=== PATIENT | female | born 1955 | race Caucasian/White ===

== ENCOUNTER 2016-06-13 18:27 | Observation (INO) ==
[2016-06-13] MEDS ORDERED: *HR* Dextrose 50 % in Water (Syg) 50 ML SYRINGE IVP PRN (20:15)
[2016-06-13] MEDS ORDERED: Insulin Regular, Human 100 UNIT/ML IV ONE (20:15)
--- NOTE | 2016-06-13 20:29 | Emergency Department Note ---
Disposition Clinical Impression: Hyperglycemia Non-Hodgkin lymphoma Qualifiers: Non-Hodgkin lymphoma type: follicular Follicular lymphoma type: unspecified follicular type Lymphoma site: unspecified region Qualified Code(s): C82.90 - Follicular lymphoma, unspecified, unspecified site Disposition: Admitted As Inpatient Condition: Good Time of Disposition: 22:34 Recheck wound or abnormal lab - General Chief Complaint: ED General Medical Stated Complaint: hyperglycemia from cancer center Time Seen by Provider: 06/13/16 20:00 Source: patient, family Limitations: no limitations Nursing Notes Reviewed: Yes Vital Signs Reviewed: Yes - History of Present Illness HPI Narrative: 61-year-old female with obesity, insulin-dependent diabetes, non-Hodgkin's lymphoma, chemotherapy today with Dr. Burnett, patient presents with hyperglycemia, her blood sugars were 670 today in office, they were very labile when down to 200 and she went home and ate a piece of toast and then went back up to 500. Patient reports mild headache, she reports mild diffuse abdominal pain but no specific quadrant tenderness. Patient states her headaches at 3 out of 10, crampy. Patient denies any other symptoms denies vision changes chest pain or shortness of breath. Pt Subjective Complaint: abnormal lab(s) ([id number]) Symptoms Since Prior Visit: no new symptoms Associated symptoms: nausea - Related Data Home Medications Medication Instructions Recorded Confirmed Cetirizine HCl [Zyrtec] 10 mg PO DAILY 05/08/15 06/13/16 Insulin Glargine,Hum.rec.anlog 45 unit SQ HS 05/08/15 06/13/16 [Lantus Solostar] Omeprazole 20 mg PO DAILY 05/08/15 06/13/16 Acetaminophen [Tylenol] 500 mg PO Q6HR PRN 01/13/16 06/13/16 Albuterol Sulfate [Albuterol 2 puff IH Q4HR PRN 01/13/16 06/13/16 Inhaler] Fluticasone Propionate Nasal 1 spray NS DAILY 01/13/16 06/13/16 [Flonase] Lisinopril/Hydrochlorothiazide 1 tab PO DAILY 01/13/16 06/13/16 [Zestoretic 20-25 mg Tablet] Meloxicam 15 mg PO DAILY 01/13/16 06/13/16 Aspirin Enteric Coated [Aspirin EC] 81 mg PO DAILY 06/13/16 06/13/16 Docusate [Colace] 100 mg PO DAILY 06/13/16 06/13/16 Gabapentin [Neurontin] 800 mg PO TID 06/13/16 06/13/16 HYDROmorphone [Dilaudid] 2 mg PO Q12H PRN 06/13/16 06/13/16 Lidocaine/Prilocaine CREAM [Emla] 1 gm TP ONCE PRN 06/13/16 06/13/16 Nystatin POWDER [Nystop] 1 appl TP BID 06/13/16 06/13/16 Topiramate [Topamax] 50 mg PO BID 06/13/16 06/13/16 Triamcinolone Acet 0.1% CRM 1 appl TP BID 06/13/16 06/13/16 [Kenalog] Previous Rx's Medication Instructions Recorded Insulin ASPART [NovoLOG] 5 unit SQ TIDWM #10 vial 06/14/16 Insulin DETEMIR [Levemir] 45 unit SQ HS [id number] 06/14/16 Allergies Allergy/AdvReac Type Severity Reaction Status Date / Time diphenhydramine AdvReac See Verified 11/10/14 09:34 [From Benadryl] Comments Oxycodone AdvReac Itching Verified 11/10/14 09:35 All systems ED: reviewed and negative except as stated. Constitutional: Denies: fever, chills, weakness ENT ED: Denies: ear pain, throat pain Cardiovascular: Denies: chest pain, palpitations Respiratory: Denies: cough, dyspnea, wheezes Gastrointestinal: Reports: as per HPI, nausea. Denies: abdominal pain Genitourinary: Denies: urgency, dysuria Integumentary: Denies: rash, abrasion Neurological: Reports: as per HPI, headache Past Medical History - Past Medical History Attestation: Yes The following information was validated with the patient. Source: patient Medical history: Reports: cancer, CVA, DVT, diabetes, GERD, hypertension, myocardial infarction Psychiatric history: Reports: no psych history - Social History Smoking Status: Never smoker Smokeless Tobacco Status: No Alcohol use: Reports: none Drug use: Reports: none Physical Exam Constitutional: Obese female in no acute distress vital signs reviewed and within normal limits HEENT: NCAT, sclera anicteric, PERRLA bilaterally, normal external ears bilaterally, nasal septum nondeviated, average dentition, MMM Neck: normal inspection, neck is supple, trachea midline Resp: normal chest inspection, CTA bilaterally, no resp distress CV: RRR, no m/g/r GI:obese abdomen normal inspection soft nontender nondistended. Back: normal inspection, no tenderness to palpation Neuro: A&O3, no gross motor sensory neuropathydec light touch bilateral lower extremities which is consistent with her baseline Skin: No rashes, skin warm, dry, intact - General Limitations: no limitations General appearance: alert, in no apparent distress Course Course Narrative: 89yo female with hyperglycemia, insulin dependent diabetes history of [place], history of lymphoma, active chemotherapy, sent by Dr Bhagat oncology for admission , high-risk patient likely will admit to inpatient service will evaluate for DKA with Beta hydroxy acid VBG work urinalysis reassess - Reevaluation(s) Reevaluation #1: Patient with hyperglycemia, no evidence of DKA on lab work, normal VBG, admit to medicine service with oncology consult. Dr. Marie accepting. Time: 22:20 Vital Signs Temperature 98.6 F 06/13/16 18:44 Pulse Rate 107 06/13/16 18:44 Respiratory Rate 16 06/13/16 18:44 Blood Pressure 168/89 06/13/16 18:44 O2 Sat by Pulse Oximetry 97 06/13/16 18:44 Temperature 97.7 F 06/14/16 16:28 Pulse Rate 84 06/14/16 16:28 Respiratory Rate 18 06/14/16 16:28 Blood Pressure 126/80 06/14/16 16:28 O2 Sat by Pulse Oximetry 95 06/14/16 16:28 Oxygen Delivery Oxygen Delivery Room Air Recheck wound or abnormal lab - MDM Narrative Medical decision making narrative: 61 year-old female with hyperglycemia lymphoma, admitted to the hospitalist service in stable condition. - Differential Diagnosis Likely: encounter for medication refill, encounter for recheck of burn - Medical Records Medical records reviewed: Yes I reviewed the patient's medical records. - Lab Data Lab results reviewed: Yes I reviewed the patient's lab results. Result diagrams: 06/13/16 20:47 06/13/16 20:47 Lab Results 06/13/16 06/13/16 06/13/16 Range/Units 19:10 20:47 20:47 WBC 8.0 (4.3-11.1) K/mcL RBC 4.25 (3.82-4.97) M/mcL Hgb 13.2 (11.5-15.4) g/dL Hct 36.9 (35.3-44.9) % MCV 86.8 (83.0-100.0) fL MCH 31.1 (28.0-33.3) pg MCHC 35.8 H (31.6-35.5) g/dL RDW 11.9 (11.5-14.5) % Plt Count 249 (140-400) K/mcL MPV 10.6 (9.4-12.4) fL Immature Gran % 0.5 (0-4) % Seg Neutrophils % 91.6 % Lymphocytes % 6.4 % Monocytes % 1.4 % Eosinophils % 0.0 % Basophils % 0.1 % Neutrophils # 7.3 (1.6-8.9) K/mcL Lymphocytes # 0.5 L (0.6-4.6) K/mcL Monocytes # 0.1 (0.0-1.3) K/mcL Eosinophils # 0.0 (0.0-0.6) K/mcL Basophils # 0.0 (0.0-0.2) K/mcL VBG pH (7.32-7.42) pH Units VBG pCO2 (41-51) mmHg VBG pO2 (25-40) mmHg VBG HCO3 (21-27) mEq/L Sodium 133 L (136-145) mEq/L Potassium 4.0 (3.5-4.5) mEq/L Chloride 101 (98-109) mEq/L Carbon Dioxide 22 (19-29) mEq/L BUN 24 H (7-20) mg/dL Creatinine 0.89 (0.57-1.11) mg/dL Est GFR ( Amer) > 60 (> 60) Est GFR (Non-Af Amer) > 60 (> 60) BUN/Creatinine Ratio 27 H (6-26) Glucose 459 H (70-99) mg/dL POC Glucose 442 H* (58-89) Calculated Osmolality 300 (280-300) Lactic Acid (0.5-2.2) mmol/L Calcium 9.1 (8.6-10.8) mg/dL Total Bilirubin 0.6 (0.2-1.2) mg/dL AST 13 (5-34) Units/L ALT 20 (0-55) Units/L Alkaline Phosphatase 103 (38-126) Units/L Troponin I (0-0.03) ng/mL Serum Total Protein 6.5 (6.0-8.3) g/dL Albumin 2.9 L (3.5-5.0) g/dL Globulin 3.6 H (2.4-3.5) g/dL Albumin/Globulin Ratio 0.8 L (1.1-2.2) Beta-Hydroxybutyric Acd 0.90 H (0.02-0.27) mmol/L 06/13/16 06/13/16 06/13/16 Range/Units 20:47 20:47 20:47 WBC (4.3-11.1) K/mcL RBC (3.82-4.97) M/mcL Hgb (11.5-15.4) g/dL Hct (35.3-44.9) % MCV (83.0-100.0) fL MCH (28.0-33.3) pg MCHC (31.6-35.5) g/dL RDW (11.5-14.5) % Plt Count (140-400) K/mcL MPV (9.4-12.4) fL Immature Gran % (0-4) % Seg Neutrophils % % Lymphocytes % % Monocytes % % Eosinophils % % Basophils % % Neutrophils # (1.6-8.9) K/mcL Lymphocytes # (0.6-4.6) K/mcL Monocytes # (0.0-1.3) K/mcL Eosinophils # (0.0-0.6) K/mcL Basophils # (0.0-0.2) K/mcL VBG pH 7.40 (7.32-7.42) pH Units VBG pCO2 39 L (41-51) mmHg VBG pO2 57 H (25-40) mmHg VBG HCO3 24.2 (21-27) mEq/L Sodium (136-145) mEq/L Potassium (3.5-4.5) mEq/L Chloride (98-109) mEq/L Carbon Dioxide (19-29) mEq/L BUN (7-20) mg/dL Creatinine (0.57-1.11) mg/dL Est GFR ( Amer) (> 60) Est GFR (Non-Af Amer) (> 60) BUN/Creatinine Ratio (6-26) Glucose (70-99) mg/dL POC Glucose (58-89) Calculated Osmolality (280-300) Lactic Acid 0.9 (0.5-2.2) mmol/L Calcium (8.6-10.8) mg/dL Total Bilirubin (0.2-1.2) mg/dL AST (5-34) Units/L ALT (0-55) Units/L Alkaline Phosphatase (38-126) Units/L Troponin I 0.00 (0-0.03) ng/mL Serum Total Protein (6.0-8.3) g/dL Albumin (3.5-5.0) g/dL Globulin (2.4-3.5) g/dL Albumin/Globulin Ratio (1.1-2.2) Beta-Hydroxybutyric Acd (0.02-0.27) mmol/L 06/13/16 Range/Units 21:48 WBC (4.3-11.1) K/mcL RBC (3.82-4.97) M/mcL Hgb (11.5-15.4) g/dL Hct (35.3-44.9) % MCV (83.0-100.0) fL MCH (28.0-33.3) pg MCHC (31.6-35.5) g/dL RDW (11.5-14.5) % Plt Count (140-400) K/mcL MPV (9.4-12.4) fL Immature Gran % (0-4) % Seg Neutrophils % % Lymphocytes % % Monocytes % % Eosinophils % % Basophils % % Neutrophils # (1.6-8.9) K/mcL Lymphocytes # (0.6-4.6) K/mcL Monocytes # (0.0-1.3) K/mcL Eosinophils # (0.0-0.6) K/mcL Basophils # (0.0-0.2) K/mcL VBG pH (7.32-7.42) pH Units VBG pCO2 (41-51) mmHg VBG pO2 (25-40) mmHg VBG HCO3 (21-27) mEq/L Sodium (136-145) mEq/L Potassium (3.5-4.5) mEq/L Chloride (98-109) mEq/L Carbon Dioxide (19-29) mEq/L BUN (7-20) mg/dL Creatinine (0.57-1.11) mg/dL Est GFR ( Amer) (> 60) Est GFR (Non-Af Amer) (> 60) BUN/Creatinine Ratio (6-26) Glucose (70-99) mg/dL POC Glucose 322 H (58-89) Calculated Osmolality (280-300) Lactic Acid (0.5-2.2) mmol/L Calcium (8.6-10.8) mg/dL Total Bilirubin (0.2-1.2) mg/dL AST (5-34) Units/L ALT (0-55) Units/L Alkaline Phosphatase (38-126) Units/L Troponin I (0-0.03) ng/mL Serum Total Protein (6.0-8.3) g/dL Albumin (3.5-5.0) g/dL Globulin (2.4-3.5) g/dL Albumin/Globulin Ratio (1.1-2.2) Beta-Hydroxybutyric Acd (0.02-0.27) mmol/L Attestation Statement - Attestation Attestation: I examined this patient and my medical decision-making was reviewed with the TONAL REGULATOR/PA/Advanced Practice Nurse/Resident Physician. I agree with the documented findings, disposition and treatment plan as described except to the extent set forth below. 61 yo female presents with concerns of hyperglycemia. Pt treated at [facility] for lymphoma and is unable to control her sugars at home. Pt has elevated FSBS but does not have anion gap. No UTI or acute infiltrate on CXR. Onchology/hematology wished for her to be admitted for evaluation of insulin pump. Pt given insulin and will be admitted to the hospital for further care and evaluation.
[2016-06-13] MEDS ORDERED: 0.9 % Sodium Chloride 1,000 ML IVC ONE (20:53)
[2016-06-13 20:54] LABS: Basophils % 0.1 %; Hematocrit 36.9 % (35.3-44.9); Hemoglobin 13.2 g/dL (11.5-15.4); Immature Granulocytes % 0.5 % (0-4); Lymphocytes # 0.5 K/mcL (0.6-4.6); Lymphocytes % 6.4 %; Mean Corpuscular HGB Conc 35.8 g/dL (31.6-35.5); Mean Corpuscular Hemoglobin 31.1 pg (28.0-33.3); Mean Corpuscular Volume 86.8 fL (83.0-100.0); Mean Platelet Volume 10.6 fL (9.4-12.4); Monocytes # 0.1 K/mcL (0.0-1.3); Monocytes % 1.4 %; Neutrophils # 7.3 K/mcL (1.6-8.9); Platelet Count 249 K/mcL (140-400); Red Blood Count 4.25 M/mcL (3.82-4.97); Red Cell Distribution Width 11.9 % (11.5-14.5); Segmented Neutrophils % 91.6 %
[2016-06-13 20:55] LABS: VBG HCO3 24.2 mEq/L (21-27); VBG PH 7.4 pH Units (7.32-7.42)
[2016-06-13 21:09] LABS: Alanine Aminotransferase 20 Units/L (0-55); Albumin 2.9 g/dL (3.5-5.0); Albumin/Globulin Ratio 0.8 (1.1-2.2); Alkaline Phosphatase 103 Units/L (38-126); Aspartate Amino Transferase 13 Units/L (5-34); BUN/Creatinine Ratio 27 (6-26); Bilirubin,Total 0.6 mg/dL (0.2-1.2); Blood Urea Nitrogen 24 mg/dL (7-20); Calcium 9.1 mg/dL (8.6-10.8); Carbon Dioxide 22 mEq/L (19-29); Chloride 101 mEq/L (98-109); Globulin 3.6 g/dL (2.4-3.5); Glucose 459 mg/dL (70-99); Osmolality,Calculated 300 (280-300); Sodium 133 mEq/L (136-145); Total Protein 6.5 g/dL (6.0-8.3); eGFR For African Americans > 60 (> 60); eGFR For Non-African Americans > 60 (> 60)
[2016-06-14] MEDS ORDERED: traMADol 50 MG TABLET PO ONE (01:29)
[2016-06-14] MEDS ORDERED: Insulin LISPRO 300 UNITS/3 ML VIAL SQ ONE (02:44)
[2016-06-14 03:26] LABS: Bilirubin,Urine Negative (Negative); Blood,Urine Negative (Negative); Clarity,Urine Clear (Clear); Color,Urine Yellow (Yellow); Glucose,Urine (UA) >=1000 mg/dL (Normal); Ketones,Urine Negative (Negative); Leukocyte Esterase,Urine Negative (Negative); Nitrite,Urine Negative (Negative); PH,Urine 7.5 pH Units (5.0-8.0); Protein,Urine Negative (Neg-Trace); Urobilinogen,Urine Normal (Normal)
[2016-06-14] MEDS: 0.9 % Sodium Chloride 1,000 ML IVC SCH ×3 (04:16→12:22)
[2016-06-14] MEDS ORDERED: Naloxone 0.4 MG/ML INJ IVP PRN (04:51)
[2016-06-14] MEDS ORDERED: *HR* Dextrose 50 % in Water (Syg) 50 ML SYRINGE IVP PRN (04:52)
[2016-06-14] MEDS ORDERED: D5% in Water 1,000 ML IVC PRN (04:52)
[2016-06-14] MEDS ORDERED: Dextrose Gel 15 GM PO PRN ×2 (04:52)
--- NOTE | 2016-06-14 04:57 | Internal Med History&Physical ---
Date of Encounter: 06/14/16 Time of Encounter: 03:00 Assessment and Plan (1) Hyperglycemia Current visit: Yes Status: Acute Treat with Insulin sliding scale and continue home insulin. (2) Diabetes mellitus, labile Current visit: Yes Status: Acute Apparently had recent hemoglobin A1c is 14%. I have advised her on diet and exercise. Will consult nursing educator. Need titration of insulin regime. (3) Non-Hodgkin lymphoma Current visit: Yes Status: Chronic Qualifiers: Non-Hodgkin lymphoma type: follicular Follicular lymphoma type: unspecified follicular type Lymphoma site: unspecified region Qualified Code (s): C82.90 - Follicular lymphoma, unspecified, unspecified site (4) Hypertension Current visit: Yes Status: Chronic COntinue home medications Qualifiers: Hypertension type: essential hypertension Qualified Code(s): I10 - Essential (primary) hypertension (5) Peripheral neuropathy Current visit: Yes Status: Chronic Due to DM. continue gabapentin Qualifiers: Peripheral neuropathy type: polyneuropathy associated with underlying disease Qualified Code(s): G63 - Polyneuropathy in diseases classified elsewhere Internal Medicine - H&P: HPI Chief complaint: Hyperglycemia Admitted From: Emergency Dept Plans for Post Hospital Care: Home History of present illness: Ms. Peña is a 61 year old female with h/o obesity, insulin-dependent diabetes, non-Hodgkin's lymphoma. She was in oncologists office for chemotherapy and she was noted to have blood sugars were 670 today in the office. She was given insulin in the oncologist's office. She went home and checked her blood sugars , which went up to over 500 after she had a slice of bread. She reports polyuria, polydipsia, dizziness on standing some times. She reports mild headache. She denies chest pain, shortness of breath, nausea, vomiting, abdominal pain, dysuria, hematuria, fever, chills. She was evaluated in the emergency department and admitted to the hospitalist service for management of hyperglycemia. She reports h/o peripheral neuropathy, retinopathy related to diabetes. She also reports h/o cataracts. She reports that she is on fixed income and dietary compliance is a problem. Past Med Surg Social Fam HX - Past Medical History Medical history: cancer, CVA, DVT, diabetes, GERD, hypertension, migraine, myocardial infarction Psychiatric history: no psych history - Social History Smoking Status: Never smoker Smokeless Tobacco Status: No Alcohol use: none Drug use: none - Family History Father Adopted: Yes Family Member Ethnicity: Non- Living Status: Age at : 61 Cause of : Prostate cancer Brother Adopted: Yes Age: 58 Family Member Ethnicity: Non- Living Status: Still Living Hx Family Autoimmune Disorders: Yes (Lupus) Internal Medicine - H&P: Meds Cetirizine HCl [Zyrtec] 10 mg PO DAILY 05/08/15 [History] Insulin Aspart Prot/Insuln Asp [Novolog Mix 70-30 Vial] 0 unit SQ TIDAC [History] Insulin Glargine,Hum.rec.anlog [Lantus Solostar] 45 unit SQ HS 05/08/15 [History ] Omeprazole 20 mg PO DAILY 05/08/15 [History] Acetaminophen [Tylenol] 500 mg PO Q6HR PRN 01/13/16 [History] Albuterol Sulfate [Albuterol Inhaler] 2 puff IH Q4HR PRN 01/13/16 [History] Fluticasone Propionate Nasal [Flonase] 1 spray NS DAILY 01/13/16 [History] Lisinopril/Hydrochlorothiazide [Zestoretic 20-25 mg Tablet] 1 tab PO DAILY 01/12 [History] Meloxicam 15 mg PO DAILY 01/13/16 [History] Aspirin Enteric Coated [Aspirin EC] 81 mg PO DAILY 06/13/16 [History] Docusate [Colace] 100 mg PO DAILY 06/13/16 [History] Gabapentin [Neurontin] 800 mg PO TID 06/13/16 [History] HYDROmorphone [Dilaudid] 2 mg PO Q12H PRN 06/13/16 [History] Lidocaine/Prilocaine CREAM [Emla] 1 gm TP ONCE PRN 06/13/16 [History] Nystatin POWDER [Nystop] 1 appl TP BID 06/13/16 [History] Topiramate [Topamax] 50 mg PO BID 06/13/16 [History] Triamcinolone Acet 0.1% CRM [Kenalog] 1 appl TP BID 06/13/16 [History] Allergies diphenhydramine [From Benadryl] Adverse Reaction (Verified 11/10/14 09:34) See Comments makes nervous Oxycodone Adverse Reaction (Verified 11/10/14 09:35) Itching All Systems PM: A 10-system review of systems was performed and is negative for pertinent findings except as documented above in the HPI. - Constitutional Vitals: Temp Pulse Resp BP Pulse Ox 98.3 F 75 18 135/71 96 06/14/16 04:18 06/14/16 04:18 06/14/16 04:18 06/14/16 04:18 06/14/16 04:18 Exam: General: Not in acute distress at the time of my evaluation. Morbid obesity ( central) HEENT: Oral mucosa is dry. No conjunctival palor or scleral icterus Neck: No obvious neck swellings Lungs: Clear to auscultation Cardiac: Regular rate and rhythm. No significant murmurs Abdomen: Obese; non tender. Bowel sounds present Genitourinary: No rankin catheter Neurological: Alert and oriented. No gross localizing deficits Psych: Not aggressive or agitated Extremities: B/L leg edema Skin: No generalized rash Internal Med - H&P Results - Labs CBC & Chem 7: 06/13/16 20:47 06/13/16 20:47 Labs: Urine 06/14/16 Range/Units 02:55 Urine Color Yellow (Yellow) Urine Clarity Clear (Clear) Urine pH 7.5 (5.0-8.0) pH Units Ur Specific [place] 1.020 (1.010-1.025) Urine Protein Negative (Neg-Trace) mg/dL Urine Glucose (UA) >=1000 H (Normal) mg/dL - Impressions ITS Impressions Chest X-Ray 06/13/16 20:15 IMPRESSION: No acute process. D/ / Praneeth Mendoza MD / Praneeth Mendoza MD Interpreting Provider: Praneeth Mendoza MD
[2016-06-14] MEDS: Insulin LISPRO 300 UNITS/3 ML VIAL SQ SCH ×2 (07:57→12:18)
[2016-06-14] MEDS ORDERED: Aspirin Enteric Coated 81 MG Tablet PO SCH (09:00)
[2016-06-14] MEDS ORDERED: Nystatin POWDER 30 GM BOTTLE TP SCH (09:00)
[2016-06-14] MEDS ORDERED: Topiramate 25 MG TABLET PO SCH (09:00)
[2016-06-14] MEDS ORDERED: Fluticasone Propionate Nasal 50 MCG/SPRAY BOTTLE NS SCH (09:00)
[2016-06-14] MEDS ORDERED: Gabapentin 400 MG CAPSULE PO SCH (09:00)
--- NOTE | 2016-06-14 13:50 | Discharge Summary ---
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; E10.65 - Type 1 diabetes mellitus with hyperglycemia (2) Non-Hodgkin lymphoma Priority: Secondary Status: Chronic Qualifiers: Non-Hodgkin lymphoma type: follicular Follicular lymphoma type: unspecified follicular type Lymphoma site: unspecified region Qualified Code (s): C82.90 - Follicular lymphoma, unspecified, unspecified site (3) Hyperglycemia Priority: Primary Status: Acute (4) Hypertension Priority: Primary Status: Chronic Qualifiers: Hypertension type: essential hypertension Qualified Code(s): I10 - Essential (primary) hypertension (5) Peripheral neuropathy Priority: Secondary Status: Chronic Qualifiers: Peripheral neuropathy type: polyneuropathy associated with underlying disease Qualified Code(s): G63 - Polyneuropathy in diseases classified elsewhere - Discharge Medications Prescriptions: Insulin Aspart Prot/Insuln Asp [Novolog Mix 70-30 Vial] 5 unit SQ TIDAC #10 vial Home Medications: Cetirizine HCl [Zyrtec] 10 mg PO DAILY 05/08/15 [History] Insulin Glargine,Hum.rec.anlog [Lantus Solostar] 45 unit SQ HS 05/08/15 [History ] Omeprazole 20 mg PO DAILY 05/08/15 [History] Acetaminophen [Tylenol] 500 mg PO Q6HR PRN 01/13/16 [History] Albuterol Sulfate [Albuterol Inhaler] 2 puff IH Q4HR PRN 01/13/16 [History] Fluticasone Propionate Nasal [Flonase] 1 spray NS DAILY 01/13/16 [History] Lisinopril/Hydrochlorothiazide [Zestoretic 20-25 mg Tablet] 1 tab PO DAILY 01/12 [History] Meloxicam 15 mg PO DAILY 01/13/16 [History] Aspirin Enteric Coated [Aspirin EC] 81 mg PO DAILY 06/13/16 [History] Docusate [Colace] 100 mg PO DAILY 06/13/16 [History] Gabapentin [Neurontin] 800 mg PO TID 06/13/16 [History] HYDROmorphone [Dilaudid] 2 mg PO Q12H PRN 06/13/16 [History] Lidocaine/Prilocaine CREAM [Emla] 1 gm TP ONCE PRN 06/13/16 [History] Nystatin POWDER [Nystop] 1 appl TP BID 06/13/16 [History] Topiramate [Topamax] 50 mg PO BID 06/13/16 [History] Triamcinolone Acet 0.1% CRM [Kenalog] 1 appl TP BID 06/13/16 [History] Insulin Aspart Prot/Insuln Asp [Novolog Mix 70-30 Vial] 5 unit SQ TIDAC #10 vial 06/14/16 [Rx] Insulin DETEMIR [Levemir] 45 unit SQ HS [id number] 06/14/16 [Rx] Allergies/Adverse Reactions: Allergies diphenhydramine [From Benadryl] Adverse Reaction (Verified 11/10/14 09:34) See Comments makes nervous Oxycodone Adverse Reaction (Verified 11/10/14 09:35) Itching Date of admission: 06/13/16 22:21 Primary care physician: Crow Gonzalez CNP Consults: 06/14/16 04:54 Consult to Vet Tech [CONS] Routine Comment: Discharging clinician: Christian Zimmerman Anticipated date of discharge: 06/14/16 - Patient Status Disposition: Home, Self-Care Condition: Good Functional capacity at discharge: independent ambulation Overall status at discharge: patient is back to baseline - Discharge Instructions Instructions: Diabetes Mellitus Type 2 in Adults (DC), Chronic Hypertension (DC ), Diabetic Hyperglycemia (DC) Follow Up With: Crow Gonzalez CNP [Primary Care Provider] - 06/20/16 12:30 pm Ramila Ryan CNP [Advanced Practice Nurse] - 06/23/16 11:30 am Additional Instructions: *PLEASE KEEP A FOOD DIARY WITH EVERYTHING YOU EAT AND TAKE IT WITH YOU TO YOUR APPOINTMENT WITH [facility] ON June - Diet and Activity Activity: resume usual activities as tolerated Diet: diabetic diet Hospital course: Ms. Peña is a 61 year old female with PMH of obesity, insulin-dependent diabetes , HTN, DVT, CVA, VT, non-Hodgkin's lymphoma. She was in oncologists office for chemotherapy 06/13 and she was noted to have blood sugars were 670. She was given insulin in the oncologist's office. She went home and checked her blood sugars, which went up to over 500 after she had a slice of bread. She presented the ER, where her glucose was found to be 459. She was given 10units of humalin. with a decrease in glucose to the 300s. The patient was not found to be ketotic or acidotic. Beta-hydroxybutyric acid is 0.90. She reports that one month ago her HgbA1C was 14%. She notes difficulty with her sugars, having months where they are stable and then they will be out of control. She states she is on a fixed income and has issues with dietary compliance secondary to lack of funds. The patient was monitored overnight and her glucoses were stabilized at 160-200's. Patient denies any symptoms. She did have chemo last Monday and 06/13 at which time she does get some steroids. Patient reports no other steroid use. She states her blood sugars at home range from 160-300s. She uses lantus 45 units QHS and novalog on a sliding scale with no base units. She will be discharged on the same dose of lantus. Her novalog will be increased to a 5 unit base with sliding scale TIDAC. She was instructed to increase the base units for the ss when she is receiving steroids. She will be referred to Endocrinology for further management of her DM. She will be discharged home in stable condition. - Time Spent with Patient Total time spent providing and/or coordinating discharge services: - Constitutional Vitals: Temp Pulse Resp BP Pulse Ox 98.1 F 82 18 128/80 98 06/14/16 11:18 06/14/16 11:18 06/14/16 11:18 06/14/16 11:18 06/14/16 11:18 General appearance: Present: A&O X 3, morbidly obese, pleasant, no acute distress, answers questions appropriately - Head Head exam: Present: atraumatic, normocephalic - Neck Neck exam general surgery: Present: supple, trachea midline. Absent: lymphadenopathy - Respiratory Respiratory exam: Present: CTAB. Absent: accessory muscle use, rales, rhonchi, wheezes - Cardiovascular Cardiovascular exam: Present: RRR, +S1, +S2. Absent: diastolic murmur, gallop, rubs, systolic murmur - GI/Abdominal GI/Abdominal exam: Present: normal bowel sounds, soft, no peritoneal signs. Absent: distended, tenderness - Extremities Exam Extremities exam: Present: warm, radial pulses palpable and symetrical. Absent : calf tenderness, cyanotic, pedal edema - Neurological Exam Neurological exam: Present: alert, oriented X3, no focal deficits, strengths equal and symetr throughout. Absent: motor sensory deficit, facial droop, speech deficit - Psychiatric Psychiatric exam: Present: normal affect, normal mood - Skin Skin exam: Present: dry, intact, normal color, warm. Absent: diaphoretic, erythema, rash <Christian Zimmerman - Last Filed: 06/14/16 14:59> Date of admission: 06/13/16 22:21 Primary care physician: Crow Gonzalez CNP Consults: 06/14/16 04:54 Consult to Vet Tech [CONS] Routine Comment: Hospital course: Ms. Peña is a 61 year old female - Time Spent with Patient Total time spent providing and/or coordinating discharge services: - Constitutional Vitals: Temp Pulse Resp BP Pulse Ox 98.1 F 82 18 128/80 98 06/14/16 11:18 06/14/16 11:18 06/14/16 11:18 06/14/16 11:18 06/14/16 11:18 - Attending Attestation Uncontrolled diabetes type 2 likely exacerbated by steroids during chemotherapy Increase NovoLog to 5 units 3 times a day plus a sliding scale, may increase to 10 units of NovoLog plus sliding scale taking steroids Continue Levemir 45 units at night Time spent on this discharge 40 minutes I examined this patient and my medical decision-making was reviewed with the JUNIOR ACCOUNTANT/PA/Advanced Practice Nurse/Resident Physician. I agree with the documented findings, disposition and treatment plan as described except to the extent set forth below.
[2016-06-14] MEDS ORDERED: FLU VACC QS2016-17 36MOS UP/PF 0.5 ML SYRINGE IM ONE (15:53)
[2016-06-14 16:29] VITALS: BP 126/80
[2016-06-14] MEDS ORDERED: Insulin DETEMIR 100 UNIT/ML X5UNITS SQ SCH (21:00)
[2016-06-14] MEDS ORDERED: Insulin LISPRO 300 UNITS/3 ML VIAL SQ SCH (21:00)
== END 2016-06-14 17:00 | disposition home or self-care (01) ==
LOC: 2ANU 18:27 → EMEROO 18:27 → SUATTDRO 22:21 → 2ANU 23:09
PROVIDERS: ADMIT Internal Medicine; ATTEND Internal Medicine

== ENCOUNTER 2016-10-06 15:21 | Inpatient (IN) ==
[2016-10-06 15:43] LABS: Basophils % 0.4 %; Eosinophils # 0.1 K/mcL (0.0-0.6); Eosinophils % 1.5 %; Hematocrit 35.4 % (35.3-44.9); Hemoglobin 12.4 g/dL (11.5-15.4); Immature Granulocytes % 0.5 % (0-4); Lymphocytes # 1.6 K/mcL (0.6-4.6); Lymphocytes % 19.6 %; Mean Corpuscular Hemoglobin 31.3 pg (28.0-33.3); Mean Corpuscular Volume 89.4 fL (83.0-100.0); Mean Platelet Volume 10.5 fL (9.4-12.4); Monocytes # 0.6 K/mcL (0.0-1.3); Monocytes % 7.6 %; Neutrophils # 5.8 K/mcL (1.6-8.9); Platelet Count 200 K/mcL (140-400); Red Blood Count 3.96 M/mcL (3.82-4.97); Red Cell Distribution Width 11.2 % (11.5-14.5); Segmented Neutrophils % 70.4 %
[2016-10-06 15:53] LABS: INR 1.1; Prothrombin Time 12.2 Seconds (9.4-12.1)
--- NOTE | 2016-10-06 15:53 | Emergency Department Note ---
Disposition Clinical Impression: CVA (cerebral vascular accident) Qualifiers: CVA mechanism: other Qualified Code(s): I63.8 - Other cerebral infarction Disposition: Admitted As Inpatient Condition: Fair Neuro HPI - General Chief Complaint: ED Neuro Symptoms/Deficit Stated Complaint: neuro Source: patient, family Limitations: no limitations Nursing Notes Reviewed: Yes Vital Signs Reviewed: Yes - History of Present Illness HPI Narrative: I did see the patient upon arrival and the story is that she did have 2 strokes back in July with some residual right-sided weakness and then today while she was at her friend's house at 1:30 developed slurred speech and right facial droop as well as increased weakness of the right arm and leg. No numbness. Yesterday had some minimal forehead pain but no head pain today. No pain in the neck, chest, abdomen or back. No medication specifically use for her symptoms. Constitutional: No fever Vision: No blurred vision ENT: No rhinorrhea Respiratory: No cough Allergic: No allergies : No blood in urine GI: No blood in stool Hematologic: No bruising Dermatologic: No skin rash Musculoskeletal: No pain in the extremities Neuro: No numbness of the extremities Social history: No smoking - Related Data Home Medications: Home Medications Medication Instructions Recorded Confirmed Cetirizine HCl [Zyrtec] 10 mg PO DAILY 05/08/15 10/06/16 Insulin Glargine,Hum.rec.anlog 40 unit SQ HS 05/08/15 10/06/16 [Lantus Solostar] Omeprazole 20 mg PO DAILY 05/08/15 10/06/16 Acetaminophen [Tylenol] 500 mg PO Q6HR PRN 01/13/16 10/06/16 Albuterol Sulfate [Albuterol 2 puff IH Q4HR PRN 01/13/16 10/06/16 Inhaler] Fluticasone Propionate Nasal 1 spray NS DAILY 01/13/16 10/06/16 [Flonase] Gabapentin [Neurontin] 800 mg PO BID 06/13/16 10/06/16 Lidocaine/Prilocaine CREAM [Emla] 1 gm TP ONCE PRN 06/13/16 10/06/16 Topiramate [Topamax] 50 mg PO BID 06/13/16 10/06/16 Insulin ASPART [Novolog Flexpen] 0 unit SQ TIDAC 06/27/16 10/06/16 Atorvastatin [Lipitor] 40 mg PO HS 09/05/16 10/06/16 Clopidogrel [Plavix] 75 mg PO DAILY 09/05/16 10/06/16 amLODIPine [Norvasc] 5 mg PO DAILY 09/05/16 10/06/16 Docusate [Colace] 100 mg PO DAILY 10/06/16 10/06/16 Lisinopril/Hydrochlorothiazide 1 each PO DAILY 10/06/16 10/06/16 [Zestoretic 20-25 mg Tablet] Meloxicam [Mobic] 15 mg PO DAILY 10/06/16 10/06/16 Nystatin POWDER [Nystop] 1 appl TP BID PRN 10/06/16 10/06/16 Tramadol HCl [Ultram] 50 mg PO QID PRN 10/06/16 10/06/16 Allergies/Adverse Reactions: Allergies Allergy/AdvReac Type Severity Reaction Status Date / Time diphenhydramine AdvReac See Verified 07/05/16 08:46 [From Del] Comments Oxycodone AdvReac Itching Verified 07/05/16 08:46 Review of Systems: Constitutional: No fever Vision: No blurred vision ENT: No rhinorrhea Respiratory: No cough Allergic: No allergies : No blood in urine GI: No blood in stool Hematologic: No bruising Dermatologic: No skin rash Musculoskeletal: No pain in the extremities Neuro: No numbness of the extremities Past Medical History - Past Medical History Medical history: Reports: cancer, CVA, DVT, diabetes, GERD, hypertension, myocardial infarction Psychiatric history: Reports: no psych history - Social History Smoking Status: Never smoker Smokeless Tobacco Status: No Alcohol use: Reports: none Drug use: Reports: none Physical Exam CONSTITUTIONAL: Well-appearing; well-nourished; A&O X3, in no apparent distress , does have some minimal slurred speech and possibly right facial droop HEAD: Normocephalic; atraumatic. EYES: PERRL, EOMI, no scleral icterus NOSE: The nose is normal in appearance without rhinorrhea NECK: Supple without rigidity, no HAKAN RESP: Normal chest excursion with respiration; breath sounds clear and equal bilaterally; no wheezes, rhonchi, or rales CARD: Regular rhythm, without murmurs, rub or gallop ABD: Non-distended; non-tender, soft, without rigidity, rebound or guarding SKIN: Normal for age and race; warm and dry; no apparent lesions, no rash NEUROLOGICAL: Patient is alert and oriented times three. Cranial nerves III- XII are intact. Sensory and motor functions are intact. Strength is 5/5 for flexion and extension in all 4 extremities. Finger to nose testing is equal and normal bilaterally. - General Limitations: no limitations General appearance: alert, in no apparent distress Course Vital Signs Temperature 98.1 F 10/06/16 15:24 Pulse Rate 89 10/06/16 15:24 Respiratory Rate 20 10/06/16 15:24 Blood Pressure 138/94 10/06/16 15:24 O2 Sat by Pulse Oximetry 96 10/06/16 15:24 Temperature 98.3 F 10/06/16 18:57 Pulse Rate 74 10/06/16 18:57 Respiratory Rate 16 10/06/16 18:57 Blood Pressure 154/92 10/06/16 18:57 O2 Sat by Pulse Oximetry 95 10/06/16 18:57 Oxygen Delivery Oxygen Delivery Room Air Neuro Symptoms/Deficit - MDM Narrative Medical decision making narrative: Patient's CT has been completed, the [facility] neurologists will be on the line shortly for the tele-stroke. Patient's stroke scale is 1. 1554 I did speak with the radiologist who confirms the CT does not show anything acute. The patient was seen by the [facility] neurologist and I was in the room at the time and they agree that the NIHSS is one and the patient is not a thrombolytic candidate due to the low stroke scale. The patient will be admitted to the hospital. Labs are pending and these will be reviewed. The patient is alert and still does have some minimal dysarthria but is otherwise stable. Color is good. Breathing comfortably. 1604 I spoke with the hospitalist who accepts for admission for CVA and neurologic consultation and likely MRI scan of the brain. The patient has been checked multiple times. Remains stable at this time. Critical care time: 30 minutes 1620 I did review the patient's EKG showing normal sinus rhythm with rate of 81 without acute ischemic changes 1633 - Medical Records Medical records reviewed: Yes I reviewed the patient's medical records. - Lab Data Lab results reviewed: Yes I reviewed the patient's lab results. Result diagrams: 10/06/16 15:35 10/06/16 15:35 Lab Results 10/06/16 10/06/16 10/06/16 Range/Units 15:32 15:35 15:35 WBC 8.2 (4.3-11.1) K/mcL RBC 3.96 (3.82-4.97) M/mcL Hgb 12.4 (11.5-15.4) g/dL Hct 35.4 (35.3-44.9) % MCV 89.4 (83.0-100.0) fL MCH 31.3 (28.0-33.3) pg MCHC 35.0 (31.6-35.5) g/dL RDW 11.2 L (11.5-14.5) % Plt Count 200 (140-400) K/mcL MPV 10.5 (9.4-12.4) fL Immature Gran % 0.5 (0-4) % Seg Neutrophils % 70.4 % Lymphocytes % 19.6 % Monocytes % 7.6 % Eosinophils % 1.5 % Basophils % 0.4 % Neutrophils # 5.8 (1.6-8.9) K/mcL Lymphocytes # 1.6 (0.6-4.6) K/mcL Monocytes # 0.6 (0.0-1.3) K/mcL Eosinophils # 0.1 (0.0-0.6) K/mcL Basophils # 0.0 (0.0-0.2) K/mcL PT 12.2 H (9.4-12.1) Seconds INR 1.1 APTT 154.3 H* (26.0-36.0) Seconds Heparin Anti-Xa, Unfract 0.36 (0.30-0.70) IU/mL Sodium (136-145) mEq/L Potassium (3.5-4.5) mEq/L Chloride (98-109) mEq/L Carbon Dioxide (19-29) mEq/L BUN (7-20) mg/dL Creatinine (0.57-1.11) mg/dL Est GFR ( Amer) (> 60) Est GFR (Non-Af Amer) (> 60) BUN/Creatinine Ratio (6-26) Glucose (70-99) mg/dL POC Glucose 152 H (58-89) Calculated Osmolality (280-300) Calcium (8.6-10.8) mg/dL Troponin I (0-0.03) ng/mL 10/06/16 10/06/16 Range/Units 15:35 15:35 WBC (4.3-11.1) K/mcL RBC (3.82-4.97) M/mcL Hgb (11.5-15.4) g/dL Hct (35.3-44.9) % MCV (83.0-100.0) fL MCH (28.0-33.3) pg MCHC (31.6-35.5) g/dL RDW (11.5-14.5) % Plt Count (140-400) K/mcL MPV (9.4-12.4) fL Immature Gran % (0-4) % Seg Neutrophils % % Lymphocytes % % Monocytes % % Eosinophils % % Basophils % % Neutrophils # (1.6-8.9) K/mcL Lymphocytes # (0.6-4.6) K/mcL Monocytes # (0.0-1.3) K/mcL Eosinophils # (0.0-0.6) K/mcL Basophils # (0.0-0.2) K/mcL PT (9.4-12.1) Seconds INR APTT (26.0-36.0) Seconds Heparin Anti-Xa, Unfract (0.30-0.70) IU/mL Sodium 139 (136-145) mEq/L Potassium 3.8 (3.5-4.5) mEq/L Chloride 107 (98-109) mEq/L Carbon Dioxide 25 (19-29) mEq/L BUN 22 H (7-20) mg/dL Creatinine 0.92 (0.57-1.11) mg/dL Est GFR ( Amer) > 60 (> 60) Est GFR (Non-Af Amer) > 60 (> 60) BUN/Creatinine Ratio 24 (6-26) Glucose 163 H (70-99) mg/dL POC Glucose (58-89) Calculated Osmolality 295 (280-300) Calcium 9.2 (8.6-10.8) mg/dL Troponin I 0.00 (0-0.03) ng/mL - Radiology Data Radiology results reviewed: Yes I reviewed the patient's radiology results. NIH Stroke Scale - Level of Consciousness LOC: Alert - LOC Questions LOC Questions: Answers both correctly - LOC Commands LOC Commands: Performs both correctly - Best Gaze Best Gaze: Normal - Visual Visual: No visual loss - Facial Palsy Facial Palsy: Normal - Motor Arms Motor Arm-Left: No drift for 10 seconds Motor Arm-Right: No drift for 10 seconds - Motor Legs Motor Leg-Left: No drift for 5 seconds Motor Leg-Right: No drift for 5 seconds - Limb Ataxia Limb Ataxia: Normal, No Ataxia - Sensory Sensory: Normal - Best Language Best Language: No aphasia - Dysarthria Dysarthria: Mild, slurs some words - Extinction and Inattention Extinction and Inattention: Normal - NIHSS Total Score NIHSS Total Score: 1 TPA Checklist - LKW: 3-4.5 hrs Add. Warnings/Precautions Patient/family understanding: The patient/family members have been counseled and understood the risk, benefit , and alternatives of treatment. Critical Care Time Critical Care Time: Yes Attestation: The patient did have 30 minutes of critical care time involving emergent evaluation of patient with acute stroke, decision about whether to use thrombolytics based on evaluation of the head CT, and discussed with radiologist , discussion with the neurologist from [facility] as well as correlation the patient's labs and review of previous records with TIA 2 from July of this year. Discussion with patient and her friend. Discussion with hospitalist. [id number]
[2016-10-06 15:54] LABS: BUN/Creatinine Ratio 24 (6-26); Blood Urea Nitrogen 22 mg/dL (7-20); Calcium 9.2 mg/dL (8.6-10.8); Carbon Dioxide 25 mEq/L (19-29); Chloride 107 mEq/L (98-109); Glucose 163 mg/dL (70-99); Osmolality,Calculated 295 (280-300); Potassium 3.8 mEq/L (3.5-4.5); Sodium 139 mEq/L (136-145); eGFR For African Americans > 60 (> 60); eGFR For Non-African Americans > 60 (> 60)
[2016-10-06 16:11] LABS: Activated Partial Thrombo Time 154.3 Seconds (26.0-36.0)
[2016-10-06 16:28] LABS: Heparin anti-factor XA UFH 0.36 IU/mL (0.30-0.70)
[2016-10-06] MEDS ORDERED: Naloxone 0.4 MG/ML INJ IVP PRN (18:06)
[2016-10-06] MEDS ORDERED: Ondansetron 4 MG/2 ML VIAL IVP PRN (18:06)
[2016-10-06] MEDS ORDERED: Nystatin POWDER 30 GM BOTTLE TP PRN (18:12)
[2016-10-06] MEDS ORDERED: Aspirin Enteric Coated 325 MG Tablet PO SCH (18:30)
[2016-10-06 18:56] LABS: Activated Partial Thrombo Time 33.8 Seconds (26.0-36.0)
[2016-10-06] MEDS ORDERED: Dextrose Gel 15 GM PO PRN ×2 (19:02)
[2016-10-06] MEDS ORDERED: D5% in Water 1,000 ML IVC PRN (19:02)
[2016-10-06] MEDS ORDERED: *HR* Dextrose 50 % in Water (Syg) 50 ML SYRINGE IVP PRN (19:02)
[2016-10-06] MEDS ORDERED: *HR* Dextrose 50 % in Water (Syg) 50 ML SYRINGE ONE (19:05)
--- NOTE | 2016-10-06 19:06 | Internal Med History&Physical ---
<Temo Tanner - Last Filed: 10/06/16 19:49> Date of Encounter: 10/06/16 Time of Encounter: 18:00 Assessment and Plan (1) CVA (cerebral vascular accident) Current visit: Yes Status: Acute Patient presents with acute symptoms of possible CVA. Patient reports history of 2 strokes on 08/05/2016. Patient states at approximately 1:30 today she was to go to cancer Center treatment but her speech became slurred and it was noticed that her right mouth and right eye to droop. She also experienced right- sided weakness. She states these were similar symptoms from August 05 strokes. She denied vision changes, nausea, or vomiting but did report significant dizziness and two sharp pains to the left side of her head. NIHSS protocol to be followed with padding to bedside rails, swallow evaluation, assessment for bleeding, continuous cardiac telemetry, supplemental O2 with titration if SpO2 < 92%, and vital signs per NIHSS protocol. Aspirin therapy ordered. Neurology consult ordered and discussed with Dr. Evans. Orders placed for EV echocardiogram, bilateral carotid Doppler duplex imaging, and MRI of head/brain w/o contrast. Patient to be monitored closely for signs of continued or increased neurological decline. Qualifiers: CVA mechanism: other Qualified Code(s): I63.8 - Other cerebral infarction (2) GERD (gastroesophageal reflux disease) Current visit: Yes Status: Chronic Patient presents with history of chronic gastroesophageal reflux disease. IVP Protonix 40 mg daily ordered. Qualifiers: Esophagitis presence: esophagitis presence not specified Qualified Code(s) : K21.9 - Gastro-esophageal reflux disease without esophagitis (3) HTN (hypertension) Current visit: Yes Status: Chronic Patient presents with history of chronic hypertension. Patient's blood pressure on admission is 138/94. Patient's current home BP meds to allow for permissive hypertension. Will administer BP meds if systolic BP > 190. Qualifiers: Hypertension type: essential hypertension Qualified Code(s): I10 - Essential (primary) hypertension (4) Diabetes mellitus, insulin dependent (IDDM), uncontrolled Current visit: Yes Status: Chronic Patient presents with history of chronic diabetes with insulin dependency that is uncontrolled. Patient too be placed as nothing by mouth so patient's HS insulin reduced from 40 units to 20 units with the additional order for low- dose correction insulin Q6 and hypoglycemic protocol. Blood glucose monitoring Q6. A1c ordered. 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 Heparin 5,000 units SQ Q12 ordered. Internal Medicine - H&P: HPI Chief complaint: Neuro symptoms/Suspected CVA Admitted From: Emergency Dept Plans for Post Hospital Care: Home History of present illness: Ms. Peña is a 61 year old female who presents from the ED with symptoms of acute CVA. Patient states that she was on her way to the cancer Center for treatment approximately 1:30 today when she experienced slurred speech and two sharp pains to the left side of her head. We will cancer Center it was noted she had considerable drooping of the right mouth and right eye.patient also experienced considerable right-sided weakness. Patient's stroke scale per [facility] was 1 and she was noted thrombolytic candidate due to the stroke scale. Patient' s CT of head was unremarkable and showed nothing acute. Patient reports she had two previous strokes on August 05, 2016 with similar symptoms. On examination patient is comfortable entering neuro check she has confirmed right-sided weakness. Patient also exhibits some mild speech slurring. Patient presents with acute symptoms of possible CVA. She denied vision changes, nausea, or vomiting but did report significant dizziness and two sharp pains to the left side of her head. NIHSS protocol to be followed with padding to bedside rails, swallow evaluation, assessment for bleeding, continuous cardiac telemetry, supplemental O2 with titration if SpO2 < 92%, and vital signs per NIHSS protocol. MRI of head/brain w/o contrast ordered as well as bilateral carotid Doppler duplex imaging and EV echocardiogram. Neurology consult ordered and discussed with Dr. Eavns. Patient to be monitored closely for signs of continued or increased neurological decline. Patient is at high risk for CVA based on history and risk factors and will be placed as inpatient status. Patient to be monitored closely. Time spent with patient > 40 minutes. Past Med Surg Social Fam HX - Past Medical History Source: patient Medical history: cancer (Non-Hodgkins lymphoma, uterine, melanoma, naso- pharyngeal), CVA, DVT, diabetes, GERD, hypertension, myocardial infarction Psychiatric history: no psych history - Social History Smoking Status: Never smoker Smokeless Tobacco Status: No Alcohol use: none Drug use: none Current living situation: Home Activity Level: Independent ambulation, Uses cane/walker Recent Out of Country Travel Within the Last 8 Weeks: No Exposure or Possible Exposure to Illness During Travel: No - Family History Father Adopted: Yes Family Member Ethnicity: Non- Living Status: Hx Family Cancer: Yes (Prostate) Brother Adopted: Yes Race: Family Member Ethnicity: Non- Living Status: Still Living Hx Family Cancer: Yes (Stomach, colon) Hx Family Autoimmune Disorders: Yes (Lupus) Mother Adopted: Yes Race: Family Member Ethnicity: Non- Living Status: Age at : 55 Cause of : CT Hx Family Cardiac Disorders: Yes (CT) Sister Race: Family Member Ethnicity: Non- Living Status: Still Living Hx Family Medical Disorders: No Internal Medicine - H&P: Meds Cetirizine HCl [Zyrtec] 10 mg PO DAILY 05/08/15 [History] Insulin Glargine,Hum.rec.anlog [Lantus Solostar] 40 unit SQ HS 05/08/15 [History ] Omeprazole 20 mg PO DAILY 05/08/15 [History] Acetaminophen [Tylenol] 500 mg PO Q6HR PRN 01/13/16 [History] Albuterol Sulfate [Albuterol Inhaler] 2 puff IH Q4HR PRN 01/13/16 [History] Fluticasone Propionate Nasal [Flonase] 1 spray NS DAILY 01/13/16 [History] Gabapentin [Neurontin] 800 mg PO BID 06/13/16 [History] Lidocaine/Prilocaine CREAM [Emla] 1 gm TP ONCE PRN 06/13/16 [History] Topiramate [Topamax] 50 mg PO BID 06/13/16 [History] Insulin ASPART [Novolog Flexpen] 0 unit SQ TIDAC 06/27/16 [History] Atorvastatin [Lipitor] 40 mg PO HS 09/05/16 [History] Clopidogrel [Plavix] 75 mg PO DAILY 09/05/16 [History] amLODIPine [Norvasc] 5 mg PO DAILY 09/05/16 [History] Docusate [Colace] 100 mg PO DAILY 10/06/16 [History] Lisinopril/Hydrochlorothiazide [Zestoretic 20-25 mg Tablet] 1 each PO DAILY [History] Meloxicam [Mobic] 15 mg PO DAILY 10/06/16 [History] Nystatin POWDER [Nystop] 1 appl TP BID PRN 10/06/16 [History] Tramadol HCl [Ultram] 50 mg PO QID PRN 10/06/16 [History] Allergies diphenhydramine [From Benadryl] Adverse Reaction (Verified 07/05/16 08:46) See Comments makes nervous Oxycodone Adverse Reaction (Verified 07/05/16 08:46) Itching All Systems PM: A 10-system review of systems was performed and is negative for pertinent findings except as documented above in the HPI. - Constitutional Constitutional: as per HPI, weakness (Right-sided), no chills, no fever(s), no night sweats - EENT Eyes: no change in vision, no discharge, no pain, no photophobia Ears: no ear discharge, no ear pain, no tinnitus Nose, mouth and throat: no dysphagia, no nasal discharge, no neck pain, no sore throat - Breasts Breasts: as per HPI - Cardiovascular Cardiovascular ROS IM: no chest pain, no diaphoresis, no dyspnea, no lightheadedness, no palpitations, no syncope - Respiratory Respiratory: no cough, no dyspnea, no wheezing, no excessive phlegm production - Gastrointestinal Gastrointestinal: no abdominal pain, no diarrhea, no hematemesis, no hematochezia, no melena, no nausea, no vomiting - Genitourinary Genitourinary: no change in urinary stream, no dysuria, no flank pain, no hematuria Menstruation: as per HPI - Musculoskeletal Musculoskeletal ROS IM: no numbness, no tingling - Integumentary Integumentary IM: no rash, no unusual bruising - Neurological Neurological ROS: as per HPI, dizziness, numbness, tingling, weakness (Right- sided), no confusion, no convulsions, no focal weakness, no tremor(s) - Psychiatric Psychiatric: as per HPI - Endocrine Endocrine IM: as per HPI - Hematologic/Lymphatic Hematologic/Lymphatic: no easy bruising - Allergic/Immunologic Allergic/Immunologic: as per HPI - Constitutional Vitals: Temp Pulse Resp BP Pulse Ox 98.3 F 74 16 154/92 95 10/06/16 18:57 10/06/16 18:57 10/06/16 18:57 10/06/16 18:57 10/06/16 18:57 General appearance: Present: cooperative, A&O X 3, morbidly obese, pleasant, no acute distress, answers questions appropriately - Head Head exam: Present: atraumatic, normocephalic - Eye Eye exam: Present: PERRL, conjuntiva pink, sclera anicteric Pupils: Present: PERRL - ENT ENT exam: Present: normal exam, normal external ear exam - Neck Neck exam general surgery: Present: supple, trachea midline. Absent: lymphadenopathy - Respiratory Respiratory exam: Present: CTAB. Absent: accessory muscle use, rales, rhonchi, wheezes - Cardiovascular Cardiovascular exam: Present: RRR, +S1, +S2. Absent: diastolic murmur, gallop, rubs, systolic murmur - GI/Abdominal GI/Abdominal exam: Present: normal bowel sounds, soft, no peritoneal signs. Absent: distended, tenderness - Rectal Rectal exam: Present: deferred - Additional comments: exam deferred. - Extremities Exam Extremities exam: Present: warm, radial pulses palpable and symetrical. Absent : calf tenderness, cyanotic, pedal edema - Back Exam Back exam: Present: normal inspection - Neurological Exam Neurological exam: Present: alert, CN II-XII intact, oriented X3, no focal deficits, pronater drift, facial droop, speech deficit - Psychiatric Psychiatric exam: Present: normal affect, normal mood - Skin Skin exam: Present: dry, intact Internal Med - H&P Results - Labs CBC & Chem 7: 10/06/16 15:35 10/06/16 15:35 - EKG Data EKG shows normal: sinus rhythm Rate: normal - EKG Data Prior EKG available for review: no EKG comments: 10/06/16 19:12 EKG dated 10/06/16 shows sinus rhythm with marked left axis deviation and moderate voltage criteria for LVH. Consider normal variant and possible anterior myocardial infarction (probably old). - Diagnostic Studies CT scan - head Additional comments: Impressions Head CT 10/06/16 15:30 IMPRESSION: 1. No acute intracranial abnormality. 2. Small chronic lacunar infarction in the left centrum semiovale. Findings were discussed with Dr. Chris Torres of the [facility] emergency department at 3:58 pm on 10/06/2016. D/ / Praneeth Mendoza MD / Praneeth Mendoza MD Interpreting Provider: Praneeth Mendoza MD <RicardoBertha - Last Filed: 10/07/16 07:07> Date of Encounter: 10/07/16 Internal Medicine - H&P: HPI History of present illness: Ms. Peña is a 61 year old female All Systems PM: A 10-system review of systems was performed and is negative for pertinent findings except as documented above in the HPI. - Constitutional Vitals: Temp Pulse Resp BP Pulse Ox 97.7 F 73 16 152/101 96 10/07/16 06:45 10/07/16 06:45 10/07/16 06:45 10/07/16 06:45 10/07/16 06:45 Internal Med - H&P Results - Labs CBC & Chem 7: 10/06/16 15:35 10/06/16 15:35 - Impressions ITS Impressions Brain MRI 10/06/16 18:46 IMPRESSION: Remote infarct centered in the left posterior sampson radiata and posterior superior lentiform nucleus region. There is a small amount of peripheral high diffusion signal in this region, however this is not dark on the ADC map images and is likely T2 shine through. There are no findings on this examination that are diagnostic of an acute infarct D/ / Epifanio Armando / Epifanio Armando Interpreting Provider: Epifanio Armando - Attending Attestation I saw and examined pt, have discussed with PLASTIC PARTS DESIGNER with management plan, agree with documentation.
--- NOTE | 2016-10-06 19:26 | Event Note ---
Date of Encounter: 10/06/16 Time of Encounter: 18:00 I saw and examined pt. I discussed with TOOL GRINDER OPERATOR regarding the management plan. Agree with the documentation. Recurrent ischemic stroke. ER called [facility] stroke center and consider not candidate for tPA. Will follow stroke treatment with cardic monitoring, echo and carotid duplex ordered, MRI in AM, neuro consult, cont antiplatelet and statin, PT/OT and swallow evaluation.
[2016-10-06] MEDS ORDERED: Insulin DETEMIR 100 UNIT/ML X5UNITS SQ SCH (21:00)
[2016-10-06] MEDS: Pantoprazole 40 MG VIAL IVP SCH (22:13)
[2016-10-06] MEDS: *HR* Heparin 5,000 UNIT/ML VIAL SQ SCH (22:13)
[2016-10-06] MEDS: 0.9 % Sodium Chloride 1,000 ML IVC SCH (22:38)
[2016-10-06] MEDS: Topiramate 25 MG TABLET PO SCH (22:38)
[2016-10-06] MEDS: Gabapentin 400 MG CAPSULE PO SCH (22:38)
[2016-10-07] MEDS ORDERED: Insulin LISPRO 300 UNITS/3 ML VIAL SQ SCH
[2016-10-07] MEDS: 0.9 % Sodium Chloride 1,000 ML IVC SCH (06:18)
[2016-10-07] MEDS: *HR* Heparin 5,000 UNIT/ML VIAL SQ SCH ×2 (06:18→18:17)
[2016-10-07 07:04] LABS: INR 1.1; Prothrombin Time 11.7 Seconds (9.4-12.1)
[2016-10-07 07:05] LABS: BUN/Creatinine Ratio 22 (6-26); Blood Urea Nitrogen 19 mg/dL (7-20); Carbon Dioxide 27 mEq/L (19-29); Chloride 109 mEq/L (98-109); Glucose 233 mg/dL (70-99); Osmolality,Calculated 300 (280-300); Potassium 3.7 mEq/L (3.5-4.5); Sodium 140 mEq/L (136-145); eGFR For African Americans > 60 (> 60); eGFR For Non-African Americans > 60 (> 60)
[2016-10-07 07:06] LABS: Activated Partial Thrombo Time 34.2 Seconds (26.0-36.0); Calcium 8.5 mg/dL (8.6-10.8); Chol/HDL Ratio 2.8 (0-4.9); Cholesterol 124 mg/dL (< 200); HDL Cholesterol 44 mg/dL (40-59); LDL Cholesterol,Calculated 65 mg/dL (0-99); Magnesium 1.6 mg/dL (1.6-2.6); Triglycerides 73 mg/dL (< 150)
[2016-10-07 07:27] LABS: Basophils % 0.4 %; Eosinophils # 0.1 K/mcL (0.0-0.6); Eosinophils % 1.6 %; Hematocrit 33.7 % (35.3-44.9); Hemoglobin 11.7 g/dL (11.5-15.4); Immature Granulocytes % 0.3 % (0-4); Lymphocytes # 1.3 K/mcL (0.6-4.6); Lymphocytes % 19.4 %; Mean Corpuscular HGB Conc 34.7 g/dL (31.6-35.5); Mean Corpuscular Hemoglobin 31.5 pg (28.0-33.3); Mean Corpuscular Volume 90.8 fL (83.0-100.0); Mean Platelet Volume 11.3 fL (9.4-12.4); Monocytes # 0.5 K/mcL (0.0-1.3); Monocytes % 7.3 %; Neutrophils # 4.9 K/mcL (1.6-8.9); Platelet Count 166 K/mcL (140-400); Red Blood Count 3.71 M/mcL (3.82-4.97); Red Cell Distribution Width 11.4 % (11.5-14.5)
--- NOTE | 2016-10-07 07:29 | Neurology - Consult Note ---
Date of Encounter: 10/07/16 Time of Encounter: 07:26 Assessment and Plan (1) Transient ischemic attack Current Visit: Yes Status: Acute Based on her symptoms of transient additional weakness and slurred speech and right facial droop with this event as a TIA. Perhaps the inciting event may have been the transient spikes in blood pressure resulting in reflex vasospasm. The MRI scan of the brain does not reveal evidence of an acute infarct. However does reveal the previous infarct in the left posterior coronal radiata. She certainly has risk factors for stroke and small vessel disease. At this juncture we will maintain stroke protocol. She will continue with Plavix. I would like to obtain CTA scans of the head and neck. Carotid Doppler and echocardiogram are yet pending. Ongoing PT and OT will be necessary. At this time however she appears to have resolved back to her new baseline. I do not see an indication for anticoagulation at this juncture. Further recommendations will be made upon completion of the tests that are pending. Qualifiers: Qualified Code(s): G45.9 - Transient cerebral ischemic attack, unspecified History of Present Illness HPI: Ms. Peña is a 61 year old female with a previous history of stroke in July 2016 is being seen for neurologic evaluation secondary to complaints of right facial droop and slurred speech and right-sided weakness. She did experience a cerebral infarct involving the left posterior coronal radiata back in July 2016. She does have some residual right-sided weakness and was currently still involved with the physical therapy to recover from the previous event. However yesterday she experienced sudden onset of right upper and right lower extremity weakness and numbness as well as slurred speech while at a friend's house. She feels now that she is back to her baseline. MRI scan with diffusion imaging does not reveal an acute infarct. She has had transient elevations in blood pressure since admission, and her blood sugar was in the 50s a few times however she had been nothing by mouth and was still getting her insulin. Upon admission to the ED the [facility]'s stroke network was contacted and she was deemed to not be a candidate for IV TPA. This morning she is alert and oriented to person place and time and not in any acute distress. Past Med Surg Social Fam HX - Past Medical History Medical history: cancer (Non-Hodgkins lymphoma, uterine, melanoma, naso- pharyngeal), CVA, DVT, diabetes, GERD, hypertension, myocardial infarction Psychiatric history: no psych history - Social History Smoking Status: Never smoker Smokeless Tobacco Status: No Alcohol use: none Drug use: none - Family History Father Adopted: Yes Family Member Ethnicity: Non- Living Status: Hx Family Cancer: Yes (Prostate) Brother Adopted: Yes Race: Family Member Ethnicity: Non- Living Status: Still Living Hx Family Cancer: Yes (Stomach, colon) Hx Family Autoimmune Disorders: Yes (Lupus) Mother Adopted: Yes Race: Family Member Ethnicity: Non- Living Status: Age at : 55 Cause of : CA Hx Family Cardiac Disorders: Yes (CA) Sister Race: Family Member Ethnicity: Non- Living Status: Still Living Hx Family Medical Disorders: No Medications and Allergies Cetirizine HCl [Zyrtec] 10 mg PO DAILY 05/08/15 [History] Insulin Glargine,Hum.rec.anlog [Lantus Solostar] 40 unit SQ HS 05/08/15 [History ] Omeprazole 20 mg PO DAILY 05/08/15 [History] Acetaminophen [Tylenol] 500 mg PO Q6HR PRN 01/13/16 [History] Albuterol Sulfate [Albuterol Inhaler] 2 puff IH Q4HR PRN 01/13/16 [History] Fluticasone Propionate Nasal [Flonase] 1 spray NS DAILY 01/13/16 [History] Gabapentin [Neurontin] 800 mg PO BID 06/13/16 [History] Lidocaine/Prilocaine CREAM [Emla] 1 gm TP ONCE PRN 06/13/16 [History] Topiramate [Topamax] 50 mg PO BID 06/13/16 [History] Insulin ASPART [Novolog Flexpen] 0 unit SQ TIDAC 06/27/16 [History] Atorvastatin [Lipitor] 40 mg PO HS 09/05/16 [History] Clopidogrel [Plavix] 75 mg PO DAILY 09/05/16 [History] amLODIPine [Norvasc] 5 mg PO DAILY 09/05/16 [History] Docusate [Colace] 100 mg PO DAILY 10/06/16 [History] Lisinopril/Hydrochlorothiazide [Zestoretic 20-25 mg Tablet] 1 each PO DAILY [History] Meloxicam [Mobic] 15 mg PO DAILY 10/06/16 [History] Nystatin POWDER [Nystop] 1 appl TP BID PRN 10/06/16 [History] Tramadol HCl [Ultram] 50 mg PO QID PRN 10/06/16 [History] Allergies diphenhydramine [From Benadryl] Adverse Reaction (Verified 07/05/16 08:46) See Comments makes nervous Oxycodone Adverse Reaction (Verified 07/05/16 08:46) Itching All Systems: A 10-system review of systems was performed and is negative for pertinent findings except as documented above in the HPI. Review of Systems: A 10 point review of systems is consistent with the history of present illness and otherwise negative. Physical Examination - Vital Signs Vital Signs: Initial Vital Signs Temp Pulse Resp BP Pulse Ox 98.1 F 89 20 138/94 96 10/06/16 15:24 10/06/16 15:24 10/06/16 15:24 10/06/16 15:24 10/06/16 15:24 - Constitutional General appearance: comfortable - Neurologic Sensorimotor examination: hemiparesis (She does have residual right hemiparesis along with ataxia of the right upper extremity from previous stroke which occurred in July 2016.) Motor examination - right side: 4/5: deltoids, biceps, triceps, manager travel, hip flexors, tibialis Anterior, quadriceps, toe extension (EHL), plantarflexion Motor examination - left side: 5/5: deltoids, biceps, triceps, hip flexors, manager travel , quadriceps, tibialis Anterior, toe extension (EHL), plantarflexion Detailed sensory examination: other (Right hemihypoesthesia is present) Reflexes: Biceps: 2+, Triceps: 2+, Brachioradialis: 2+, Patella: 2+, Achilles: 0 Mental Status Examination: awake, alert, oriented to person, oriented to place, oriented to time, follows commands appropriately, answers questions appropriately, no agnosia, no aphasia, no aproxia Cranial nerve examination: PERRL, EOMI, visual tobar intact, corneal reflexes brisk symmetrically, sensory to face intact, mastication intact, no facial asymmetry is present, no dysarthria, hearing is intact symmetrically, soft palate elevates bilaterally upon phonation, gag reflex intact, flexes SCM and trapezius muscles symmetrically with full power, tongue protrudes midline, no atrophy or facial fasiculations present Results - Laboratory Findings CBC and BMP: 10/06/16 15:35 10/07/16 06:20 Abnormal lab findings: Abnormal lab results RDW 11.2 % (11.5-14.5) L 10/06/16 15:35 D-Dimer 503 ng/mLFEU (0-500) H 10/06/16 18:10 Glucose 233 mg/dL (70-99) H 10/07/16 06:20 POC Glucose 169 (58-89) H 10/07/16 00:48 Calcium 8.5 mg/dL (8.6-10.8) L 10/07/16 06:20 Consult Discharge Plan - Plan Referrals: Crow Gonzalez, NUCLEAR PLANT TECHNICAL ADVISOR [Primary Care Provider] -
[2016-10-07] MEDS: Gabapentin 400 MG CAPSULE PO SCH ×2 (10:02→20:38)
[2016-10-07] MEDS: Aspirin Enteric Coated 81 MG Tablet PO SCH (10:02)
[2016-10-07] MEDS: amLODIPine 5 MG TABLET PO SCH ×2 (10:03→12:13)
[2016-10-07] MEDS: Pantoprazole 40 MG VIAL IVP SCH (10:03)
[2016-10-07] MEDS: Insulin LISPRO 300 UNITS/3 ML VIAL SQ SCH ×4 (10:03→20:39)
[2016-10-07] MEDS: Topiramate 25 MG TABLET PO SCH ×2 (10:03→20:38)
[2016-10-07] MEDS: Loratadine 10 MG TABLET PO SCH (10:03)
[2016-10-07] MEDS: Fluticasone Propionate Nasal 50 MCG/SPRAY BOTTLE NS SCH (10:05)
--- NOTE | 2016-10-07 11:09 | Internal Med Progress Note ---
Date of Encounter: 10/07/16 Time of Encounter: 11:09 - Assessment and plan (1) Transient ischemic attack Current Visit: Yes Status: Acute Assessment and plan: Complete resolution of her presenting symptoms 2D Echo reported LVEF of 50%, Mild LV diastolic dysfunction, mild AR, no pulmonary htn and no PFO will follow up carotid dopplers CTA, MRI reviewed Neurology consultation appreciated will continue Aspirin, Plavix, and Lipitor PT evaluation recommended ECF placement fly worker consultation requested for placement Qualifiers: Transient cerebral ischemia type: unspecified Qualified Code(s): G45.9 - Transient cerebral ischemic attack, unspecified (2) HTN (hypertension) Current Visit: Yes Status: Chronic Assessment and plan: Noted to remain hypertensive despite home antihypertensives added Hydralazine 10mg IV q6h prn SBP>150 or DBP>100 patient responded well to therapy, current BP: 129/83 will closely monitor BP Qualifiers: Hypertension type: essential hypertension Qualified Code(s): I10 - Essential (primary) hypertension (3) Diabetes mellitus, insulin dependent (IDDM), uncontrolled Current Visit: Yes Status: Chronic Assessment and plan: Restarted home insulin dosage continue to monitor fingerstick and blood glucose added ss insulin coverage as needed Qualifiers: Diabetes mellitus complication status: with neurologic complications Diabetes mellitus complication detail: with other neurological complication Qualified Code(s): 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 Sitting in chair and reports of feeling better compared to previous day. States she has residual right upper and lower extremity weakness secondary to her prior stroke. At this time there is complete resolution of her presenting symptoms. Patient was evaluated by physical therapy and ECF was recommended. Pt states she lives alone and realizes that she needs rehab to get her strength therefore willing to go to ECF after discharge. fly worker consulted for placement - Constitutional Vitals: Temp Pulse Resp BP Pulse Ox 98.2 F 71 19 146/106 96 10/07/16 10:50 10/07/16 10:50 10/07/16 10:50 10/07/16 10:50 10/07/16 10:50 General appearance: Present: cooperative, A&O X 3, morbidly obese, pleasant, no acute distress, answers questions appropriately - Head Head exam: Present: atraumatic, normocephalic - Eye Eye exam: Present: normal appearance, conjuntiva pink, sclera anicteric - Respiratory Respiratory exam: Present: CTAB. Absent: accessory muscle use, rales, rhonchi, wheezes - Cardiovascular Cardiovascular exam: Present: RRR, +S1, +S2. Absent: diastolic murmur, gallop, rubs, systolic murmur - GI/Abdominal GI/Abdominal exam: Present: distended (obese), normal bowel sounds, soft, no peritoneal signs. Absent: tenderness - Extremities Exam Extremities exam: Present: warm, radial pulses palpable and symetrical. Absent : calf tenderness, pedal edema - Neurological Exam Neurological exam: Present: alert, oriented X3. Absent: pronater drift, facial droop, speech deficit - Psychiatric Psychiatric exam: Present: normal affect, normal mood Internal Medicine: Result - Labs CBC & Chem 7: 10/07/16 06:20 10/07/16 06:20 Labs: Short CBC 10/07/16 Range/Units 06:20 WBC 6.9 (4.3-11.1) K/mcL Hgb 11.7 (11.5-15.4) g/dL Hct 33.7 L (35.3-44.9) % Plt Count 166 (140-400) K/mcL Neutrophils # 4.9 (1.6-8.9) K/mcL BMP 10/07/16 06:20 Sodium 140 Potassium 3.7 Chloride 109 Carbon Dioxide 27 BUN 19 Creatinine 0.86 Glucose 233 H Calcium 8.5 L - ABG Interpretation ABG results: PT/INR, D-dimer PT 11.7 Seconds (9.4-12.1) 10/07/16 06:20 D-Dimer 503 ng/mLFEU (0-500) H 10/06/16 18:10 - Impressions Impressions Brain MRI 10/06/16 18:46 IMPRESSION: Remote infarct centered in the left posterior sampson radiata and posterior superior lentiform nucleus region. There is a small amount of peripheral high diffusion signal in this region, however this is not dark on the ADC map images and is likely T2 shine through. There are no findings on this examination that are diagnostic of an acute infarct D/ / Epifanio Armando / Epifanio Armando Interpreting Provider: Epifanio Armando Head CTA 10/07/16 07:36 IMPRESSION: 1. No acute intracranial abnormality. Old left basal ganglia and sampson radiata lacunar infarction. 2. Unremarkable CTA of the head. D/ / Andie Farmer MD / Andie Farmer MD Interpreting Provider: Andie Farmer MD Consult Discharge Plan - Plan Referrals: Crow Gonzalez, VALET SERVICE ATTENDANT [Primary Care Provider] -
--- NOTE | 2016-10-07 12:27 | Electrocardiograph Report ---
[place] [id number] Test Date: 2016-10-06 Pat Name: Alisa Peña Department: 103 Room: 2NE16 Gender: F Senior Linux Administrator: BETH : [id number] Requested By: Savanah Alonso Order Number: [id number] Reading MD: Frank Haddad MD Measurements Intervals Unity Rate: 81 P: 1 NH: 146 QRS: -32 QRSD: 89 T: 4 QT: 388 QTc: 425 Interpretive Statements SINUS RHYTHM MARKED LEFT AXIS DEVIATION MODERATE VOLTAGE CRITERIA FOR LVH, CONSIDER NORMAL VARIANT Poor R wave progression Electronically Signed On 10-07-2016 12:25:24 EDT by Frank Haddad MD
[2016-10-07] MEDS: traMADol 50 MG TABLET PO PRN (15:10)
--- NOTE | 2016-10-07 16:10 | Carotid Imaging Report ---
Carotid Duplex Patient Name:Alisa Peña Order Number:[id number] Procedure Date:10/07/2016 Date:1955ge:61 yrs Gender:Female Rt.BP:152 / 101 mmHgHeart Rate: Location:[facility] Room #: 2NE16 Unemployment Insurance Director:Nat Aleman, RDCHAYO Referring MD:Temo Tanner [employer] ENGLISH TEACHER pocket machine operator:Crow Gonzalez, [employer]LE SCHO[employer] ENGLISH TEACHER Reading MD:Juanjoes Rivero MD , FACS Primary Indications:Cerebrovascular accident Risk Factors Yes/No Hypertension Yes Diabetes Yes Hx of CVA Yes Impressions: Findings: Bilateral carotid systems are essentially normal. Recommendations: After imaging the patient returned to their room. Findings Carotid Duplex: Right: The right proximal common carotid artery has a PSV of 55 cm/s and a EDV of 10 cm/s. The right mid common carotid artery has a PSV of 64 cm/s and a EDV of 16 cm/s. The right distal common carotid artery has a PSV of 50 cm/s and a EDV of 14 cm/s. There is nonstenotic plaque in the right bifurcation with a PSV of 40 cm/s and a EDV of 10 cm/s. The right proximal internal carotid artery has a PSV of 54 cm/s and a EDV of 21 cm/s. The right mid internal carotid artery has a PSV of 103 cm/s and a EDV of 35 cm/s. The right distal internal carotid artery has a PSV of 106 cm/s and a EDV of 38 cm/s. The right eca has a PSV of 47 cm/s and a EDV of 12 cm/s. The right vertebral artery has a PSV of 53 cm/s and a EDV of 11 cm/s. There is antegrade spectral Doppler flow patterns. Left: The left proximal common carotid artery has a PSV of 59 cm/s and a EDV of 12 cm/s. The left mid common carotid artery has a PSV of 49 cm/s and a EDV of 14 cm/s. The left distal common carotid artery has a PSV of 51 cm/s and a EDV of 15 cm/s. The left bifurcation has a PSV of 30 cm/s and a EDV of 11 cm/s. The left proximal internal carotid artery has a PSV of 70 cm/s and a EDV of 30 cm/s. The left mid internal carotid artery has a PSV of 108 cm/s and a EDV of 39 cm/s. The left distal internal carotid artery has a PSV of 117 cm/s and a EDV of 42 cm/s. The left eca has a PSV of 36 cm/s and a EDV of 5 cm/s. The left vertebral artery has a PSV of 37 cm/s and a EDV of 14 cm/s. There is antegrade spectral Doppler flow patterns. Carotid Results Right PSV EDV Assessment Mid CCA 64 16 Distal CCA 50 14 Bifurcation 40 10 Non Stenotic Plaque Proximal ICA 54 21 Mid ICA 103 35 Distal ICA 106 38 ECA 47 12 Vertebral Artery 53 11 Antegrade Flow Proximal CCA 55 10 Left PSV EDV Assessment Proximal CCA 59 12 Mid CCA 49 14 Distal CCA 51 15 Bifurcation 30 11 Proximal ICA 70 30 Mid ICA 108 39 Distal ICA 117 42 ECA 36 5 Vertebral Artery 37 14 Antegrade Flow Ratio's Right ICA/CCA Ratio: 1.65 ICA/CCA Values: 106/64 Left ICA/CCA Ratio: 2.38 ICA/CCA Values: 117/49 Updated by Juanjose Rivero MD, FACS on 10/07/2016 4:05:01 PM Juanjose Rivero MD electronically signed on 10/07/2016 4:05:40 PM with status of Final
[2016-10-07] MEDS: Insulin DETEMIR 100 UNIT/ML X5UNITS SQ SCH (20:39)
[2016-10-08 05:03] LABS: Basophils % 0.5 %; Eosinophils # 0.1 K/mcL (0.0-0.6); Eosinophils % 2.4 %; Hemoglobin 11.6 g/dL (11.5-15.4); Immature Granulocytes % 0.3 % (0-4); Lymphocytes # 1.2 K/mcL (0.6-4.6); Lymphocytes % 19.7 %; Mean Corpuscular HGB Conc 35.2 g/dL (31.6-35.5); Mean Corpuscular Hemoglobin 31.5 pg (28.0-33.3); Mean Corpuscular Volume 89.7 fL (83.0-100.0); Mean Platelet Volume 10.5 fL (9.4-12.4); Monocytes # 0.4 K/mcL (0.0-1.3); Monocytes % 7.5 %; Neutrophils # 4.1 K/mcL (1.6-8.9); Platelet Count 173 K/mcL (140-400); Red Blood Count 3.68 M/mcL (3.82-4.97); Red Cell Distribution Width 11.3 % (11.5-14.5); Segmented Neutrophils % 69.6 %
[2016-10-08 05:15] LABS: BUN/Creatinine Ratio 27 (6-26); Blood Urea Nitrogen 21 mg/dL (7-20); Carbon Dioxide 28 mEq/L (19-29); Chloride 107 mEq/L (98-109); Glucose 247 mg/dL (70-99); Magnesium 1.5 mg/dL (1.6-2.6); Osmolality,Calculated 297 (280-300); Phosphorous 4.1 mg/dL (2.3-4.7); Potassium 3.8 mEq/L (3.5-4.5); Sodium 138 mEq/L (136-145); eGFR For African Americans > 60 (> 60); eGFR For Non-African Americans > 60 (> 60)
[2016-10-08] MEDS: *HR* Heparin 5,000 UNIT/ML VIAL SQ SCH ×2 (06:17→17:41)
[2016-10-08] MEDS ORDERED: Magnesium Sulfate 1 GM in D5% in Water 100 ML IVPB ONE (07:24)
[2016-10-08] MEDS: Gabapentin 400 MG CAPSULE PO SCH ×2 (09:08→20:55)
[2016-10-08] MEDS: Insulin DETEMIR 100 UNIT/ML X5UNITS SQ SCH ×2 (09:10→20:54)
[2016-10-08] MEDS: Aspirin Enteric Coated 81 MG Tablet PO SCH (09:11)
[2016-10-08] MEDS: amLODIPine 5 MG TABLET PO SCH (09:12)
[2016-10-08] MEDS: Insulin LISPRO 300 UNITS/3 ML VIAL SQ SCH ×7 (09:13→20:54)
[2016-10-08] MEDS: Fluticasone Propionate Nasal 50 MCG/SPRAY BOTTLE NS SCH (09:13)
[2016-10-08] MEDS: Topiramate 25 MG TABLET PO SCH ×2 (09:15→20:56)
[2016-10-08] MEDS: Loratadine 10 MG TABLET PO SCH (09:15)
--- NOTE | 2016-10-08 09:40 | Internal Med Progress Note ---
Date of Encounter: 10/08/16 Time of Encounter: 09:33 - Assessment and plan (1) Transient ischemic attack Current Visit: Yes Status: Acute Assessment and plan: Complete resolution of her presenting symptoms 2D Echo reported LVEF of 50%, Mild LV diastolic dysfunction, mild AR, no pulmonary htn and no PFO carotid dopplers: no carotid stenosis reported bilaterally CTA, MRI reviewed Neurology consultation appreciated will continue Aspirin, Plavix, and Lipitor PT evaluation recommended ECF placement Discharge pending ECF placement Qualifiers: Transient cerebral ischemia type: unspecified Qualified Code(s): G45.9 - Transient cerebral ischemic attack, unspecified (2) HTN (hypertension) Current Visit: Yes Status: Chronic Assessment and plan: BP better controlled will continue home medications continue Hydralazine 10mg IV q6h prn SBP>150 or DBP>100 will closely monitor BP Qualifiers: Hypertension type: essential hypertension Qualified Code(s): I10 - Essential (primary) hypertension (3) Diabetes mellitus, insulin dependent (IDDM), uncontrolled Current Visit: Yes Status: Chronic Assessment and plan: Restarted home insulin dosage noted to be persistently hyperglycemic requiring additional insulin coverage increased Levemir dosing and added humalog premeal coverage as per insulin requirements continue to monitor fingerstick and blood glucose continue ss insulin coverage as needed Qualifiers: Diabetes mellitus complication status: with neurologic complications Diabetes mellitus complication detail: with other neurological complication Qualified Code(s): 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 Sitting in chair and reports of feeling well at this time. No overnight issues reported. Patient was evaluated by physical therapy and ECF was recommended. aquaculture worker consulted for placement D/C pending ECF placement - Constitutional Vitals: Temp Pulse Resp BP Pulse Ox 97.8 F 81 17 134/84 98 10/08/16 08:41 10/08/16 08:41 10/08/16 08:41 10/08/16 08:41 10/08/16 08:41 General appearance: Present: cooperative, A&O X 3, morbidly obese, pleasant, no acute distress, answers questions appropriately - Head Head exam: Present: atraumatic, normocephalic - Eye Eye exam: Present: conjuntiva pink, sclera anicteric - Respiratory Respiratory exam: Present: CTAB. Absent: accessory muscle use, rales, rhonchi, wheezes - Cardiovascular Cardiovascular exam: Present: RRR, +S1, +S2. Absent: diastolic murmur, gallop, rubs, systolic murmur - GI/Abdominal GI/Abdominal exam: Present: distended (obese), normal bowel sounds, soft, no peritoneal signs. Absent: tenderness - Extremities Exam Extremities exam: Present: warm, radial pulses palpable and symetrical. Absent : calf tenderness, cyanotic, pedal edema - Neurological Exam Neurological exam: Present: alert, oriented X3 - Psychiatric Psychiatric exam: Present: normal affect, normal mood Internal Medicine: Result - Labs CBC & Chem 7: 10/08/16 05:00 10/08/16 05:00 Labs: Short CBC 10/08/16 Range/Units 05:00 WBC 5.9 (4.3-11.1) K/mcL Hgb 11.6 (11.5-15.4) g/dL Hct 33.0 L (35.3-44.9) % Plt Count 173 (140-400) K/mcL Neutrophils # 4.1 (1.6-8.9) K/mcL BMP 10/08/16 05:00 Sodium 138 Potassium 3.8 Chloride 107 Carbon Dioxide 28 BUN 21 H Creatinine 0.78 Glucose 247 H Calcium 9.0 - ABG Interpretation ABG results: PT/INR, D-dimer PT 11.7 Seconds (9.4-12.1) 10/07/16 06:20 D-Dimer 503 ng/mLFEU (0-500) H 10/06/16 18:10 Consult Discharge Plan - Plan Referrals: Crow Gonzalez, LADLE LINER [Primary Care Provider] -
[2016-10-08] MEDS: traMADol 50 MG TABLET PO PRN (16:55)
[2016-10-09 04:48] LABS: Basophils % 0.3 %; Eosinophils # 0.1 K/mcL (0.0-0.6); Eosinophils % 1.8 %; Hematocrit 34.4 % (35.3-44.9); Immature Granulocytes % 0.4 % (0-4); Lymphocytes # 1.4 K/mcL (0.6-4.6); Lymphocytes % 20.8 %; Mean Corpuscular HGB Conc 34.9 g/dL (31.6-35.5); Mean Corpuscular Hemoglobin 31.3 pg (28.0-33.3); Mean Corpuscular Volume 89.6 fL (83.0-100.0); Mean Platelet Volume 10.8 fL (9.4-12.4); Monocytes # 0.5 K/mcL (0.0-1.3); Neutrophils # 4.7 K/mcL (1.6-8.9); Platelet Count 190 K/mcL (140-400); Red Blood Count 3.84 M/mcL (3.82-4.97); Red Cell Distribution Width 11.3 % (11.5-14.5); Segmented Neutrophils % 69.7 %
[2016-10-09 04:58] LABS: BUN/Creatinine Ratio 37 (6-26); Blood Urea Nitrogen 29 mg/dL (7-20); Calcium 9.4 mg/dL (8.6-10.8); Carbon Dioxide 29 mEq/L (19-29); Chloride 106 mEq/L (98-109); Glucose 259 mg/dL (70-99); Magnesium 1.6 mg/dL (1.6-2.6); Osmolality,Calculated 299 (280-300); Phosphorous 4.5 mg/dL (2.3-4.7); Potassium 3.8 mEq/L (3.5-4.5); Sodium 137 mEq/L (136-145); eGFR For African Americans > 60 (> 60); eGFR For Non-African Americans > 60 (> 60)
[2016-10-09] MEDS: *HR* Heparin 5,000 UNIT/ML VIAL SQ SCH ×2 (06:42→17:46)
[2016-10-09] MEDS: Aspirin Enteric Coated 81 MG Tablet PO SCH (08:05)
[2016-10-09] MEDS: amLODIPine 5 MG TABLET PO SCH (08:05)
[2016-10-09] MEDS: Loratadine 10 MG TABLET PO SCH (08:05)
[2016-10-09] MEDS: Gabapentin 400 MG CAPSULE PO SCH ×2 (08:05→21:14)
[2016-10-09] MEDS: Fluticasone Propionate Nasal 50 MCG/SPRAY BOTTLE NS SCH (08:06)
[2016-10-09] MEDS: Insulin LISPRO 300 UNITS/3 ML VIAL SQ SCH ×7 (08:06→21:11)
[2016-10-09] MEDS: Topiramate 25 MG TABLET PO SCH ×2 (08:07→21:14)
[2016-10-09] MEDS: Insulin DETEMIR 100 UNIT/ML X5UNITS SQ SCH ×3 (08:15→21:13)
--- NOTE | 2016-10-09 10:45 | Internal Med Progress Note ---
Date of Encounter: 10/09/16 Time of Encounter: 10:44 - Assessment and plan (1) Transient ischemic attack Current Visit: Yes Status: Acute Assessment and plan: Complete resolution of her presenting symptoms 2D Echo reported LVEF of 50%, Mild LV diastolic dysfunction, mild AR, no pulmonary htn and no PFO carotid dopplers: no carotid stenosis reported bilaterally CTA, MRI reviewed Neurology consultation appreciated will continue Aspirin, Plavix, and Lipitor PT evaluation recommended ECF placement Discharge pending ECF placement Qualifiers: Transient cerebral ischemia type: unspecified Qualified Code(s): G45.9 - Transient cerebral ischemic attack, unspecified (2) HTN (hypertension) Current Visit: Yes Status: Chronic Assessment and plan: BP better controlled will continue home medications continue Hydralazine 10mg IV q6h prn SBP>150 or DBP>100 will closely monitor BP Qualifiers: Hypertension type: essential hypertension Qualified Code(s): I10 - Essential (primary) hypertension (3) Diabetes mellitus, insulin dependent (IDDM), uncontrolled Current Visit: Yes Status: Chronic Assessment and plan: Restarted home insulin dosage noted to be persistently hyperglycemic requiring additional insulin coverage increased Levemir dosing continue humalog premeal coverage as per insulin requirements continue to monitor fingerstick and blood glucose continue ss insulin coverage as needed Qualifiers: Diabetes mellitus complication status: with neurologic complications Diabetes mellitus complication detail: with other neurological complication Qualified Code(s): 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 Sitting in chair and reports of feeling well at this time. No overnight issues reported. Patient was evaluated by physical therapy and ECF was recommended. circulation worker consulted for placement D/C pending ECF placement - Constitutional Vitals: Temp Pulse Resp BP Pulse Ox 97.7 F 75 18 131/71 99 10/09/16 06:59 10/09/16 06:59 07/23/17 06:59 10/09/16 06:59 10/09/16 06:59 General appearance: Present: cooperative, A&O X 3, morbidly obese, pleasant, no acute distress, answers questions appropriately - Head Head exam: Present: atraumatic, normocephalic - Eye Eye exam: Present: conjuntiva pink, sclera anicteric - Respiratory Respiratory exam: Present: CTAB. Absent: respiratory distress, wheezes - Cardiovascular Cardiovascular exam: Present: RRR, +S1, +S2. Absent: diastolic murmur, gallop, rubs, systolic murmur - GI/Abdominal GI/Abdominal exam: Present: distended (obese), normal bowel sounds, soft, no peritoneal signs. Absent: tenderness - Extremities Exam Extremities exam: Present: warm, radial pulses palpable and symetrical. Absent : calf tenderness, cyanotic, pedal edema - Neurological Exam Neurological exam: Present: alert, oriented X3, no focal deficits. Absent: pronater drift, facial droop, speech deficit - Psychiatric Psychiatric exam: Present: normal affect, normal mood Internal Medicine: Result - Labs CBC & Chem 7: 10/09/16 04:30 10/09/16 04:30 Labs: Short CBC 10/09/16 Range/Units 04:30 WBC 6.7 (4.3-11.1) K/mcL Hgb 12.0 (11.5-15.4) g/dL Hct 34.4 L (35.3-44.9) % Plt Count 190 (140-400) K/mcL Neutrophils # 4.7 (1.6-8.9) K/mcL BMP 10/09/16 04:30 Sodium 137 Potassium 3.8 Chloride 106 Carbon Dioxide 29 BUN 29 H Creatinine 0.78 Glucose 259 H Calcium 9.4 - ABG Interpretation ABG results: PT/INR, D-dimer PT 11.7 Seconds (9.4-12.1) 10/07/16 06:20 D-Dimer 503 ng/mLFEU (0-500) H 10/06/16 18:10 Consult Discharge Plan - Plan Referrals: Crow Gonzalez, INVENTORY PLANNER [Primary Care Provider] -
[2016-10-10 04:56] LABS: Basophils % 0.5 %; Eosinophils # 0.1 K/mcL (0.0-0.6); Hematocrit 33.5 % (35.3-44.9); Hemoglobin 11.9 g/dL (11.5-15.4); Immature Granulocytes % 0.5 % (0-4); Lymphocytes # 1.4 K/mcL (0.6-4.6); Lymphocytes % 20.3 %; Mean Corpuscular HGB Conc 35.5 g/dL (31.6-35.5); Mean Corpuscular Hemoglobin 31.9 pg (28.0-33.3); Mean Corpuscular Volume 89.8 fL (83.0-100.0); Mean Platelet Volume 11.2 fL (9.4-12.4); Monocytes # 0.5 K/mcL (0.0-1.3); Monocytes % 7.2 %; Neutrophils # 4.6 K/mcL (1.6-8.9); Platelet Count 181 K/mcL (140-400); Red Blood Count 3.73 M/mcL (3.82-4.97); Red Cell Distribution Width 11.5 % (11.5-14.5); Segmented Neutrophils % 69.5 %
[2016-10-10 05:10] LABS: BUN/Creatinine Ratio 37 (6-26); Blood Urea Nitrogen 27 mg/dL (7-20); Calcium 9.4 mg/dL (8.6-10.8); Carbon Dioxide 27 mEq/L (19-29); Chloride 109 mEq/L (98-109); Glucose 171 mg/dL (70-99); Magnesium 1.7 mg/dL (1.6-2.6); Osmolality,Calculated 303 (280-300); Phosphorous 4.4 mg/dL (2.3-4.7); Potassium 3.7 mEq/L (3.5-4.5); Sodium 142 mEq/L (136-145); eGFR For African Americans > 60 (> 60); eGFR For Non-African Americans > 60 (> 60)
[2016-10-10] MEDS: *HR* Heparin 5,000 UNIT/ML VIAL SQ SCH ×2 (06:37→17:27)
[2016-10-10] MEDS: Insulin LISPRO 300 UNITS/3 ML VIAL SQ SCH ×7 (07:36→19:58)
[2016-10-10] MEDS: Loratadine 10 MG TABLET PO SCH (08:11)
[2016-10-10] MEDS: Gabapentin 400 MG CAPSULE PO SCH ×2 (08:11→19:55)
[2016-10-10] MEDS: amLODIPine 5 MG TABLET PO SCH (08:11)
[2016-10-10] MEDS: Topiramate 25 MG TABLET PO SCH ×2 (08:11→19:55)
[2016-10-10] MEDS: Aspirin Enteric Coated 81 MG Tablet PO SCH (08:12)
[2016-10-10] MEDS: Fluticasone Propionate Nasal 50 MCG/SPRAY BOTTLE NS SCH (08:13)
[2016-10-10] MEDS: traMADol 50 MG TABLET PO PRN (08:19)
[2016-10-10] MEDS: Insulin DETEMIR 100 UNIT/ML X5UNITS SQ SCH ×2 (08:32→19:58)
--- NOTE | 2016-10-10 10:45 | Discharge Summary ---
Date of Encounter: 10/10/16 Time of Encounter: 10:43 - Discharge Diagnosis (1) Transient ischemic attack Priority: Primary Status: Acute Qualifiers: Transient cerebral ischemia type: unspecified Qualified Code(s): G45.9 - Transient cerebral ischemic attack, unspecified (2) HTN (hypertension) Priority: Secondary Status: Chronic Qualifiers: Hypertension type: essential hypertension Qualified Code(s): I10 - Essential (primary) hypertension (3) Diabetes mellitus, insulin dependent (IDDM), uncontrolled Priority: Secondary Status: Chronic Qualifiers: Diabetes mellitus complication status: with neurologic complications Diabetes mellitus complication detail: with other neurological complication Qualified Code(s): 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; E10.65 - Type 1 diabetes mellitus with hyperglycemia (4) DVT prophylaxis Priority: Secondary Status: Acute (5) Non-Hodgkin lymphoma Priority: Secondary Status: Chronic (6) Morbid obesity with BMI of 50.0-59.9, adult Priority: Secondary Status: Chronic - Discharge Medications Home Medications: Cetirizine HCl [Zyrtec] 10 mg PO DAILY 05/08/15 [History] Insulin Glargine,Hum.rec.anlog [Lantus Solostar] 40 unit SQ HS 05/08/15 [History ] Omeprazole 20 mg PO DAILY 05/08/15 [History] Acetaminophen [Tylenol] 500 mg PO Q6HR PRN 01/13/16 [History] Albuterol Sulfate [Albuterol Inhaler] 2 puff IH Q4HR PRN 01/13/16 [History] Fluticasone Propionate Nasal [Flonase] 1 spray NS DAILY 01/13/16 [History] Gabapentin [Neurontin] 800 mg PO BID 06/13/16 [History] Lidocaine/Prilocaine CREAM [Emla] 1 gm TP ONCE PRN 06/13/16 [History] Topiramate [Topamax] 50 mg PO BID 06/13/16 [History] Insulin ASPART [Novolog Flexpen] 0 unit SQ TIDAC 06/27/16 [History] Atorvastatin [Lipitor] 40 mg PO HS 09/05/16 [History] Clopidogrel [Plavix] 75 mg PO DAILY 09/05/16 [History] amLODIPine [Norvasc] 5 mg PO DAILY 09/05/16 [History] Docusate [Colace] 100 mg PO DAILY 10/06/16 [History] Lisinopril/Hydrochlorothiazide [Zestoretic 20-25 mg Tablet] 1 each PO DAILY [History] Meloxicam [Mobic] 15 mg PO DAILY 10/06/16 [History] Nystatin POWDER [Nystop] 1 appl TP BID PRN 10/06/16 [History] Tramadol HCl [Ultram] 50 mg PO QID PRN 10/06/16 [History] Allergies/Adverse Reactions: Allergies diphenhydramine [From Benadryl] Adverse Reaction (Verified 07/05/16 08:46) See Comments makes nervous Oxycodone Adverse Reaction (Verified 07/05/16 08:46) Itching Date of admission: 10/06/16 16:29 Primary care physician: Crow Gonzalez CNP Consults: 10/06/16 17:40 Consult to Nutrition [CONS] Routine Comment: Consulting Provider: NUTRITION Reason for Dietary Consult: Other 10/06/16 18:11 Consult to Neurology [CONS] Routine Consulting Provider: Neurology [facility] Reason for Consult: Patient has hx of strokes and is symptomatic for mild stroke today Call Completed: Yes 10/06/16 18:44 Consult to Occupational Therapy [CONS] Routine Comment: Evaluate, develop and implement POC Reason for Consult: Patient has hx of strokes and has right-sided weakness Consult to Physical Therapy [CONS] Routine Comment: Evaluate, develop and implement POC Reason for Consult: Patient has hx of strokes and has right-sided weakness 10/06/16 19:39 Consult to Speech Therapy [CONS] Routine Comment: Evaluate, develop and implement POC Reason for Consult: Stroke pt for swallow evaluation Call Completed: No 10/07/16 11:08 Consult to Workday Consultant [CONS] Routine Reason for SW Consult: PER PT THERAPY REC ECF Discharging clinician: Savanah Alonso Anticipated date of discharge: 10/10/16 - Patient Status Disposition: Transfer SNF Condition: Fair Functional capacity at discharge: uses cane/walker Overall status at discharge: patient is back to baseline - Discharge Instructions Follow Up With: Crow Gonzalez CNP [Primary Care Provider] - Additional Instructions: Please follow up with your primary care physician and neurologist with one week after your discharge from the hospital. Please closely monitor your blood glucose after discharge and continue ADA diet Please resume all your home medications as prescribed by your primary care physician. - Diet and Activity Activity: as per physical therapy Diet: diabetic diet, low salt diet Hospital course: Ms. Peña is a 61 year old female with PMH of non-hodgkins lymphoma, CVA,DM, GERD , HTN who was admitted for TIA. Pt was seen by neurology and completed full CVA work up. No acute abnormalities were reported on her work up. Pt was to be continued on Plavix as per neurology. She was evaluated by physical therapy and ECF was recommended. Patient's presenting symptoms have completely resolved and she is hemodynamically stable at this time. She will be discharged to rehab pending placement. Patient demonstrates understanding of her diagnosis and agrees with her discharge care and plan. - Time Spent with Patient Total time spent providing and/or coordinating discharge services: Greater than 30 minutes - Constitutional Vitals: Temp Pulse Resp BP Pulse Ox 97.8 F 75 15 140/75 93 10/10/16 06:27 10/10/16 06:27 10/10/16 06:27 10/10/16 06:27 10/10/16 06:27 General appearance: Present: cooperative, A&O X 3, morbidly obese, pleasant, no acute distress, answers questions appropriately - Head Head exam: Present: atraumatic, normocephalic - Eye Eye exam: Present: normal appearance, conjuntiva pink, sclera anicteric - Respiratory Respiratory exam: Present: CTAB. Absent: accessory muscle use, rales, rhonchi, wheezes - Cardiovascular Cardiovascular exam: Present: RRR, +S1, +S2. Absent: diastolic murmur, gallop, rubs, systolic murmur - GI/Abdominal GI/Abdominal exam: Present: distended (obese), normal bowel sounds, soft, no peritoneal signs. Absent: tenderness - Extremities Exam Extremities exam: Present: warm, radial pulses palpable and symetrical. Absent : calf tenderness, cyanotic, pedal edema - Neurological Exam Neurological exam: Present: alert, no focal deficits - Psychiatric Psychiatric exam: Present: normal affect, normal mood
--- NOTE | 2016-10-10 13:04 | Physician Discharge Referral ---
ExtendedCare Referral Info Transfer To: [facility] Provider in Charge after Transfer: PCP - Diagnosis (1) Transient ischemic attack Priority: Primary Status: Acute (2) HTN (hypertension) Priority: Secondary Status: Chronic (3) Diabetes mellitus, insulin dependent (IDDM), uncontrolled Priority: Secondary Status: Chronic (4) DVT prophylaxis Priority: Secondary Status: Acute (5) Non-Hodgkin lymphoma Priority: Secondary Status: Chronic (6) Morbid obesity with BMI of 50.0-59.9, adult Priority: Secondary Status: Chronic - Transfer Medications Home Medications: Cetirizine HCl [Zyrtec] 10 mg PO DAILY 05/08/15 [History] Insulin Glargine,Hum.rec.anlog [Lantus Solostar] 40 unit SQ HS 05/08/15 [History ] Omeprazole 20 mg PO DAILY 05/08/15 [History] Acetaminophen [Tylenol] 500 mg PO Q6HR PRN 01/13/16 [History] Albuterol Sulfate [Albuterol Inhaler] 2 puff IH Q4HR PRN 01/13/16 [History] Fluticasone Propionate Nasal [Flonase] 1 spray NS DAILY 01/13/16 [History] Gabapentin [Neurontin] 800 mg PO BID 06/13/16 [History] Lidocaine/Prilocaine CREAM [Emla] 1 gm TP ONCE PRN 06/13/16 [History] Topiramate [Topamax] 50 mg PO BID 06/13/16 [History] Insulin ASPART [Novolog Flexpen] 0 unit SQ TIDAC 06/27/16 [History] Atorvastatin [Lipitor] 40 mg PO HS 09/05/16 [History] Clopidogrel [Plavix] 75 mg PO DAILY 09/05/16 [History] amLODIPine [Norvasc] 5 mg PO DAILY 09/05/16 [History] Docusate [Colace] 100 mg PO DAILY 10/06/16 [History] Lisinopril/Hydrochlorothiazide [Zestoretic 20-25 mg Tablet] 1 each PO DAILY [History] Meloxicam [Mobic] 15 mg PO DAILY 10/06/16 [History] Nystatin POWDER [Nystop] 1 appl TP BID PRN 10/06/16 [History] Tramadol HCl [Ultram] 50 mg PO QID PRN 10/06/16 [History] Allergies/Adverse Reactions: Allergies diphenhydramine [From Benadryl] Adverse Reaction (Verified 07/05/16 08:46) See Comments makes nervous Oxycodone Adverse Reaction (Verified 07/05/16 08:46) Itching - Respiratory Orders Smoking Cessation: Smoking cessation has been advised. For more information, call the [place] Tobacco Quit Line at 8-222-KYKI-NOW. - Rehabiliation Orders Other: Please follow up with your primary care physician and neurologist with one week after your discharge from the hospital. Please closely monitor your blood glucose after discharge and continue ADA diet Please resume all your home medications as prescribed by your primary care physician. CERTIFICATION: I certify that the transfer of the above named patient to an Extended Care Facility is necessary for the continuing treatment of the diagnosis listed. The above information is true and accurate reflection of patient's current condition. Confidential - Redisclosure prohibited without a patient's written consent.
[2016-10-11] MEDS: *HR* Heparin 5,000 UNIT/ML VIAL SQ SCH (06:24)
[2016-10-11 06:52] VITALS: BP 111/66
--- NOTE | 2016-10-11 09:46 | Internal Med Progress Note ---
Date of Encounter: 10/11/16 Time of Encounter: 09:23 - Assessment and plan (1) Transient ischemic attack Current Visit: Yes Status: Acute Assessment and plan: Complete resolution of her presenting symptoms 2D Echo reported LVEF of 50%, Mild LV diastolic dysfunction, mild AR, no pulmonary htn and no PFO carotid dopplers: no carotid stenosis reported bilaterally CTA, MRI reviewed Neurology consultation appreciated will continue Aspirin, Plavix, and Lipitor PT evaluation recommended ECF placement Discharge pending ECF placement Qualifiers: Transient cerebral ischemia type: unspecified Qualified Code(s): G45.9 - Transient cerebral ischemic attack, unspecified (2) HTN (hypertension) Current Visit: Yes Status: Chronic Assessment and plan: BP within acceptable range will continue home medications will closely monitor BP Qualifiers: Hypertension type: essential hypertension Qualified Code(s): I10 - Essential (primary) hypertension (3) Diabetes mellitus, insulin dependent (IDDM), uncontrolled Current Visit: Yes Status: Chronic Assessment and plan: continue home insulin dosage continue to monitor fingerstick and blood glucose continue ss insulin coverage as needed Qualifiers: Diabetes mellitus complication status: with neurologic complications Diabetes mellitus complication detail: with other neurological complication Qualified Code(s): 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 Resting in chair and reports of feeling well at this time. Patient is participating with physical therapy. No overnight issues were reported. Patient is discharged to ECF pending placement. If ECF placement is arranged today, patient will be discharged today. No overnight issues reported. - Constitutional Vitals: Temp Pulse Resp BP Pulse Ox 98.1 F 81 15 111/66 97 10/10/16 22:41 10/11/16 06:51 10/11/16 06:51 10/11/16 06:51 10/11/16 06:51 General appearance: Present: cooperative, A&O X 3, morbidly obese, pleasant, no acute distress, answers questions appropriately - Head Head exam: Present: atraumatic, normocephalic - Eye Eye exam: Present: conjuntiva pink, sclera anicteric - Respiratory Respiratory exam: Present: CTAB. Absent: accessory muscle use, rales, rhonchi, wheezes - Cardiovascular Cardiovascular exam: Present: RRR, +S1, +S2. Absent: diastolic murmur, gallop, rubs, systolic murmur - GI/Abdominal GI/Abdominal exam: Present: normal bowel sounds, soft, no peritoneal signs. Absent: distended, tenderness - Extremities Exam Extremities exam: Present: warm, radial pulses palpable and symetrical. Absent : calf tenderness, cyanotic, pedal edema - Neurological Exam Neurological exam: Present: alert, oriented X3 - Psychiatric Psychiatric exam: Present: normal affect, normal mood Internal Medicine: Result - Labs CBC & Chem 7: 10/10/16 04:30 10/10/16 04:30 - ABG Interpretation ABG results: PT/INR, D-dimer PT 11.7 Seconds (9.4-12.1) 10/07/16 06:20 D-Dimer 503 ng/mLFEU (0-500) H 10/06/16 18:10 Consult Discharge Plan - Plan Instructions: Diabetes Mellitus Type 2 in Adults (DC), Ischemic Stroke (DC), Ischemic Stroke (GEN), Chronic Hypertension (DC) Additional Instructions: Please follow up with your primary care physician and neurologist with one week after your discharge from the hospital. Please closely monitor your blood glucose after discharge and continue ADA diet Please resume all your home medications as prescribed by your primary care physician. Referrals: Crow Gonzalez, W[employer]ER [employer]CR[employer]ER [Primary Care Provider] -
[2016-10-11] MEDS: Insulin LISPRO 300 UNITS/3 ML VIAL SQ SCH ×6 (10:24→17:37)
[2016-10-11] MEDS: Aspirin Enteric Coated 81 MG Tablet PO SCH (10:24)
[2016-10-11] MEDS: Fluticasone Propionate Nasal 50 MCG/SPRAY BOTTLE NS SCH (10:25)
[2016-10-11] MEDS: Gabapentin 400 MG CAPSULE PO SCH (10:25)
[2016-10-11] MEDS: Loratadine 10 MG TABLET PO SCH (10:25)
[2016-10-11] MEDS: amLODIPine 5 MG TABLET PO SCH (10:25)
[2016-10-11] MEDS: Insulin DETEMIR 100 UNIT/ML X5UNITS SQ SCH (10:25)
[2016-10-11] MEDS: Topiramate 25 MG TABLET PO SCH (10:26)
[2016-10-11] MEDS: traMADol 50 MG TABLET PO PRN (11:47)
== END 2016-10-11 18:59 | DRG 47 ==
LOC: EMEROO 15:21 → 2NENU 16:29
PROVIDERS: ADMIT Internal Medicine; ATTEND Internal Medicine

== ENCOUNTER 2016-11-24 17:31 | Observation (INO) ==
--- NOTE | 2016-11-24 20:39 | Internal Med History&Physical ---
Date of Encounter: 11/24/16 Time of Encounter: 20:38 Assessment and Plan (1) Right sided weakness Current visit: Yes Status: Acute High risk given recent CVA and TIA. Will order MRI brain and wait result before further investigation as needed. Consult PT to eval. Check BP and monitor accordingly Some non-specific low energy symptoms x 1 week. No overt clinical hx of sinuisitis but CT head with non-specific feature. 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 Given risk factor and presentation, empiric azithromycin Qualifiers: Sinusitis location: frontal Chronicity: unspecified Qualified Code(s): J32.1 - Chronic frontal sinusitis Internal Medicine - H&P: HPI History of present illness: Ms. Peña is a 61 year old female with hx of HTN, DMII and CVA and recurrent TIA who was transferred from [place] ED for further concerns of recurrent TIA vs. CVA. She has a high risk hx where recently, she had a cerebral infarct involving the left posterior coronal radiata back in July 2016. She also had a TIA w/u in 2016 with a normal carotid imaging. She tells me that at baseline, she is slightly weak on the right UE and LE since the CVA and uses a walker at baseline. She presents with initial symptoms of feeling tired, listless, "draggy ", decreased energy for the last 1 week. This was proceeded by symptoms of lightheadedness and feeling off balance in the last 24 hours since last evening approx. She also reports that her right side weakness is slightly worse approx 50% decreased from baseline per her own subjective impression. Associated with poor appetite and intermittent headaches. She took her BP today with readings of 155/105 and 180/116. XR/XR chest 2V IMPRESSION: Stable chest examination. No acute process. CT/CT head/brain wo con IMPRESSION: No acute intracranial abnormality. Left maxillary sinusitis. Past Med Surg Social Fam HX - Past Medical History Medical history: cancer, CVA, DVT, diabetes, GERD, hypertension, myocardial infarction, TIA, other Psychiatric history: no psych history - Past Surgical History Surgical History: non-contributory - Social History Smoking Status: Never smoker Smokeless Tobacco Status: No Alcohol use: none Drug use: none - Family History Father Adopted: Yes Family Member Ethnicity: Non- Living Status: Hx Family Cancer: Yes (Prostate) Brother Adopted: Yes Family Member Ethnicity: Non- Living Status: Still Living Hx Family Cancer: Yes (Stomach, colon) Hx Family Autoimmune Disorders: Yes (Lupus) Mother Adopted: Yes Family Member Ethnicity: Non- Living Status: Hx Family Cardiac Disorders: Yes ([place]) Sister Family Member Ethnicity: Non- Living Status: Still Living Internal Medicine - H&P: Meds Cetirizine HCl [Zyrtec] 10 mg PO DAILY 05/08/15 [History] Omeprazole 20 mg PO DAILY 05/08/15 [History] Acetaminophen [Tylenol] 500 mg PO Q6HR PRN 01/13/16 [History] Albuterol Sulfate [Albuterol Inhaler] 2 puff IH Q4HR PRN 01/13/16 [History] Fluticasone Propionate Nasal [Flonase] 1 spray NS DAILY 01/13/16 [History] Gabapentin [Neurontin] 800 mg PO BID 06/13/16 [History] Lidocaine/Prilocaine CREAM [Emla] 1 appl TP ONCE PRN 06/13/16 [History] Topiramate [Topamax] 50 mg PO BID 06/13/16 [History] Insulin ASPART [Novolog Flexpen] 0 unit SQ TIDAC 06/27/16 [History] Atorvastatin [Lipitor] 40 mg PO HS 09/05/16 [History] Clopidogrel [Plavix] 75 mg PO DAILY 09/05/16 [History] amLODIPine [Norvasc] 5 mg PO DAILY 09/05/16 [History] Docusate [Colace] 100 mg PO DAILY 10/06/16 [History] Lisinopril/Hydrochlorothiazide [Zestoretic 20-25 mg Tablet] 1 each PO DAILY [History] Meloxicam [Mobic] 15 mg PO DAILY 10/06/16 [History] Nystatin POWDER [Nystop] 1 appl TP BID PRN 10/06/16 [History] Tramadol HCl [Ultram] 50 mg PO QID PRN 10/06/16 [History] Alogliptin Benzoate [Alogliptin] 25 mg PO DAILY 11/24/16 [History] Insulin Glargine,Hum.rec.anlog [Basaglar Kwikpen U-100] 40 unit SQ HS 11/24/16 [ History] 3 Allergy/AdvReac Type Severity Reaction Status Date / Time diphenhydramine AdvReac See Verified 07/05/16 08:46 [From Benadryl] Comments Oxycodone AdvReac Itching Verified 07/05/16 08:46 All Systems PM: A 10-system review of systems was performed and is negative for pertinent findings except as documented above in the HPI. Review of systems: ROS 14 point review of systems reviewed as best as possible given presentation. Pertinent positive or negative as per HPI or otherwise reviewed as negative - Constitutional Vitals: Temp Pulse Resp BP Pulse Ox 98.7 F 95 19 140/100 98 11/24/16 19:20 11/24/16 19:20 11/24/16 19:20 11/24/16 19:20 11/24/16 19:20 Exam: General - AAO x 3 Psych - Appropriate affect/speech. No agitation Eyes - ANA MARIA. Eye lids intact. No scleral icterus Neuro - RUE and RUE 4-/5 power. Gait not assessed. Otherwise no gross peripheral or central neuro deficits with intact CN 2-12 exam Heart - Sinus. RRR. S1 and S2 present. No added HS/murmurs appreciated. No elevated JVD appreciated. Lung - Adequate air entry b/l, No crackles/wheezes appreciated GI - Soft, non-tender. No hepatosplenomegaly/ascites. BS+ - No CVA/suprapubic tenderness or palpable bladder distension Skin - Intact. No rash/petechiae/ecchymosis. Warm extremities MSK - Joints with normal ROM. No joint swellings
[2016-11-24] MEDS ORDERED: D5% in Water 1,000 ML IVC PRN (20:47)
[2016-11-24] MEDS ORDERED: Naloxone 0.4 MG/ML INJ IVP PRN (20:47)
[2016-11-24] MEDS ORDERED: *HR* Dextrose 50 % in Water (Syg) 50 ML SYRINGE IVP PRN (20:47)
[2016-11-24] MEDS ORDERED: Dextrose Gel 15 GM PO PRN ×2 (20:47)
[2016-11-24] MEDS ORDERED: Nystatin POWDER 30 GM BOTTLE TP PRN (20:54)
[2016-11-24] MEDS ORDERED: NON-FORMULARY MEDICATION 1 EACH EACH (Insulin Glargine,Hum.Rec.Anlog [Basaglar Kwikpen U-1 SQ SCH (21:00)
[2016-11-24] MEDS: Insulin LISPRO 300 UNITS/3 ML VIAL SQ SCH (21:56)
[2016-11-24] MEDS: traMADol 50 MG TABLET PO PRN (21:57)
[2016-11-24] MEDS: Gabapentin 400 MG CAPSULE PO SCH (21:57)
[2016-11-24] MEDS: Topiramate 25 MG TABLET PO SCH (21:57)
[2016-11-24] MEDS: Insulin DETEMIR 100 UNIT/ML X5UNITS SQ SCH (21:58)
[2016-11-24] MEDS: Azithromycin 250 MG TABLET PO SCH (21:59)
[2016-11-25] MEDS: traMADol 50 MG TABLET PO PRN ×2 (05:35→19:41)
[2016-11-25 06:02] LABS: Basophils % 0.5 %; Eosinophils # 0.1 K/mcL (0.0-0.6); Eosinophils % 2.3 %; Hemoglobin 10.9 g/dL (11.5-15.4); Immature Granulocytes % 0.5 % (0-4); Lymphocytes # 1.4 K/mcL (0.6-4.6); Lymphocytes % 24.4 %; Mean Corpuscular HGB Conc 34.1 g/dL (31.6-35.5); Mean Corpuscular Hemoglobin 30.9 pg (28.0-33.3); Mean Corpuscular Volume 90.7 fL (83.0-100.0); Mean Platelet Volume 10.4 fL (9.4-12.4); Monocytes # 0.5 K/mcL (0.0-1.3); Monocytes % 9.2 %; Neutrophils # 3.5 K/mcL (1.6-8.9); Platelet Count 189 K/mcL (140-400); Red Blood Count 3.53 M/mcL (3.82-4.97); Red Cell Distribution Width 11.9 % (11.5-14.5); Segmented Neutrophils % 63.1 %
[2016-11-25 06:07] LABS: Hemoglobin A1C 8.1 %
[2016-11-25 06:10] LABS: Alanine Aminotransferase 14 Units/L (0-55); Albumin 2.3 g/dL (3.5-5.0); Albumin/Globulin Ratio 0.9 (1.1-2.2); Alkaline Phosphatase 71 Units/L (38-126); Aspartate Amino Transferase 12 Units/L (5-34); BUN/Creatinine Ratio 25 (6-26); Bilirubin,Total 0.3 mg/dL (0.2-1.2); Blood Urea Nitrogen 17 mg/dL (7-20); Calcium 7.4 mg/dL (8.6-10.8); Carbon Dioxide 21 mEq/L (19-29); Chloride 116 mEq/L (98-109); Chol/HDL Ratio 2.8 (0-4.9); Cholesterol 99 mg/dL (< 200); Globulin 2.5 g/dL (2.4-3.5); Glucose 171 mg/dL (70-99); HDL Cholesterol 35 mg/dL (40-59); LDL Cholesterol,Calculated 47 mg/dL (0-99); Osmolality,Calculated 300 (280-300); Sodium 142 mEq/L (136-145); Total Protein 4.8 g/dL (6.0-8.3); Triglycerides 83 mg/dL (< 150); eGFR For African Americans > 60 (> 60); eGFR For Non-African Americans > 60 (> 60)
[2016-11-25] MEDS: Topiramate 25 MG TABLET PO SCH ×2 (08:55→19:41)
[2016-11-25] MEDS: Gabapentin 400 MG CAPSULE PO SCH ×2 (08:56→19:41)
[2016-11-25] MEDS: Azithromycin 250 MG TABLET PO SCH (08:56)
[2016-11-25] MEDS: amLODIPine 5 MG TABLET PO SCH (08:56)
[2016-11-25] MEDS: Insulin LISPRO 300 UNITS/3 ML VIAL SQ SCH ×4 (08:57→19:44)
[2016-11-25] MEDS: Fluticasone Propionate Nasal 50 MCG/SPRAY BOTTLE NS SCH (08:57)
[2016-11-25] MEDS: Alogliptin 25 MG PO SCH (08:57)
[2016-11-25] MEDS ORDERED: 0.9 % Sodium Chloride 1,000 ML IVC SCH (11:30)
--- NOTE | 2016-11-25 19:15 | Internal Med Progress Note ---
Date of Encounter: 11/25/16 Time of Encounter: 11:00 - Assessment and plan (1) History of stroke Current Visit: Yes Status: Acute (2) DVT prophylaxis Current Visit: No Status: Acute Assessment and plan: She is very immobile and obese. She is at risk for DVT and has a history of stroke and possible TIA. We will start subcutaneous heparin prophylaxis. (3) TIA (transient ischemic attack) Current Visit: No Status: Acute Assessment and plan: Symptoms could be related to TIA. An MRI showed no acute CVA. She passed swallow study. She was evaluated by PT OT who recommended inpatient rehabilitation. Currently patient has a bed at an inpatient rehabilitation facility, pending insurance authorization. Qualifiers: Transient cerebral ischemia type: other Qualified Code(s): G45.8 - Other transient cerebral ischemic attacks and related syndromes (4) Diabetes mellitus, insulin dependent (IDDM), uncontrolled Current Visit: No Status: Chronic Assessment and plan: Basal insulin Levemir and sliding scale. Check hemoglobin A1c. 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 She presented yesterday with nonspecific neurologic symptoms including bilateral upper extremity weakness and feeling tired and listless. - Constitutional Vitals: Temp Pulse Resp BP Pulse Ox 97.4 F L 80 20 130/71 98 11/25/16 11:50 11/25/16 11:50 11/25/16 16:00 11/25/16 16:00 11/25/16 16:00 - Respiratory Respiratory exam: Present: CTAB. Absent: accessory muscle use, rales, rhonchi, wheezes - Cardiovascular Cardiovascular exam: Present: RRR, +S1, +S2. Absent: diastolic murmur, gallop, rubs, systolic murmur - GI/Abdominal GI/Abdominal exam: Present: normal bowel sounds, soft, no peritoneal signs. Absent: distended, tenderness - Extremities Exam Extremities exam: Present: warm, radial pulses palpable and symmetrical. Absent : calf tenderness, cyanotic, pedal edema - Skin Skin exam: Present: dry, intact Internal Medicine: Result - Labs CBC & Chem 7: 11/25/16 05:30 11/25/16 05:30 Labs: Short CBC 11/25/16 Range/Units 05:30 WBC 5.5 (4.3-11.1) K/mcL Hgb 10.9 L D (11.5-15.4) g/dL Hct 32.0 L (35.3-44.9) % Plt Count 189 (140-400) K/mcL Neutrophils # 3.5 (1.6-8.9) K/mcL BMP 11/25/16 05:30 Sodium 142 Potassium 3.0 L Chloride 116 H Carbon Dioxide 21 BUN 17 Creatinine 0.67 Glucose 171 H Calcium 7.4 L D Liver Function 11/25/16 Range/Units 05:30 Total Bilirubin 0.3 (0.2-1.2) mg/dL AST 12 (5-34) Units/L ALT 14 (0-55) Units/L Alkaline Phosphatase 71 (38-126) Units/L Albumin 2.3 L D (3.5-5.0) g/dL - Impressions Impressions Brain MRI 11/25/16 08:00 IMPRESSION: 1. No acute intracranial abnormality. Specifically, no acute infarction. 2. Old left sampson radiata and periventricular white matter lacunar infarction. Sequela of mild chronic microvascular ischemic changes. 3. Left maxillary sinus air-fluid level suggesting acute sinusitis. D/ / Andie Farmer MD / Andie Farmer MD Interpreting Provider: Andie Farmer MD Consult Discharge Plan - Plan Referrals: NONE,PCP [Primary Care Provider] -
[2016-11-25] MEDS: Insulin DETEMIR 100 UNIT/ML X5UNITS SQ SCH (19:41)
[2016-11-25] MEDS: *HR* Heparin 5,000 UNIT/ML VIAL SQ SCH (21:17)
[2016-11-26 03:20] LABS: Basophils % 0.5 %; Eosinophils # 0.2 K/mcL (0.0-0.6); Eosinophils % 2.4 %; Hematocrit 32.7 % (35.3-44.9); Hemoglobin 11.2 g/dL (11.5-15.4); Immature Granulocytes % 0.3 % (0-4); Lymphocytes # 1.7 K/mcL (0.6-4.6); Mean Corpuscular HGB Conc 34.3 g/dL (31.6-35.5); Mean Corpuscular Hemoglobin 30.8 pg (28.0-33.3); Mean Corpuscular Volume 89.8 fL (83.0-100.0); Mean Platelet Volume 10.1 fL (9.4-12.4); Monocytes # 0.5 K/mcL (0.0-1.3); Monocytes % 8.3 %; Neutrophils # 3.9 K/mcL (1.6-8.9); Platelet Count 190 K/mcL (140-400); Red Blood Count 3.64 M/mcL (3.82-4.97); Red Cell Distribution Width 11.7 % (11.5-14.5); Segmented Neutrophils % 61.5 %
[2016-11-26 03:33] LABS: BUN/Creatinine Ratio 40 (6-26); Blood Urea Nitrogen 31 mg/dL (7-20); Calcium 8.6 mg/dL (8.6-10.8); Carbon Dioxide 22 mEq/L (19-29); Chloride 110 mEq/L (98-109); Glucose 195 mg/dL (70-99); Osmolality,Calculated 302 (280-300); Potassium 3.6 mEq/L (3.5-4.5); Sodium 140 mEq/L (136-145); eGFR For African Americans > 60 (> 60); eGFR For Non-African Americans > 60 (> 60)
[2016-11-26] MEDS: *HR* Heparin 5,000 UNIT/ML VIAL SQ SCH ×3 (04:59→20:59)
[2016-11-26] MEDS: Insulin LISPRO 300 UNITS/3 ML VIAL SQ SCH ×4 (08:54→21:13)
[2016-11-26] MEDS: Alogliptin 25 MG PO SCH (08:56)
[2016-11-26] MEDS: Gabapentin 400 MG CAPSULE PO SCH ×2 (09:01→20:58)
[2016-11-26] MEDS: Azithromycin 250 MG TABLET PO SCH (09:01)
[2016-11-26] MEDS: amLODIPine 5 MG TABLET PO SCH (09:02)
[2016-11-26] MEDS: Topiramate 25 MG TABLET PO SCH ×2 (09:02→20:58)
[2016-11-26] MEDS: Fluticasone Propionate Nasal 50 MCG/SPRAY BOTTLE NS SCH (09:02)
[2016-11-26] MEDS ORDERED: amLODIPine 5 MG TABLET PO ONE (16:22)
--- NOTE | 2016-11-26 19:15 | Internal Med Progress Note ---
Date of Encounter: 11/26/16 Time of Encounter: 13:00 - Assessment and plan (1) History of stroke Current Visit: Yes Status: Acute Assessment and plan: Continue to have right lower extremity and right upper extremity motor weakness. She will require subacute rehabilitation. (2) DVT prophylaxis Current Visit: No Status: Acute Assessment and plan: She is very immobile and obese. She is at risk for DVT and has a history of stroke and possible TIA. We will start subcutaneous heparin prophylaxis. (3) TIA (transient ischemic attack) Current Visit: No Status: Acute Assessment and plan: Symptoms related to TIA. An MRI showed no acute CVA. She is on Plavix. I will add low-dose aspirin. She passed swallow study. She was evaluated by PT OT who recommended inpatient rehabilitation. Currently patient has a bed at an inpatient rehabilitation facility, pending insurance authorization. Qualifiers: Transient cerebral ischemia type: other Qualified Code(s): G45.8 - Other transient cerebral ischemic attacks and related syndromes (4) Diabetes mellitus, insulin dependent (IDDM), uncontrolled Current Visit: No Status: Chronic Assessment and plan: Basal insulin Levemir and sliding scale. Check hemoglobin A1c. 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 I will increase the Norvasc to 10 mg daily and continue to monitor closely. She is on lisinopril HCTZ. We will continue this consider increasing lisinopril to 40 mg. Qualifiers: Hypertension type: essential hypertension Qualified Code(s): I10 - Essential (primary) hypertension (6) Morbid obesity with BMI of 50.0-59.9, adult Current Visit: No Status: Chronic Assessment and plan: Outpatient weight loss regimen. - Subjective Interval history: 11/26/2016: Patient reports unchanged right upper extremity weakness and right lower extremity weakness making it difficult for her to ambulate. Her headache has improved since yesterday. 11/25/2016: Patient reports sinus pressure and headache. She presented yesterday with nonspecific neurologic symptoms including bilateral upper extremity weakness and feeling tired and listless. - Constitutional Vitals: Temp Pulse Resp BP Pulse Ox 97.7 F 84 18 150/94 97 11/26/16 18:57 11/26/16 18:57 11/26/16 18:57 11/26/16 18:57 11/26/16 18:57 - Respiratory Respiratory exam: Present: CTAB. Absent: accessory muscle use, rales, rhonchi, wheezes - Cardiovascular Cardiovascular exam: Present: RRR, +S1, +S2. Absent: diastolic murmur, gallop, rubs, systolic murmur - GI/Abdominal GI/Abdominal exam: Present: normal bowel sounds, soft, no peritoneal signs. Absent: distended, tenderness - Extremities Exam Extremities exam: Present: warm, radial pulses palpable and symmetrical. Absent : calf tenderness, cyanotic, pedal edema - Neurological Exam Additional comments: Right hemiparesis otherwise within normal limits. - Skin Skin exam: Present: dry, intact Internal Medicine: Result - Labs CBC & Chem 7: 11/26/16 03:05 11/26/16 03:05 Labs: Short CBC 11/26/16 Range/Units 03:05 WBC 6.3 (4.3-11.1) K/mcL Hgb 11.2 L (11.5-15.4) g/dL Hct 32.7 L (35.3-44.9) % Plt Count 190 (140-400) K/mcL Neutrophils # 3.9 (1.6-8.9) K/mcL BMP 11/26/16 03:05 Sodium 140 Potassium 3.6 Chloride 110 H Carbon Dioxide 22 BUN 31 H D Creatinine 0.78 Glucose 195 H Calcium 8.6 D Consult Discharge Plan - Plan Referrals: NONE,PCP [Primary Care Provider] -
[2016-11-26] MEDS: Insulin DETEMIR 100 UNIT/ML X5UNITS SQ SCH (21:01)
[2016-11-27] MEDS: *HR* Heparin 5,000 UNIT/ML VIAL SQ SCH ×3 (06:00→20:47)
[2016-11-27] MEDS: Insulin LISPRO 300 UNITS/3 ML VIAL SQ SCH ×4 (08:48→20:47)
[2016-11-27] MEDS: Gabapentin 400 MG CAPSULE PO SCH ×2 (10:59→20:41)
[2016-11-27] MEDS: Topiramate 25 MG TABLET PO SCH ×2 (10:59→20:42)
[2016-11-27] MEDS: Azithromycin 250 MG TABLET PO SCH (10:59)
[2016-11-27] MEDS: amLODIPine 5 MG TABLET PO SCH (11:00)
[2016-11-27] MEDS: Alogliptin 25 MG PO SCH (11:04)
[2016-11-27] MEDS: Fluticasone Propionate Nasal 50 MCG/SPRAY BOTTLE NS SCH (12:42)
[2016-11-27] MEDS ORDERED: Furosemide 20 MG/2 ML VIAL IVP ONE (14:14)
--- NOTE | 2016-11-27 17:28 | Internal Med Progress Note ---
Date of Encounter: 11/27/16 Time of Encounter: 11:00 - Assessment and plan (1) History of stroke Current Visit: Yes Status: Acute Assessment and plan: Continue to have right lower extremity and right upper extremity motor weakness. She will require subacute rehabilitation. (2) DVT prophylaxis Current Visit: No Status: Acute Assessment and plan: She is very immobile and obese. She is at risk for DVT and has a history of stroke and possible TIA. We will start subcutaneous heparin prophylaxis. (3) TIA (transient ischemic attack) Current Visit: No Status: Acute Assessment and plan: Symptoms related to TIA. An MRI showed no acute CVA. She is on Plavix. I will add low-dose aspirin. She passed swallow study. She was evaluated by PT OT who recommended inpatient rehabilitation. Currently patient has a bed at an inpatient rehabilitation facility, pending insurance authorization. Qualifiers: Transient cerebral ischemia type: other Qualified Code(s): G45.8 - Other transient cerebral ischemic attacks and related syndromes (4) Diabetes mellitus, insulin dependent (IDDM), uncontrolled Current Visit: No Status: Chronic Assessment and plan: Basal insulin Levemir and sliding scale. Check hemoglobin A1c. 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 I am worried of the salt load with initial treatment with normal saline and therefore I will give 1 dose of IV Lasix. Especially that the patient has [id number] lower extremity edema this afternoon. We will assess her response and will monitor blood pressure. I increased the Norvasc to 10 mg daily and continue to monitor closely. She is on lisinopril HCTZ. We will continue this consider increasing lisinopril to 40 mg. Qualifiers: Hypertension type: essential hypertension Qualified Code(s): I10 - Essential (primary) hypertension (6) Morbid obesity with BMI of 50.0-59.9, adult Current Visit: No Status: Chronic Assessment and plan: Outpatient weight loss regimen. - Subjective Interval history: 11/27/2016: She reports unchanged weakness in the right side, making it difficult to ambulate. 11/26/2016: Patient reports unchanged right upper extremity weakness and right lower extremity weakness making it difficult for her to ambulate. Her headache has improved since yesterday. 11/25/2016: Patient reports sinus pressure and headache. She presented yesterday with nonspecific neurologic symptoms including bilateral upper extremity weakness and feeling tired and listless. - Constitutional Vitals: Temp Pulse Resp BP Pulse Ox 97.8 F 69 14 135/81 94 11/27/16 15:43 11/27/16 15:43 11/27/16 15:43 11/27/16 15:43 11/27/16 15:43 General appearance: Present: A&O X 3 - Respiratory Respiratory exam: Present: CTAB. Absent: accessory muscle use, rales, rhonchi, wheezes - Cardiovascular Cardiovascular exam: Present: RRR, +S1, +S2. Absent: diastolic murmur, gallop, rubs, systolic murmur - GI/Abdominal GI/Abdominal exam: Present: normal bowel sounds, soft, no peritoneal signs. Absent: distended, tenderness Internal Medicine: Result - Labs CBC & Chem 7: 11/26/16 03:05 11/26/16 03:05 Consult Discharge Plan - Plan Referrals: NONE,PCP [Primary Care Provider] -
[2016-11-27] MEDS: traMADol 50 MG TABLET PO PRN (20:46)
[2016-11-27] MEDS: Lisinopril-HCTZ 20-12.5mg TABLET PO SCH (20:46)
[2016-11-27] MEDS: Insulin DETEMIR 100 UNIT/ML X5UNITS SQ SCH (20:47)
[2016-11-28] MEDS: *HR* Heparin 5,000 UNIT/ML VIAL SQ SCH ×3 (05:46→21:08)
[2016-11-28] MEDS: Azithromycin 250 MG TABLET PO SCH (08:03)
[2016-11-28] MEDS: Topiramate 25 MG TABLET PO SCH ×2 (08:03→21:08)
[2016-11-28] MEDS: Lisinopril-HCTZ 20-12.5mg TABLET PO SCH ×2 (08:03→21:08)
[2016-11-28] MEDS: Fluticasone Propionate Nasal 50 MCG/SPRAY BOTTLE NS SCH (08:04)
[2016-11-28] MEDS: amLODIPine 5 MG TABLET PO SCH (08:04)
[2016-11-28] MEDS: Insulin LISPRO 300 UNITS/3 ML VIAL SQ SCH ×4 (08:04→21:09)
[2016-11-28] MEDS: Gabapentin 400 MG CAPSULE PO SCH ×2 (08:05→21:08)
[2016-11-28] MEDS: Alogliptin 25 MG PO SCH (08:08)
--- NOTE | 2016-11-28 09:30 | Discharge Summary ---
Date of Encounter: 11/28/16 Time of Encounter: 09:23 - Discharge Diagnosis (1) History of stroke Priority: Secondary Status: Acute (2) TIA (transient ischemic attack) Priority: Primary Status: Acute Qualifiers: Transient cerebral ischemia type: other Qualified Code(s): G45.8 - Other transient cerebral ischemic attacks and related syndromes (3) Diabetes mellitus, insulin dependent (IDDM), uncontrolled Priority: Secondary Status: Chronic Qualifiers: Diabetes mellitus complication status: with neurologic complications Diabetes mellitus complication detail: with other neurological complication Qualified Code(s): 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; E10.65 - Type 1 diabetes mellitus with hyperglycemia (4) HTN (hypertension) Priority: Secondary Status: Chronic Qualifiers: Hypertension type: essential hypertension Qualified Code(s): I10 - Essential (primary) hypertension (5) Morbid obesity with BMI of 50.0-59.9, adult Priority: Secondary Status: Chronic - Discharge Medications Prescriptions: Aspirin Enteric Coated [Aspirin EC] 81 mg PO DAILY #30 tablet.dr Azithromycin [Zithromax] 500 mg PO DAILY #3 tab Lisinopril/Hydrochlorothiazide [Zestoretic 20-25 mg Tablet] 1 each PO BID #60 Tramadol HCl [Ultram] 50 mg PO QID PRN #30 PRN Reason: Pain Home Medications: Cetirizine HCl [Zyrtec] 10 mg PO DAILY 05/08/15 [History] Omeprazole 20 mg PO DAILY 05/08/15 [History] Acetaminophen [Tylenol] 500 mg PO Q6HR PRN 01/13/16 [History] Albuterol Sulfate [Albuterol Inhaler] 2 puff IH Q4HR PRN 01/13/16 [History] Fluticasone Propionate Nasal [Flonase] 1 spray NS DAILY 01/13/16 [History] Gabapentin [Neurontin] 800 mg PO BID 06/13/16 [History] Lidocaine/Prilocaine CREAM [Emla] 1 appl TP ONCE PRN 06/13/16 [History] Topiramate [Topamax] 50 mg PO BID 06/13/16 [History] Insulin ASPART [Novolog Flexpen] 0 unit SQ TIDAC 06/27/16 [History] Atorvastatin [Lipitor] 40 mg PO HS 09/05/16 [History] Clopidogrel [Plavix] 75 mg PO DAILY 09/05/16 [History] Docusate [Colace] 100 mg PO DAILY 10/06/16 [History] Nystatin POWDER [Nystop] 1 appl TP BID PRN 10/06/16 [History] Alogliptin Benzoate [Alogliptin] 25 mg PO DAILY 11/24/16 [History] Insulin Glargine,Hum.rec.anlog [Basaglar Kwikpen U-100] 40 unit SQ HS 11/24/16 [ History] Aspirin Enteric Coated [Aspirin EC] 81 mg PO DAILY #30 tablet. 11/28/16 [Rx] Azithromycin [Zithromax] 500 mg PO DAILY #3 tab 11/28/16 [Rx] Lisinopril/Hydrochlorothiazide [Zestoretic 20-25 mg Tablet] 1 each PO BID #60 11/28/16 [Rx] Tramadol HCl [Ultram] 50 mg PO QID PRN #30 11/28/16 [Rx] amLODIPine [Norvasc] 10 mg PO DAILY tab 11/28/16 [Rx] Allergies/Adverse Reactions: 3 Allergy/AdvReac Type Severity Reaction Status Date / Time diphenhydramine AdvReac See Verified 07/05/16 08:46 [From Benadryl] Comments Oxycodone AdvReac Itching Verified 07/05/16 08:46 Date of admission: 11/24/16 18:51 Primary care physician: PCP NONE Consults: 11/24/16 20:46 Consult to Physical Therapy [CONS] Routine Comment: Evaluate, develop and implement POC Reason for Consult: ambulate assess for placement need 11/25/16 12:11 Consult to Occupational Therapy [CONS] Routine Comment: Evaluate, develop and implement POC Reason for Consult: PT recommending SNF and insurance requires OT notes as well 11/25/16 12:24 Consult to Retail Client Solutions Analyst [CONS] Routine Reason for SW Consult: PT recommending SNF - Patient Status Disposition: Transfer SNF Condition: Good Functional capacity at discharge: uses cane/walker Overall status at discharge: patient is progressing back to baseline - Discharge Instructions Follow Up With: NONE,PCP [Primary Care Provider] - - Diet and Activity Activity: ambulate only with your walker, as per physical therapy, increase activity as tolerated Diet: advance to your usual diet, diabetic diet, low fat, low cholesterol, low salt diet Hospital course: Ms. Peña is a 61 year old female with history of hypertension, diabetes and morbid obesity, recent stroke within the last 6 months with residual right- sided weakness who presented to the hospital with worsening weakness in her right upper and lower extremities. She was diagnosed with a TIA and admitted for observation. An MRI of the brain showed an old infarct corresponding with her right-sided deficit and no acute intracranial findings. She underwent PT OT evaluation and was deemed a good candidate for inpatient rehabilitation. Her blood pressure was elevated during this admission and therefore amlodipine was increased to 10 mg daily and her lisinopril HCTZ has been increased to 1 tab twice a day. We recommend discontinuing Mobic as this can increase the risk of stroke. We added a low dose aspirin for cardiovascular prevention. The patient is currently back to baseline and will be discharged to rehabilitation. - Time Spent with Patient Total time spent providing and/or coordinating discharge services: Greater than 30 minutes - Constitutional Vitals: Temp Pulse Resp BP Pulse Ox 97.7 F 83 16 140/107 100 11/28/16 07:18 11/28/16 07:18 11/28/16 07:18 11/28/16 07:18 11/28/16 08:20 General appearance: Present: A&O X 3 - Respiratory Respiratory exam: Present: CTAB. Absent: accessory muscle use, rales, rhonchi, wheezes - Cardiovascular Cardiovascular exam: Present: RRR, +S1, +S2. Absent: diastolic murmur, gallop, rubs, systolic murmur - GI/Abdominal GI/Abdominal exam: Present: normal bowel sounds, soft, no peritoneal signs. Absent: distended, tenderness - Neurological Exam Additional comments: Right upper extremity and right lower extremity weakness unchanged from prior exam.
--- NOTE | 2016-11-28 09:35 | Physician Discharge Referral ---
ExtendedCare Referral Info Provider in Charge after Transfer: PCP Institutional Level of Care: Skilled - Diagnosis (1) History of stroke Status: Acute (2) TIA (transient ischemic attack) Status: Acute (3) Diabetes mellitus, insulin dependent (IDDM), uncontrolled Status: Chronic (4) HTN (hypertension) Status: Chronic (5) Morbid obesity with BMI of 50.0-59.9, adult Status: Chronic - Transfer Medications Prescriptions: Aspirin Enteric Coated [Aspirin EC] 81 mg PO DAILY #30 tablet. Azithromycin [Zithromax] 500 mg PO DAILY #3 tab Lisinopril/Hydrochlorothiazide [Zestoretic 20-25 mg Tablet] 1 each PO BID #60 Tramadol HCl [Ultram] 50 mg PO QID PRN #30 PRN Reason: Pain Home Medications: Cetirizine HCl [Zyrtec] 10 mg PO DAILY 05/08/15 [History] Omeprazole 20 mg PO DAILY 05/08/15 [History] Acetaminophen [Tylenol] 500 mg PO Q6HR PRN 01/13/16 [History] Albuterol Sulfate [Albuterol Inhaler] 2 puff IH Q4HR PRN 01/13/16 [History] Fluticasone Propionate Nasal [Flonase] 1 spray NS DAILY 01/13/16 [History] Gabapentin [Neurontin] 800 mg PO BID 06/13/16 [History] Lidocaine/Prilocaine CREAM [Emla] 1 appl TP ONCE PRN 06/13/16 [History] Topiramate [Topamax] 50 mg PO BID 06/13/16 [History] Insulin ASPART [Novolog Flexpen] 0 unit SQ TIDAC 06/27/16 [History] Atorvastatin [Lipitor] 40 mg PO HS 09/05/16 [History] Clopidogrel [Plavix] 75 mg PO DAILY 09/05/16 [History] Docusate [Colace] 100 mg PO DAILY 10/06/16 [History] Nystatin POWDER [Nystop] 1 appl TP BID PRN 10/06/16 [History] Alogliptin Benzoate [Alogliptin] 25 mg PO DAILY 11/24/16 [History] Insulin Glargine,Hum.rec.anlog [Basaglar Kwikpen U-100] 40 unit SQ HS 11/24/16 [ History] Aspirin Enteric Coated [Aspirin EC] 81 mg PO DAILY #30 tablet. 11/28/16 [Rx] Azithromycin [Zithromax] 500 mg PO DAILY #3 tab 11/28/16 [Rx] Lisinopril/Hydrochlorothiazide [Zestoretic 20-25 mg Tablet] 1 each PO BID #60 11/28/16 [Rx] Tramadol HCl [Ultram] 50 mg PO QID PRN #30 11/28/16 [Rx] amLODIPine [Norvasc] 10 mg PO DAILY tab 11/28/16 [Rx] Allergies/Adverse Reactions: 3 Allergy/AdvReac Type Severity Reaction Status Date / Time diphenhydramine AdvReac See Verified 07/05/16 08:46 [From Benadryl] Comments Oxycodone AdvReac Itching Verified 07/05/16 08:46 - Respiratory Orders Smoking Cessation: Smoking cessation has been advised. For more information, call the [place] Tobacco Quit Line at 3-932-HMVH-NOW. - Advance Directives Living Will: Yes Power of Book Store Associate: Yes Code Status: Full Code - Mobility Orders Ambulate (With assistance) - Rehabiliation Orders Rehab Potential: Fair Rehab Orders: Evaluation for Physical Therapy, Evaluation for Occupational Therapy - Treatments Skin tear care topically daily PRN per policy - Diet Orders No Added Salt (CHELE), No Concentrated Sweets, Cardiac CERTIFICATION: I certify that the transfer of the above named patient to an Extended Care Facility is necessary for the continuing treatment of the diagnosis listed. The above information is true and accurate reflection of patient's current condition. Confidential - Redisclosure prohibited without a patient's written consent.
[2016-11-28] MEDS: traMADol 50 MG TABLET PO PRN (21:08)
[2016-11-28] MEDS: Insulin DETEMIR 100 UNIT/ML X5UNITS SQ SCH (21:09)
[2016-11-29] MEDS: *HR* Heparin 5,000 UNIT/ML VIAL SQ SCH ×3 (05:26→20:06)
[2016-11-29] MEDS: Gabapentin 400 MG CAPSULE PO SCH ×2 (09:38→20:06)
[2016-11-29] MEDS: Fluticasone Propionate Nasal 50 MCG/SPRAY BOTTLE NS SCH (09:38)
[2016-11-29] MEDS: Topiramate 25 MG TABLET PO SCH ×2 (09:39→20:06)
[2016-11-29] MEDS: Lisinopril-HCTZ 20-12.5mg TABLET PO SCH ×2 (09:40→20:06)
[2016-11-29] MEDS: Insulin LISPRO 300 UNITS/3 ML VIAL SQ SCH ×4 (09:40→20:05)
[2016-11-29] MEDS: Alogliptin 25 MG PO SCH (09:40)
[2016-11-29] MEDS: amLODIPine 5 MG TABLET PO SCH (09:40)
[2016-11-29] MEDS: traMADol 50 MG TABLET PO PRN (20:05)
[2016-11-29] MEDS: Insulin DETEMIR 100 UNIT/ML X5UNITS SQ SCH (20:06)
--- NOTE | 2016-11-29 20:34 | Internal Med Progress Note ---
Date of Encounter: 11/29/16 Time of Encounter: 10:00 - Assessment and plan (1) Diabetes Current Visit: Yes Status: Acute Qualifiers: Diabetes mellitus type: type 2 Diabetes mellitus complication status: without complication Diabetes mellitus detention insulin use: with ad terminal makeup operator use Qualified Code(s): E11.9 - Type 2 diabetes mellitus without complications ; Z79.4 - residential (current) use of insulin (2) CVA (cerebral vascular accident) Current Visit: No Status: Acute Assessment and plan: Patient has a history of CVA. Presented with right-sided weakness. MRI has been done, no new infarction. Continue Plavix and atorvastatin Qualifiers: CVA mechanism: other Qualified Code(s): I63.8 - Other cerebral infarction (3) DVT prophylaxis Current Visit: No Status: Acute Assessment and plan: She is very immobile and obese. She is at risk for DVT and has a history of stroke and possible TIA. We will start subcutaneous heparin prophylaxis. (4) HTN (hypertension) Current Visit: No Status: Chronic Assessment and plan: Continue home medications Qualifiers: Hypertension type: essential hypertension Qualified Code(s): I10 - Essential (primary) hypertension (5) TIA (transient ischemic attack) Current Visit: No Status: Acute Assessment and plan: Symptoms related to TIA. An MRI showed no acute CVA. She is on Plavix. She passed swallow study. She was evaluated by PT OT who recommended inpatient rehabilitation. Currently patient has a bed at an inpatient rehabilitation facility, pending insurance authorization. Qualifiers: Transient cerebral ischemia type: other Qualified Code(s): G45.8 - Other transient cerebral ischemic attacks and related syndromes - Time Spent With Patient 25 - 35 minutes - Subjective Interval history: Patient was seen and examined. Stable. Mild right-sided weakness. Waiting for placement (discharged to rehabilitation, need insurance saucerization). - Constitutional Vitals: Temp Pulse Resp BP Pulse Ox 97.9 F 79 18 131/84 97 11/29/16 16:00 11/29/16 16:00 11/29/16 16:00 11/29/16 16:00 11/29/16 16:00 General appearance: Present: A&O X 3 - Head Head exam: Present: atraumatic, normocephalic - Eye Eye exam: Present: PERRL, conjuntiva pink, sclera anicteric Pupils: Present: PERRL - Neck Neck exam general surgery: Present: supple, trachea midline. Absent: lymphadenopathy - Respiratory Respiratory exam: Present: CTAB. Absent: accessory muscle use, rales, rhonchi, wheezes - Cardiovascular Cardiovascular exam: Present: RRR, +S1, +S2. Absent: diastolic murmur, gallop, rubs, systolic murmur - GI/Abdominal GI/Abdominal exam: Present: normal bowel sounds, soft, no peritoneal signs. Absent: distended, tenderness - Extremities Exam Extremities exam: Present: warm, radial pulses palpable and symmetrical. Absent : calf tenderness, cyanotic, pedal edema - Neurological Exam Neurological exam: Present: CN II-XII intact, motor sensory deficit (Mild right- sided weakness (5-/5)), oriented X3, no focal deficits. Absent: pronater drift , facial droop, speech deficit - Skin Skin exam: Present: dry, intact Internal Medicine: Result - Labs CBC & Chem 7: 11/26/16 03:05 11/26/16 03:05 Consult Discharge Plan - Plan Referrals: Breanna Starks APARTMENT LEASING MANAGER [Advanced Practice Nurse] - 12/05/16 3:00 pm Prescriptions: Aspirin Enteric Coated [Aspirin EC] 81 mg PO DAILY #30 tablet. Azithromycin [Zithromax] 500 mg PO DAILY #3 tab Lisinopril/Hydrochlorothiazide [Zestoretic 20-25 mg Tablet] 1 each PO BID #60 Tramadol HCl [Ultram] 50 mg PO QID PRN #30 PRN Reason: Pain
[2016-11-30] MEDS: *HR* Heparin 5,000 UNIT/ML VIAL SQ SCH ×3 (06:09→22:12)
[2016-11-30] MEDS: Lisinopril-HCTZ 20-12.5mg TABLET PO SCH ×2 (08:17→20:15)
[2016-11-30] MEDS: Gabapentin 400 MG CAPSULE PO SCH ×2 (08:17→20:15)
[2016-11-30] MEDS: amLODIPine 5 MG TABLET PO SCH (08:18)
[2016-11-30] MEDS: Topiramate 25 MG TABLET PO SCH ×2 (08:18→20:15)
[2016-11-30] MEDS: Alogliptin 25 MG PO SCH (08:20)
[2016-11-30] MEDS: Insulin LISPRO 300 UNITS/3 ML VIAL SQ SCH ×4 (08:20→20:14)
[2016-11-30] MEDS: Fluticasone Propionate Nasal 50 MCG/SPRAY BOTTLE NS SCH (08:21)
--- NOTE | 2016-11-30 16:54 | Internal Med Progress Note ---
Date of Encounter: 11/30/16 Time of Encounter: 10:00 - Assessment and plan (1) Diabetes Current Visit: Yes Status: Acute Assessment and plan: Continue basal and sliding scale coverage. Adjust the dose of sliding scale to get better glucose control Qualifiers: Diabetes mellitus type: type 2 Diabetes mellitus complication status: without complication Diabetes mellitus prison insulin use: with prison use Qualified Code(s): E11.9 - Type 2 diabetes mellitus without complications ; Z79.4 - pathology technologist (current) use of insulin (2) CVA (cerebral vascular accident) Current Visit: No Status: Acute Assessment and plan: Patient has a history of CVA. Presented with right-sided weakness. MRI has been done, no new infarction. Continue Plavix and atorvastatin Qualifiers: CVA mechanism: other Qualified Code(s): I63.8 - Other cerebral infarction (3) DVT prophylaxis Current Visit: No Status: Acute Assessment and plan: She is very immobile and obese. She is at risk for DVT and has a history of stroke and possible TIA. We will start subcutaneous heparin prophylaxis. (4) HTN (hypertension) Current Visit: No Status: Chronic Qualifiers: Hypertension type: essential hypertension Qualified Code(s): I10 - Essential (primary) hypertension (5) TIA (transient ischemic attack) Current Visit: No Status: Acute Assessment and plan: Symptoms related to TIA. An MRI showed no acute CVA. She is on Plavix. She passed swallow study. She was evaluated by PT OT who recommended inpatient rehabilitation. Currently patient has a bed at an inpatient rehabilitation facility, pending insurance authorization. Qualifiers: Transient cerebral ischemia type: other Qualified Code(s): G45.8 - Other transient cerebral ischemic attacks and related syndromes - Time Spent With Patient 25 - 35 minutes - Subjective Interval history: Patient was seen and examined. Stable. Mild right-sided weakness probably due to previous CVA. Waiting for placement (discharged to rehabilitation, need insurance authorization). - Constitutional Vitals: Temp Pulse Resp BP Pulse Ox 98.1 F 80 16 117/78 92 11/30/16 15:35 11/30/16 15:35 11/30/16 15:35 11/30/16 15:35 11/30/16 15:35 General appearance: Present: A&O X 3 - Head Head exam: Present: atraumatic, normocephalic - Eye Eye exam: Present: PERRL, conjuntiva pink, sclera anicteric Pupils: Present: PERRL - Neck Neck exam general surgery: Present: supple, trachea midline. Absent: lymphadenopathy - Respiratory Respiratory exam: Present: CTAB. Absent: accessory muscle use, rales, rhonchi, wheezes - Cardiovascular Cardiovascular exam: Present: RRR, +S1, +S2. Absent: diastolic murmur, gallop, rubs, systolic murmur - GI/Abdominal GI/Abdominal exam: Present: normal bowel sounds, soft, no peritoneal signs. Absent: distended, tenderness - Extremities Exam Extremities exam: Present: warm, radial pulses palpable and symmetrical. Absent : calf tenderness, cyanotic, pedal edema - Neurological Exam Neurological exam: Present: CN II-XII intact, motor sensory deficit (Rt UE/LE 5- /5), oriented X3, no focal deficits. Absent: pronater drift, facial droop, speech deficit - Skin Skin exam: Present: dry, intact Internal Medicine: Result - Labs CBC & Chem 7: 11/26/16 03:05 11/26/16 03:05 Consult Discharge Plan - Plan Referrals: Breanna Starks SLIDE FASTENER REPAIRER [Advanced Practice Nurse] - 12/05/16 3:00 pm Prescriptions: Aspirin Enteric Coated [Aspirin EC] 81 mg PO DAILY #30 tablet. Azithromycin [Zithromax] 500 mg PO DAILY #3 tab Lisinopril/Hydrochlorothiazide [Zestoretic 20-25 mg Tablet] 1 each PO BID #60 Tramadol HCl [Ultram] 50 mg PO QID PRN #30 PRN Reason: Pain
[2016-11-30] MEDS: Insulin DETEMIR 100 UNIT/ML X5UNITS SQ SCH (20:13)
[2016-11-30] MEDS: traMADol 50 MG TABLET PO PRN (20:15)
[2016-12-01] MEDS: *HR* Heparin 5,000 UNIT/ML VIAL SQ SCH ×3 (05:24→21:59)
[2016-12-01] MEDS: Insulin LISPRO 300 UNITS/3 ML VIAL SQ SCH ×4 (07:59→21:56)
[2016-12-01] MEDS: amLODIPine 5 MG TABLET PO SCH (08:00)
[2016-12-01] MEDS: Topiramate 25 MG TABLET PO SCH ×2 (08:00→21:56)
[2016-12-01] MEDS: Gabapentin 400 MG CAPSULE PO SCH ×2 (08:00→21:56)
[2016-12-01] MEDS: Alogliptin 25 MG PO SCH (08:00)
[2016-12-01] MEDS: Lisinopril-HCTZ 20-12.5mg TABLET PO SCH ×2 (08:00→21:56)
[2016-12-01] MEDS: Fluticasone Propionate Nasal 50 MCG/SPRAY BOTTLE NS SCH (08:01)
[2016-12-01 08:07] LABS: Basophils % 0.7 %; Eosinophils # 0.1 K/mcL (0.0-0.6); Hematocrit 34.2 % (35.3-44.9); Hemoglobin 11.9 g/dL (11.5-15.4); Immature Granulocytes % 0.3 % (0-4); Lymphocytes # 1.3 K/mcL (0.6-4.6); Lymphocytes % 21.4 %; Mean Corpuscular HGB Conc 34.8 g/dL (31.6-35.5); Mean Corpuscular Hemoglobin 31.4 pg (28.0-33.3); Mean Corpuscular Volume 90.2 fL (83.0-100.0); Mean Platelet Volume 10.5 fL (9.4-12.4); Monocytes # 0.5 K/mcL (0.0-1.3); Monocytes % 8.1 %; Neutrophils # 4.1 K/mcL (1.6-8.9); Platelet Count 199 K/mcL (140-400); Red Blood Count 3.79 M/mcL (3.82-4.97); Red Cell Distribution Width 11.8 % (11.5-14.5); Segmented Neutrophils % 67.5 %
[2016-12-01 08:55] LABS: BUN/Creatinine Ratio 41 (6-26); Blood Urea Nitrogen 32 mg/dL (7-20); Calcium 9.5 mg/dL (8.6-10.8); Carbon Dioxide 25 mEq/L (19-29); Chloride 107 mEq/L (98-109); Glucose 150 mg/dL (70-99); Osmolality,Calculated 300 (280-300); Potassium 3.9 mEq/L (3.5-4.5); Sodium 140 mEq/L (136-145); eGFR For African Americans > 60 (> 60); eGFR For Non-African Americans > 60 (> 60)
--- NOTE | 2016-12-01 17:53 | Internal Med Progress Note ---
Date of Encounter: 12/01/16 Time of Encounter: 10:00 - Assessment and plan (1) Diabetes Current Visit: Yes Status: Acute Assessment and plan: Continue basal and sliding scale coverage. 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 Presented with right-sided weakness. MRI has been done, no new infarction. Continue Plavix and atorvastatin, add ASA. Qualifiers: CVA mechanism: other Qualified Code(s): I63.8 - Other cerebral infarction (3) DVT prophylaxis Current Visit: No Status: Acute Assessment and plan: She is very immobile and obese. She is at risk for DVT and has a history of stroke and possible TIA. We will start subcutaneous heparin prophylaxis. (4) HTN (hypertension) Current Visit: No Status: Chronic Assessment and plan: Continue home medications Qualifiers: Hypertension type: essential hypertension Qualified Code(s): I10 - Essential (primary) hypertension (5) TIA (transient ischemic attack) Current Visit: No Status: Acute Assessment and plan: Symptoms related to TIA. An MRI showed no acute CVA. She is on Plavix. She passed swallow study. She was evaluated by PT OT who recommended inpatient rehabilitation. Currently patient has a bed at an inpatient rehabilitation facility, pending insurance authorization. Qualifiers: Transient cerebral ischemia type: other Qualified Code(s): G45.8 - Other transient cerebral ischemic attacks and related syndromes - Time Spent With Patient 25 - 35 minutes - Subjective Interval history: Patient was seen and examined. Stable. Mild right-sided weakness probably due to previous CVA. Waiting for placement (discharged to rehabilitation, need insurance authorization). Glu control improved after adjusting insulin dose. - Constitutional Vitals: Temp Pulse Resp BP Pulse Ox 97.6 F 91 18 130/87 97 12/01/16 16:31 12/01/16 16:31 12/01/16 16:31 12/01/16 16:31 12/01/16 16:31 General appearance: Present: A&O X 3 - Head Head exam: Present: atraumatic, normocephalic - Eye Eye exam: Present: PERRL, conjuntiva pink, sclera anicteric Pupils: Present: PERRL - Neck Neck exam general surgery: Present: supple, trachea midline. Absent: lymphadenopathy - Respiratory Respiratory exam: Present: CTAB. Absent: accessory muscle use, rales, rhonchi, wheezes - Cardiovascular Cardiovascular exam: Present: RRR, +S1, +S2. Absent: diastolic murmur, gallop, rubs, systolic murmur - GI/Abdominal GI/Abdominal exam: Present: normal bowel sounds, soft, no peritoneal signs. Absent: distended, tenderness - Extremities Exam Extremities exam: Present: warm, radial pulses palpable and symmetrical. Absent : calf tenderness, cyanotic, pedal edema - Neurological Exam Neurological exam: Present: CN II-XII intact, motor sensory deficit (Right UE/ LE 5-/5), oriented X3, no focal deficits. Absent: pronater drift, facial droop , speech deficit - Skin Skin exam: Present: dry, intact Internal Medicine: Result - Labs CBC & Chem 7: 12/01/16 07:48 12/01/16 07:48 Labs: Short CBC 12/01/16 Range/Units 07:48 WBC 6.1 (4.3-11.1) K/mcL Hgb 11.9 (11.5-15.4) g/dL Hct 34.2 L (35.3-44.9) % Plt Count 199 (140-400) K/mcL Neutrophils # 4.1 (1.6-8.9) K/mcL BMP 12/01/16 07:48 Sodium 140 Potassium 3.9 Chloride 107 Carbon Dioxide 25 BUN 32 H Creatinine 0.78 Glucose 150 H Calcium 9.5 Consult Discharge Plan - Plan Referrals: Breanna Starks SERVER MANAGER [Advanced Practice Nurse] - 12/05/16 3:00 pm Prescriptions: Aspirin Enteric Coated [Aspirin EC] 81 mg PO DAILY #30 tablet. Azithromycin [Zithromax] 500 mg PO DAILY #3 tab Lisinopril/Hydrochlorothiazide [Zestoretic 20-25 mg Tablet] 1 each PO BID #60 Tramadol HCl [Ultram] 50 mg PO QID PRN #30 PRN Reason: Pain
[2016-12-01] MEDS: traMADol 50 MG TABLET PO PRN (21:56)
[2016-12-01] MEDS: Insulin DETEMIR 100 UNIT/ML X5UNITS SQ SCH (21:57)
[2016-12-02] MEDS: *HR* Heparin 5,000 UNIT/ML VIAL SQ SCH ×3 (06:39→21:53)
[2016-12-02] MEDS: Aspirin Enteric Coated 81 MG Tablet PO SCH (09:05)
[2016-12-02] MEDS: Insulin LISPRO 300 UNITS/3 ML VIAL SQ SCH ×4 (09:05→21:53)
[2016-12-02] MEDS: amLODIPine 5 MG TABLET PO SCH (09:06)
[2016-12-02] MEDS: Lisinopril-HCTZ 20-12.5mg TABLET PO SCH ×2 (09:06→21:52)
[2016-12-02] MEDS: Gabapentin 400 MG CAPSULE PO SCH ×2 (09:06→21:51)
[2016-12-02] MEDS: Topiramate 25 MG TABLET PO SCH ×2 (09:06→21:51)
[2016-12-02] MEDS: Fluticasone Propionate Nasal 50 MCG/SPRAY BOTTLE NS SCH (09:06)
[2016-12-02] MEDS: Alogliptin 25 MG PO SCH (09:06)
--- NOTE | 2016-12-02 18:50 | Internal Med Progress Note ---
Date of Encounter: 12/02/16 Time of Encounter: 09:00 - Assessment and plan (1) Diabetes Current Visit: Yes Status: Acute Assessment and plan: Continue basal and sliding scale coverage. 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 Presented with right-sided weakness. MRI has been done, no new infarction. Continue Plavix and atorvastatin, add ASA. Qualifiers: CVA mechanism: other Qualified Code(s): I63.8 - Other cerebral infarction (3) DVT prophylaxis Current Visit: No Status: Acute Assessment and plan: She is very immobile and obese. She is at risk for DVT and has a history of stroke and possible TIA. We will start subcutaneous heparin prophylaxis. (4) HTN (hypertension) Current Visit: No Status: Chronic Assessment and plan: Continue home medications Qualifiers: Hypertension type: essential hypertension Qualified Code(s): I10 - Essential (primary) hypertension (5) TIA (transient ischemic attack) Current Visit: No Status: Inactive Assessment and plan: Symptoms related to TIA. An MRI showed no acute CVA. She is on Plavix and ASA and statin. She passed swallow study. She was evaluated by PT OT who recommended inpatient rehabilitation. Currently patient has a bed at an inpatient rehabilitation facility, failed insurance authorization. May consider home rehab. Qualifiers: Transient cerebral ischemia type: other Qualified Code(s): G45.8 - Other transient cerebral ischemic attacks and related syndromes - Time Spent With Patient 25 - 35 minutes - Subjective Interval history: Patient was seen and examined. Stable. Mild right-sided weakness probably due to previous CVA. Waiting for placement (discharged to rehabilitation, need insurance authorization). Glu control improved after adjusting insulin dose. Had peer to peer with insurance today, still being declined by insurance for rehab. May consider home rehab, SW working on case. - Constitutional Vitals: Temp Pulse Resp BP Pulse Ox 97.8 F 84 17 128/70 96 12/02/16 01:24 12/02/16 01:24 12/02/16 01:24 12/02/16 01:24 12/02/16 08:50 General appearance: Present: A&O X 3 - Head Head exam: Present: atraumatic, normocephalic - Eye Eye exam: Present: PERRL, conjuntiva pink, sclera anicteric Pupils: Present: PERRL - Neck Neck exam general surgery: Present: supple, trachea midline. Absent: lymphadenopathy - Respiratory Respiratory exam: Present: CTAB. Absent: accessory muscle use, rales, rhonchi, wheezes - Cardiovascular Cardiovascular exam: Present: RRR, +S1, +S2. Absent: diastolic murmur, gallop, rubs, systolic murmur - GI/Abdominal GI/Abdominal exam: Present: normal bowel sounds, soft, no peritoneal signs. Absent: distended, tenderness - Extremities Exam Extremities exam: Present: warm, radial pulses palpable and symmetrical. Absent : calf tenderness, cyanotic, pedal edema - Neurological Exam Neurological exam: Present: CN II-XII intact, motor sensory deficit (Right UE/ LE 5-/5), oriented X3, no focal deficits. Absent: pronater drift, facial droop , speech deficit - Skin Skin exam: Present: dry, intact Internal Medicine: Result - Labs CBC & Chem 7: 12/01/16 07:48 12/01/16 07:48 Consult Discharge Plan - Plan Referrals: Breanna Starks CNP [Advanced Practice Nurse] - 12/05/16 3:00 pm Prescriptions: Aspirin Enteric Coated [Aspirin EC] 81 mg PO DAILY #30 tablet. Azithromycin [Zithromax] 500 mg PO DAILY #3 tab Lisinopril/Hydrochlorothiazide [Zestoretic 20-25 mg Tablet] 1 each PO BID #60 Tramadol HCl [Ultram] 50 mg PO QID PRN #30 PRN Reason: Pain
[2016-12-02] MEDS: traMADol 50 MG TABLET PO PRN (21:52)
[2016-12-02] MEDS: Insulin DETEMIR 100 UNIT/ML X5UNITS SQ SCH (21:53)
[2016-12-03] MEDS: *HR* Heparin 5,000 UNIT/ML VIAL SQ SCH (06:38)
[2016-12-03] MEDS: Insulin LISPRO 300 UNITS/3 ML VIAL SQ SCH ×4 (07:54→21:09)
[2016-12-03] MEDS: Alogliptin 25 MG PO SCH (08:38)
[2016-12-03] MEDS: Lisinopril-HCTZ 20-12.5mg TABLET PO SCH ×2 (08:38→21:08)
[2016-12-03] MEDS: Aspirin Enteric Coated 81 MG Tablet PO SCH (08:38)
[2016-12-03] MEDS: Topiramate 25 MG TABLET PO SCH ×2 (08:38→21:08)
[2016-12-03] MEDS: Gabapentin 400 MG CAPSULE PO SCH ×2 (08:38→21:08)
[2016-12-03] MEDS: amLODIPine 5 MG TABLET PO SCH (08:39)
[2016-12-03] MEDS: Fluticasone Propionate Nasal 50 MCG/SPRAY BOTTLE NS SCH (08:39)
--- NOTE | 2016-12-03 17:41 | Internal Med Progress Note ---
Date of Encounter: 12/03/16 Time of Encounter: 10:00 - Assessment and plan (1) Diabetes Current Visit: Yes Status: Acute Assessment and plan: Continue basal and sliding scale coverage. 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 Presented with right-sided weakness. MRI has been done, no new infarction. Continue Plavix and atorvastatin, add ASA. Qualifiers: CVA mechanism: other Qualified Code(s): I63.8 - Other cerebral infarction (3) DVT prophylaxis Current Visit: No Status: Acute Assessment and plan: She is very immobile and obese. She is at risk for DVT and has a history of stroke and possible TIA. We will start subcutaneous heparin prophylaxis. (4) HTN (hypertension) Current Visit: No Status: Chronic Assessment and plan: Continue home medications Qualifiers: Hypertension type: essential hypertension Qualified Code(s): I10 - Essential (primary) hypertension (5) TIA (transient ischemic attack) Current Visit: No Status: Inactive Assessment and plan: Symptoms related to TIA. An MRI showed no acute CVA. She is on Plavix and ASA and statin. She passed swallow study. She was evaluated by PT OT who recommended inpatient rehabilitation. Currently patient has a bed at an inpatient rehabilitation facility, failed insurance authorization. May consider home rehab. Qualifiers: Transient cerebral ischemia type: other Qualified Code(s): G45.8 - Other transient cerebral ischemic attacks and related syndromes - Time Spent With Patient 25 - 35 minutes - Subjective Interval history: Patient was seen and examined. Stable. Mild right-sided weakness probably due to previous CVA. Waiting for placement . Glu control improved after adjusting insulin dose. Had peer to peer with insurance, still being declined by insurance for inpatient rehab. May consider home rehab, SW working on case for home rehab arrangement, may also need insurance approval.. - Constitutional Vitals: Temp Pulse Resp BP Pulse Ox 98.1 F 83 16 105/66 98 12/03/16 16:22 12/03/16 16:22 12/03/16 16:22 12/03/16 16:22 12/03/16 16:22 General appearance: Present: A&O X 3 - Head Head exam: Present: atraumatic, normocephalic - Eye Eye exam: Present: PERRL, conjuntiva pink, sclera anicteric Pupils: Present: PERRL - Neck Neck exam general surgery: Present: supple, trachea midline. Absent: lymphadenopathy - Respiratory Respiratory exam: Present: CTAB. Absent: accessory muscle use, rales, rhonchi, wheezes - Cardiovascular Cardiovascular exam: Present: RRR, +S1, +S2. Absent: diastolic murmur, gallop, rubs, systolic murmur - GI/Abdominal GI/Abdominal exam: Present: normal bowel sounds, soft, no peritoneal signs. Absent: distended, tenderness - Extremities Exam Extremities exam: Present: warm, radial pulses palpable and symmetrical. Absent : calf tenderness, cyanotic, pedal edema - Neurological Exam Neurological exam: Present: CN II-XII intact, motor sensory deficit (Right UE/ LE 5-/5), oriented X3, no focal deficits. Absent: pronater drift, facial droop , speech deficit - Skin Skin exam: Present: dry, intact Internal Medicine: Result - Labs CBC & Chem 7: 12/01/16 07:48 12/01/16 07:48 Consult Discharge Plan - Plan Referrals: Breanna Starks CNP [Advanced Practice Nurse] - 12/05/16 3:00 pm Prescriptions: Aspirin Enteric Coated [Aspirin EC] 81 mg PO DAILY #30 tablet. Azithromycin [Zithromax] 500 mg PO DAILY #3 tab Lisinopril/Hydrochlorothiazide [Zestoretic 20-25 mg Tablet] 1 each PO BID #60 Tramadol HCl [Ultram] 50 mg PO QID PRN #30 PRN Reason: Pain
[2016-12-03] MEDS: Insulin DETEMIR 100 UNIT/ML X5UNITS SQ SCH (21:09)
[2016-12-03] MEDS: traMADol 50 MG TABLET PO PRN (21:13)
[2016-12-04] MEDS: *HR* Enoxaparin 40 MG/0.4 ML SYRINGE SQ SCH (05:35)
[2016-12-04] MEDS: Gabapentin 400 MG CAPSULE PO SCH ×2 (08:01→21:04)
[2016-12-04] MEDS: Fluticasone Propionate Nasal 50 MCG/SPRAY BOTTLE NS SCH (08:01)
[2016-12-04] MEDS: Alogliptin 25 MG PO SCH (08:02)
[2016-12-04] MEDS: Aspirin Enteric Coated 81 MG Tablet PO SCH (08:02)
[2016-12-04] MEDS: amLODIPine 5 MG TABLET PO SCH (08:02)
[2016-12-04] MEDS: Topiramate 25 MG TABLET PO SCH ×2 (08:02→21:03)
[2016-12-04] MEDS: Lisinopril-HCTZ 20-12.5mg TABLET PO SCH ×2 (08:02→21:03)
[2016-12-04] MEDS: Insulin LISPRO 300 UNITS/3 ML VIAL SQ SCH ×4 (08:03→21:07)
[2016-12-04] MEDS: traMADol 50 MG TABLET PO PRN ×2 (11:56→18:28)
--- NOTE | 2016-12-04 16:14 | Internal Med Progress Note ---
Date of Encounter: 12/04/16 Time of Encounter: 10:00 - Assessment and plan (1) Diabetes Current Visit: Yes Status: Acute Assessment and plan: Continue basal and sliding scale coverage. 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 Presented with right-sided weakness. MRI has been done, no new infarction. Continue Plavix and atorvastatin, add ASA. Qualifiers: CVA mechanism: other Qualified Code(s): I63.8 - Other cerebral infarction (3) DVT prophylaxis Current Visit: No Status: Acute Assessment and plan: She is very immobile and obese. She is at risk for DVT and has a history of stroke and possible TIA. We will start subcutaneous heparin prophylaxis. (4) HTN (hypertension) Current Visit: No Status: Chronic Assessment and plan: Continue home medications Qualifiers: Hypertension type: essential hypertension Qualified Code(s): I10 - Essential (primary) hypertension (5) TIA (transient ischemic attack) Current Visit: No Status: Inactive Assessment and plan: Symptoms related to TIA. An MRI showed no acute CVA. She is on Plavix and ASA and statin. She passed swallow study. She was evaluated by PT OT who recommended inpatient rehabilitation. Currently patient failed insurance authorization. May consider home rehab. SW working on it. Qualifiers: Transient cerebral ischemia type: other Qualified Code(s): G45.8 - Other transient cerebral ischemic attacks and related syndromes - Time Spent With Patient 25 - 35 minutes - Subjective Interval history: Patient was seen and examined. Stable. Mild right-sided weakness probably due to previous CVA. Waiting for placement . Glu control improved after adjusting insulin dose. Had peer to peer with insurance, still being declined by insurance for inpatient rehab. Pt has rt weakness and morbid obesis, will benefit from PT/OT. May consider home rehab, SW working on case for home rehab arrangement, may also need insurance approval. - Constitutional Vitals: Temp Pulse Resp BP Pulse Ox 98.3 F 85 16 109/51 97 12/04/16 04:21 12/04/16 04:21 12/04/16 04:21 12/04/16 04:21 12/04/16 04:21 General appearance: Present: A&O X 3, no acute distress, answers questions appropriately - Head Head exam: Present: atraumatic, normocephalic - Eye Eye exam: Present: PERRL, conjuntiva pink, sclera anicteric Pupils: Present: PERRL - Neck Neck exam general surgery: Present: supple, trachea midline. Absent: lymphadenopathy - Respiratory Respiratory exam: Present: CTAB. Absent: accessory muscle use, rales, rhonchi, wheezes - Cardiovascular Cardiovascular exam: Present: RRR, +S1, +S2. Absent: diastolic murmur, gallop, rubs, systolic murmur - GI/Abdominal GI/Abdominal exam: Present: normal bowel sounds, soft, no peritoneal signs. Absent: distended, tenderness - Extremities Exam Extremities exam: Present: warm, radial pulses palpable and symmetrical. Absent : calf tenderness, cyanotic, pedal edema - Neurological Exam Neurological exam: Present: CN II-XII intact, motor sensory deficit (Rt UE/LE 5- /5), oriented X3, no focal deficits. Absent: pronater drift, facial droop, speech deficit - Skin Skin exam: Present: dry, intact Internal Medicine: Result - Labs CBC & Chem 7: 12/01/16 07:48 12/01/16 07:48 Consult Discharge Plan - Plan Referrals: Breanna Starks GETTER WELDER [Advanced Practice Nurse] - 12/05/16 3:00 pm Prescriptions: Aspirin Enteric Coated [Aspirin EC] 81 mg PO DAILY #30 tablet. Azithromycin [Zithromax] 500 mg PO DAILY #3 tab Lisinopril/Hydrochlorothiazide [Zestoretic 20-25 mg Tablet] 1 each PO BID #60 Tramadol HCl [Ultram] 50 mg PO QID PRN #30 PRN Reason: Pain
[2016-12-04] MEDS: Insulin DETEMIR 100 UNIT/ML X5UNITS SQ SCH (21:07)
[2016-12-05] MEDS: *HR* Enoxaparin 40 MG/0.4 ML SYRINGE SQ SCH (05:54)
[2016-12-05] MEDS: Fluticasone Propionate Nasal 50 MCG/SPRAY BOTTLE NS SCH (09:13)
[2016-12-05] MEDS: Topiramate 25 MG TABLET PO SCH (09:14)
[2016-12-05] MEDS: Aspirin Enteric Coated 81 MG Tablet PO SCH (09:14)
[2016-12-05] MEDS: Lisinopril-HCTZ 20-12.5mg TABLET PO SCH (09:14)
[2016-12-05] MEDS: Gabapentin 400 MG CAPSULE PO SCH (09:14)
[2016-12-05] MEDS: traMADol 50 MG TABLET PO PRN (09:14)
[2016-12-05] MEDS: amLODIPine 5 MG TABLET PO SCH (09:14)
[2016-12-05] MEDS: Insulin LISPRO 300 UNITS/3 ML VIAL SQ SCH ×4 (09:15→17:03)
[2016-12-05] MEDS: Alogliptin 25 MG PO SCH (09:15)
--- NOTE | 2016-12-05 10:07 | Physician Discharge Referral ---
Home Health/Hosp Referral Info Transfer to: Home Health Provider in Charge Post Discharge: PCP - Diagnosis (1) Diabetes Status: Acute (2) CVA (cerebral vascular accident) Status: Acute (3) DVT prophylaxis Status: Acute (4) HTN (hypertension) Status: Chronic (5) TIA (transient ischemic attack) Status: Inactive - Respiratory Orders Smoking Cessation: Smoking cessation has been advised. For more information, call the [place] Tobacco Quit Line at 9-829-JTWJ-NOW. - Diet/Nutrition Diet/Nutrition Orders: Cardiac, No Concentrated Sweets - Services Needed Following services are medically necessary services: Nursing, Home Health Aide, Physical Therapy, Occupational Therapy Other Treatments: Home PT 5 times a day. - Transfer Medications Prescriptions: Aspirin Enteric Coated [Aspirin EC] 81 mg PO DAILY #30 tablet. Lisinopril/Hydrochlorothiazide [Zestoretic 20-25 mg Tablet] 1 each PO BID #60 Tramadol HCl [Ultram] 50 mg PO QID PRN #30 PRN Reason: Pain Home Medications: Cetirizine HCl [Zyrtec] 10 mg PO DAILY 05/08/15 [History] Omeprazole 20 mg PO DAILY 05/08/15 [History] Acetaminophen [Tylenol] 500 mg PO Q6HR PRN 01/13/16 [History] Albuterol Sulfate [Albuterol Inhaler] 2 puff IH Q4HR PRN 01/13/16 [History] Fluticasone Propionate Nasal [Flonase] 1 spray NS DAILY 01/13/16 [History] Gabapentin [Neurontin] 800 mg PO BID 06/13/16 [History] Lidocaine/Prilocaine CREAM [Emla] 1 appl TP ONCE PRN 06/13/16 [History] Topiramate [Topamax] 50 mg PO BID 06/13/16 [History] Insulin ASPART [Novolog Flexpen] 0 unit SQ TIDAC 06/27/16 [History] Atorvastatin [Lipitor] 40 mg PO HS 09/05/16 [History] Clopidogrel [Plavix] 75 mg PO DAILY 09/05/16 [History] Docusate [Colace] 100 mg PO DAILY 10/06/16 [History] Nystatin POWDER [Nystop] 1 appl TP BID PRN 10/06/16 [History] Alogliptin Benzoate [Alogliptin] 25 mg PO DAILY 11/24/16 [History] Insulin Glargine,Hum.rec.anlog [Michaelaglpeyton Smith U-100] 40 unit SQ HS 11/24/16 [ History] Aspirin Enteric Coated [Aspirin EC] 81 mg PO DAILY #30 tablet. 11/28/16 [Rx] Lisinopril/Hydrochlorothiazide [Zestoretic 20-25 mg Tablet] 1 each PO BID #60 11/28/16 [Rx] Tramadol HCl [Ultram] 50 mg PO QID PRN #30 11/28/16 [Rx] amLODIPine [Norvasc] 10 mg PO DAILY tab 11/28/16 [Rx] Allergies/Adverse Reactions: 3 Allergy/AdvReac Type Severity Reaction Status Date / Time diphenhydramine AdvReac See Verified 07/05/16 08:46 [From Del] Comments Oxycodone AdvReac Itching Verified 07/05/16 08:46 Certification: Further, I certify that my clinical findings support that this patient is homebound (i.e. absences from home require considerable and taxing effort and are for medical reasons or mormonism services or infrequently or short duration when for other reasons) because: Homebound Reason: Patient requires assistance of a person or device to safely leave home Attestation: My signature below is to certify that this patient is under my care and that I, or nurse practitioner, or a physician's assistant professor of communication working with me, has a face-to -face encounter with this patient.
[2016-12-05 11:29] VITALS: BP 126/78
--- NOTE | 2016-12-05 18:06 | Internal Med Progress Note ---
Date of Encounter: 12/05/16 Time of Encounter: 10:00 - Assessment and plan (1) Diabetes Current Visit: Yes Status: Acute Assessment and plan: Continue basal and sliding scale coverage. 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 Presented with right-sided weakness. MRI has been done, no new infarction. Continue Plavix and atorvastatin, add ASA. Qualifiers: CVA mechanism: other Qualified Code(s): I63.8 - Other cerebral infarction (3) DVT prophylaxis Current Visit: No Status: Acute Assessment and plan: She is very immobile and obese. She is at risk for DVT and has a history of stroke and possible TIA. We will start subcutaneous heparin prophylaxis. (4) HTN (hypertension) Current Visit: No Status: Chronic Assessment and plan: Continue home medications Qualifiers: Hypertension type: essential hypertension Qualified Code(s): I10 - Essential (primary) hypertension (5) TIA (transient ischemic attack) Current Visit: No Status: Inactive Assessment and plan: Symptoms related to TIA. An MRI showed no acute CVA. She is on Plavix and ASA and statin. She passed swallow study. She was evaluated by PT OT who recommended inpatient rehabilitation. Currently patient failed insurance authorization. May consider home rehab. Qualifiers: Transient cerebral ischemia type: other Qualified Code(s): G45.8 - Other transient cerebral ischemic attacks and related syndromes - Time Spent With Patient 25 - 35 minutes - Subjective Interval history: Patient was seen and examined. Stable. Mild right-sided weakness probably due to previous CVA. Waiting for placement . Glu control improved after adjusting insulin dose. Patient will be discharged to home with home health and home physical therapy. Her discharge summary has been finished that by other doctor. I have reviewed the discharge summary and updated the medication. - Constitutional Vitals: Temp Pulse Resp BP Pulse Ox 97.6 F 78 16 126/78 99 12/05/16 11:25 12/05/16 11:25 12/05/16 11:25 12/05/16 11:25 12/05/16 11:25 General appearance: Present: A&O X 3, no acute distress, answers questions appropriately - Head Head exam: Present: atraumatic, normocephalic - Eye Eye exam: Present: PERRL, conjuntiva pink, sclera anicteric Pupils: Present: PERRL - Neck Neck exam general surgery: Present: supple, trachea midline. Absent: lymphadenopathy - Respiratory Respiratory exam: Present: CTAB. Absent: accessory muscle use, rales, rhonchi, wheezes - Cardiovascular Cardiovascular exam: Present: RRR, +S1, +S2. Absent: diastolic murmur, gallop, rubs, systolic murmur - GI/Abdominal GI/Abdominal exam: Present: normal bowel sounds, soft, no peritoneal signs. Absent: distended, tenderness - Extremities Exam Extremities exam: Present: warm, radial pulses palpable and symmetrical. Absent : calf tenderness, cyanotic, pedal edema - Neurological Exam Neurological exam: Present: CN II-XII intact, oriented X3, no focal deficits. Absent: pronater drift, facial droop, speech deficit Additional comments: Right-sided weakness - Skin Skin exam: Present: dry, intact Internal Medicine: Result - Labs CBC & Chem 7: 12/01/16 07:48 12/01/16 07:48 Consult Discharge Plan - Plan Instructions: Diabetes Mellitus Type 2 in Adults (DC) Referrals: Crow Gonzalez SENIOR HR BUSINESS PARTNER [Advanced Practice Nurse] - 12/16/16 2:30 pm Prescriptions: Aspirin Enteric Coated [Aspirin EC] 81 mg PO DAILY #30 tablet. hydroCHLOROthiazide [Hydrochlorothiazide] 50 mg PO DAILY #30 tablet Lisinopril [Zestril] 40 mg PO DAILY #30 tablet Tramadol HCl [Ultram] 50 mg PO QID PRN #30 PRN Reason: Pain
== END 2016-12-05 18:00 | disposition home or self-care (01) ==
LOC: 2NENU → SUATTDRO 18:51
PROVIDERS: ADMIT Internal Medicine Hematology & Oncology; ATTEND Internal Medicine

== ENCOUNTER 2017-02-10 14:06 | Observation (INO) ==
[2017-02-10] MEDS ORDERED: Acetaminophen 325 MG TABLET PO PRN (22:04)
[2017-02-10] MEDS ORDERED: Ondansetron 4 MG/2 ML VIAL IVP PRN (22:04)
[2017-02-10] MEDS ORDERED: Naloxone 0.4 MG/ML INJ IVP PRN (22:04)
--- NOTE | 2017-02-10 22:18 | Internal Med History&Physical ---
<Temo Tanner - Last Filed: 02/10/17 22:58> Date of Encounter: 02/10/17 Time of Encounter: 19:30 Assessment and Plan (1) Transient ischemic attack Current visit: Yes Status: Acute Acute TIA. Pt. reports elevated BP 4 days ago with increasing weakness, lightheadedness, headache, and sharp pains in her forehead over the past 3 days. Yesterday patient reports right arm tingling with nausea and vomiting. Today patient reports speech slurring. Patient exhibits no neurological deficits with the exception of right-sided weakness in upper extremity and lower extremity which is residual from previous CVA and July 2016. NIHSS modified scale with neuro checks every 4 hours. Dysphasia screening. Patient to be nothing by mouth until dysphasia screen passed successfully. D/t transient nature of neuro symptoms, will continue patient's HTN medications. Continue aspirin therapy. Patient to be monitored closely. Pt. is at high risk for CVA/ TIA based on sx today, hx, and risk factors. Observation. Qualifiers: Transient cerebral ischemia type: unspecified Qualified Code(s): G45.9 - Transient cerebral ischemic attack, unspecified (2) Hospice care patient Current visit: Yes Status: Acute Pt. reports she is cared for by [facility] due to history of strokes and diagnosis of non-Hodgkin's lymphoma. Patient notified hospice nurse about her symptoms but brother and nurse were concerned about slurred speech and encouraged her to come to [place] ED. Patient to return to [place] upon discharge from [facility]. Pt. states she is DNRCC. (3) HTN (hypertension) Current visit: Yes Status: Chronic Hx of chronic HTN. Pts. sx have resolved on exam. Will continue lisinopril, Norvasc, and hydrochlorothiazide. Qualifiers: Hypertension type: essential hypertension Qualified Code(s): I10 - Essential (primary) hypertension (4) Right sided weakness Current visit: Yes Status: Chronic Residual sided weakness present in upper and lower extremities from previous CVA in July 2016. No other focal deficits on examination. PT/OT consult ordered to assess patient for strength and stability and ambulation. Falls/ safety precautions. (5) Diabetes Current visit: Yes Status: Chronic Hx of chronic diabetes controlled with insulin. Will continue patient's at bedtime insulin and add low-dose correction insulin sliding scale with hypoglycemic protocol. BG checks before meals at bedtime. A1c in a.m. labs. Qualifiers: Diabetes mellitus type: type 2 Diabetes mellitus complication status: without complication Diabetes mellitus care home insulin use: with medical terminologist use Qualified Code(s): E11.9 - Type 2 diabetes mellitus without complications ; Z79.4 - manager intermediate (current) use of insulin; Z79.4 - manager intermediate (current) use of insulin; Z79.4 - retirement (current) use of insulin; Z79.4 - manager intermediate ( current) use of insulin (6) GERD (gastroesophageal reflux disease) Current visit: Yes Status: Chronic Hx of chronic GERD. IVP Zofran Q6 PRN and continue patient's by mouth omeprazole. Qualifiers: Esophagitis presence: esophagitis presence not specified Qualified Code(s) : K21.9 - Gastro-esophageal reflux disease without esophagitis (7) Non-Hodgkin lymphoma Current visit: Yes Status: Chronic Hx of chronic non-Hodgkin lymphoma. Pt. is followed by Dr. Bhagat at [place]. Pt. reports she finished her chemotherapy this week and will not resume until May. Pt. to f/u w/Dr. Bhagat. Qualifiers: Follicular lymphoma type: unspecified follicular type Lymphoma site: unspecified region Qualified Code(s): C82.90 - Follicular lymphoma, unspecified, unspecified site (8) DVT prophylaxis Current visit: Yes Status: Acute Bilateral SCDs on LEs for DVT prophylaxis. Pharmacologic DVT prophylaxis contraindicated until MRI results are known to rule out intracranial bleed. Internal Medicine - H&P: HPI Chief complaint: Neuro sx Admitted From: Emergency Dept Plans for Post Hospital Care: Home History of present illness: Ms. Peña is a 62 year old female with a history of non-Hodgkin's lymphoma, CVA, TIAs, DVTs many years ago, diabetes controlled with insulin, GERD, HTN, and NH in the with no stent placement presents from [place] ED with chief complaint neurodeficits and symptoms today. States her BP was elevated 3-4 days ago and symptoms include weakness, lightheadedness, headache, and sharp pains in her forehead. He reports yesterday her right arm began tingling and she became nauseous and vomited. Presyncope this a.m. patient states she began to slur her speech this morning it patient is a resident of [facility] in the hospice program due to history of strokes and her non-Hodgkin's lymphoma. She reports she had a large stroke in July which resulted in residual right-sided weakness followed by 2 mini strokes in September and November. Patient denies recent illness , fever, chills, changes in vision, chest pain, palpitations, unusual bleeding, and abdominal pain. Past Med Surg Social Fam HX - Past Medical History Source: patient, old records reviewed Medical history: cancer (Non-Hodgkin's lymphoma), CVA (July 2016), DVT, diabetes , GERD, hypertension, myocardial infarction, TIA (September and November 2016), other Psychiatric history: no psych history - Past Surgical History Surgical History: non-contributory - Social History Smoking Status: Never smoker Smokeless Tobacco Status: No Alcohol use: none Drug use: none Current living situation: Assisted Living Activity Level: Uses cane/walker Recent Out of Country Travel Within the Last 8 Weeks: No Exposure or Possible Exposure to Illness During Travel: No - Family History Father Adopted: Yes Race: Family Member Ethnicity: Non- Living Status: Age at : 66 Cause of : Mesothelioma Hx Family Cancer: Yes (Mesothelioma) Brother Adopted: Yes Race: Family Member Ethnicity: Non- Living Status: Still Living Hx Family Cancer: Yes (Stomach, Colon) Hx Family Autoimmune Disorders: Yes (Factor V Leiden) Mother Adopted: Yes Race: Family Member Ethnicity: Non- Living Status: Age at : 55 Hx Family Cardiac Disorders: Yes (NH, CAD, HTN) Sister Family Member Ethnicity: Non- Living Status: Still Living Internal Medicine - H&P: Meds Cetirizine HCl [Zyrtec] 10 mg PO DAILY 05/08/15 [History] Omeprazole 20 mg PO DAILY 05/08/15 [History] Acetaminophen [Tylenol] 500 mg PO Q6HR PRN 01/13/16 [History] Albuterol Sulfate [Albuterol Inhaler] 2 puff IH Q4HR PRN 01/13/16 [History] Fluticasone Propionate Nasal [Flonase] 1 spray NS DAILY 01/13/16 [History] Gabapentin [Neurontin] 800 mg PO BID 06/13/16 [History] Lidocaine/Prilocaine CREAM [Emla] 1 appl TP ONCE PRN 06/13/16 [History] Topiramate [Topamax] 50 mg PO BID 06/13/16 [History] Insulin ASPART [Novolog Flexpen] 4 - 5 unit SQ TIDAC 06/27/16 [History] Atorvastatin [Lipitor] 40 mg PO HS 09/05/16 [History] Clopidogrel [Plavix] 75 mg PO DAILY 09/05/16 [History] Docusate [Colace] 100 mg PO DAILY 10/06/16 [History] Nystatin POWDER [Nystop] 1 appl TP BID PRN 10/06/16 [History] Insulin Glargine,Hum.rec.anlog [Basaglar Kwikpen U-100] 40 unit SQ HS 11/24/16 [ History] Aspirin Enteric Coated [Aspirin EC] 81 mg PO DAILY #30 tablet. 11/28/16 [Rx] amLODIPine [Norvasc] 10 mg PO DAILY tab 11/28/16 [Rx] Lisinopril [Zestril] 40 mg PO DAILY #30 tablet 12/05/16 [Rx] hydroCHLOROthiazide [Hydrochlorothiazide] 50 mg PO DAILY #30 tablet 12/05/16 [Rx ] LORazepam [Ativan] 0.5 mg PO HS 02/10/17 [History] OxyCODONE/APAP 5/325 [Percocet 5/325 MG] 1 each PO Q6HR PRN 02/10/17 [History] Rituxan 02/10/17 [History] 3 Allergy/AdvReac Type Severity Reaction Status Date / Time diphenhydramine AdvReac See Verified 02/10/17 10:54 [From Benadryl] Comments Oxycodone [From OxyContin] AdvReac Itching Verified 02/10/17 23:46 All Systems PM: A 10-system review of systems was performed and is negative for pertinent findings except as documented above in the HPI. - Constitutional Constitutional: as per HPI, weakness (Residual rt-sided in UE and LE from previous CVA), no chills, no fever(s), no night sweats - EENT Eyes: no change in vision, no discharge, no pain, no photophobia Ears: no ear discharge, no ear pain, no tinnitus Nose, mouth and throat: no dysphagia, no nasal discharge, no neck pain, no sore throat - Breasts Breasts: as per HPI - Cardiovascular Cardiovascular ROS IM: as per HPI, lightheadedness, no chest pain, no diaphoresis, no dyspnea, no palpitations, no syncope - Respiratory Respiratory: no cough, no dyspnea, no wheezing, no excessive phlegm production - Gastrointestinal Gastrointestinal: as per HPI, nausea, vomiting, no abdominal pain, no diarrhea, no hematemesis, no hematochezia, no melena - Genitourinary Genitourinary: no change in urinary stream, no dysuria, no flank pain, no hematuria Menstruation: as per HPI - Musculoskeletal Musculoskeletal ROS IM: no numbness, no tingling - Integumentary Integumentary IM: no rash, no unusual bruising - Neurological Neurological ROS: as per HPI, abnormal speech (This a.m. - now resolved), numbness (Rt arm), tingling (Rt arm), weakness, no confusion, no convulsions, no focal weakness, no tremor(s) - Psychiatric Psychiatric: as per HPI, anxiety - Endocrine Endocrine IM: as per HPI - Hematologic/Lymphatic Hematologic/Lymphatic: no easy bruising - Allergic/Immunologic Allergic/Immunologic: as per HPI - Constitutional Vitals: Temp Pulse Resp BP Pulse Ox 97.3 F L 98 16 184/114 98 02/10/17 19:01 02/10/17 19:01 02/10/17 19:01 02/10/17 19:01 02/10/17 19:01 General appearance: Present: cooperative, A&O X 3, morbidly obese, pleasant, no acute distress, answers questions appropriately - Head Head exam: Present: atraumatic, normocephalic - Eye Eye exam: Present: PERRL, conjuntiva pink, sclera anicteric Pupils: Present: PERRL - ENT ENT exam: Present: normal exam - Neck Neck exam general surgery: Present: normal inspection - Respiratory Respiratory exam: Present: CTAB. Absent: accessory muscle use, rales, rhonchi, wheezes - Cardiovascular Cardiovascular exam: Present: RRR, +S1, +S2. Absent: diastolic murmur, gallop, rubs, systolic murmur - GI/Abdominal GI/Abdominal exam: Present: normal bowel sounds, soft, no peritoneal signs. Absent: distended, tenderness - Rectal Rectal exam: Present: deferred - Additional comments: exam deferred. - Extremities Exam Extremities exam: Present: warm, radial pulses palpable and symmetrical. Absent : calf tenderness, cyanotic, pedal edema - Back Exam Back exam: Present: normal inspection - Neurological Exam Neurological exam: Present: CN II-XII intact, oriented X3. Absent: pronater drift, facial droop, speech deficit Additional comments: Rt-sided weakness in UE and LE - Psychiatric Psychiatric exam: Present: normal affect, normal mood - Skin Skin exam: Present: dry, intact Internal Med - H&P Results - EKG Data EKG shows normal: sinus rhythm - EKG Data Prior EKG available for review: no Interpretation IM: suggestive of ischemia EKG comments: 02/10/17 22:32 EKG dated 02/10/17 shows sinus rhythm with occasional ventricular premature complexes, marked left axis deviation, moderate voltage criteria for LVH ( consider normal variant), possible anterior myocardial infarction (probably old) . - Diagnostic Studies Chest x-ray Additional comments: Single view of the chest today shows stable chest. Cardiomegaly without evidence of acute cardiopulmonary process. CT scan - head Additional comments: CT of the head without contrast today shows no acute intracranial abnormality. Old lacunar infarction in left sampson radiata region. Chronic left maxillary sinusitis. <Campbell Cervantes - Last Filed: 02/11/17 01:07> Date of Encounter: 02/10/17 Internal Medicine - H&P: HPI History of present illness: Ms. Peña is a 62 year old female All Systems PM: A 10-system review of systems was performed and is negative for pertinent findings except as documented above in the HPI. - Constitutional Vitals: Temp Pulse Resp BP Pulse Ox 98.5 F 84 16 135/59 97 02/10/17 22:27 02/10/17 22:27 02/10/17 22:27 02/10/17 22:27 02/10/17 22:27 - Attending Attestation I examined this patient and my medical decision-making was reviewed with the [employer]. I agree with the documented findings, disposition and treatment plan as described except to the extent set forth below. I have seen and examined the patient. Patient is a 62-year-old female with past medical history of non-Hodgkin's lymphoma, CVA, TIAs, DVTs, diabetes, GERD , hypertension and a history of NH. She presents with complaints of right- sided weakness and dizziness and lightheadedness. Symptoms started earlier this morning at around 9 AM. She also complains of slurred speech which is now improved. She seems to be back to baseline state at this time. Patient is being admitted for probable TIA. CT of the head is negative. MRI brain is pending. We will continue aspirin, Lipitor and Plavix. Patient has been extremely about her condition and plan of care in detail. She understood and agreed. No unanswered questions. Patient has specifically stated that her CODE STATUS is a DO NOT RESUSCITATE and DO NOT INTUBATE status. Heart rate 84, temp 98.5, blood pressure 135/59, O2 sat 97% on room air. Heart S1-S2 positive. Lungs bilateral good entry. Abdomen soft nontender, no guarding. Neuro - awake and alert and oriented 3. Left upper and lower extremity strength 5/5. Right upper and lower extremity strength is 3/5. Patient does have residual right-sided deficit from previous CVA.
[2017-02-10] MEDS ORDERED: D5% in Water 1,000 ML IVC PRN (22:25)
[2017-02-10] MEDS ORDERED: *HR* Dextrose 50 % in Water (Syg) 50 ML SYRINGE IVP PRN (22:25)
[2017-02-10] MEDS ORDERED: Dextrose Gel 15 GM PO PRN ×2 (22:25)
[2017-02-10] MEDS ORDERED: [UNRECOGNIZED DRUG - OTHER] SQ SCH (22:30)
[2017-02-10] MEDS ORDERED: *HR* LORazepam 0.5 MG TABLET ONE (23:59)
[2017-02-11] MEDS: *HR* OxyCODONE/APAP 5/325 TABLET PO PRN ×4 (00:10→21:49)
[2017-02-11] MEDS: *HR* LORazepam 0.5 MG TABLET PO SCH ×2 (00:10→19:47)
[2017-02-11] MEDS: Insulin DETEMIR 100 UNIT/ML X5UNITS SQ SCH ×2 (04:31→19:49)
[2017-02-11] MEDS: *HR* Heparin 5,000 UNIT/ML VIAL SQ SCH ×2 (04:31→17:13)
[2017-02-11 05:02] LABS: Basophils % 0.6 %; Eosinophils # 0.1 K/mcL (0.0-0.6); Hematocrit 37.1 % (35.3-44.9); Immature Granulocytes % 0.4 % (0-4); Lymphocytes # 1.5 K/mcL (0.6-4.6); Lymphocytes % 27.6 %; Mean Corpuscular Hemoglobin 31.6 pg (28.0-33.3); Monocytes # 0.5 K/mcL (0.0-1.3); Monocytes % 9.8 %; Neutrophils # 3.2 K/mcL (1.6-8.9); Platelet Count 196 K/mcL (140-400); Red Blood Count 4.12 M/mcL (3.82-4.97); Red Cell Distribution Width 11.7 % (11.5-14.5); Segmented Neutrophils % 59.6 %
[2017-02-11 05:12] LABS: Alanine Aminotransferase 10 Units/L (0-55); Albumin 2.2 g/dL (3.5-5.0); Albumin/Globulin Ratio 0.9 (1.1-2.2); Alkaline Phosphatase 74 Units/L (38-126); Aspartate Amino Transferase 10 Units/L (5-34); BUN/Creatinine Ratio 19 (6-26); Bilirubin,Total 0.4 mg/dL (0.2-1.2); Blood Urea Nitrogen 11 mg/dL (7-20); Calcium 7.3 mg/dL (8.6-10.8); Carbon Dioxide 20 mEq/L (19-29); Chloride 114 mEq/L (98-109); Globulin 2.5 g/dL (2.4-3.5); Glucose 187 mg/dL (70-99); Osmolality,Calculated 292 (280-300); Sodium 139 mEq/L (136-145); Total Protein 4.7 g/dL (6.0-8.3); eGFR For African Americans > 60 (> 60); eGFR For Non-African Americans > 60 (> 60)
[2017-02-11] MEDS: Insulin LISPRO 300 UNITS/3 ML VIAL SQ SCH ×5 (08:02→21:53)
[2017-02-11] MEDS: Fluticasone Propionate Nasal 50 MCG/SPRAY BOTTLE NS SCH (08:12)
[2017-02-11] MEDS: Gabapentin 400 MG CAPSULE PO SCH ×2 (08:13→19:47)
[2017-02-11] MEDS: Lisinopril 20 MG TABLET PO SCH (08:13)
[2017-02-11] MEDS: Aspirin Enteric Coated 81 MG Tablet PO SCH (08:14)
[2017-02-11] MEDS: amLODIPine 5 MG TABLET PO SCH (08:14)
[2017-02-11] MEDS: hydroCHLOROthiazide 25 MG TABLET PO SCH (08:14)
[2017-02-11] MEDS: Loratadine 10 MG TABLET PO SCH (08:14)
[2017-02-11] MEDS: Topiramate 25 MG TABLET PO SCH ×2 (08:14→19:47)
--- NOTE | 2017-02-11 16:56 | Internal Med Progress Note ---
Date of Encounter: 02/11/17 Time of Encounter: 16:54 - Assessment and plan (1) Transient ischemic attack Current Visit: Yes Status: Acute Assessment and plan: Right-sided weakness, negative MRI for stroke. We will consult PTOT patient may need rehabilitation. Qualifiers: Transient cerebral ischemia type: unspecified Qualified Code(s): G45.9 - Transient cerebral ischemic attack, unspecified (2) CVA (cerebral vascular accident) Current Visit: Yes Status: Chronic Assessment and plan: Patient had multiple CVA back to July and September 2016, right-sided weakness, patient lives alone at home is interested in in long-term care will consult social work. Qualifiers: CVA mechanism: unspecified Qualified Code(s): I63.9 - Cerebral infarction, unspecified (3) DVT prophylaxis Current Visit: Yes Status: Acute Assessment and plan: We will start heparin subcutaneous (4) Hospice care patient Current Visit: Yes Status: Acute Assessment and plan: Pt. reports she is cared for by [facility] due to history of strokes and diagnosis of non-Hodgkin's lymphoma. Patient notified hospice nurse about her symptoms but brother and nurse were concerned about slurred speech and encouraged her to come to [place] ED. Patient to return to [place] upon discharge from [facility]. Pt. states she is DNRCC. (5) GERD (gastroesophageal reflux disease) Current Visit: Yes Status: Chronic Assessment and plan: on PPI Qualifiers: Esophagitis presence: esophagitis presence not specified Qualified Code(s) : K21.9 - Gastro-esophageal reflux disease without esophagitis (6) HTN (hypertension) Current Visit: Yes Status: Chronic Assessment and plan: Continue home medication. Will continue lisinopril, Norvasc, and hydrochlorothiazide. Qualifiers: Hypertension type: essential hypertension Qualified Code(s): I10 - Essential (primary) hypertension (7) Non-Hodgkin lymphoma Current Visit: Yes Status: Chronic Assessment and plan: Hx of chronic non-Hodgkin lymphoma. Pt. is followed by Dr. Bhagat at [facility]. Pt. reports she finished her chemotherapy this week and will not resume until May. Pt. to f/u w/Dr. Bhagat. 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 Peña is a 62 year old female with a history of non-Hodgkin's lymphoma, CVA, TIAs, DVTs many years ago, diabetes controlled with insulin, GERD, HTN, and KS in the with no stent placement presents from [place] [facility] with chief complaint neurodeficits and symptoms today. States her BP was elevated 3-4 days ago and symptoms include weakness. She had a negative MRI for acute stroke. Patient states her right-sided weakness has been improving, but still feeling weak, She is thinking about going to the rehabilitation. She lives alone at home want to talk to social work. - Constitutional Vitals: Temp Pulse Resp BP Pulse Ox 98.2 F 84 16 106/54 95 02/11/17 15:50 02/11/17 15:50 02/11/17 15:50 02/11/17 15:50 02/11/17 15:50 CONSTITUTIONAL: patient appears as an age appropriate female in no acute distress. EYES Clear sclerae, bilateral pupils are equal, reactive to light. EMOI. RESPIRATORY: No accessory muscle use, bilateral clear to auscultation, no wheezing, no crackles/rales. CARDIOVASCULAR: Regular heart rate, normal S1 and S2, no murmurs GASTROINTESTINAL: bowel sounds present, soft, no tenderness. MUSCULOSKELETAL: Joints in normal range of motion, no clubbing, no edema, no cyanosis. Bilateral peripheral pulses 2+. NEUROLOGIC: CN II to XII are grossly intact, right-sided weakness. General appearance: Present: cooperative, A&O X 3, morbidly obese, pleasant, no acute distress, answers questions appropriately Internal Medicine: Result - Labs CBC & Chem 7: 02/11/17 04:45 02/11/17 04:45 Labs: Short CBC 02/11/17 Range/Units 04:45 WBC 5.4 (4.3-11.1) K/mcL Hgb 13.0 D (11.5-15.4) g/dL Hct 37.1 (35.3-44.9) % Plt Count 196 (140-400) K/mcL Neutrophils # 3.2 (1.6-8.9) K/mcL BMP 02/11/17 04:45 Sodium 139 Potassium 3.0 L Chloride 114 H Carbon Dioxide 20 BUN 11 Creatinine 0.59 Glucose 187 H Calcium 7.3 L D Liver Function 02/11/17 Range/Units 04:45 Total Bilirubin 0.4 (0.2-1.2) mg/dL AST 10 (5-34) Units/L ALT 10 (0-55) Units/L Alkaline Phosphatase 74 (38-126) Units/L Albumin 2.2 L D (3.5-5.0) g/dL - Impressions Impressions Brain MRI 02/11/17 22:09 IMPRESSION: No acute abnormality. Chronic left maxillary sinusitis. D/ / Louis Rosenberg MD / Louis Rosenberg MD Interpreting Provider: Louis Rosenberg MD Consult Discharge Plan - Plan Referrals: Crow Gonzalez, [employer] [Primary Care Provider] -
[2017-02-11] MEDS ORDERED: *HR* LORazepam 0.5 MG TABLET PO SCH (21:00)
[2017-02-12 05:18] LABS: Basophils % 0.9 %; Eosinophils # 0.1 K/mcL (0.0-0.6); Eosinophils % 2.2 %; Hematocrit 35.8 % (35.3-44.9); Hemoglobin 12.4 g/dL (11.5-15.4); Immature Granulocytes % 0.2 % (0-4); Lymphocytes # 1.5 K/mcL (0.6-4.6); Lymphocytes % 33.6 %; Mean Corpuscular HGB Conc 34.6 g/dL (31.6-35.5); Mean Corpuscular Hemoglobin 31.6 pg (28.0-33.3); Mean Corpuscular Volume 91.3 fL (83.0-100.0); Mean Platelet Volume 10.9 fL (9.4-12.4); Monocytes # 0.5 K/mcL (0.0-1.3); Monocytes % 9.9 %; Neutrophils # 2.4 K/mcL (1.6-8.9); Platelet Count 192 K/mcL (140-400); Red Blood Count 3.92 M/mcL (3.82-4.97); Red Cell Distribution Width 11.8 % (11.5-14.5); Segmented Neutrophils % 53.2 %
[2017-02-12 05:32] LABS: Alanine Aminotransferase 11 Units/L (0-55); Albumin 2.4 g/dL (3.5-5.0); Albumin/Globulin Ratio 0.8 (1.1-2.2); Alkaline Phosphatase 80 Units/L (38-126); Aspartate Amino Transferase 11 Units/L (5-34); BUN/Creatinine Ratio 32 (6-26); Bilirubin,Total 0.3 mg/dL (0.2-1.2); Blood Urea Nitrogen 25 mg/dL (7-20); Calcium 8.8 mg/dL (8.6-10.8); Carbon Dioxide 23 mEq/L (19-29); Chloride 109 mEq/L (98-109); Globulin 3.1 g/dL (2.4-3.5); Glucose 94 mg/dL (70-99); Osmolality,Calculated 292 (280-300); Potassium 3.6 mEq/L (3.5-4.5); Sodium 139 mEq/L (136-145); Total Protein 5.5 g/dL (6.0-8.3); eGFR For African Americans > 60 (> 60); eGFR For Non-African Americans > 60 (> 60)
[2017-02-12] MEDS: *HR* Heparin 5,000 UNIT/ML VIAL SQ SCH ×2 (06:03→17:16)
[2017-02-12] MEDS: *HR* OxyCODONE/APAP 5/325 TABLET PO PRN ×2 (06:05→16:00)
[2017-02-12] MEDS: Insulin LISPRO 300 UNITS/3 ML VIAL SQ SCH ×4 (08:11→21:14)
[2017-02-12] MEDS: Topiramate 25 MG TABLET PO SCH ×2 (09:12→21:13)
[2017-02-12] MEDS: hydroCHLOROthiazide 25 MG TABLET PO SCH (09:12)
[2017-02-12] MEDS: Aspirin Enteric Coated 81 MG Tablet PO SCH (09:12)
[2017-02-12] MEDS: Gabapentin 400 MG CAPSULE PO SCH ×2 (09:12→21:13)
[2017-02-12] MEDS: Lisinopril 20 MG TABLET PO SCH (09:12)
[2017-02-12] MEDS: amLODIPine 5 MG TABLET PO SCH (09:12)
[2017-02-12] MEDS: Loratadine 10 MG TABLET PO SCH (09:12)
[2017-02-12] MEDS: Fluticasone Propionate Nasal 50 MCG/SPRAY BOTTLE NS SCH (09:13)
--- NOTE | 2017-02-12 14:09 | Internal Med Progress Note ---
Date of Encounter: 02/12/17 Time of Encounter: 14:07 - Assessment and plan (1) Transient ischemic attack Current Visit: Yes Status: Acute Assessment and plan: Right-sided weakness, negative MRI for stroke. Pending PT/OT consult.patient wanted to go to rehabilitation Qualifiers: Transient cerebral ischemia type: unspecified Qualified Code(s): G45.9 - Transient cerebral ischemic attack, unspecified (2) CVA (cerebral vascular accident) Current Visit: Yes Status: Chronic Assessment and plan: Patient had multiple CVA back to July and September 2016, right-sided weakness, patient lives alone at home is interested in in long-term care will consult social work. Qualifiers: CVA mechanism: unspecified Qualified Code(s): I63.9 - Cerebral infarction, unspecified (3) DVT prophylaxis Current Visit: Yes Status: Acute Assessment and plan: We will start heparin subcutaneous (4) Hospice care patient Current Visit: Yes Status: Acute (5) GERD (gastroesophageal reflux disease) Current Visit: Yes Status: Chronic Qualifiers: Esophagitis presence: esophagitis presence not specified Qualified Code(s) : K21.9 - Gastro-esophageal reflux disease without esophagitis (6) HTN (hypertension) Current Visit: Yes Status: Chronic Assessment and plan: Continue home medication. Will continue lisinopril, Norvasc, and hydrochlorothiazide. Qualifiers: Hypertension type: essential hypertension Qualified Code(s): I10 - Essential (primary) hypertension (7) Non-Hodgkin lymphoma Current Visit: Yes Status: Chronic Assessment and plan: Hx of chronic non-Hodgkin lymphoma. Pt. is followed by Dr. Bhagat at [facility]. Pt. reports she finished her chemotherapy this week and will not resume until May. Pt. to f/u w/Dr. Bhagat. 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 Peña is a 62 year old female with a history of non-Hodgkin's lymphoma, CVA, TIAs, DVTs many years ago, diabetes controlled with insulin, GERD, HTN, and KS in the with no stent placement presents from [place] ED with chief complaint neurodeficits and symptoms today. States her BP was elevated 3-4 days ago and symptoms include weakness. She had a negative MRI for acute stroke. Patient states her right-sided weakness has been improving, but still feeling weak, She lives alone at home want to talk to social work. She decided to go to rehabilitation - Constitutional Vitals: Temp Pulse Resp BP Pulse Ox 97.4 F L 79 18 125/84 100 02/12/17 11:53 02/12/17 11:53 02/12/17 11:53 02/12/17 11:53 02/12/17 11:53 CONSTITUTIONAL: patient appears as an age appropriate [ female e] in no acute distress. EYES Clear sclerae, bilateral pupils are equal, reactive to light. EMOI. RESPIRATORY: No accessory muscle use, bilateral clear to auscultation, no wheezing, no crackles/rales. CARDIOVASCULAR: Regular heart rate, normal S1 and S2, no murmurs GASTROINTESTINAL: bowel sounds present, soft, no tenderness. MUSCULOSKELETAL: Joints in normal range of motion, no clubbing, no edema, no cyanosis. Bilateral peripheral pulses 2+. NEUROLOGIC: CN II to XII are grossly intact, right-sided weakness General appearance: Present: cooperative, A&O X 3, morbidly obese, pleasant, no acute distress, answers questions appropriately Internal Medicine: Result - Labs CBC & Chem 7: 02/12/17 04:50 02/12/17 04:50 Labs: Short CBC 02/12/17 Range/Units 04:50 WBC 4.6 (4.3-11.1) K/mcL Hgb 12.4 (11.5-15.4) g/dL Hct 35.8 (35.3-44.9) % Plt Count 192 (140-400) K/mcL Neutrophils # 2.4 (1.6-8.9) K/mcL BMP 02/12/17 04:50 Sodium 139 Potassium 3.6 Chloride 109 Carbon Dioxide 23 BUN 25 H D Creatinine 0.78 Glucose 94 Calcium 8.8 D Liver Function 02/12/17 Range/Units 04:50 Total Bilirubin 0.3 (0.2-1.2) mg/dL AST 11 (5-34) Units/L ALT 11 (0-55) Units/L Alkaline Phosphatase 80 (38-126) Units/L Albumin 2.4 L (3.5-5.0) g/dL Consult Discharge Plan - Plan Referrals: Crow Gonzalez, [employer] [Primary Care Provider] -
[2017-02-12] MEDS: Insulin DETEMIR 100 UNIT/ML X5UNITS SQ SCH (21:13)
[2017-02-12] MEDS: *HR* LORazepam 0.5 MG TABLET PO SCH (21:13)
[2017-02-13] MEDS: *HR* OxyCODONE/APAP 5/325 TABLET PO PRN ×3 (01:43→20:54)
[2017-02-13] MEDS: *HR* Heparin 5,000 UNIT/ML VIAL SQ SCH ×2 (05:31→17:57)
[2017-02-13] MEDS: Insulin LISPRO 300 UNITS/3 ML VIAL SQ SCH ×4 (08:46→20:58)
[2017-02-13] MEDS: amLODIPine 5 MG TABLET PO SCH (08:47)
[2017-02-13] MEDS: Gabapentin 400 MG CAPSULE PO SCH ×2 (08:47→20:55)
[2017-02-13] MEDS: Topiramate 25 MG TABLET PO SCH ×2 (08:47→20:54)
[2017-02-13] MEDS: Lisinopril 20 MG TABLET PO SCH (08:47)
[2017-02-13] MEDS: Aspirin Enteric Coated 81 MG Tablet PO SCH (08:47)
[2017-02-13] MEDS: hydroCHLOROthiazide 25 MG TABLET PO SCH (08:47)
[2017-02-13] MEDS: Loratadine 10 MG TABLET PO SCH (08:47)
[2017-02-13] MEDS: Fluticasone Propionate Nasal 50 MCG/SPRAY BOTTLE NS SCH (08:48)
[2017-02-13] MEDS ORDERED: Nystatin POWDER 30 GM BOTTLE TP PRN (17:31)
[2017-02-13] MEDS ORDERED: Furosemide 40 MG TABLET PO PRN (17:31)
--- NOTE | 2017-02-13 17:36 | Internal Med Progress Note ---
Date of Encounter: 02/13/17 Time of Encounter: 16:15 - Assessment and plan (1) Transient ischemic attack Current Visit: Yes Status: Acute Assessment and plan: She reports hypertension, weakness, lightheadedness, headache for the last 4 days. Onset of right arm tingling with nausea vomiting yesterday On day of admission, patient reported that she had slurred speech. Patient reports that all symptoms have resolved other than right-sided weakness which is chronic from prior CVA this year. MRIs negative for any acute abnormality. Continue telemetry Continue monitoring labs and vital signs. Continue physical therapy and occupational therapy Qualifiers: Transient cerebral ischemia type: unspecified Qualified Code(s): G45.9 - Transient cerebral ischemic attack, unspecified (2) CVA (cerebral vascular accident) Current Visit: Yes Status: Chronic Assessment and plan: Patient had CVA in July and September 2016. Patient has residual right-sided weakness. Patient lives alone at home is interested in in long-term care. Pending SNF placement. Continue aspirin, Plavix, Lipitor. Qualifiers: CVA mechanism: unspecified Qualified Code(s): I63.9 - Cerebral infarction, unspecified (3) Diabetes Current Visit: Yes Status: Chronic Assessment and plan: A1c is 8.1% in November,. Continue sliding scale insulin, Accu-Cheks before meals at bedtime, diabetic diet. 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 Continue home medications. Qualifiers: Esophagitis presence: esophagitis presence not specified Qualified Code(s) : K21.9 - Gastro-esophageal reflux disease without esophagitis (5) Non-Hodgkin lymphoma Current Visit: Yes Status: Chronic Assessment and plan: Hx of chronic non-Hodgkin lymphoma, patient reports she was diagnosed in 2002. Pt. is followed by [facility]. Pt. reports she finished her chemotherapy this week and will not resume until May. Follow-up outpatient as scheduled. Qualifiers: Follicular lymphoma type: unspecified follicular type Lymphoma site: unspecified region Qualified Code(s): C82.90 - Follicular lymphoma, unspecified, unspecified site (6) HTN (hypertension) Current Visit: Yes Status: Chronic Assessment and plan: Blood pressure well controlled in inpatient setting. Continue home medications. Continue monitor vital signs per admission order. Qualifiers: Hypertension type: essential hypertension Qualified Code(s): I10 - Essential (primary) hypertension (7) Morbid obesity with BMI of 50.0-59.9, adult Current Visit: No Status: Chronic Assessment and plan: Chronic. Lifestyle modifications. (8) DVT prophylaxis Current Visit: Yes Status: Acute Assessment and plan: Heparin subcutaneous daily. Encourage ambulation. - Time Spent With Patient less than 15 minutes - Subjective Interval history: She was seen and assessed at 1615 she is sitting up in the chair at bedside. She denies any headache, nausea, vomiting, diarrhea, abdominal pain, peripheral edema. Patient denies dizziness or near syncope. She was requesting to go to the skilled nursing and is aware that it may take several days for placement. She she denies any questions or concerns. - Constitutional Vitals: Temp Pulse Resp BP Pulse Ox 98.1 F 70 17 108/75 95 02/13/17 15:08 02/13/17 15:08 02/13/17 15:08 02/13/17 15:08 02/13/17 15:08 General appearance: Present: cooperative, A&O X 3, morbidly obese, pleasant, no acute distress, answers questions appropriately - Head Head exam: Present: atraumatic, normocephalic - Eye Eye exam: Present: normal appearance, conjuntiva pink, sclera anicteric - Neck Neck exam general surgery: Present: supple, trachea midline. Absent: lymphadenopathy - Respiratory Respiratory exam: Present: CTAB. Absent: accessory muscle use, rales, rhonchi, wheezes - Cardiovascular Cardiovascular exam: Present: RRR, +S1, +S2. Absent: diastolic murmur, gallop, rubs, systolic murmur - GI/Abdominal GI/Abdominal exam: Present: normal bowel sounds, soft, no peritoneal signs. Absent: distended, hepatomegaly, tenderness - Extremities Exam Extremities exam: Present: normal capillary refill, normal inspection, warm, radial pulses palpable and symmetrical. Absent: calf tenderness, cyanotic, pedal edema, tenderness - Neurological Exam Neurological exam: Present: alert, oriented X3, no focal deficits. Absent: facial droop, speech deficit - Skin Skin exam: Present: dry, intact, normal color, warm. Absent: rash Internal Medicine: Result - Labs CBC & Chem 7: 02/12/17 04:50 02/12/17 04:50 Consult Discharge Plan - Plan Referrals: Crow Gonzalez, BENZENE WASHER [Primary Care Provider] -
[2017-02-13] MEDS: *HR* LORazepam 0.5 MG TABLET PO SCH (20:55)
[2017-02-13] MEDS: Insulin DETEMIR 100 UNIT/ML X5UNITS SQ SCH (20:56)
[2017-02-14] MEDS: *HR* OxyCODONE/APAP 5/325 TABLET PO PRN ×3 (04:32→21:16)
[2017-02-14] MEDS: Insulin LISPRO 300 UNITS/3 ML VIAL SQ SCH ×4 (08:05→21:18)
[2017-02-14] MEDS: Fluticasone Propionate Nasal 50 MCG/SPRAY BOTTLE NS SCH (08:05)
[2017-02-14] MEDS: hydroCHLOROthiazide 25 MG TABLET PO SCH (08:06)
[2017-02-14] MEDS: Lisinopril 20 MG TABLET PO SCH (08:06)
[2017-02-14] MEDS: Gabapentin 400 MG CAPSULE PO SCH ×2 (08:06→21:15)
[2017-02-14] MEDS: Topiramate 25 MG TABLET PO SCH ×2 (08:06→21:16)
[2017-02-14] MEDS: Loratadine 10 MG TABLET PO SCH (08:06)
[2017-02-14] MEDS: amLODIPine 5 MG TABLET PO SCH (08:06)
[2017-02-14] MEDS: Aspirin Enteric Coated 81 MG Tablet PO SCH (08:06)
--- NOTE | 2017-02-14 16:46 | Internal Med Progress Note ---
Date of Encounter: 02/14/17 Time of Encounter: 16:41 - Assessment and plan (1) CVA (cerebral vascular accident) Current Visit: Yes Status: Chronic Assessment and plan: s/p CVA in July and September 2016. With residual right-sided weakness. Presented with concern for TIA with recurrent and worsening right-sided weakness. Head CT , brain MRI negative. Continue aspirin, Plavix, Lipitor. Qualifiers: CVA mechanism: unspecified Qualified Code(s): I63.9 - Cerebral infarction, unspecified (2) Diabetes Current Visit: Yes Status: Chronic Assessment and plan: A1c is 8.1% in November,. Continue sliding scale insulin, Accu-Cheks before meals at bedtime, diabetic diet. 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 Continue home medications. Qualifiers: Esophagitis presence: esophagitis presence not specified Qualified Code(s) : K21.9 - Gastro-esophageal reflux disease without esophagitis (4) HTN (hypertension) Current Visit: Yes Status: Chronic Assessment and plan: Blood pressure well controlled in inpatient setting. Continue home medications. Continue monitor vital signs per admission order. Qualifiers: Hypertension type: essential hypertension Qualified Code(s): I10 - Essential (primary) hypertension (5) Non-Hodgkin lymphoma Current Visit: Yes Status: Chronic Assessment and plan: Hx of chronic non-Hodgkin lymphoma, patient reports she was diagnosed in 2002. Pt. is followed by [facility]. Pt. reports she finished her chemotherapy this week and will not resume until May. Follow-up outpatient as scheduled. Qualifiers: Follicular lymphoma type: unspecified follicular type Lymphoma site: unspecified region Qualified Code(s): C82.90 - Follicular lymphoma, unspecified, unspecified site - Subjective Interval history: Seen and examined at bedside. Patient is new to me. Information obtained from chart review and patient report. Overall better but still with increased right- sided weakness. Also with intermittent right-sided arm/shoulder pain. Patient reports falling several weeks ago with subsequent pain. No chest pain, no SOB, no vision changes. - Constitutional Vitals: Temp Pulse Resp BP Pulse Ox 98.1 F 92 16 113/72 98 02/14/17 15:44 02/14/17 15:44 02/14/17 15:44 02/14/17 15:44 02/14/17 15:44 General appearance: Present: cooperative, A&O X 3, morbidly obese, pleasant, no acute distress, answers questions appropriately - Head Head exam: Present: atraumatic, normocephalic - Eye Eye exam: Present: PERRL, conjuntiva pink, sclera anicteric Pupils: Present: PERRL - Neck Neck exam general surgery: Present: supple, trachea midline. Absent: lymphadenopathy - Respiratory Respiratory exam: Present: CTAB. Absent: accessory muscle use, rales, rhonchi, wheezes - Cardiovascular Cardiovascular exam: Present: RRR, +S1, +S2. Absent: diastolic murmur, gallop, rubs, systolic murmur - GI/Abdominal GI/Abdominal exam: Present: normal bowel sounds, soft, no peritoneal signs. Absent: distended, tenderness - Extremities Exam Extremities exam: Present: warm, radial pulses palpable and symmetrical. Absent : calf tenderness, cyanotic, pedal edema - Neurological Exam Neurological exam: Present: CN II-XII intact, oriented X3. Absent: pronater drift, facial droop, speech deficit Additional comments: Right sided weakness - Skin Skin exam: Present: dry, intact Internal Medicine: Result - Labs CBC & Chem 7: 02/12/17 04:50 02/12/17 04:50 - Impressions Impressions Humerus X-Ray 02/14/17 11:01 IMPRESSION: No convincing evidence of an acute fracture of the right shoulder or right humerus. D/ / Jose F Beck MD / Jose F Beck MD Interpreting Provider: Jose F Beck MD Shoulder X-Ray 02/14/17 11:01 IMPRESSION: No convincing evidence of an acute fracture of the right shoulder or right humerus. D/ / Jose F Beck MD / Jose F Beck MD Interpreting Provider: Jose F Beck MD Consult Discharge Plan - Plan Referrals: Crow Gonzalez, BOW REHAIRER [Primary Care Provider] -
[2017-02-14] MEDS ORDERED: BENZOCAINE/MENTHOL 1 LOZENGE (BAG OF 6) MM SCH (20:00)
[2017-02-14] MEDS: *HR* LORazepam 0.5 MG TABLET PO SCH (21:16)
[2017-02-14] MEDS: Insulin DETEMIR 100 UNIT/ML X5UNITS SQ SCH (21:17)
[2017-02-14] MEDS: BENZOCAINE/MENTHOL 1 LOZENGE (BAG OF 6) MM PRN (21:18)
[2017-02-15] MEDS: *HR* OxyCODONE/APAP 5/325 TABLET PO PRN ×3 (04:30→21:31)
[2017-02-15 05:00] LABS: Alanine Aminotransferase 13 Units/L (0-55); Albumin 2.7 g/dL (3.5-5.0); Albumin/Globulin Ratio 0.9 (1.1-2.2); Alkaline Phosphatase 75 Units/L (38-126); Aspartate Amino Transferase 12 Units/L (5-34); BUN/Creatinine Ratio 52 (6-26); Bilirubin,Total 0.3 mg/dL (0.2-1.2); Calcium 9.3 mg/dL (8.6-10.8); Carbon Dioxide 28 mEq/L (19-29); Chloride 107 mEq/L (98-109); Globulin 2.9 g/dL (2.4-3.5); Glucose 158 mg/dL (70-99); Osmolality,Calculated 301 (280-300); Potassium 3.7 mEq/L (3.5-4.5); Sodium 139 mEq/L (136-145); Total Protein 5.6 g/dL (6.0-8.3); eGFR For African Americans > 60 (> 60); eGFR For Non-African Americans > 60 (> 60)
[2017-02-15 05:11] LABS: Blood Urea Nitrogen 39 mg/dL (7-20)
[2017-02-15] MEDS: Insulin LISPRO 300 UNITS/3 ML VIAL SQ SCH ×4 (08:13→20:17)
[2017-02-15] MEDS: amLODIPine 5 MG TABLET PO SCH (08:32)
[2017-02-15] MEDS: Aspirin Enteric Coated 81 MG Tablet PO SCH (08:32)
[2017-02-15] MEDS: Fluticasone Propionate Nasal 50 MCG/SPRAY BOTTLE NS SCH (08:32)
[2017-02-15] MEDS: Lisinopril 20 MG TABLET PO SCH (08:33)
[2017-02-15] MEDS: Topiramate 25 MG TABLET PO SCH ×2 (08:33→20:11)
[2017-02-15] MEDS: Gabapentin 400 MG CAPSULE PO SCH ×2 (08:33→20:11)
[2017-02-15] MEDS: hydroCHLOROthiazide 25 MG TABLET PO SCH (08:33)
[2017-02-15] MEDS: Loratadine 10 MG TABLET PO SCH (08:33)
--- NOTE | 2017-02-15 13:16 | Internal Med Progress Note ---
Date of Encounter: 02/15/17 Time of Encounter: 13:22 - Assessment and plan (1) CVA (cerebral vascular accident) Current Visit: Yes Status: Chronic Assessment and plan: s/p CVA in July 2016 followed by 2 TIAs in September and November. With residual right-sided weakness. Presented to OSH with increasing weakness, lightheadedness, headache, and sharp pains in her forehead. Head CT, brain MRI negative. Now with worsening right arm weakness. Clinically appears to be possible rotator cuff injury. Right arm MRI pending. If negative, consult neurology. Continue aspirin, Plavix, Lipitor. Qualifiers: CVA mechanism: unspecified Qualified Code(s): I63.9 - Cerebral infarction, unspecified (2) Diabetes Current Visit: Yes Status: Chronic Assessment and plan: A1c is 8.1% 11/2016. Continue sliding scale insulin, Accu-Cheks before meals at bedtime, diabetic diet. Qualifiers: Diabetes mellitus type: type 2 Diabetes mellitus complication status: without complication Diabetes mellitus correction insulin use: with correction use Qualified Code(s): E11.9 - Type 2 diabetes mellitus without complications ; Z79.4 - care home (current) use of insulin; Z79.4 - long term care administrator (current) use of insulin; Z79.4 - care home (current) use of insulin; Z79.4 - long term care administrator ( current) use of insulin (3) GERD (gastroesophageal reflux disease) Current Visit: Yes Status: Chronic Assessment and plan: Chronic. Continue home medications. Qualifiers: Esophagitis presence: esophagitis presence not specified Qualified Code(s) : K21.9 - Gastro-esophageal reflux disease without esophagitis (4) HTN (hypertension) Current Visit: Yes Status: Chronic Assessment and plan: Blood pressure well controlled in inpatient setting. Continue home medications. Continue monitor vital signs per admission order. Qualifiers: Hypertension type: essential hypertension Qualified Code(s): I10 - Essential (primary) hypertension (5) Non-Hodgkin lymphoma Current Visit: Yes Status: Chronic Assessment and plan: Hx of chronic non-Hodgkin lymphoma, patient reports she was diagnosed in 2002. Pt. is followed by [facility]. Pt. reports she finished her chemotherapy this week and will not resume until May. Follow-up outpatient as scheduled. Qualifiers: Follicular lymphoma type: unspecified follicular type Lymphoma site: unspecified region Qualified Code(s): C82.90 - Follicular lymphoma, unspecified, unspecified site - Subjective Interval history: Seen and examined at bedside. She is still complaining of right arm pain and increased weakness. Says she fell approximately 3 weeks ago and has had some subsequent right arm weakness and pain however she feels it has worsened since last suspected TIA. - Constitutional Vitals: Temp Pulse Resp BP Pulse Ox 97 F L 84 16 132/76 98 02/15/17 11:34 02/15/17 11:34 02/15/17 11:34 02/15/17 11:34 02/15/17 11:34 General appearance: Present: cooperative, A&O X 3, morbidly obese, pleasant, no acute distress, answers questions appropriately - Head Head exam: Present: atraumatic, normocephalic - Eye Eye exam: Present: PERRL, conjuntiva pink, sclera anicteric Pupils: Present: PERRL - Neck Neck exam general surgery: Present: supple, trachea midline. Absent: lymphadenopathy - Respiratory Respiratory exam: Present: CTAB. Absent: accessory muscle use, rales, rhonchi, wheezes - Cardiovascular Cardiovascular exam: Present: RRR, +S1, +S2. Absent: diastolic murmur, gallop, rubs, systolic murmur - GI/Abdominal GI/Abdominal exam: Present: normal bowel sounds, soft, no peritoneal signs. Absent: distended, tenderness - Extremities Exam Extremities exam: Present: warm, radial pulses palpable and symmetrical. Absent : calf tenderness, cyanotic, pedal edema - Neurological Exam Neurological exam: Present: CN II-XII intact, oriented X3. Absent: pronater drift, facial droop, speech deficit Additional comments: Right arm weakness. Strength 2-3 out of 5. - Skin Skin exam: Present: dry, intact Internal Medicine: Result - Labs CBC & Chem 7: 02/12/17 04:50 02/15/17 04:35 Labs: BMP 02/15/17 04:35 Sodium 139 Potassium 3.7 Chloride 107 Carbon Dioxide 28 BUN 39 H D Creatinine 0.75 Glucose 158 H Calcium 9.3 Liver Function 02/15/17 Range/Units 04:35 Total Bilirubin 0.3 (0.2-1.2) mg/dL AST 12 (5-34) Units/L ALT 13 (0-55) Units/L Alkaline Phosphatase 75 (38-126) Units/L Albumin 2.7 L (3.5-5.0) g/dL Consult Discharge Plan - Plan Referrals: Crow Gonzalez, MICHELLE [Primary Care Provider] -
[2017-02-15] MEDS: BENZOCAINE/MENTHOL 1 LOZENGE (BAG OF 6) MM PRN (15:18)
[2017-02-15] MEDS: Insulin DETEMIR 100 UNIT/ML X5UNITS SQ SCH (20:11)
[2017-02-15] MEDS: *HR* LORazepam 0.5 MG TABLET PO SCH (20:11)
[2017-02-15 22:15] LABS: FACV Specimen WHOLE BLOOD
[2017-02-16] MEDS: *HR* OxyCODONE/APAP 5/325 TABLET PO PRN ×2 (04:25→14:35)
[2017-02-16] MEDS: BENZOCAINE/MENTHOL 1 LOZENGE (BAG OF 6) MM PRN ×2 (04:26→12:06)
[2017-02-16 04:51] LABS: Alanine Aminotransferase 13 Units/L (0-55); Albumin 2.5 g/dL (3.5-5.0); Albumin/Globulin Ratio 0.8 (1.1-2.2); Alkaline Phosphatase 74 Units/L (38-126); Aspartate Amino Transferase 11 Units/L (5-34); BUN/Creatinine Ratio 49 (6-26); Blood Urea Nitrogen 39 mg/dL (7-20); Calcium 8.4 mg/dL (8.6-10.8); Carbon Dioxide 26 mEq/L (19-29); Chloride 107 mEq/L (98-109); Glucose 209 mg/dL (70-99); Osmolality,Calculated 306 (280-300); Potassium 3.6 mEq/L (3.5-4.5); Sodium 140 mEq/L (136-145); Total Protein 5.5 g/dL (6.0-8.3); eGFR For African Americans > 60 (> 60); eGFR For Non-African Americans > 60 (> 60)
[2017-02-16 04:55] LABS: Bilirubin,Total < 0.2 mg/dL (0.2-1.2)
[2017-02-16 07:27] LABS: Fac V Leiden R506Q Mut Result NEGATIVE
[2017-02-16] MEDS: Insulin LISPRO 300 UNITS/3 ML VIAL SQ SCH ×3 (08:04→17:23)
[2017-02-16] MEDS: Lisinopril 20 MG TABLET PO SCH (08:56)
[2017-02-16] MEDS: Topiramate 25 MG TABLET PO SCH (08:56)
[2017-02-16] MEDS: Fluticasone Propionate Nasal 50 MCG/SPRAY BOTTLE NS SCH (08:56)
[2017-02-16] MEDS: Loratadine 10 MG TABLET PO SCH (08:56)
[2017-02-16] MEDS: Aspirin Enteric Coated 81 MG Tablet PO SCH (08:56)
[2017-02-16] MEDS: Gabapentin 400 MG CAPSULE PO SCH (08:57)
[2017-02-16] MEDS: hydroCHLOROthiazide 25 MG TABLET PO SCH (08:57)
[2017-02-16] MEDS: amLODIPine 5 MG TABLET PO SCH (08:57)
--- NOTE | 2017-02-16 11:12 | Internal Med Progress Note ---
Date of Encounter: 02/16/17 Time of Encounter: 11:09 - Assessment and plan (1) CVA (cerebral vascular accident) Current Visit: Yes Status: Chronic Assessment and plan: s/p CVA in July 2016 followed by 2 TIAs in September and November. With residual right-sided weakness. Presented to OSH with increasing weakness, lightheadedness, headache, and sharp pains in her forehead. Head CT, brain MRI negative. Continue aspirin, Plavix, Lipitor. Qualifiers: CVA mechanism: unspecified Qualified Code(s): I63.9 - Cerebral infarction, unspecified (2) Right rotator cuff tendonitis Current Visit: Yes Status: Acute Assessment and plan: reports fall 3 weeks prior to admission. Now with worsening right arm pain and weakness, Right shoulder MRI with moderate to severe tendinosis of the supraspinatus and infraspinatus tendons without discrete tear identified. Ortho consulted (3) Diabetes Current Visit: Yes Status: Chronic Assessment and plan: A1c is 8.1% 11/2016. Continue sliding scale insulin, Accu-Cheks before meals at bedtime, diabetic diet. Qualifiers: Diabetes mellitus type: type 2 Diabetes mellitus complication status: without complication Diabetes mellitus jail insulin use: with buttermilk drier operator use Qualified Code(s): E11.9 - Type 2 diabetes mellitus without complications ; Z79.4 - buttermilk drier operator (current) use of insulin; Z79.4 - alf (current) use of insulin; Z79.4 - buttermilk drier operator (current) use of insulin; Z79.4 - buttermilk drier operator ( current) use of insulin (4) GERD (gastroesophageal reflux disease) Current Visit: Yes Status: Chronic Assessment and plan: Chronic. Continue home medications. Qualifiers: Esophagitis presence: esophagitis presence not specified Qualified Code(s) : K21.9 - Gastro-esophageal reflux disease without esophagitis (5) HTN (hypertension) Current Visit: Yes Status: Chronic Assessment and plan: Blood pressure well controlled in inpatient setting. Continue home medications. Continue monitor vital signs per admission order. Qualifiers: Hypertension type: essential hypertension Qualified Code(s): I10 - Essential (primary) hypertension (6) Non-Hodgkin lymphoma Current Visit: Yes Status: Chronic Assessment and plan: Hx of chronic non-Hodgkin lymphoma, patient reports she was diagnosed in 2002. Pt. is followed by [facility]. Pt. reports she finished her chemotherapy this week and will not resume until May. Follow-up outpatient as scheduled. Qualifiers: Follicular lymphoma type: unspecified follicular type Lymphoma site: unspecified region Qualified Code(s): C82.90 - Follicular lymphoma, unspecified, unspecified site - Subjective Interval history: Seen and examined at bedside. No acute changes and assessment to report. Says right arm pain/weakness is still about the same. She would like to decrease her pain medicine and is agreeable to trial NSAIDs. Still awaiting placement. - Constitutional Vitals: Temp Pulse Resp BP Pulse Ox 97.5 F L 75 16 123/91 96 02/16/17 07:34 02/16/17 07:34 02/16/17 07:34 02/16/17 07:34 02/16/17 08:58 General appearance: Present: cooperative, A&O X 3, morbidly obese, pleasant, no acute distress, answers questions appropriately - Head Head exam: Present: atraumatic, normocephalic - Eye Eye exam: Present: PERRL, conjuntiva pink, sclera anicteric Pupils: Present: PERRL - Neck Neck exam general surgery: Present: supple, trachea midline. Absent: lymphadenopathy - Respiratory Respiratory exam: Present: CTAB. Absent: accessory muscle use, rales, rhonchi, wheezes - Cardiovascular Cardiovascular exam: Present: RRR, +S1, +S2. Absent: diastolic murmur, gallop, rubs, systolic murmur - GI/Abdominal GI/Abdominal exam: Present: normal bowel sounds, soft, no peritoneal signs. Absent: distended, tenderness - Extremities Exam Extremities exam: Present: warm, radial pulses palpable and symmetrical. Absent : calf tenderness, cyanotic, pedal edema Additional comments: Right arm weakness - Neurological Exam Neurological exam: Present: CN II-XII intact, oriented X3, no focal deficits. Absent: pronater drift, facial droop, speech deficit - Skin Skin exam: Present: dry, intact Internal Medicine: Result - Labs CBC & Chem 7: 02/12/17 04:50 02/16/17 04:19 Labs: BMP 02/16/17 04:19 Sodium 140 Potassium 3.6 Chloride 107 Carbon Dioxide 26 BUN 39 H Creatinine 0.80 Glucose 209 H Calcium 8.4 L Liver Function 02/16/17 Range/Units 04:19 Total Bilirubin < 0.2 L (0.2-1.2) mg/dL AST 11 (5-34) Units/L ALT 13 (0-55) Units/L Alkaline Phosphatase 74 (38-126) Units/L Albumin 2.5 L (3.5-5.0) g/dL - Impressions Impressions Shoulder MRI 02/15/17 13:30 IMPRESSION: 1. Moderate to severe tendinosis of the supraspinatus and infraspinatus tendons and mild subscapularis tendinosis without discrete tear identified. 2. Moderate to severe glenohumeral osteoarthritis with small glenohumeral effusion and synovitis. 3. Mild acromioclavicular osteoarthritis. D/ / Lazaro Mena MD / Lazaro Mena MD Interpreting Provider: Lazaro Mena MD Consult Discharge Plan - Plan Referrals: Crow Gonzalez, CIVILIAN TECHNICIAN [Primary Care Provider] -
[2017-02-16] MEDS ORDERED: MethylPREDNISolone Acet(DEPOT) 80 MG/ML VIAL INTRAART ONE (11:18)
[2017-02-16] MEDS ORDERED: Dexamethasone 10 MG/ML VIAL IVP SCH (11:30)
--- NOTE | 2017-02-16 14:42 | Discharge Summary ---
Date of Encounter: 02/16/17 Time of Encounter: 14:39 - Discharge Diagnosis (1) CVA (cerebral vascular accident) Priority: Primary Status: Chronic Comments: s/p CVA in July 2016 followed by 2 TIAs in September and November. With residual right-sided weakness. Presented to OSH with increasing weakness, lightheadedness, headache, and sharp pains in her forehead. Head CT, brain MRI negative. Continue aspirin, Plavix, Lipitor. Qualifiers: CVA mechanism: unspecified Qualified Code(s): I63.9 - Cerebral infarction, unspecified (2) Right rotator cuff tendonitis Priority: Primary Status: Acute Comments: reports fall 3 weeks prior to admission. Now with worsening right arm pain and weakness, Right shoulder MRI with moderate to severe tendinosis of the supraspinatus and infraspinatus tendons without discrete tear identified. Ortho consulted for epidural injection. Cont PT at [facility]CF (3) Diabetes Priority: Primary Status: Chronic Comments: A1c is 8.1% 11/2016. Continue sliding scale insulin, Accu-Cheks before meals at bedtime, diabetic diet. Blood sugars may be elevated for 48 hours post epidural injection. May need more aggressive SSI. To be monitored at ECF. 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 Cont PPI Qualifiers: Esophagitis presence: esophagitis presence not specified Qualified Code(s) : K21.9 - Gastro-esophageal reflux disease without esophagitis (5) HTN (hypertension) Priority: Primary Status: Chronic Comments: per hx. BP soft/borderline while inpatient. Continue home amlodipine, decrease home MELANIA and HCTZ dose. BP can be monitored at ECF. Qualifiers: Hypertension type: essential hypertension Qualified Code(s): I10 - Essential (primary) hypertension (6) Non-Hodgkin lymphoma Priority: Primary Status: Chronic Comments: Hx of chronic non-Hodgkin lymphoma, patient reports she was diagnosed in 2002. Pt. is followed by [place] [facility]. Pt. reports she finished her chemotherapy this week and will not resume until May. Follow-up outpatient as scheduled. Qualifiers: Follicular lymphoma type: unspecified follicular type Lymphoma site: unspecified region Qualified Code(s): C82.90 - Follicular lymphoma, unspecified, unspecified site - Discharge Medications Prescriptions: OxyCODONE Immed Rel [Roxicodone 5 MG] 5 mg PO Q4HR PRN #42 tablet PRN Reason: Pain Home Medications: Cetirizine HCl [Zyrtec] 10 mg PO DAILY 05/08/15 [History] Omeprazole 40 mg PO DAILY 05/08/15 [History] Acetaminophen [Tylenol] 500 mg PO Q6HR PRN 01/13/16 [History] Albuterol Sulfate [Albuterol Inhaler] 2 puff IH Q4HR PRN 01/13/16 [History] Fluticasone Propionate Nasal [Flonase] 50 mcg NS DAILY 01/13/16 [History] Gabapentin [Neurontin] 800 mg PO BID 06/13/16 [History] Lidocaine/Prilocaine CREAM [Emla] 1 appl TP AD PRN 06/13/16 [History] Topiramate [Topamax] 50 mg PO BID 06/13/16 [History] Insulin ASPART [Novolog Flexpen] 3 - 12 unit SQ TIDAC 06/27/16 [History] Atorvastatin [Lipitor] 40 mg PO HS 09/05/16 [History] Clopidogrel [Plavix] 75 mg PO DAILY 09/05/16 [History] Docusate [Colace] 100 mg PO BID PRN 10/06/16 [History] Nystatin POWDER [Nystop] 1 appl TP BID PRN 10/06/16 [History] Insulin Glargine,Hum.rec.anlog [Basaglar Kwikpen U-100] 40 unit SQ HS 11/24/16 [ History] Aspirin Enteric Coated [Aspirin EC] 81 mg PO DAILY #30 tablet. 11/28/16 [Rx] LORazepam [Ativan] 0.5 mg PO Q4H PRN 02/10/17 [History] Rituxan 02/10/17 [History] Alogliptin Benzoate [Alogliptin] 25 mg PO DAILY 02/11/17 [History] Furosemide [Lasix] 40 mg PO DAILY PRN 02/11/17 [History] Polyethylene Glycol 3350 [MiraLAX] 17 gm PO DAILY PRN 02/11/17 [History] amLODIPine [Norvasc] 5 mg PO DAILY 02/11/17 [History] Lisinopril [Zestril] 20 mg PO DAILY #30 tablet 02/16/17 [Rx] OxyCODONE Immed Rel [Roxicodone 5 MG] 5 mg PO Q4HR PRN #42 tablet 02/16/17 [Rx] hydroCHLOROthiazide [Hydrochlorothiazide] 25 mg PO DAILY tablet 02/16/17 [Rx] Allergies/Adverse Reactions: 3 Allergy/AdvReac Type Severity Reaction Status Date / Time diphenhydramine AdvReac See Verified 02/10/17 10:54 [From Benadryl] Comments Oxycodone [From OxyContin] AdvReac Itching Verified 02/10/17 23:46 Procedures/tests Complete & Pending: Procedures Performed prior 72 hours Category Date Time Status MR shoulder RT wo con [MR] Routine MRI 02/15/17 13:30 Completed Date of admission: 02/10/17 17:46 Primary care physician: Crow Gonzalez CNP Consults: 02/10/17 22:07 Consult to Occupational Therapy [CONS] Routine Comment: Evaluate, develop and implement POC Reason for Consult: Patient has right-sided weakness in UE and LE d/t previous CVAs. Please assess for strength, stability, safety, ambulation, and possible rehabilitation/assistive needs for post-discharge planning. 02/10/17 22:09 Consult to Physical Therapy [CONS] Routine Comment: Evaluate, develop and implement POC Reason for Consult: Patient has right-sided weakness in UE and LE d/t previous CVAs. Please assess for strength, stability, safety, ambulation, and possible rehabilitation/assistive needs for post-discharge planning. 02/11/17 17:08 Consult to Sales Representative Door To Door [CONS] Routine Reason for SW Consult: placement 02/16/17 11:17 Consult to Orthopedic Surgery [CONS] Routine Consulting Provider: Orthopedic and Sports Medicine Reason for Consult: Right shouder tendonosis Call Completed: Yes Discharging clinician: Noemí Mcgrath Anticipated date of discharge: 02/16/17 - Patient Status Disposition: Transfer SNF Condition: Good Functional capacity at discharge: uses cane/walker Overall status at discharge: patient is progressing back to baseline - Discharge Instructions Follow Up With: Crow Gonzalez, LAY OUT CARPENTER [Primary Care Provider] - - Diet and Activity Activity: as per physical therapy Diet: diabetic diet, low fat, low cholesterol Interval History: C 02/16/2017 progress note for interval history. Hospital course: Ms. Peña is a 62 year old female - Time Spent with Patient Total time spent providing and/or coordinating discharge services: - Constitutional Vitals: Temp Pulse Resp BP Pulse Ox 98.0 F 78 17 100/60 98 02/16/17 11:56 02/16/17 11:56 02/16/17 11:56 02/16/17 11:56 02/16/17 11:56 General appearance: Present: cooperative, A&O X 3, morbidly obese, pleasant, no acute distress, answers questions appropriately - Head Head exam: Present: atraumatic, normocephalic - Eye Eye exam: Present: PERRL, conjuntiva pink, sclera anicteric Pupils: Present: PERRL - Neck Neck exam general surgery: Present: supple, trachea midline. Absent: lymphadenopathy - Respiratory Respiratory exam: Present: CTAB. Absent: accessory muscle use, rales, rhonchi, wheezes - Cardiovascular Cardiovascular exam: Present: RRR, +S1, +S2. Absent: diastolic murmur, gallop, rubs, systolic murmur - GI/Abdominal GI/Abdominal exam: Present: normal bowel sounds, soft, no peritoneal signs. Absent: distended, tenderness - Extremities Exam Extremities exam: Present: warm, radial pulses palpable and symmetrical. Absent : calf tenderness, cyanotic, pedal edema - Neurological Exam Neurological exam: Present: CN II-XII intact, oriented X3, no focal deficits. Absent: pronater drift, facial droop, speech deficit - Skin Skin exam: Present: dry, intact
--- NOTE | 2017-02-16 15:02 | Physician Discharge Referral ---
ExtendedCare Referral Info Transfer To: [facility] Provider in Charge: Noemí Mcgrath CNP Provider in Charge after Transfer: PCP Institutional Level of Care: Skilled - Diagnosis (1) CVA (cerebral vascular accident) Status: Chronic (2) Right rotator cuff tendonitis Status: Acute (3) Diabetes Status: Chronic (4) GERD (gastroesophageal reflux disease) Status: Chronic (5) HTN (hypertension) Status: Chronic (6) Non-Hodgkin lymphoma Status: Chronic - Transfer Medications Prescriptions: OxyCODONE Immed Rel [Roxicodone 5 MG] 5 mg PO Q4HR PRN #42 tablet PRN Reason: Pain Home Medications: Cetirizine HCl [Zyrtec] 10 mg PO DAILY 05/08/15 [History] Omeprazole 40 mg PO DAILY 05/08/15 [History] Acetaminophen [Tylenol] 500 mg PO Q6HR PRN 01/13/16 [History] Albuterol Sulfate [Albuterol Inhaler] 2 puff IH Q4HR PRN 01/13/16 [History] Fluticasone Propionate Nasal [Flonase] 50 mcg NS DAILY 01/13/16 [History] Gabapentin [Neurontin] 800 mg PO BID 06/13/16 [History] Lidocaine/Prilocaine CREAM [Emla] 1 appl TP AD PRN 06/13/16 [History] Topiramate [Topamax] 50 mg PO BID 06/13/16 [History] Insulin ASPART [Novolog Flexpen] 3 - 12 unit SQ TIDAC 06/27/16 [History] Atorvastatin [Lipitor] 40 mg PO HS 09/05/16 [History] Clopidogrel [Plavix] 75 mg PO DAILY 09/05/16 [History] Docusate [Colace] 100 mg PO BID PRN 10/06/16 [History] Nystatin POWDER [Nystop] 1 appl TP BID PRN 10/06/16 [History] Insulin Glargine,Hum.rec.anlog [Basaglar Kwikpen U-100] 40 unit SQ HS 11/24/16 [ History] Aspirin Enteric Coated [Aspirin EC] 81 mg PO DAILY #30 tablet. 11/28/16 [Rx] LORazepam [Ativan] 0.5 mg PO Q4H PRN 02/10/17 [History] Rituxan 02/10/17 [History] Alogliptin Benzoate [Alogliptin] 25 mg PO DAILY 02/11/17 [History] Furosemide [Lasix] 40 mg PO DAILY PRN 02/11/17 [History] Polyethylene Glycol 3350 [MiraLAX] 17 gm PO DAILY PRN 02/11/17 [History] amLODIPine [Norvasc] 5 mg PO DAILY 02/11/17 [History] Lisinopril [Zestril] 20 mg PO DAILY #30 tablet 02/16/17 [Rx] OxyCODONE Immed Rel [Roxicodone 5 MG] 5 mg PO Q4HR PRN #42 tablet 02/16/17 [Rx] hydroCHLOROthiazide [Hydrochlorothiazide] 25 mg PO DAILY tablet 02/16/17 [Rx] Allergies/Adverse Reactions: 3 Allergy/AdvReac Type Severity Reaction Status Date / Time diphenhydramine AdvReac See Verified 02/10/17 10:54 [From Benadryl] Comments Oxycodone [From OxyContin] AdvReac Itching Verified 02/10/17 23:46 - Respiratory Orders Oxygen / L per min (2) Smoking Cessation: Smoking cessation has been advised. For more information, call the [place] Tobacco Quit Line at 6-998-NACD-NOW. - Advance Directives Living Will: Yes Power of Apparel Cutter: Yes Code Status: Full Code - Mobility Orders Ambulate - Rehabiliation Orders Rehab Potential: Good Rehab Orders: Evaluation for Physical Therapy, Evaluation for Occupational Therapy - Diet Orders No Added Salt (CHELE), No Concentrated Sweets CERTIFICATION: I certify that the transfer of the above named patient to an Extended Care Facility is necessary for the continuing treatment of the diagnosis listed. The above information is true and accurate reflection of patient's current condition. Confidential - Redisclosure prohibited without a patient's written consent.
[2017-02-16 15:50] VITALS: BP 124/80
--- NOTE | 2017-02-16 16:59 | Orthopedic Consult Note ---
Date of Encounter: 02/16/17 Time of Encounter: 16:54 History of Present Illness Chief complaint: Right Shoulder pain HPI: Ms. Peña is a 62 year old female who developed acute on chronic right shoulder pain several weeks ago when she fell out of bed. Patient states that prior to this acute episode she has had intermittent aches and pains about the right shoulder. She is very familiar with shoulder problems that she had a left reverse ball total shoulder arthroplasty in the past for a left rotator cuff arthropathy. She describes soreness and difficulty with elevation of the arm. She denies neurovascular complaints. Patient is a diabetic. A complete history and physical data please refer to completed portion of the medical record. Pertinent orthopedic examination at this time reveals limitation in motion probably related to pain. There is a palpable fullness about the glenohumeral joint though this is somewhat difficult due to the patient's large body habitus. She does have a BMI of 52. There is no overt rotator cuff weakness. I reviewed a x-ray of the shoulder. This reveals a somewhat inferiorly positioned humeral head with evidence of glenohumeral spurring. There are some arthritic changes at the acromioclavicular joint. An MRI of the shoulder is reviewed. This shows fairly advanced supraspinatus and infraspinatus tendinitis without evidence of a full-thickness tear. There is a glenohumeral and subacromial fluid accumulation. Biceps tendon is intact with some fluid within the tendon sheath. There are rather significant glenohumeral arthritic changes. Impression: Posttraumatic right rotator cuff tendinitis with underlying glenohumeral arthritis Recommendation: Discussed preferred conservative management of this problem. I discussed the treatment options and I recommended proceeding with a right subacromial steroid injection. The patient understands and agrees with this nonoperative management. We discussed the steroid injection with the potential risks and complications including bleeding infection marked elevation of her blood sugars and limited her short-term relief. She agrees with the plan and has signed informed consent for the procedure. Utilizing the alcohol skin prep and a sterile technique subacromial space was infiltrated with 5 mL of 0.5% Marcaine, 80 mg of Depo-Medrol and 10 mg of Decadron solution. Band-Aid was applied. Patient tolerated the procedure without difficulty. Ice should be used as needed for pain with within the next 48 hours. Thank you very much for allowing me to seen care for Mrs. Peña. Sincerely, Yuri Sharp,DO Past Med Surg Social Fam HX - Past Medical History Medical history: cancer (Non-Hodgkin's lymphoma), CVA (July 2016), DVT, diabetes , GERD, hypertension, myocardial infarction, TIA (September and November 2016), other Psychiatric history: no psych history - Past Surgical History Surgical History: non-contributory - Social History Smoking Status: Never smoker Smokeless Tobacco Status: No Alcohol use: none Drug use: none - Family History Father Adopted: Yes Race: Family Member Ethnicity: Non- Living Status: Age at : 66 Cause of : Mesothelioma Hx Family Cancer: Yes (Mesothelioma) Brother Adopted: Yes Race: Family Member Ethnicity: Non- Living Status: Still Living Hx Family Cancer: Yes (Stomach, Colon) Hx Family Autoimmune Disorders: Yes (Factor V Leiden) Mother Adopted: Yes Race: Family Member Ethnicity: Non- Living Status: Age at : 55 Hx Family Cardiac Disorders: Yes (IA, CAD, HTN) Sister Family Member Ethnicity: Non- Living Status: Still Living Medications and Allergies Cetirizine HCl [Zyrtec] 10 mg PO DAILY 05/08/15 [History] Omeprazole 40 mg PO DAILY 05/08/15 [History] Acetaminophen [Tylenol] 500 mg PO Q6HR PRN 01/13/16 [History] Albuterol Sulfate [Albuterol Inhaler] 2 puff IH Q4HR PRN 01/13/16 [History] Fluticasone Propionate Nasal [Flonase] 50 mcg NS DAILY 01/13/16 [History] Gabapentin [Neurontin] 800 mg PO BID 06/13/16 [History] Lidocaine/Prilocaine CREAM [Emla] 1 appl TP AD PRN 06/13/16 [History] Topiramate [Topamax] 50 mg PO BID 06/13/16 [History] Insulin ASPART [Novolog Flexpen] 3 - 12 unit SQ TIDAC 06/27/16 [History] Atorvastatin [Lipitor] 40 mg PO HS 09/05/16 [History] Clopidogrel [Plavix] 75 mg PO DAILY 09/05/16 [History] Docusate [Colace] 100 mg PO BID PRN 10/06/16 [History] Nystatin POWDER [Nystop] 1 appl TP BID PRN 10/06/16 [History] Insulin Glargine,Hum.rec.anlog [Basaglar Randyikpen U-100] 40 unit SQ HS 11/24/16 [ History] Aspirin Enteric Coated [Aspirin EC] 81 mg PO DAILY #30 tablet. 11/28/16 [Rx] LORazepam [Ativan] 0.5 mg PO Q4H PRN 02/10/17 [History] Rituxan 02/10/17 [History] Alogliptin Benzoate [Alogliptin] 25 mg PO DAILY 02/11/17 [History] Furosemide [Lasix] 40 mg PO DAILY PRN 02/11/17 [History] Polyethylene Glycol 3350 [MiraLAX] 17 gm PO DAILY PRN 02/11/17 [History] amLODIPine [Norvasc] 5 mg PO DAILY 02/11/17 [History] Lisinopril [Zestril] 20 mg PO DAILY #30 tablet 02/16/17 [Rx] OxyCODONE Immed Rel [Roxicodone 5 MG] 5 mg PO Q4HR PRN #42 tablet 02/16/17 [Rx] hydroCHLOROthiazide [Hydrochlorothiazide] 25 mg PO DAILY tablet 02/16/17 [Rx] 3 Allergy/AdvReac Type Severity Reaction Status Date / Time diphenhydramine AdvReac See Verified 02/10/17 10:54 [From Benadryl] Comments Oxycodone [From OxyContin] AdvReac Itching Verified 02/10/17 23:46 All Systems Reviewed: A 10-system review of systems was performed and is negative for pertinent findings except as documented above in the HPI. Physical Exam - Constitutional Vitals: Temp Pulse Resp BP Pulse Ox 98.0 F 89 17 124/80 99 02/16/17 15:47 02/16/17 15:47 02/16/17 15:47 02/16/17 15:47 02/16/17 15:47 Results - Labs Result Diagrams: 02/12/17 04:50 02/16/17 04:19 Labs: Abnormal lab results BUN 39 mg/dL (7-20) H 02/16/17 04:19 BUN/Creatinine Ratio 49 (6-26) H 02/16/17 04:19 Glucose 209 mg/dL (70-99) H 02/16/17 04:19 POC Glucose 218 (58-89) H 02/15/17 19:46 Calculated Osmolality 306 (280-300) H 02/16/17 04:19 Calcium 8.4 mg/dL (8.6-10.8) L 02/16/17 04:19 Total Bilirubin < 0.2 mg/dL (0.2-1.2) L 02/16/17 04:19 Serum Total Protein 5.5 g/dL (6.0-8.3) L 02/16/17 04:19 Albumin 2.5 g/dL (3.5-5.0) L 02/16/17 04:19 Albumin/Globulin Ratio 0.8 (1.1-2.2) L 02/16/17 04:19 All other labs normal. - Diagnostic results Shoulder x-ray: image reviewed Shoulder MRI: image reviewed Consult Discharge Plan - Plan Referrals: Crow Gonzalez, FURRIER SHOP SUPERVISOR [Primary Care Provider] - Prescriptions: OxyCODONE Immed Rel [Roxicodone 5 MG] 5 mg PO Q4HR PRN #42 tablet PRN Reason: Pain
== END 2017-02-16 18:33 ==
LOC: 3BNU → SUATTDRO 17:46
PROVIDERS: ADMIT Internal Medicine; ATTEND Hospitalist

== ENCOUNTER 2017-06-05 12:55 | Inpatient (IN) ==
--- NOTE | 2017-06-04 16:06 | Discharge Summary ---
<Jacqueline Dempsey E - Last Filed: 06/04/17 15:59> Date of Encounter: 06/04/17 - Discharge Diagnosis (1) Rotator cuff tear arthropathy of right shoulder Priority: Primary Status: Chronic (2) Status post total replacement of right shoulder Priority: Primary Status: Acute (3) History of CVA (cerebrovascular accident) Priority: Secondary Status: Chronic (4) OAB (overactive bladder) Priority: Secondary Status: Chronic (5) Obesity Priority: Secondary Status: Chronic Qualifiers: Obesity type: unspecified obesity type Obesity classification: unspecified obesity classification Serious obesity comorbidity presence: unspecified whether serious comorbidity present Qualified Code(s): E66.9 - Obesity, unspecified (6) Non-Hodgkin lymphoma Priority: Secondary Status: Chronic Qualifiers: Non-Hodgkin lymphoma type: unspecified type Lymphoma site: unspecified region Qualified Code(s): C85.90 - Non-Hodgkin lymphoma, unspecified, unspecified site (7) GERD (gastroesophageal reflux disease) Priority: Secondary Status: Chronic Qualifiers: Esophagitis presence: esophagitis presence not specified (8) HTN (hypertension) Priority: Secondary Status: Chronic Qualifiers: Hypertension type: unspecified Qualified Code(s): I10 - Essential (primary ) hypertension (9) History of stroke Priority: Secondary Status: Chronic (10) HTN (hypertension) Priority: Secondary Status: Chronic Qualifiers: Hypertension type: unspecified Qualified Code(s): I10 - Essential (primary ) hypertension (11) Diabetes mellitus Priority: Secondary Status: Chronic Qualifiers: Diabetes mellitus type: other specified (including LEX) Diabetes mellitus predatory animal exterminator insulin use: with predatory animal exterminator use Diabetes mellitus complication status: with unspecified complications Qualified Code(s): E13.8 - Other specified diabetes mellitus with unspecified complications; Z79.4 - longterm ( current) use of insulin; Z79.4 - longterm (current) use of insulin; Z79.4 - exterminator helper (current) use of insulin; Z79.4 - longterm (current) use of insulin - Hospital Course Hospital course: Ms. Peña is a 62 year old female - Time Spent with Patient Total time spent providing and/or coordinating discharge services: - Discharge Medications Home Medications: Cetirizine HCl [Zyrtec] 10 mg PO DAILY 05/08/15 [History] Acetaminophen [Tylenol] 500 mg PO Q6HR PRN 10/26/16 [History] Albuterol Sulfate [Albuterol Inhaler] 2 puff IH Q4HR PRN 01/13/16 [History] Fluticasone Propionate Nasal [Flonase] 50 mcg NS DAILY 01/13/16 [History] Gabapentin [Neurontin] 800 mg PO BID 06/13/16 [History] Lidocaine/Prilocaine CREAM [Emla] 1 appl TP AD PRN 06/13/16 [History] Topiramate [Topamax] 50 mg PO BID 06/13/16 [History] Insulin ASPART [Novolog Flexpen] 0 - 14 unit SQ TIDAC 06/27/16 [History] Atorvastatin [Lipitor] 40 mg PO HS 09/05/16 [History] Clopidogrel [Plavix] 75 mg PO DAILY 09/05/16 [History] Docusate [Colace] 100 mg PO BID PRN 10/06/16 [History] Insulin Glargine,Hum.rec.anlog [Basaglar Kwikpen U-100] 40 unit SQ HS 11/24/16 [ History] Aspirin Enteric Coated [Aspirin EC] 81 mg PO DAILY #30 tablet. 11/28/16 [Rx] LORazepam [Ativan] 0.5 mg PO DAILY PRN 02/10/17 [History] Alogliptin Benzoate [Alogliptin] 25 mg PO DAILY 02/11/17 [History] Furosemide [Lasix] 40 mg PO DAILY PRN 02/11/17 [History] Polyethylene Glycol 3350 [MiraLAX] 17 gm PO DAILY PRN 02/11/17 [History] amLODIPine [Norvasc] 5 mg PO DAILY 02/11/17 [History] hydroCHLOROthiazide [Hydrochlorothiazide] 25 mg PO DAILY tablet 02/16/17 [Rx] Glimepiride [Amaryl] 3 mg PO QAM 06/05/17 [History] Ipratropium/Albuterol Neb [Duoneb] 3 ml IH Q4H PRN 06/05/17 [History] Lisinopril [Zestril] 40 mg PO DAILY 06/05/17 [History] Oxybutynin Chloride [Ditropan Xl] 10 mg PO HS 06/05/17 [History] Pantoprazole Sodium 40 mg PO DAILY 06/05/17 [History] Potassium Chloride [K-Tab ER] 20 meq PO DAILY 06/05/17 [History] Promethazine Syrup [Phenergan Syrup] 12.5 mg PO Q4H PRN 06/05/17 [History] Allergies/Adverse Reactions: 3 Allergy/AdvReac Type Severity Reaction Status Date / Time diphenhydramine AdvReac See Verified 06/05/17 13:31 [From Benadryl] Comments Oxycodone [From OxyContin] AdvReac Itching Verified 06/05/17 13:31 Primary care physician: Son Elizabeth MD - Patient Status Disposition: Home Health Service Condition: Good - Discharge Instructions Follow Up With: Son Elizabeth MD [Primary Care Provider] - <Jose F Blankenship - Last Filed: 06/06/17 06:39> Orders not resulted at time of discharge: Pending orders 06/05/17 01:00 XR shoulder complete RT [XR] Routine Hemoglobin and Hematocrit [HEME] Routine Date of Encounter: 06/06/17 Time of Encounter: 06:38 - Discharge Diagnosis (1) Morbid obesity with BMI of 45.0-49.9, adult Priority: Secondary Status: Chronic (2) Non-Hodgkin lymphoma Priority: Secondary Status: Chronic Qualifiers: Non-Hodgkin lymphoma type: unspecified type Lymphoma site: unspecified region Qualified Code(s): C85.90 - Non-Hodgkin lymphoma, unspecified, unspecified site (3) Peripheral neuropathy Priority: Secondary Status: Chronic Qualifiers: Peripheral neuropathy type: polyneuropathy associated with underlying disease Qualified Code(s): G63 - Polyneuropathy in diseases classified elsewhere (4) CVA (cerebral vascular accident) Priority: Secondary Status: Chronic Qualifiers: CVA mechanism: unspecified Qualified Code(s): I63.9 - Cerebral infarction, unspecified (5) DVT prophylaxis Priority: Secondary Status: Chronic (6) GERD (gastroesophageal reflux disease) Priority: Secondary Status: Chronic Qualifiers: Esophagitis presence: esophagitis presence not specified Qualified Code(s) : K21.9 - Gastro-esophageal reflux disease without esophagitis (7) HTN (hypertension) Priority: Secondary Status: Chronic Qualifiers: Hypertension type: unspecified Qualified Code(s): I10 - Essential (primary ) hypertension (8) Transient ischemic attack Priority: Secondary Status: Chronic Qualifiers: Transient cerebral ischemia type: unspecified Qualified Code(s): G45.9 - Transient cerebral ischemic attack, unspecified (9) Right sided weakness Priority: Secondary Status: Chronic (10) History of stroke Priority: Secondary Status: Chronic (11) HTN (hypertension) Priority: Secondary Status: Chronic Qualifiers: Hypertension type: unspecified Qualified Code(s): I10 - Essential (primary ) hypertension (12) Rotator cuff tear arthropathy of right shoulder Priority: Primary Status: Chronic (13) Status post total replacement of right shoulder Priority: Primary Status: Acute (14) History of CVA (cerebrovascular accident) Priority: Secondary Status: Chronic (15) OAB (overactive bladder) Priority: Secondary Status: Chronic (16) Diabetes mellitus Priority: Secondary Status: Chronic Qualifiers: Diabetes mellitus type: other specified (including LEX) Diabetes mellitus predatory animal exterminator insulin use: with chcf use Diabetes mellitus complication status: with unspecified complications Qualified Code(s): E13.8 - Other specified diabetes mellitus with unspecified complications; Z79.4 - exterminator helper ( current) use of insulin; Z79.4 - longterm (current) use of insulin; Z79.4 - exterminator helper (current) use of insulin; Z79.4 - exterminator helper (current) use of insulin - Hospital Course Hospital course: Ms. Peña is a 62 year old female Status post right total shoulder replacement The patient had an uneventful postoperative course. They received antibiotics and physical therapy and were discharged in stable condition. There will follow -up in the office in 2 weeks. - Time Spent with Patient Total time spent providing and/or coordinating discharge services: Primary care physician: Son Elizabeth MD Labs on day of discharge: Labs from last 24 hours 06/05/17 13:18 POC Glucose 113 H - Patient Status Functional capacity at discharge: uses cane/walker Overall status at discharge: patient is progressing back to baseline
--- NOTE | 2017-06-04 16:18 | Physician Discharge Referral ---
ExtendedCare Referral Info Transfer To: [facility] Provider in Charge: Dr Blankenship - Diagnosis (1) Rotator cuff tear arthropathy of right shoulder Priority: Primary Status: Chronic (2) Status post total replacement of right shoulder Priority: Primary Status: Acute (3) History of CVA (cerebrovascular accident) Priority: Secondary Status: Chronic (4) OAB (overactive bladder) Priority: Secondary Status: Chronic (5) Obesity Priority: Secondary Status: Chronic (6) Non-Hodgkin lymphoma Priority: Secondary Status: Chronic (7) GERD (gastroesophageal reflux disease) Priority: Secondary Status: Chronic (8) HTN (hypertension) Priority: Secondary Status: Chronic (9) History of stroke Priority: Secondary Status: Chronic (10) HTN (hypertension) Priority: Secondary Status: Chronic (11) Diabetes mellitus Priority: Secondary Status: Chronic Expected Duration of Placement: less than 30 days Prognosis: Good Aware of Diagnosis: Patient Aware of Prognosis: Patient - Transfer Medications Home Medications: Cetirizine HCl [Zyrtec] 10 mg PO DAILY 05/08/15 [History] Omeprazole 40 mg PO DAILY 05/08/15 [History] Acetaminophen [Tylenol] 500 mg PO Q6HR PRN 01/13/16 [History] Albuterol Sulfate [Albuterol Inhaler] 2 puff IH Q4HR PRN 01/13/16 [History] Fluticasone Propionate Nasal [Flonase] 50 mcg NS DAILY 01/13/16 [History] Gabapentin [Neurontin] 800 mg PO BID 06/13/16 [History] Lidocaine/Prilocaine CREAM [Emla] 1 appl TP AD PRN 06/13/16 [History] Topiramate [Topamax] 50 mg PO BID 06/13/16 [History] Insulin ASPART [Novolog Flexpen] 3 - 12 unit SQ TIDAC 06/27/16 [History] Atorvastatin [Lipitor] 40 mg PO HS 09/05/16 [History] Clopidogrel [Plavix] 75 mg PO DAILY 09/05/16 [History] Docusate [Colace] 100 mg PO BID PRN 10/06/16 [History] Nystatin POWDER [Nystop] 1 appl TP BID PRN 10/06/16 [History] Insulin Glargine,Hum.rec.anlog [Basaglar Kwikpen U-100] 40 unit SQ HS 11/24/16 [ History] Aspirin Enteric Coated [Aspirin EC] 81 mg PO DAILY #30 tablet. 11/28/16 [Rx] LORazepam [Ativan] 0.5 mg PO Q4H PRN 02/10/17 [History] Rituxan 02/10/17 [History] Alogliptin Benzoate [Alogliptin] 25 mg PO DAILY 02/11/17 [History] Furosemide [Lasix] 40 mg PO DAILY PRN 02/11/17 [History] Polyethylene Glycol 3350 [MiraLAX] 17 gm PO DAILY PRN 02/11/17 [History] amLODIPine [Norvasc] 5 mg PO DAILY 02/11/17 [History] Lisinopril [Zestril] 20 mg PO DAILY #30 tablet 02/16/17 [Rx] OxyCODONE Immed Rel [Roxicodone 5 MG] 5 mg PO Q4HR PRN #42 tablet 02/16/17 [Rx] hydroCHLOROthiazide [Hydrochlorothiazide] 25 mg PO DAILY tablet 02/16/17 [Rx] Allergies/Adverse Reactions: 3 Allergy/AdvReac Type Severity Reaction Status Date / Time diphenhydramine AdvReac See Verified 02/10/17 10:54 [From Benadryl] Comments Oxycodone [From OxyContin] AdvReac Itching Verified 02/10/17 23:46 - Respiratory Orders Smoking Cessation: Smoking cessation has been advised. For more information, call the [place] Tobacco Quit Line at 5-610-ZJWO-NOW. - Ancillary Orders May use pressure relief devices daily prn, May go on ANGEL w/family/respon libertarian w /meds at nurse discretion PRN, May consult with Dentist, Ranch Supervisor, High School Principal PRN - Mobility Orders Chair, Ambulate - Rehabiliation Orders Rehab Potential: Good Rehab Orders: Evaluation for Physical Therapy, Evaluation for Occupational Therapy Other: PT/OT. NWB to affected upper extremity. Follow Shoulder Precautions x 6 weeks. Stay in brace during activity and at night. Remove brace during exercises. ICE and elevate extremity frequently throughout the day. - Treatments Skin tear care topically daily PRN per policy List/Other: Opsite placed. Keep dressing intact until first follow up appointment. If > 50% saturated, notify office, remove dressing and place appropriate dressing back in place. Leave Zipline intact. Opsite dressing is water resistant, not water- proof. OK to shower, but do not get dressing wet. - Diet Orders Regular CERTIFICATION: I certify that the transfer of the above named patient to an Extended Care Facility is necessary for the continuing treatment of the diagnosis listed. The above information is true and accurate reflection of patient's current condition. Confidential - Redisclosure prohibited without a patient's written consent.
[2017-06-05] MEDS ORDERED: CeFAZolin Syr 2,000MG/20 ML 2,000 MG/20 ML SYRINGE IVPB ONE (13:38)
[2017-06-05] MEDS ORDERED: Ringers Solution, Lactated 1,000 ML IVC SCH (13:45)
--- NOTE | 2017-06-05 14:15 | Anesthesia Evaluation PreOp ---
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 History: CVA (multiple; January 2017; R-sided weakness (RUE weakness worse than RLE weakness)) Other Medical History: Diabetes Type II (insulin dependent), Other (non-hodgkin' s lymphoma - last chemo December 2016) Alcohol Use: none Drug use: none Medications and Allergies Cetirizine HCl [Zyrtec] 10 mg PO DAILY 05/08/15 [History] Acetaminophen [Tylenol] 500 mg PO Q6HR PRN 01/13/16 [History] Albuterol Sulfate [Albuterol Inhaler] 2 puff IH Q4HR PRN 01/13/16 [History] Fluticasone Propionate Nasal [Flonase] 50 mcg NS DAILY 01/13/16 [History] Gabapentin [Neurontin] 800 mg PO BID 06/13/16 [History] Lidocaine/Prilocaine CREAM [Emla] 1 appl TP AD PRN 06/13/16 [History] Topiramate [Topamax] 50 mg PO BID 06/13/16 [History] Insulin ASPART [Novolog Flexpen] 0 - 14 unit SQ TIDAC 06/27/16 [History] Atorvastatin [Lipitor] 40 mg PO HS 09/05/16 [History] Clopidogrel [Plavix] 75 mg PO DAILY 09/05/16 [History] Docusate [Colace] 100 mg PO BID PRN 10/06/16 [History] Insulin Glargine,Hum.rec.anlog [Basaglar Kwikpen U-100] 40 unit SQ HS 11/24/16 [ History] Aspirin Enteric Coated [Aspirin EC] 81 mg PO DAILY #30 tablet. 11/28/16 [Rx] LORazepam [Ativan] 0.5 mg PO DAILY PRN 02/10/17 [History] Alogliptin Benzoate [Alogliptin] 25 mg PO DAILY 02/11/17 [History] Furosemide [Lasix] 40 mg PO DAILY PRN 02/11/17 [History] Polyethylene Glycol 3350 [MiraLAX] 17 gm PO DAILY PRN 02/11/17 [History] amLODIPine [Norvasc] 5 mg PO DAILY 02/11/17 [History] hydroCHLOROthiazide [Hydrochlorothiazide] 25 mg PO DAILY tablet 02/16/17 [Rx] Glimepiride [Amaryl] 3 mg PO QAM 06/05/17 [History] Ipratropium/Albuterol Neb [Duoneb] 3 ml IH Q4H PRN 06/05/17 [History] Lisinopril [Zestril] 40 mg PO DAILY 06/05/17 [History] OxyCODONE Immed Rel [Roxicodone 5 MG] 5 mg PO Q4H PRN 06/05/17 [History] Oxybutynin Chloride [Ditropan Xl] 10 mg PO HS 06/05/17 [History] Pantoprazole Sodium 40 mg PO DAILY 06/05/17 [History] Potassium Chloride [K-Tab ER] 20 meq PO DAILY 06/05/17 [History] Promethazine Syrup [Phenergan Syrup] 12.5 mg PO Q4H PRN 06/05/17 [History] 3 Allergy/AdvReac Type Severity Reaction Status Date / Time diphenhydramine AdvReac See Verified 06/05/17 13:31 [From Benadryl] Comments Oxycodone [From OxyContin] AdvReac Itching Verified 06/05/17 13:31 - Meds/Allergy Pre-op Review Medications Reviewed: Yes Allergies Reviewed: Yes Beta Blockers on Current Med List: No Anesthesia Results - Labs Laboratory Tests 05/22/17 05/30/17 05/30/17 08:40 05:20 05:20 WBC 7.1 Hgb 11.0 L Hct 32.0 L Plt Count 195 PT 11.5 INR 1.1 APTT 34.3 Sodium 140 Potassium 3.9 Chloride 103 Carbon Dioxide 29 BUN 46 H Creatinine 1.02 Est GFR ( Amer) > 60 Est GFR (Non-Af Amer) 55 L BUN/Creatinine Ratio 45 H Glucose 194 H POC Glucose Est Mean Plasma Glucose Hemoglobin A1c 05/30/17 06/05/17 05:20 13:18 WBC Hgb Hct Plt Count PT INR APTT Sodium Potassium Chloride Carbon Dioxide BUN Creatinine Est GFR ( Amer) Est GFR (Non-Af Amer) BUN/Creatinine Ratio Glucose POC Glucose 113 H Est Mean Plasma Glucose 194 Hemoglobin A1c 8.4 H - Imaging EKG: report reviewed, image reviewed (SINUS RHYTHM WITH OCCASIONAL VENTRICULAR PREMATURE COMPLEXES MARKED LEFT AXIS DEVIATION MODERATE VOLTAGE CRITERIA FOR LVH , CONSIDER NORMAL VARIANT Poor R wave progression) Additional studies: TTE: Indications: Cerebrovascular Accident Impressions: LVEF 50%. Mild left ventricular diastolic dysfunction. Normal right ventricular structure and function. Mild aortic regurgitation. No pulmonary hypertension. No PFO with saline contrast injection. Anesthesia Exam Last Vital Signs Temp 97.7 F 06/05/17 13:39 Pulse 90 06/05/17 13:39 Resp 16 06/05/17 13:39 BP 161/80 06/05/17 13:39 Pulse Ox 100 06/05/17 13:39 Weight: 99 kg NPO (# of Hours): > 8 hrs - HEENT Pupil (Motor): Pupils equal, EOMI Mallampati: III Teeth: Normal Oral Opening: Greater than 3 - BON[employer]ON [employer] W[employer]ER LOC: Oriented [employer] W[employer] Motor: Deficit RUE, Deficit RLE [employer] W[employer]ER Sensory: Deficit: RUE, RLE - Cardiac Rhythm: Regular Murmur: None - Pulmonary Breath Sounds: bilateral Clear Respiratory Effort: Symmetrical Anesthesia Assess/Plan ASA Score: 4 Modified Jimenez Scale for Level of Consciousness: Cooperative, oriented, and tranquil Anesthetic Plan: General, Precautions (no regional anesthesia; patient with residual RUE and RLE weakness due to stroke; in rehab for weakness as a result of the stroke and is not wanting to risk further nerve damage) Monitoring Plan: Standard Monitors Recovery Plan: PACU
--- NOTE | 2017-06-05 14:24 | History & Physical Report ---
Date of Encounter: 06/05/17 Time of Encounter: 14:24 24 Hour HP Update - Instructions Instructions: If the History and Physical is less than 30 days old and was completed prior to A.M. admission and or procedure and has NOT been updated on calendar day of procedure please complete this update prior to performing procedure. - Update Patient reports changes in Medical Condition: No Changes in examination, assessment, or condition: No Changes in Medication: No Preop tests/diagnostics Reviewed: Yes Surgery Remains Indicated: Yes Consent for Planned Operative Procedure(s) Verified: Yes - Pre-Operative Checklist Preoperative Checklist Indicated: No Prophylactic Antibiotic Ordered: Yes Is VTE Prophylaxis Indicated?: Yes
[2017-06-05] MEDS ORDERED: Ondansetron 4 MG/2 ML VIAL ONE (14:45)
[2017-06-05] MEDS ORDERED: Lidocaine -MPF 4% 5 ML AMPUL ONE (14:45)
[2017-06-05] MEDS ORDERED: Lidocaine -MPF 2% 2 ML VIAL ONE (14:45)
[2017-06-05] MEDS ORDERED: Dexamethasone 4 MG/ML VIAL ONE ×2 (14:45→16:28)
[2017-06-05] MEDS ORDERED: *HR* FentaNYL (PF) 100 MCG/2 ML VIAL ONE (14:45)
[2017-06-05] MEDS ORDERED: *HR* Succinylcholine 200 MG/10 ML VIAL IVP ONE (14:45)
[2017-06-05] MEDS ORDERED: *HR* Propofol 200 MG/20 ML VIAL IVP ONE (14:45)
[2017-06-05] MEDS ORDERED: *HR* Midazolam HCl 2 MG/2 ML VIAL ONE (14:48)
[2017-06-05] MEDS ORDERED: *HR* Labetalol 100 MG/20 ML MDV IVP PRN (16:09)
[2017-06-05] MEDS ORDERED: Dexamethasone 4 MG/ML VIAL IVP ONE (16:09)
[2017-06-05] MEDS ORDERED: *HR* Promethazine 25 MG/ML VIAL IVP PRN (16:09)
[2017-06-05] MEDS ORDERED: Ondansetron 4 MG/2 ML VIAL IVP ONE (16:09)
[2017-06-05] MEDS ORDERED: Acetaminophen IV 1,000 MG/100 ML INFUS..BTL ONE (16:18)
[2017-06-05] MEDS ORDERED: *HR* PHENYLEPHRINE 1,000 MCG/10 ML SYRINGE IVP ONE ×2 (16:46→17:13)
[2017-06-05] MEDS ORDERED: Ketamine *HR* 500 MG/10 ML MDV ONE (17:04)
[2017-06-05] MEDS ORDERED: Ketorolac 30 MG/ML VIAL ONE (17:07)
--- NOTE | 2017-06-05 17:17 | Orthopedic Operative Note ---
Date of procedure: 06/05/17 Pre-op diagnosis: Right shoulder cuff tear arthropathy Post-op diagnosis: same Procedure: Procedure: Total Shoulder Replacment Reverse, right Estimated blood loss: 100 cc Hardware: Metal and polyethylene replacement: Arthrex small glenoid baseplate, 2 4.5 screws. 1 6.5 screw, 36+4 glenosphere, 8 humeral stem, poly insert 3 constrained Exam Under anesthesia: Full motion no instability Procedural Notes: Irreparable tear supraspinatus tendon Operative procedure: The patient was brought to the operating room and placed on the operating room table. After general anesthesia was administered the operative shoulder was examined. Findings were noted. The patient was placed in the modified beachchair position. All pressure points were padded appropriately. And the head was stabilized in the neutral position. The operative extremity was prepped and draped in the sterile surgical fashion. The patient received IV antibiotics prior to skin incision. A standard deltopectoral approach was made to the operative shoulder. Incision was made to the skin and subcutaneous tissue,hemo stasis was obtained with Bovie cautery. Using careful blunt dissection the cephalic vein was identified and mobilized medially. The deltopectoral interval was developed and the clavipectoral fascia was incised. The subscap was released off the lesser tuberosity and tagged with #2 FiberWire suture. The humerus was dislocated patient noted to have irreparable tear supraspinatus tendon, and the humeral cut was made along the anatomic neck. Anterior and posterior Bankart retractors were placed to expose the glenoid. The glenoid guide was seated and the centering hole was made. It was reamed with the appropriate reamer. The small baseplate was seated and secured with (2) 4.5 screws and one 6.5 screw. The baseplate was irrigated and dried and the 36+4 Glenosphere was seated and secured with the Hall taper. The Hall taper was tested and found to be secure the humerus was redislocated and prepared with the diaphyseal reamers, followed by a broaching process up to the appropriate size 8 in the patient's anatomic version. The metaphyseal reamer was then utilized. Trial reduction found the shoulder to be relocatable. Trial components were removed and The appropriate 8 stem was impacted in place in the patient's anatomic version. Trial reduction found the shoulder to be relocatable and stable with the appropriate 3 constrained. Trial component was removed and the real implant was seated and secured the shoulder was reduced. The shoulder had excellent motion and excellent stability and no evidence of dislocation. The deep tissue was irrigated with pulse irrigation. The PA close the shoulder. The deltopectoral interval was closed with a running #1 PDS suture, subcutaneous tissue was irrigated and closed with 0 PDS suture, the skin was closed with Dermabond. The patient was placed in a sterile dressing, abduction brace and extubated. The patient was then transferred to the recovery room in stable condition. Anesthesia: GETA Surgeon: Jose F Blankenship Was there an photo studio assistant present: Yes Coin Machine Mechanic: Elysia Ordaz Estimated blood loss (cc): 100 Condition: stable Disposition: PACU
[2017-06-05] MEDS: *HR* HYDROmorphone (PF) 1 MG/ML SYRINGE IVP PRN ×2 (17:53→18:06)
[2017-06-05] MEDS ORDERED: *HR* Enoxaparin 30 MG/0.3 ML SYRINGE SQ SCH (18:00)
[2017-06-05 18:09] LABS: Hemoglobin 10.7 g/dL (11.5-15.4)
--- NOTE | 2017-06-05 18:24 | Anesthesia Evaluation Post Op ---
Date of Encounter: 06/05/17 Time of Encounter: 18:24 - Vital Signs Vital Signs: Vital Signs/O2 Sat, Most Current Temp Pulse Resp BP Pulse Ox 97.1 F L 68 16 110/69 96 06/05/17 18:21 06/05/17 18:21 06/05/17 18:21 06/05/17 18:21 06/05/17 18:21 - Lungs Lungs: Clear Ascult./Percussion - Airway Airway: Non-obstructed - Cardiovascular Regular Rate - Mental Status Mental Status: Asleep with brisk response to light stimulation - Pain Pain Scale: 5 Pain Scale used: Numeric (1 - 10) - Nausea Vomiting Nausea Vomiting: Not Present - Hydration Hydration: Ice chips, Has not voided - Discharge PostOp Status: Transfer Patient to floor
[2017-06-05] MEDS ORDERED: *HR* Dextrose 50 % in Water (Syg) 50 ML SYRINGE IVP PRN (19:46)
[2017-06-05] MEDS ORDERED: Furosemide 40 MG TABLET PO PRN (19:46)
[2017-06-05] MEDS ORDERED: Temazepam 15 MG CAPSULE PO PRN (19:46)
[2017-06-05] MEDS ORDERED: *HR* HYDROcodone/Acet 5/325 mg TABLET PO PRN (19:46)
[2017-06-05] MEDS ORDERED: Promethazine Syrup 6.25 MG/5 ML PO PRN (19:46)
[2017-06-05] MEDS ORDERED: Dextrose Gel 15 GM/37.5 ML TUBE PO PRN ×2 (19:46)
[2017-06-05] MEDS ORDERED: Ondansetron 4 MG/2 ML VIAL IVP PRN (19:46)
[2017-06-05] MEDS ORDERED: D5% in Water 1,000 ML IVC PRN (19:46)
[2017-06-05] MEDS ORDERED: MOM Conc 10 ML UD.LIQ PO PRN (19:46)
[2017-06-05] MEDS ORDERED: *HR* LORazepam 0.5 MG TABLET PO PRN (19:46)
[2017-06-05] MEDS ORDERED: Naloxone 0.4 MG/ML INJ IVP PRN (19:46)
[2017-06-05] MEDS ORDERED: Sennosides 8.6 MG TABLET PO PRN (19:46)
[2017-06-05] MEDS ORDERED: NON-FORMULARY MEDICATION 1 EACH EACH (Insulin Glargine,Hum.Rec.Anlog [Basaglar Kwikpen U-1 SQ SCH (21:00)
[2017-06-05] MEDS: *HR* HYDROcodone/Acet 10/325 mg TABLET PO PRN (21:52)
[2017-06-05] MEDS: traMADol 50 MG TABLET PO PRN (22:15)
[2017-06-05] MEDS: Gabapentin 400 MG CAPSULE PO SCH (22:20)
[2017-06-05] MEDS: Topiramate 25 MG TABLET PO SCH (22:20)
[2017-06-05] MEDS: Insulin LISPRO 300 UNITS/3 ML VIAL SQ SCH ×2 (22:29→23:00)
[2017-06-05] MEDS: Insulin DETEMIR 100 UNIT/ML X5UNITS SQ SCH (22:33)
[2017-06-06] MEDS ORDERED: Ipratropium/Albuterol Neb 3 ML IH PRN
[2017-06-06] MEDS: CeFAZolin Premix DUPLEX 2,000 MG/50 ML BAG IVPB SCH ×2 (01:23→08:44)
[2017-06-06] MEDS: Ringers Solution, Lactated 1,000 ML IVC SCH (01:23)
[2017-06-06 06:10] LABS: Hematocrit 31.2 % (35.3-44.9); Hemoglobin 10.7 g/dL (11.5-15.4)
[2017-06-06] MEDS: *HR* Enoxaparin 30 MG/0.3 ML SYRINGE SQ SCH ×2 (06:32→17:17)
[2017-06-06] MEDS: *HR* HYDROcodone/Acet 10/325 mg TABLET PO PRN ×2 (06:32→21:52)
--- NOTE | 2017-06-06 06:40 | Orthopedics Progress Note ---
Date of Encounter: 06/06/17 Time of Encounter: 06:39 - Assessment and Plan (1) Morbid obesity with BMI of 45.0-49.9, adult Current Visit: Yes Status: Chronic (2) Non-Hodgkin lymphoma Current Visit: No Status: Chronic Qualifiers: Non-Hodgkin lymphoma type: unspecified type Lymphoma site: unspecified region Qualified Code(s): C85.90 - Non-Hodgkin lymphoma, unspecified, unspecified site (3) Peripheral neuropathy Current Visit: No Status: Chronic Qualifiers: Peripheral neuropathy type: polyneuropathy associated with underlying disease Qualified Code(s): G63 - Polyneuropathy in diseases classified elsewhere (4) CVA (cerebral vascular accident) Current Visit: No Status: Chronic Qualifiers: CVA mechanism: unspecified Qualified Code(s): I63.9 - Cerebral infarction, unspecified (5) DVT prophylaxis Current Visit: No Status: Chronic (6) GERD (gastroesophageal reflux disease) Current Visit: No Status: Chronic Qualifiers: Esophagitis presence: esophagitis presence not specified Qualified Code(s) : K21.9 - Gastro-esophageal reflux disease without esophagitis (7) HTN (hypertension) Current Visit: No Status: Chronic Qualifiers: Hypertension type: unspecified Qualified Code(s): I10 - Essential (primary ) hypertension (8) Transient ischemic attack Current Visit: No Status: Chronic Qualifiers: Transient cerebral ischemia type: unspecified Qualified Code(s): G45.9 - Transient cerebral ischemic attack, unspecified (9) Right sided weakness Current Visit: No Status: Chronic (10) History of stroke Current Visit: No Status: Chronic (11) HTN (hypertension) Current Visit: No Status: Chronic Qualifiers: Hypertension type: unspecified Qualified Code(s): I10 - Essential (primary ) hypertension (12) Rotator cuff tear arthropathy of right shoulder Current Visit: No Status: Chronic (13) Status post total replacement of right shoulder Current Visit: No Status: Acute (14) History of CVA (cerebrovascular accident) Current Visit: No Status: Chronic (15) OAB (overactive bladder) Current Visit: No Status: Chronic (16) Diabetes mellitus Current Visit: No Status: Chronic Qualifiers: Diabetes mellitus type: other specified (including LEX) Diabetes mellitus intermediate accountant insulin use: with intermediate accountant use Diabetes mellitus complication status: with unspecified complications Qualified Code(s): E13.8 - Other specified diabetes mellitus with unspecified complications; Z79.4 - long term care phlebotomist ( current) use of insulin; Z79.4 - long term care phlebotomist (current) use of insulin; Z79.4 - [facility] (current) use of insulin; Z79.4 - [facility] (current) use of insulin Subjective Interval history: Patient was seen this morning doing well without complaints. Afebrile vital signs stable. Operative extremity: Neurovascularly intact Dressing clean dry and intact Calves nontender Assessment and plan: Continue with postoperative care Discharged today Objective Vital signs: Vital Signs Temp Pulse Resp BP Pulse Ox 06/06/17 05:18 98.4 F 97 15 136/82 95 06/06/17 01:17 98.3 F 93 18 119/81 100 06/05/17 18:31 97.2 F L 68 16 100/74 94 06/05/17 18:21 97.1 F L 68 16 110/69 96 06/05/17 18:11 70 16 110/71 95 06/05/17 18:01 96.9 F L 68 18 105/64 98 06/05/17 17:51 69 18 108/68 97 06/05/17 17:41 70 20 110/68 98 06/05/17 17:31 97.1 F L 70 18 106/60 97 06/05/17 13:39 97.7 F 90 16 161/80 100 Intake and Output 06/05/17 06/05/17 06/06/17 15:59 23:59 07:59 Intake Total 20 / 20 Output Total 100 / 100 200 / 200 Balance -80 / -80 -200 / -200 Intake: IV Fluids 20 / 20 Ancef Syringe 2,000 MG/20 ML 2, 20 / 20 000 mg In 20 ml @ 200 mls/hr IVPB PREOP ONE Rx#:[id number] Output: Urine 200 / 200 Estimated Blood Loss 100 / 100 Other: # Urine Diapers 1 Weight 98.883 kg - Labs CBC & BMP: 06/06/17 05:26 Labs: Abnormal lab results Hgb 10.7 g/dL (11.5-15.4) L 06/06/17 05:26 Hct 31.2 % (35.3-44.9) L 06/06/17 05:26 POC Glucose 171 (58-89) H 06/05/17 22:21 - VTE Documentation of Mechanical Device: Venous foot pump, device Consult Discharge Plan - Plan Referrals: Son Elizabeth MD [Primary Care Provider] -
[2017-06-06] MEDS: Aspirin Enteric Coated 81 MG Tablet PO SCH (08:43)
[2017-06-06] MEDS: Insulin LISPRO 300 UNITS/3 ML VIAL SQ SCH ×4 (08:43→21:53)
[2017-06-06] MEDS: *HR* Glimepiride 2 MG TABLET PO SCH (08:43)
[2017-06-06] MEDS: Gabapentin 400 MG CAPSULE PO SCH ×2 (08:43→21:52)
[2017-06-06] MEDS: amLODIPine 5 MG TABLET PO SCH (08:44)
[2017-06-06] MEDS: hydroCHLOROthiazide 25 MG TABLET PO SCH (08:44)
[2017-06-06] MEDS: Loratadine 10 MG TABLET PO SCH (08:44)
[2017-06-06] MEDS: Lisinopril 20 MG TABLET PO SCH (08:44)
[2017-06-06] MEDS: Topiramate 25 MG TABLET PO SCH ×2 (08:44→21:52)
[2017-06-06] MEDS: (Alogliptin Benzoate [Alogliptin] 25 MG) PO SCH (08:45)
[2017-06-06] MEDS: Fluticasone Propionate Nasal 50 MCG/SPRAY BOTTLE NS SCH (08:45)
[2017-06-06] MEDS ORDERED: Acetaminophen 325 MG TABLET PO PRN (12:43)
--- NOTE | 2017-06-06 18:07 | Event Note ---
Date of Encounter: 06/06/17 Time of Encounter: 12:45 PCR- POD#1 R TSR Reverse 06/05/17 Krzysztof PCR - Patient seen at bedside. Labwork and medications reviewed. Pain control: Adequate - states she is having pain along incision area - will add lidoderm and tylenol and encourage use of ice. Participating in PT. All questions and concerns addressed. Educated on use of incentive spirometer, ambulation, and hydration. Patient educated on post-operative restrictions and care. Addressed: see above. D/C plan: ECF - patient manager star resident
[2017-06-06] MEDS: traMADol 50 MG TABLET PO PRN (18:40)
[2017-06-06] MEDS: Insulin DETEMIR 100 UNIT/ML X5UNITS SQ SCH (21:53)
[2017-06-07] MEDS: traMADol 50 MG TABLET PO PRN (00:40)
[2017-06-07] MEDS: *HR* Enoxaparin 30 MG/0.3 ML SYRINGE SQ SCH (05:20)
[2017-06-07] MEDS: *HR* HYDROcodone/Acet 10/325 mg TABLET PO PRN ×2 (05:20→10:50)
[2017-06-07 07:28] VITALS: BP 105/59
[2017-06-07] MEDS: Ringers Solution, Lactated 1,000 ML IVC SCH ×2 (08:44→08:45)
[2017-06-07] MEDS: Lisinopril 20 MG TABLET PO SCH (08:45)
[2017-06-07] MEDS: amLODIPine 5 MG TABLET PO SCH (08:45)
[2017-06-07] MEDS: Gabapentin 400 MG CAPSULE PO SCH (08:46)
[2017-06-07] MEDS: (Alogliptin Benzoate [Alogliptin] 25 MG) PO SCH (08:46)
[2017-06-07] MEDS: hydroCHLOROthiazide 25 MG TABLET PO SCH (08:46)
[2017-06-07] MEDS: *HR* Glimepiride 2 MG TABLET PO SCH (08:46)
[2017-06-07] MEDS: Topiramate 25 MG TABLET PO SCH (08:46)
[2017-06-07] MEDS: Loratadine 10 MG TABLET PO SCH (08:46)
[2017-06-07] MEDS: Aspirin Enteric Coated 81 MG Tablet PO SCH (08:46)
[2017-06-07] MEDS: Fluticasone Propionate Nasal 50 MCG/SPRAY BOTTLE NS SCH (08:47)
[2017-06-07] MEDS: Insulin LISPRO 300 UNITS/3 ML VIAL SQ SCH (08:47)
--- NOTE | 2017-06-07 09:03 | Orthopedics Progress Note ---
Date of Encounter: 06/07/17 Time of Encounter: 09:02 - Assessment and Plan (1) Morbid obesity with BMI of 45.0-49.9, adult Current Visit: Yes Status: Chronic (2) Non-Hodgkin lymphoma Current Visit: No Status: Chronic Qualifiers: Non-Hodgkin lymphoma type: unspecified type Lymphoma site: unspecified region Qualified Code(s): C85.90 - Non-Hodgkin lymphoma, unspecified, unspecified site (3) Peripheral neuropathy Current Visit: No Status: Chronic Qualifiers: Peripheral neuropathy type: polyneuropathy associated with underlying disease Qualified Code(s): G63 - Polyneuropathy in diseases classified elsewhere (4) CVA (cerebral vascular accident) Current Visit: No Status: Chronic Qualifiers: CVA mechanism: unspecified Qualified Code(s): I63.9 - Cerebral infarction, unspecified (5) DVT prophylaxis Current Visit: No Status: Chronic (6) GERD (gastroesophageal reflux disease) Current Visit: No Status: Chronic Qualifiers: Esophagitis presence: esophagitis presence not specified Qualified Code(s) : K21.9 - Gastro-esophageal reflux disease without esophagitis (7) HTN (hypertension) Current Visit: No Status: Chronic Qualifiers: Hypertension type: unspecified Qualified Code(s): I10 - Essential (primary ) hypertension (8) Transient ischemic attack Current Visit: No Status: Chronic Qualifiers: Transient cerebral ischemia type: unspecified Qualified Code(s): G45.9 - Transient cerebral ischemic attack, unspecified (9) Right sided weakness Current Visit: No Status: Chronic (10) History of stroke Current Visit: No Status: Chronic (11) HTN (hypertension) Current Visit: No Status: Chronic Qualifiers: Hypertension type: unspecified Qualified Code(s): I10 - Essential (primary ) hypertension (12) Rotator cuff tear arthropathy of right shoulder Current Visit: No Status: Chronic (13) Status post total replacement of right shoulder Current Visit: No Status: Acute (14) History of CVA (cerebrovascular accident) Current Visit: No Status: Chronic (15) OAB (overactive bladder) Current Visit: No Status: Chronic (16) Diabetes mellitus Current Visit: No Status: Chronic Qualifiers: Diabetes mellitus type: other specified (including LEX) Diabetes mellitus termination clerk insulin use: with termination clerk use Diabetes mellitus complication status: with unspecified complications Qualified Code(s): E13.8 - Other specified diabetes mellitus with unspecified complications; Z79.4 - termination clerk ( current) use of insulin; Z79.4 - termination clerk (current) use of insulin; Z79.4 - senior living (current) use of insulin; Z79.4 - senior living (current) use of insulin Subjective Interval history: Patient was seen this morning doing well without complaints. Afebrile vital signs stable. Operative extremity: Neurovascularly intact Dressing clean dry and intact Calves nontender Assessment and plan: Continue with postoperative care Discharged today Objective Vital signs: Vital Signs Temp Pulse Resp BP Pulse Ox 06/07/17 07:23 98.9 F 78 16 105/59 98 06/07/17 00:26 98.8 F 105 16 103/70 98 06/06/17 19:16 98.3 F 82 16 102/66 92 06/06/17 16:15 98.2 F 81 17 100/62 99 06/06/17 11:23 98.0 F 77 17 95/59 97 Intake and Output 06/06/17 06/07/17 06/07/17 23:59 07:59 15:59 Intake Total 240 / 240 200 / 200 Output Total 300 / 300 400 / 400 Balance -60 / -60 -200 / -200 Intake: Oral 240 / 240 200 / 200 Output: Urine 300 / 300 400 / 400 Other: Meal Dinner Percent of Meal Consumed 65% # Voids 1 Blood Glucose* 186 163 - Labs CBC & BMP: 06/06/17 05:26 Labs: Abnormal lab results Hgb 10.7 g/dL (11.5-15.4) L 06/06/17 05:26 Hct 31.2 % (35.3-44.9) L 06/06/17 05:26 POC Glucose 171 (58-89) H 06/05/17 22:21 - VTE Documentation of Mechanical Device: Venous foot pump, device Consult Discharge Plan - Plan Referrals: Son Elizabeth MD [Primary Care Provider] -
--- NOTE | 2017-06-07 17:33 | Event Note ---
Date of Encounter: 06/07/17 Time of Encounter: 11:30 PCR- POD#2 R TSR Reverse 06/05/17 Krzysztof PCR - Patient seen at bedside. Labwork and medications reviewed. Pain control: Adequate Participating in PT. All questions and concerns addressed. Educated on use of incentive spirometer, ambulation, and hydration. Patient educated on post-operative restrictions and care. Addressed: see above. D/C plan: ECF - patient longitudinal float operator resident - D/c today
== END 2017-06-07 11:41 | disposition home health service (06) | DRG 315 ==
LOC: SAMDAY 12:55 → 3NENU 19:20
PROVIDERS: ADMIT Orthopaedic Surgery; ATTEND Orthopaedic Surgery

== ENCOUNTER 2017-12-05 15:29 | Observation (INO) ==
--- NOTE | 2017-12-05 15:57 | Emergency Department Note ---
Disposition Clinical Impression: Worsening renal function, Decreased urine output Disposition: Admitted As Inpatient Condition: Fair General Adult HPI - General Chief complaint: ED General Medical Stated complaint: low urine output Time Seen by Provider: 12/05/17 15:47 - History of Present Illness Pain Scale: 8 - Related Data Home Medications Medication Instructions Recorded Confirmed Cetirizine HCl [Zyrtec] 10 mg PO DAILY 05/08/15 12/05/17 Albuterol Sulfate [Albuterol 2 puff IH Q4HR PRN 01/13/16 12/05/17 Inhaler] Fluticasone Propionate Nasal 50 mcg NS DAILY 01/13/16 12/05/17 [Flonase] Gabapentin [Neurontin] 800 mg PO BID 06/13/16 12/05/17 Lidocaine/Prilocaine CREAM [Emla] 1 appl TP AD PRN 06/13/16 12/05/17 Topiramate [Topamax] 50 mg PO BID 06/13/16 12/05/17 Insulin ASPART [Novolog Flexpen] 0 - 14 unit SQ TIDAC 06/27/16 12/05/17 Atorvastatin [Lipitor] 40 mg PO HS 09/05/16 12/05/17 Clopidogrel [Plavix] 75 mg PO DAILY 09/05/16 12/05/17 Docusate [Colace] 100 mg PO BID PRN 10/06/16 12/05/17 Insulin Glargine,Hum.rec.anlog 55 unit SQ HS 11/24/16 12/05/17 [Basaglar Kwikpen U-100] LORazepam [Ativan] 0.5 mg PO DAILY PRN 02/10/17 12/05/17 Alogliptin Benzoate [Alogliptin] 25 mg PO DAILY 02/11/17 12/05/17 Furosemide [Lasix] 40 mg PO DAILY 02/11/17 12/05/17 Polyethylene Glycol 3350 [MiraLAX] 17 gm PO DAILY PRN 02/11/17 12/05/17 amLODIPine [Norvasc] 5 mg PO DAILY 02/11/17 12/05/17 Glimepiride [Amaryl] 4 mg PO QAM 06/05/17 12/05/17 Ipratropium/Albuterol Neb [Duoneb] 3 ml IH Q4H PRN 06/05/17 12/05/17 Lisinopril [Zestril] 40 mg PO DAILY 06/05/17 12/05/17 Oxybutynin Chloride [Ditropan Xl] 10 mg PO HS 06/05/17 12/05/17 Pantoprazole Sodium 20 mg PO DAILY 06/05/17 12/05/17 Potassium Chloride [K-Tab ER] 20 meq PO DAILY 06/05/17 12/05/17 Promethazine Syrup [Phenergan 12.5 mg PO Q4H PRN 06/05/17 12/05/17 Syrup] Cholecalciferol (D-3) [Vitamin D] 2,000 unit PO DAILY 06/19/17 12/05/17 HYDROcodone/Acet 5/325 mg [[place] 1 tab PO Q4H PRN 06/19/17 12/05/17 5-325 mg] Famotidine [Pepcid] 20 mg PO DAILY 09/07/17 12/05/17 Aspirin Enteric Coated [Aspirin EC] 2 tab PO DAILY 10/02/17 12/05/17 Methyl Salicylate/Menthol [Bengay] 1 appl TP QID PRN 10/02/17 12/05/17 Meclizine HCl [Verticalm] 25 mg PO Q8H PRN 12/05/17 12/05/17 Previous Rx's Medication Instructions Recorded hydroCHLOROthiazide 25 mg PO DAILY tablet 02/16/17 [Hydrochlorothiazide] Allergies Allergy/AdvReac Type Severity Reaction Status Date / Time diphenhydramine AdvReac See Verified 12/05/17 15:42 [From Benadryl] Comments Oxycodone [From OxyContin] AdvReac Itching Verified 12/05/17 15:42 Past Medical History - Past Medical History Medical history: Reports: cancer, CVA, DVT, diabetes, GERD, hypertension, myocardial infarction, TIA, other Surgical history: Reports: appendectomy, cholecystectomy, CHRISTINE/BSO Psychiatric history: Reports: no psych history - Social History Smoking Status: Never smoker Smokeless Tobacco Status: No Alcohol use: Reports: none Drug use: Reports: none Physical Exam - General General appearance: alert, in no apparent distress Course Vital Signs Temperature 98.7 F 12/05/17 15:37 Pulse Rate 83 12/05/17 15:37 Respiratory Rate 14 12/05/17 15:37 Blood Pressure 116/60 12/05/17 15:37 O2 Sat by Pulse Oximetry 100 12/05/17 15:37 Temperature 98.0 F 12/06/17 15:46 Pulse Rate 71 12/06/17 15:46 Respiratory Rate 18 12/06/17 15:46 Blood Pressure 107/96 12/06/17 15:46 O2 Sat by Pulse Oximetry 99 12/06/17 15:46 Oxygen Delivery Oxygen Delivery Room Air Medical Decision Making - Lab Data Result diagrams: 12/05/17 16:40 12/06/17 04:40 Lab Results 12/05/17 12/05/17 12/05/17 Range/Units 16:23 16:23 16:23 WBC (4.3-11.1) K/mcL RBC (3.82-4.97) M/mcL Hgb (11.5-15.4) g/dL Hct (35.3-44.9) % MCV (83.0-100.0) fL MCH (28.0-33.3) pg MCHC (31.6-35.5) g/dL RDW (11.5-14.5) % Plt Count (140-400) K/mcL MPV (9.4-12.4) fL Immature Gran % (0-4) % Seg Neutrophils % % Lymphocytes % % Monocytes % % Eosinophils % % Basophils % % Neutrophils # (1.6-8.9) K/mcL Lymphocytes # (0.6-4.6) K/mcL Monocytes # (0.0-1.3) K/mcL Eosinophils # (0.0-0.6) K/mcL Basophils # (0.0-0.2) K/mcL Sodium (136-145) mEq/L Potassium (3.5-5.1) mEq/L Chloride (98-107) mEq/L Carbon Dioxide (23-29) mEq/L BUN (8-23) mg/dL Creatinine (0.60-1.20) mg/dL Est GFR ( Amer) (> 60) Est GFR (Non-Af Amer) (> 60) BUN/Creatinine Ratio (6-26) Glucose (70-105) mg/dL Calculated Osmolality (280-300) Calcium (8.6-10.3) mg/dL Urine Color Yellow (Yellow) Urine Clarity Cloudy A (Clear) Urine pH 5.5 (5.0-8.0) pH Units Ur Specific [place] 1.016 (1.010-1.025) Urine Protein Negative (Neg-Trace) mg/dL Urine Glucose (UA) Normal (Normal) mg/dL Urine Ketones Negative (Negative) mg/dL Urine Blood Negative (Negative) Urine Nitrite Negative (Negative) Urine Bilirubin Negative (Negative) Urine Urobilinogen Normal (Normal) mg/dL Ur Leukocyte Esterase Moderate H (Negative) Urine Microscopic RBC 0-3 (0-3) per hpf Urine Microscopic WBC 5-15 H (0-3) per hpf Ur Squamous Epith Cells Many H (None-Few) per lpf Urine Bacteria Few (None-Few) per hpf Hyaline Casts Few (None-Few) per lpf Ur Culture Indicated? NO. A (NO) Urine Osmolality 315 (300-1090) mOsm/kg Urine Creatinine 124 mg/dL Urine Sodium 40.2 mEq/L Urine Urea Nitrogen 383 mg/dL 12/05/17 12/05/17 Range/Units 16:40 16:40 WBC 8.1 (4.3-11.1) K/mcL RBC 3.34 L (3.82-4.97) M/mcL Hgb 9.9 L (11.5-15.4) g/dL Hct 30.3 L (35.3-44.9) % MCV 90.7 (83.0-100.0) fL MCH 29.6 (28.0-33.3) pg MCHC 32.7 (31.6-35.5) g/dL RDW 12.0 (11.5-14.5) % Plt Count 202 (140-400) K/mcL MPV 10.8 (9.4-12.4) fL Immature Gran % 0.5 (0-4) % Seg Neutrophils % 77.4 % Lymphocytes % 10.7 % Monocytes % 8.2 % Eosinophils % 3.0 % Basophils % 0.2 % Neutrophils # 6.3 (1.6-8.9) K/mcL Lymphocytes # 0.9 (0.6-4.6) K/mcL Monocytes # 0.7 (0.0-1.3) K/mcL Eosinophils # 0.2 (0.0-0.6) K/mcL Basophils # 0.0 (0.0-0.2) K/mcL Sodium 133 L (136-145) mEq/L Potassium 4.5 (3.5-5.1) mEq/L Chloride 99 (98-107) mEq/L Carbon Dioxide 28 (23-29) mEq/L BUN 73 H (8-23) mg/dL Creatinine 2.79 H (0.60-1.20) mg/dL Est GFR ( Amer) 21 L (> 60) Est GFR (Non-Af Amer) 17 L (> 60) BUN/Creatinine Ratio 26 (6-26) Glucose 158 H (70-105) mg/dL Calculated Osmolality 301 H (280-300) Calcium 9.0 (8.6-10.3) mg/dL Urine Color (Yellow) Urine Clarity (Clear) Urine pH (5.0-8.0) pH Units Ur Specific [place] (1.010-1.025) Urine Protein (Neg-Trace) mg/dL Urine Glucose (UA) (Normal) mg/dL Urine Ketones (Negative) mg/dL Urine Blood (Negative) Urine Nitrite (Negative) Urine Bilirubin (Negative) Urine Urobilinogen (Normal) mg/dL Ur Leukocyte Esterase (Negative) Urine Microscopic RBC (0-3) per hpf Urine Microscopic WBC (0-3) per hpf Ur Squamous Epith Cells (None-Few) per lpf Urine Bacteria (None-Few) per hpf Hyaline Casts (None-Few) per lpf Ur Culture Indicated? (NO) Urine Osmolality (300-1090) mOsm/kg Urine Creatinine mg/dL Urine Sodium mEq/L Urine Urea Nitrogen mg/dL Attestation Statement - Attestation Attestation: Resident Attestation: I examined this patient and my medical decision making was reviewed with the Resident Physician. I agree with the documented findings, disposition and treatment plan as described except to the extent set forth below. We independently had [id number] contact with the patient. Patient with past mental history of CVA and right-sided deficits diabetes and hypertension presenting for evaluation of worsening renal function. The patient was noted to have an elevated creatinine significantly higher than previous. Was notified by nephrology to come in for further evaluation. Patient has no specific complaints. Patient has had decreased urine output. The patient will have repeat blood work as well as admission for further renal evaluation. Awake alert and oriented, no acute distress, abdomen is soft nontender. No significant pitting edema. Please see resident note for further details and disposition.
[2017-12-05 16:41] LABS: Bilirubin,Urine Negative (Negative); Blood,Urine Negative (Negative); Clarity,Urine Cloudy (Clear); Color,Urine Yellow (Yellow); Glucose,Urine (UA) Normal (Normal); Ketones,Urine Negative (Negative); Leukocyte Esterase,Urine Moderate (Negative); Nitrite,Urine Negative (Negative); PH,Urine 5.5 pH Units (5.0-8.0); Protein,Urine Negative (Neg-Trace); Specific Gravity,Urine 1.016 (1.010-1.025); Urobilinogen,Urine Normal (Normal)
[2017-12-05 16:43] LABS: Squamous Epithelial Cell,Urine Many per lpf (None-Few)
[2017-12-05 16:52] LABS: Sodium, Urine 40.2 mEq/L
[2017-12-05 16:55] LABS: Hyaline Casts,Urine Few per lpf (None-Few); RBC,Urine 0-3 per hpf (0-3)
[2017-12-05 16:56] LABS: Bacteria,Urine Few per hpf (None-Few)
[2017-12-05 17:16] LABS: Basophils % 0.2 %; Eosinophils # 0.2 K/mcL (0.0-0.6); Hematocrit 30.3 % (35.3-44.9); Hemoglobin 9.9 g/dL (11.5-15.4); Immature Granulocytes % 0.5 % (0-4); Lymphocytes # 0.9 K/mcL (0.6-4.6); Lymphocytes % 10.7 %; Mean Corpuscular HGB Conc 32.7 g/dL (31.6-35.5); Mean Corpuscular Hemoglobin 29.6 pg (28.0-33.3); Mean Corpuscular Volume 90.7 fL (83.0-100.0); Mean Platelet Volume 10.8 fL (9.4-12.4); Monocytes # 0.7 K/mcL (0.0-1.3); Monocytes % 8.2 %; Neutrophils # 6.3 K/mcL (1.6-8.9); Platelet Count 202 K/mcL (140-400); Red Blood Count 3.34 M/mcL (3.82-4.97); Segmented Neutrophils % 77.4 %
[2017-12-05 17:31] LABS: Potassium 4.5 mEq/L (3.5-5.1)
--- NOTE | 2017-12-05 18:06 | Emergency Department Note ---
Disposition Clinical Impression: Worsening renal function, Decreased urine output Disposition: Admitted As Inpatient Condition: Fair Time of Disposition: 18:35 General Adult HPI - General Chief complaint: ED General Medical Stated complaint: low urine output Time Seen by Provider: 12/05/17 15:47 Source: patient, EMS Mode of arrival: EMS Limitations: no limitations Nursing Notes Reviewed: Yes Vital Signs Reviewed: Yes - History of Present Illness HPI Narrative: Patient is a 62-year-old female past medical history of CVA right-sided deficits , diabetes, and hypertension presents immersed department for evaluation of declining kidney function. According to the patient's wastewater technician Dr. Thao, patient has not having increase in her creatinine levels and decrease in GFR over the past 2 weeks. Yesterday she had decrease in urine output in which they attempted fluid hydration and that did not improve the patient's symptoms. The patient herself denies any other associated symptoms other than decreased urine output. [facility] due to the stability from her stroke and pending right knee replacement. Pain Scale: 8 - Related Data Home Medications Medication Instructions Recorded Confirmed Cetirizine HCl [Zyrtec] 10 mg PO DAILY 05/08/15 12/05/17 Albuterol Sulfate [Albuterol 2 puff IH Q4HR PRN 01/13/16 12/05/17 Inhaler] Fluticasone Propionate Nasal 50 mcg NS DAILY 01/13/16 12/05/17 [Flonase] Gabapentin [Neurontin] 800 mg PO BID 06/13/16 12/05/17 Lidocaine/Prilocaine CREAM [Emla] 1 appl TP AD PRN 06/13/16 12/05/17 Topiramate [Topamax] 50 mg PO BID 06/13/16 12/05/17 Insulin ASPART [Novolog Flexpen] 0 - 14 unit SQ TIDAC 06/27/16 12/05/17 Atorvastatin [Lipitor] 40 mg PO HS 09/05/16 12/05/17 Clopidogrel [Plavix] 75 mg PO DAILY 09/05/16 12/05/17 Docusate [Colace] 100 mg PO BID PRN 10/06/16 12/05/17 Insulin Glargine,Hum.rec.anlog 55 unit SQ HS 11/24/16 12/05/17 [Basaglar Kwikpen U-100] LORazepam [Ativan] 0.5 mg PO DAILY PRN 02/10/17 12/05/17 Alogliptin Benzoate [Alogliptin] 25 mg PO DAILY 02/11/17 12/05/17 Furosemide [Lasix] 40 mg PO DAILY 02/11/17 12/05/17 Polyethylene Glycol 3350 [MiraLAX] 17 gm PO DAILY PRN 02/11/17 12/05/17 amLODIPine [Norvasc] 5 mg PO DAILY 02/11/17 12/05/17 Glimepiride [Amaryl] 4 mg PO QAM 06/05/17 12/05/17 Ipratropium/Albuterol Neb [Duoneb] 3 ml IH Q4H PRN 06/05/17 12/05/17 Lisinopril [Zestril] 40 mg PO DAILY 06/05/17 12/05/17 Oxybutynin Chloride [Ditropan Xl] 10 mg PO HS 06/05/17 12/05/17 Pantoprazole Sodium 20 mg PO DAILY 06/05/17 12/05/17 Potassium Chloride [K-Tab ER] 20 meq PO DAILY 06/05/17 12/05/17 Promethazine Syrup [Phenergan 12.5 mg PO Q4H PRN 06/05/17 12/05/17 Syrup] Cholecalciferol (D-3) [Vitamin D] 2,000 unit PO DAILY 06/19/17 12/05/17 HYDROcodone/Acet 5/325 mg [[place] 1 tab PO Q4H PRN 06/19/17 12/05/17 5-325 mg] Famotidine [Pepcid] 20 mg PO DAILY 09/07/17 12/05/17 Aspirin Enteric Coated [Aspirin EC] 2 tab PO DAILY 10/02/17 12/05/17 Methyl Salicylate/Menthol [Bengay] 1 appl TP QID PRN 10/02/17 12/05/17 Meclizine HCl [Verticalm] 25 mg PO Q8H PRN 12/05/17 12/05/17 Previous Rx's Medication Instructions Recorded hydroCHLOROthiazide 25 mg PO DAILY tablet 02/16/17 [Hydrochlorothiazide] Allergies Allergy/AdvReac Type Severity Reaction Status Date / Time diphenhydramine AdvReac See Verified 12/05/17 15:42 [From Benadryl] Comments Oxycodone [From OxyContin] AdvReac Itching Verified 12/05/17 15:42 All systems ED: reviewed and negative except as stated. Review of Systems: As Per HPI Constitutional: Denies: fever, chills Cardiovascular: Denies: chest pain, palpitations, edema Respiratory: Denies: cough, dyspnea, wheezes Gastrointestinal: Denies: abdominal pain, nausea, vomiting Genitourinary: Denies: urgency, dysuria Musculoskeletal: Denies: back pain, neck pain Integumentary: Denies: rash Neurological: Denies: headache Past Medical History - Past Medical History Attestation: Yes The following information was validated with the patient. Medical history: Reports: cancer, CVA, DVT, diabetes, GERD, hypertension, myocardial infarction, TIA, other Surgical history: Reports: appendectomy, cholecystectomy, CHRISTINE/BSO Psychiatric history: Reports: no psych history - Social History Smoking Status: Never smoker Smokeless Tobacco Status: No Alcohol use: Reports: none Drug use: Reports: none Physical Exam CONSTITUTIONAL: Well-appearing; well-nourished; A&O X 3, in no apparent distress. HEAD: Normocephalic; atraumatic EYES: PERRL, no scleral icterus NOSE: The nose is normal in appearance without rhinorrhea NECK: No JVD or distended neck veins RESP: Normal chest excursion with respiration; breath sounds clear and equal bilaterally; no wheezes, rhonchi, or rales CARD: Regular rhythm, without murmurs, rub or gallop ABD: Non-distended; non-tender, soft, without rigidity, rebound or guarding,no pulsatile mass CHEST: No pain with palpation SKIN: Normal for age and race; warm and dry without diaphoresis ; no apparent lesions EXTREMITIES: Pulses are 2 plus and equal times 4 extremities, no peripheral edema or calf muscle pain - General General appearance: alert, in no apparent distress Course Course Narrative: Plan is times order basic labs including a chem strip panel to evaluate patient' s current renal function. We will also add on additional urine chemistries. Once his labs resulted I will consult with nephrology to determine further request. - Reevaluation(s) Reevaluation #1: Spoke with Dr. Anderson and he agrees to see the patient in the morning for additional testing. Request IV fluids maintenance overnight. Time: 18:14 Reevaluation #2: Patient accepted to the hospitalist, Dr. Shepherd. Time: 18:34 Vital Signs Temperature 98.7 F 12/05/17 15:37 Pulse Rate 83 12/05/17 15:37 Respiratory Rate 14 12/05/17 15:37 Blood Pressure 116/60 12/05/17 15:37 O2 Sat by Pulse Oximetry 100 12/05/17 15:37 Temperature 97.6 F 12/05/17 19:59 Pulse Rate 81 12/05/17 19:59 Respiratory Rate 18 12/05/17 19:59 Blood Pressure 122/72 12/05/17 19:59 O2 Sat by Pulse Oximetry 100 12/05/17 19:59 Oxygen Delivery Oxygen Delivery Room Air Medical Decision Making - Medical Records Medical records reviewed: Yes I reviewed the patient's medical records. - Lab Data Lab results reviewed: Yes I reviewed the patient's lab results. Result diagrams: 12/05/17 16:40 12/05/17 16:40 Lab Results 12/05/17 12/05/17 12/05/17 Range/Units 16:23 16:23 16:23 WBC (4.3-11.1) K/mcL RBC (3.82-4.97) M/mcL Hgb (11.5-15.4) g/dL Hct (35.3-44.9) % MCV (83.0-100.0) fL MCH (28.0-33.3) pg MCHC (31.6-35.5) g/dL RDW (11.5-14.5) % Plt Count (140-400) K/mcL MPV (9.4-12.4) fL Immature Gran % (0-4) % Seg Neutrophils % % Lymphocytes % % Monocytes % % Eosinophils % % Basophils % % Neutrophils # (1.6-8.9) K/mcL Lymphocytes # (0.6-4.6) K/mcL Monocytes # (0.0-1.3) K/mcL Eosinophils # (0.0-0.6) K/mcL Basophils # (0.0-0.2) K/mcL Sodium (136-145) mEq/L Potassium (3.5-5.1) mEq/L Chloride (98-107) mEq/L Carbon Dioxide (23-29) mEq/L BUN (8-23) mg/dL Creatinine (0.60-1.20) mg/dL Est GFR ( Amer) (> 60) Est GFR (Non-Af Amer) (> 60) BUN/Creatinine Ratio (6-26) Glucose (70-105) mg/dL Calculated Osmolality (280-300) Calcium (8.6-10.3) mg/dL Urine Color Yellow (Yellow) Urine Clarity Cloudy A (Clear) Urine pH 5.5 (5.0-8.0) pH Units Ur Specific [place] 1.016 (1.010-1.025) Urine Protein Negative (Neg-Trace) mg/dL Urine Glucose (UA) Normal (Normal) mg/dL Urine Ketones Negative (Negative) mg/dL Urine Blood Negative (Negative) Urine Nitrite Negative (Negative) Urine Bilirubin Negative (Negative) Urine Urobilinogen Normal (Normal) mg/dL Ur Leukocyte Esterase Moderate H (Negative) Urine Microscopic RBC 0-3 (0-3) per hpf Urine Microscopic WBC 5-15 H (0-3) per hpf Ur Squamous Epith Cells Many H (None-Few) per lpf Urine Bacteria Few (None-Few) per hpf Hyaline Casts Few (None-Few) per lpf Ur Culture Indicated? NO. A (NO) Urine Osmolality 315 (300-1090) mOsm/kg Urine Creatinine 124 mg/dL Urine Sodium 40.2 mEq/L Urine Urea Nitrogen 383 mg/dL 12/05/17 12/05/17 Range/Units 16:40 16:40 WBC 8.1 (4.3-11.1) K/mcL RBC 3.34 L (3.82-4.97) M/mcL Hgb 9.9 L (11.5-15.4) g/dL Hct 30.3 L (35.3-44.9) % MCV 90.7 (83.0-100.0) fL MCH 29.6 (28.0-33.3) pg MCHC 32.7 (31.6-35.5) g/dL RDW 12.0 (11.5-14.5) % Plt Count 202 (140-400) K/mcL MPV 10.8 (9.4-12.4) fL Immature Gran % 0.5 (0-4) % Seg Neutrophils % 77.4 % Lymphocytes % 10.7 % Monocytes % 8.2 % Eosinophils % 3.0 % Basophils % 0.2 % Neutrophils # 6.3 (1.6-8.9) K/mcL Lymphocytes # 0.9 (0.6-4.6) K/mcL Monocytes # 0.7 (0.0-1.3) K/mcL Eosinophils # 0.2 (0.0-0.6) K/mcL Basophils # 0.0 (0.0-0.2) K/mcL Sodium 133 L (136-145) mEq/L Potassium 4.5 (3.5-5.1) mEq/L Chloride 99 (98-107) mEq/L Carbon Dioxide 28 (23-29) mEq/L BUN 73 H (8-23) mg/dL Creatinine 2.79 H (0.60-1.20) mg/dL Est GFR ( Amer) 21 L (> 60) Est GFR (Non-Af Amer) 17 L (> 60) BUN/Creatinine Ratio 26 (6-26) Glucose 158 H (70-105) mg/dL Calculated Osmolality 301 H (280-300) Calcium 9.0 (8.6-10.3) mg/dL Urine Color (Yellow) Urine Clarity (Clear) Urine pH (5.0-8.0) pH Units Ur Specific [place] (1.010-1.025) Urine Protein (Neg-Trace) mg/dL Urine Glucose (UA) (Normal) mg/dL Urine Ketones (Negative) mg/dL Urine Blood (Negative) Urine Nitrite (Negative) Urine Bilirubin (Negative) Urine Urobilinogen (Normal) mg/dL Ur Leukocyte Esterase (Negative) Urine Microscopic RBC (0-3) per hpf Urine Microscopic WBC (0-3) per hpf Ur Squamous Epith Cells (None-Few) per lpf Urine Bacteria (None-Few) per hpf Hyaline Casts (None-Few) per lpf Ur Culture Indicated? (NO) Urine Osmolality (300-1090) mOsm/kg Urine Creatinine mg/dL Urine Sodium mEq/L Urine Urea Nitrogen mg/dL
[2017-12-05] MEDS ORDERED: Naloxone 0.4 MG/ML INJ IVP PRN (20:16)
[2017-12-05] MEDS ORDERED: Ipratropium/Albuterol Neb 3 ML IH PRN (20:19)
--- NOTE | 2017-12-05 20:30 | Internal Med History&Physical ---
<Crow Joseph - Last Filed: 12/05/17 20:25> Date of Encounter: 12/05/17 Time of Encounter: 20:25 Internal Medicine - H&P: HPI Chief complaint: MARINA Admitted From: Home Plans for Post Hospital Care: Home History of present illness: Ms. Peña is a 62 year old female presented from Dr. Thao, Nephrology office for MARINA. On 06/2017 patients GFR was >60 and on todays presentation gfr is 17. Reviewing medical records her kidney function has gradually declined. Patient reports proper fluid intake, but also reports past weekend she became altered and was given 2L normal saline which improved her mental status. She denies use of NSAIDS or being started on new medications. 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 She denies N/V/D, rash, sick contacts, dysuria , heamturia. She reports decreased urine production. She denies hx of kidney stones. Past Med Surg Social Fam HX - Past Medical History Medical history: cancer, CVA, DVT, diabetes, GERD, hypertension, myocardial infarction, TIA, other Additional medical history: Nonhogkins Lymphoma Psychiatric history: no psych history - Past Surgical History Surgical History: appendectomy, cholecystectomy, CHRISTINE/BSO Additional surgical history: R SHOULDER - Social History Smoking Status: Never smoker Smokeless Tobacco Status: No Alcohol use: none Drug use: none - Family History Father Adopted: Yes Family Member Ethnicity: Non- Living Status: Hx Family Cancer: Yes (Mesothelioma) Brother Adopted: Yes Family Member Ethnicity: Non- Living Status: Still Living Hx Family Cancer: Yes (Stomach, Colon) Hx Family Autoimmune Disorders: Yes (Factor V Leiden) Mother Adopted: Yes Family Member Ethnicity: Non- Living Status: Hx Family Cardiac Disorders: Yes (OR, CAD, HTN) Sister Family Member Ethnicity: Non- Living Status: Still Living Internal Medicine - H&P: Meds Cetirizine HCl [Zyrtec] 10 mg PO DAILY 05/08/15 [History] Albuterol Sulfate [Albuterol Inhaler] 2 puff IH Q4HR PRN 01/13/16 [History] Fluticasone Propionate Nasal [Flonase] 50 mcg NS DAILY 01/13/16 [History] Gabapentin [Neurontin] 800 mg PO BID 06/13/16 [History] Lidocaine/Prilocaine CREAM [Emla] 1 appl TP AD PRN 06/13/16 [History] Topiramate [Topamax] 50 mg PO BID 06/13/16 [History] Insulin ASPART [Novolog Flexpen] 0 - 14 unit SQ TIDAC 06/27/16 [History] Atorvastatin [Lipitor] 40 mg PO HS 09/05/16 [History] Clopidogrel [Plavix] 75 mg PO DAILY 09/05/16 [History] Docusate [Colace] 100 mg PO BID PRN 10/06/16 [History] Insulin Glargine,Hum.rec.anlog [Basaglar Kwikpen U-100] 55 unit SQ HS 11/24/16 [ History] LORazepam [Ativan] 0.5 mg PO DAILY PRN 02/10/17 [History] Alogliptin Benzoate [Alogliptin] 25 mg PO DAILY 02/11/17 [History] Furosemide [Lasix] 40 mg PO DAILY 02/11/17 [History] Polyethylene Glycol 3350 [MiraLAX] 17 gm PO DAILY PRN 02/11/17 [History] amLODIPine [Norvasc] 5 mg PO DAILY 02/11/17 [History] hydroCHLOROthiazide [Hydrochlorothiazide] 25 mg PO DAILY tablet 02/16/17 [Rx] Glimepiride [Amaryl] 4 mg PO QAM 06/05/17 [History] Ipratropium/Albuterol Neb [Duoneb] 3 ml IH Q4H PRN 06/05/17 [History] Lisinopril [Zestril] 40 mg PO DAILY 06/05/17 [History] Oxybutynin Chloride [Ditropan Xl] 10 mg PO HS 06/05/17 [History] Pantoprazole Sodium 20 mg PO DAILY 06/05/17 [History] Potassium Chloride [K-Tab ER] 20 meq PO DAILY 06/05/17 [History] Promethazine Syrup [Phenergan Syrup] 12.5 mg PO Q4H PRN 06/05/17 [History] Cholecalciferol (D-3) [Vitamin D] 2,000 unit PO DAILY 06/19/17 [History] HYDROcodone/Acet 5/325 mg [[place] 5-325 mg] 1 tab PO Q4H PRN 06/19/17 [History] Famotidine [Pepcid] 20 mg PO DAILY 09/07/17 [History] Aspirin Enteric Coated [Aspirin EC] 2 tab PO DAILY 10/02/17 [History] Methyl Salicylate/Menthol [Bengay] 1 appl TP QID PRN 10/02/17 [History] Meclizine HCl [Verticalm] 25 mg PO Q8H PRN 12/05/17 [History] 3 Allergy/AdvReac Type Severity Reaction Status Date / Time diphenhydramine AdvReac See Verified 12/05/17 15:42 [From Benadryl] Comments Oxycodone [From OxyContin] AdvReac Itching Verified 12/05/17 15:42 All Systems PM: A 10-system review of systems was performed and is negative for pertinent findings except as documented above in the HPI. Review of systems: Constitutional: Denies fever, chills HEENT: Denies headache, trauma, blurry vision, eye discharge, ear pain, ear discharge neck pain, sore throat, rhinorrhea Heart: Denies chest pain palpitations, reports LE edema Lungs: Denies shortness of breath cough Abdomen: Denies abdominal pain nausea vomiting diarrhea MSK: Denies back pain, falls, joint pain Kidney: Denies dysuria, hematuria Skin: Denies rash, ulcers Neuro: Reports numbness and tingling in the lower extremity bilaterally Psych: denies axniety, depression - Constitutional Vitals: Temp Pulse Resp BP Pulse Ox 97.6 F 81 18 122/72 100 12/05/17 19:59 12/05/17 19:59 12/05/17 19:59 12/05/17 19:59 12/05/17 19:59 Exam: General: pleasant, without distress HEENT: Head atraumatic, normocephalic, EOMI, PERRL, absent ear discharge or trauma, Moist Mucous Membranes, uvula midline. oral candidiasis Neck: nontender to palpation, absent lymphadenopathy, Cardiovascualr: Regular rate and rhythm with no murmur, absent gallops or rubs, 1+ pedal edema bilaterally, radial pulses 2 out of 4 Lungs: Clear to auscultation bilaterally, not in respiratory distress Abdomen: Soft nontender, nondistended positive bowel sounds, absent hepatomegaly Skin: Erythema/irritation below bilateral breasts, absent open wounds and nodules MSK: absent clubbing, cyanosis, joints without swelling Neuro: Cranial nerves II through XII intact, UE and LE sensation equal bilaterally, UE and LEstrength 5/5, alert oriented 3, Psych: good insight and judgment, Internal Med - H&P Results - Labs CBC & Chem 7: 12/05/17 16:40 12/05/17 16:40 - Assessment and plan (1) Acute kidney failure Current Visit: Yes Status: Acute Assessment and plan: patient presents from nephrology office after being found to be in acute kidney injury on CK D Patient had GFR greater than 60 and June 2017 and since her kidney function has gradually declined Her presenting GFR today 17 Urinalysis negative for proteinuria or hematuria was no indication of infection Patient is on Lasix and lisinopril She denies use of NSAIDs FE urea is 11.5% Likely this is prerenal in etiology We will start patient on IV fluids, obtain uric acid, repeat BMP tomorrow, nephrology on board, strict I/O, renal ultrasound. Qualifiers: Acute renal failure type: unspecified Qualified Code(s): N17.9 - Acute kidney failure, unspecified (2) Diabetes mellitus Current Visit: Yes Status: Chronic Assessment and plan: hx of DM2 inslulin dependent Last hemoglobin A1c is 6.3 start weight based insulin SSI cadiac ada renal diet Qualifiers: Diabetes mellitus type: type 2 Diabetes mellitus retirement insulin use: with retirement use Diabetes mellitus complication status: with neurologic complications Diabetes mellitus complication detail: with polyneuropathy Qualified Code(s): E11.42 - Type 2 diabetes mellitus with diabetic polyneuropathy; 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 of insulin (3) GERD (gastroesophageal reflux disease) Current Visit: Yes Status: Chronic Assessment and plan: continue pepcid Qualifiers: Esophagitis presence: without esophagitis Qualified Code(s): K21.9 - Gastro -esophageal reflux disease without esophagitis (4) History of CVA (cerebrovascular accident) Current Visit: Yes Status: Chronic Assessment and plan: hx of CVA neuro exam non-focal and non-lateralizng Continue home Plavix and aspirin and statin (5) HTN (hypertension) Current Visit: Yes Status: Chronic Assessment and plan: Patient has history of hypertension She is on amlodipine and lisinopril We will hold lisinopril secondary to MARINA Continue amlodipine. Qualifiers: Hypertension type: essential hypertension Qualified Code(s): I10 - Essential (primary) hypertension - Time Spent With Patient Total time spent is greater than 50% in coordination of care (as documented) at patient's floor/unit and/or counseling patient: <Ramos Baird - Last Filed: 12/05/17 21:34> Date of Encounter: 12/05/17 Internal Medicine - H&P: HPI History of present illness: Ms. Peña is a 62 year old female All Systems PM: A 10-system review of systems was performed and is negative for pertinent findings except as documented above in the HPI. - Constitutional Vitals: Temp Pulse Resp BP Pulse Ox 97.6 F 81 18 122/72 100 12/05/17 19:59 12/05/17 19:59 12/05/17 19:59 12/05/17 19:59 12/05/17 19:59 Internal Med - H&P Results - Labs CBC & Chem 7: 12/05/17 16:40 12/05/17 16:40 - Time Spent With Patient Total time spent is greater than 50% in coordination of care (as documented) at patient's floor/unit and/or counseling patient: - Attending Attestation I examined this patient and my medical decision-making was reviewed with the Resident Physician. I agree with the documented findings, disposition and treatment plan as described except to the extent set forth below.
[2017-12-05] MEDS ORDERED: D5% in Water 1,000 ML IVC PRN (20:40)
[2017-12-05] MEDS ORDERED: Dextrose Gel 15 GM/37.5 ML TUBE PO PRN ×2 (20:40)
[2017-12-05] MEDS ORDERED: *HR* Dextrose 50 % in Water (Syg) 50 ML SYRINGE IVP PRN (20:40)
[2017-12-05] MEDS: *HR* Heparin 5,000 UNIT/ML VIAL SQ SCH (21:20)
[2017-12-05] MEDS: 0.9 % Sodium Chloride 1,000 ML IVC SCH (21:20)
[2017-12-05] MEDS: Nystatin SUSP 5 ML UD.LIQ PO SCH (21:21)
[2017-12-05] MEDS: Topiramate 25 MG TABLET PO SCH (21:21)
[2017-12-05] MEDS: Insulin LISPRO 300 UNITS/3 ML VIAL SQ SCH (21:21)
[2017-12-05] MEDS: Insulin DETEMIR 100 UNIT/ML X5UNITS SQ SCH (21:36)
[2017-12-06] MEDS: *HR* Heparin 5,000 UNIT/ML VIAL SQ SCH ×3 (06:11→20:28)
[2017-12-06 06:58] LABS: Calcium 7.7 mg/dL (8.6-10.3); Magnesium 1.9 mg/dL (1.6-2.6); Potassium 3.5 mEq/L (3.5-5.1); Uric Acid 12.6 mg/dL (2.3-7.6)
[2017-12-06] MEDS: Insulin LISPRO 300 UNITS/3 ML VIAL SQ SCH ×9 (07:54→20:30)
[2017-12-06] MEDS: Aspirin Enteric Coated 81 MG Tablet PO SCH (08:09)
[2017-12-06] MEDS: Loratadine 10 MG TABLET PO SCH (08:09)
[2017-12-06] MEDS: 0.9 % Sodium Chloride 1,000 ML IVC SCH (08:10)
[2017-12-06] MEDS ORDERED: (Alogliptin Benzoate [Alogliptin] 25 MG) PO SCH (09:00)
[2017-12-06] MEDS: amLODIPine 5 MG TABLET PO SCH (09:20)
[2017-12-06] MEDS: Nystatin SUSP 5 ML UD.LIQ PO SCH ×5 (09:20→20:32)
[2017-12-06] MEDS: Topiramate 25 MG TABLET PO SCH ×2 (09:20→20:29)
[2017-12-06] MEDS: Famotidine 20 MG TABLET PO SCH (09:23)
[2017-12-06 12:06] LABS: Rheumatoid Factor < 10 IU/mL (Less than 14); Uric Acid 13.7 mg/dL (2.3-7.6)
[2017-12-06 12:54] LABS: Hepatitis A Antibody IgM Nonreactive (Nonreactive); Hepatitis B Core IgM Nonreactive (Nonreactive); Hepatitis B Surface Antigen Nonreactive (Nonreactive); Hepatitis C Virus Antibody Nonreactive (Nonreactive)
[2017-12-06 13:16] LABS: Protein/Creatinine Ratio,Urine 0.07 mg/mg (0.00-0.20)
--- NOTE | 2017-12-06 13:40 | Internal Med Progress Note ---
<CarterNelly bentleybh - Last Filed: 12/06/17 18:16> Hospitalist Progress Note - Encounter Date of Encounter: 12/06/17 Time of Encounter: 10:40 - Subjective Interval History: Ms. Peña is a 62-year-old female with a past medical history of CVA, DVT, diabetes , GERD, hypertension, non-Hodgkin's lymphoma who was admitted to the floor because of worsening GFR. Patient was referred to Dr. Thao by her PCP, when the lab results showed a GFR had declined from > 60 to 11. She has no established diagnosis of CKD, never seen a international account manager, but given her history of hypertension and diabetes, it is likely that she has been having this progressively decline in her kidney function for a while. She endorses that her blood pressure is well-controlled lisinopril and amlodipine. However, there are days when she gets morbidly hypotensive and does not take her antihypertensives. Reviewing her home medications and does not appear to me that the patient is taking drugs like NSAIDs which could potentially be nephrotoxic. She denies any history of dysuria, hematuria or presence of any kidney stones. She is currently being aggressively fluid resuscitated at 100 mls/hr. Her creatinine was 2.7 on admission, currently 1.89. She also had a FE urea of 11.5 with concerns for prerenal disease. - Exam Vitals: Temp Pulse Resp BP Pulse Ox 98.1 F 70 15 111/75 100 12/06/17 11:26 12/06/17 11:26 12/06/17 11:26 12/06/17 11:26 12/06/17 11:26 Exam: General: pleasant, without distress HEENT: Head atraumatic, normocephalic, EOMI, PERRL, absent ear discharge or trauma, Moist Mucous Membranes, uvula midline. oral candidiasis Neck: nontender to palpation, absent lymphadenopathy, Cardiovascualr: Regular rate and rhythm with no murmur, absent gallops or rubs, 1+ pedal edema bilaterally, radial pulses 2 out of 4 Lungs: Clear to auscultation bilaterally, not in respiratory distress Abdomen: Soft nontender, nondistended positive bowel sounds, absent hepatomegaly Skin: Erythema/irritation below bilateral breasts, absent open wounds and nodules MSK: absent clubbing, cyanosis, joints without swelling Neuro: Cranial nerves II through XII intact, UE and LE sensation equal bilaterally, UE and LEstrength 5/5, alert oriented 3, Psych: good insight and judgment, - Assessment and Plan (1) MARINA (acute kidney injury) Current Visit: Yes Status: Acute Assessment and Plan: -likely due topre-renal azotemia - Patient's creatinine on admission was 2.79, 1.89 -Gentle hydration, renally dosed medications (2) Chronic kidney disease Current Visit: Yes Status: Acute Assessment and Plan: -Likely due to her history of hypertension, and diabetes. Patient is currently not on any medications that could spuriously elevated the serum creatinine level. -She has had a decline in her kidney function with a GFR from 60-11 in the last 4 months. Her creatinine was 2.79 on admission , currently 1.89, Uric Acid elevated at 13.7 - Continue gentle hydration, avoid nephrotoxins and renally dose medications. Nephrology following. (3) Diabetes Current Visit: No Status: Chronic Assessment and Plan: -Patient with history of diabetes, her last hemoglobin A1c was 6.3 -He takes Novolog and glargine as her home medications. -Currently on SSI. Holding off on her home meds. -Continuos Accu-Cheks. Target glucose 130- 180. (4) HTN (hypertension) Current Visit: Yes Status: Chronic Assessment and Plan: -Patient has a history of hypertension. -She takes lisinopril and amlodipine at home. -Lisinopril second due to MARINA on CAD. (5) GERD (gastroesophageal reflux disease) Current Visit: Yes Status: Chronic Assessment and Plan: - Patient has a history of GERD. -Currently on famotidine. DVT Prophylaxis: Subcutaneous heparin - Time Spent with Patient Total time spent is greater than 50% in coordination of care (as documented) at patient's floor/unit and/or counseling patient: Internal Medicine: Result - Labs CBC & Chem 7: 12/05/17 16:40 12/06/17 04:40 Labs: BMP 12/06/17 04:40 Sodium 136 Potassium 3.5 Chloride 108 H Carbon Dioxide 23 BUN 65 H Creatinine 1.89 H Glucose 59 L Calcium 7.7 L - Impressions Impressions Retroperitoneum Ultrasound 12/05/17 20:18 IMPRESSION: Unremarkable ultrasound of the kidneys. Postvoid residual. D/ / Reilly Nicolas MD / Reilly Nicolas MD Interpreting Provider: Reilly Nicolas MD Consult Discharge Plan - Plan Referrals: Crow Gonzalez, DISTRICT SCOUT EXECUTIVE [Primary Care Provider] - <Ric Nash - Last Filed: 12/06/17 18:40> Hospitalist Progress Note - Encounter Date of Encounter: 12/06/17 - Exam Vitals: Temp Pulse Resp BP Pulse Ox 98.0 F 71 18 107/96 99 12/06/17 15:46 12/06/17 15:46 12/06/17 15:46 12/06/17 15:46 12/06/17 15:46 - Assessment and Plan (1) GERD (gastroesophageal reflux disease) Current Visit: Yes Status: Chronic (2) HTN (hypertension) Current Visit: Yes Status: Chronic (3) History of CVA (cerebrovascular accident) Current Visit: Yes Status: Chronic (4) Diabetes mellitus Current Visit: Yes Status: Chronic (5) Acute kidney failure Current Visit: Yes Status: Suspected (6) Chronic kidney disease Current Visit: Yes Status: Chronic (7) Morbid obesity with BMI of 50.0-59.9, adult Current Visit: No Status: Chronic - Time Spent with Patient Total time spent is greater than 50% in coordination of care (as documented) at patient's floor/unit and/or counseling patient: Internal Medicine: Result - Labs CBC & Chem 7: 12/05/17 16:40 12/06/17 04:40 Labs: BMP 12/06/17 04:40 Sodium 136 Potassium 3.5 Chloride 108 H Carbon Dioxide 23 BUN 65 H Creatinine 1.89 H Glucose 59 L Calcium 7.7 L - Impressions Impressions Retroperitoneum Ultrasound 12/05/17 20:18 IMPRESSION: Unremarkable ultrasound of the kidneys. Postvoid residual. D/ / Reilly Nicolas MD / Reilly Nicolas MD Interpreting Provider: Reilly Nicolas MD - Attending Attestation I examined this patient and my medical decision-making was reviewed with the Resident Physician on 12/06/17. I agree with the documented findings, disposition and treatment plan as described except to the extent set forth below. Ms Peña is currently in observation for acute renal failure on CKD. She remains moderate to high risk due to potential for worsening clinical status. Ms Peña is doing OK. Her renal function has improved overnight. No fever or chills. No nausea or vomiting currently. Diuretics on hold. Exam Alert. Comfortable Mucus membranes dry Heart distant and not tachy No wheeze abd soft I/P 1. MARINA most likely ATN prerenal 2. CKD Further diagnoses and plan as above. <Fahad Carter - Last Filed: 12/06/17 18:16> (3) Diabetes Qualifiers: Diabetes mellitus type: type 2 Diabetes mellitus skilled nursing insulin use: with lobsterman use Diabetes mellitus complication status: without complication Qualified Code(s): E11.9 - Type 2 diabetes mellitus without complications; Z79.4 - intermediate card tender (current) use of insulin (4) HTN (hypertension) Qualifiers: Hypertension type: essential hypertension Qualified Code(s): I10 - Essential (primary) hypertension (5) GERD (gastroesophageal reflux disease) Qualifiers: Esophagitis presence: without esophagitis Qualified Code(s): K21.9 - Gastro- esophageal reflux disease without esophagitis <Ric Nash - Last Filed: 12/06/17 18:40> (1) GERD (gastroesophageal reflux disease) Qualifiers: Esophagitis presence: without esophagitis Qualified Code(s): K21.9 - Gastro- esophageal reflux disease without esophagitis (2) HTN (hypertension) Qualifiers: Hypertension type: essential hypertension Qualified Code(s): I10 - Essential (primary) hypertension (4) Diabetes mellitus Qualifiers: Diabetes mellitus type: type 2 Diabetes mellitus lobsterman insulin use: with skilled nursing use Diabetes mellitus complication status: with neurologic complications Diabetes mellitus complication detail: with polyneuropathy Qualified Code(s): E11.42 - Type 2 diabetes mellitus with diabetic polyneuropathy; Z79.4 - intermediate card tender (current) use of insulin (5) Acute kidney failure Qualifiers: Acute renal failure type: with acute tubular necrosis Qualified Code(s): N17.0 - Acute kidney failure with tubular necrosis (6) Chronic kidney disease Qualifiers: Chronic kidney disease stage: stage 3 (moderate) Qualified Code(s): N18.3 - Chronic kidney disease, stage 3 (moderate)
--- NOTE | 2017-12-06 13:45 | Nephrology Consult Note ---
Date of Encounter: 12/06/17 Time of Encounter: 13:36 Assessment and Plan (1) MARINA (acute kidney injury) Current Visit: Yes Status: Acute Initial GFR was 11, is now 27. Avoid nephrotoxins and renal dose all medications. Strict I/O. Serum/urine studies ordered. (2) GERD (gastroesophageal reflux disease) Current Visit: Yes Status: Chronic Per primary. Qualifiers: Esophagitis presence: without esophagitis Qualified Code(s): K21.9 - Gastro -esophageal reflux disease without esophagitis (3) HTN (hypertension) Current Visit: Yes Status: Chronic Stable, 111/75. Qualifiers: Hypertension type: essential hypertension Qualified Code(s): I10 - Essential (primary) hypertension History of Present Illness - Reason for Consult Consult date: 12/06/17 Chronic Kidney Disease - Chief Complaint worsening renal function - History of Present Illness Mrs. Peña is a 62 year old female recently seen by Dr. Thao for worsening renal function. She does has CKD 2/3 and it is managed by her PCP. She was just referred to Dr. Thao yesterday with a GFR of 11. The GFR before was 41. Other PMH: CVA, DVT, diabetes, GERD, hypertension, myocardial infarction, TIA and Non- Hodgkins Lymphoma. She was given IVF overnight and GFR improved to 27. She does admit to feeling fatigued more than usual. Denies chest pain, shortness of breath, nausea/vomiting/diarrhea. She has never seen a pilot can router and does not chronically take NSAIDs. Home medication list reviewed. MARINA and CKD workup initiated. Retropeitoneal US negative. Continue to avoid nephrotoxins and renal dose all medications. Strict I/O. Past Med Surg Social Fam HX - Past Medical History Medical history: cancer, CVA, DVT, diabetes, GERD, hypertension, myocardial infarction, TIA, other Additional medical history: Nonhogkins Lymphoma Psychiatric history: no psych history - Past Surgical History Surgical History: appendectomy, cholecystectomy, CHRISTINE/BSO Additional surgical history: R SHOULDER - Social History Smoking Status: Never smoker Smokeless Tobacco Status: No Alcohol use: none Drug use: none - Family History Father Adopted: Yes Family Member Ethnicity: Non- Living Status: Hx Family Cancer: Yes (Mesothelioma) Brother Adopted: Yes Family Member Ethnicity: Non- Living Status: Still Living Hx Family Cancer: Yes (Stomach, Colon) Hx Family Autoimmune Disorders: Yes (Factor V Leiden) Mother Adopted: Yes Family Member Ethnicity: Non- Living Status: Hx Family Cardiac Disorders: Yes (NE, CAD, HTN) Sister Family Member Ethnicity: Non- Living Status: Still Living Medications and Allergies Cetirizine HCl [Zyrtec] 10 mg PO DAILY 05/08/15 [History] Albuterol Sulfate [Albuterol Inhaler] 2 puff IH Q4HR PRN 01/13/16 [History] Fluticasone Propionate Nasal [Flonase] 50 mcg NS DAILY 01/13/16 [History] Gabapentin [Neurontin] 800 mg PO BID 06/13/16 [History] Lidocaine/Prilocaine CREAM [Emla] 1 appl TP AD PRN 06/13/16 [History] Topiramate [Topamax] 50 mg PO BID 06/13/16 [History] Insulin ASPART [Novolog Flexpen] 0 - 14 unit SQ TIDAC 06/27/16 [History] Atorvastatin [Lipitor] 40 mg PO HS 09/05/16 [History] Clopidogrel [Plavix] 75 mg PO DAILY 09/05/16 [History] Docusate [Colace] 100 mg PO BID PRN 10/06/16 [History] Insulin Glargine,Hum.rec.anlog [Basaglar Kwikpen U-100] 55 unit SQ HS 11/24/16 [ History] LORazepam [Ativan] 0.5 mg PO DAILY PRN 02/10/17 [History] Alogliptin Benzoate [Alogliptin] 25 mg PO DAILY 02/11/17 [History] Furosemide [Lasix] 40 mg PO DAILY 02/11/17 [History] Polyethylene Glycol 3350 [MiraLAX] 17 gm PO DAILY PRN 02/11/17 [History] amLODIPine [Norvasc] 5 mg PO DAILY 02/11/17 [History] hydroCHLOROthiazide [Hydrochlorothiazide] 25 mg PO DAILY tablet 02/16/17 [Rx] Glimepiride [Amaryl] 4 mg PO QAM 06/05/17 [History] Ipratropium/Albuterol Neb [Duoneb] 3 ml IH Q4H PRN 06/05/17 [History] Lisinopril [Zestril] 40 mg PO DAILY 06/05/17 [History] Oxybutynin Chloride [Ditropan Xl] 10 mg PO HS 06/05/17 [History] Pantoprazole Sodium 20 mg PO DAILY 06/05/17 [History] Potassium Chloride [K-Tab ER] 20 meq PO DAILY 06/05/17 [History] Promethazine Syrup [Phenergan Syrup] 12.5 mg PO Q4H PRN 06/05/17 [History] Cholecalciferol (D-3) [Vitamin D] 2,000 unit PO DAILY 06/19/17 [History] HYDROcodone/Acet 5/325 mg [[place] 5-325 mg] 1 tab PO Q4H PRN 06/19/17 [History] Famotidine [Pepcid] 20 mg PO DAILY 09/07/17 [History] Aspirin Enteric Coated [Aspirin EC] 2 tab PO DAILY 10/02/17 [History] Methyl Salicylate/Menthol [Bengay] 1 appl TP QID PRN 10/02/17 [History] Meclizine HCl [Verticalm] 25 mg PO Q8H PRN 12/05/17 [History] 3 Allergy/AdvReac Type Severity Reaction Status Date / Time diphenhydramine AdvReac See Verified 12/05/17 15:42 [From Benadryl] Comments Oxycodone [From OxyContin] AdvReac Itching Verified 12/05/17 15:42 Review of Systems Constitutional: fatigue, no chills, no fever(s) Cardiovascular: no chest pain, no dyspnea, no edema, no palpitations Respiratory: no cough, no dyspnea Gastrointestinal: no change in bowel habits, no diarrhea, no nausea, no vomiting Exam - Vital Signs Vital signs: Initial Vital Signs Temp Pulse Resp BP Pulse Ox 98.7 F 83 14 116/60 100 12/05/17 15:37 12/05/17 15:37 12/05/17 15:37 12/05/17 15:37 12/05/17 15:37 Vital Signs - Last 8 Hours Temp Pulse Resp BP Pulse Ox 12/06/17 11:26 98.1 F 70 15 111/75 100 12/06/17 08:16 98 12/06/17 06:44 98.0 F 63 16 105/82 98 Intake and Output 09/12/06/17 12/06/17 23:59 07:59 15:59 Intake Total 475 / 475 1000 / 1000 360 / 360 Balance 475 / 475 1000 / 1000 360 / 360 Intake: IV Fluids 1000 / 1000 0.9 % Sodium Chloride 1,000 ML 1000 / 1000 @ 100 mls/hr IVC .Q10H EMA Rx#: [id number] Oral 475 / 475 360 / 360 Other: Meal Breakfast Percent of Meal Consumed 90% Stool Size Small # Voids 1 # Bowel Movements 1 Weight 110.3 kg 112.945 kg Blood Glucose* 135 120 Patient Weight 12/06/17 23:59 Weight 112.945 kg - General Appearance General appearance: well-developed, well-nourished EENT: ATNC, hearing intact, vision intact Neck: supple Respiratory: clear Cardiology: no edema, normal S1, normal S2 Gastrointestinal: normoactive bowel sounds, no tenderness, no guarding Integumentary: no rash, warm and dry Neurologic: alert and oriented x3 Psychiatric: mood/affect appropriate, cooperative Results - Lab Results 12/05/17 16:40 12/06/17 04:40 Most recent lab results Calcium 7.7 mg/dL (8.6-10.3) L 12/06/17 04:40 Magnesium 1.9 mg/dL (1.6-2.6) 12/06/17 04:40 Urine Creatinine 71 mg/dL 12/06/17 12:36 Urine Sodium 40.2 mEq/L 12/05/17 16:23 Urine Total Protein 5 mg/dL (1-14) 12/06/17 12:36 Consult Discharge Plan - Plan Referrals: Crow Gonzalez, ASSISTANT STORE DIRECTOR [Primary Care Provider] -
--- NOTE | 2017-12-06 17:57 | Electrocardiograph Report ---
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
[2017-12-06] MEDS: *HR* LORazepam 0.5 MG TABLET PO PRN (18:27)
[2017-12-06] MEDS ORDERED: Promethazine Syrup 6.25 MG/5 ML PO PRN (18:30)
[2017-12-06] MEDS: *HR* HYDROcodone/Acet 5/325 mg TABLET PO PRN (18:52)
[2017-12-06] MEDS: Gabapentin 400 MG CAPSULE PO SCH (20:29)
[2017-12-06] MEDS: Insulin DETEMIR 100 UNIT/ML X5UNITS SQ SCH (20:35)
[2017-12-06] MEDS ORDERED: NON-FORMULARY MEDICATION 1 EACH EACH (Insulin Glargine,Hum.Rec.Anlog [Basaglar Kwikpen U-1 SQ SCH (21:00)
[2017-12-07 04:29] LABS: Basophils % 0.5 %; Eosinophils # 0.2 K/mcL (0.0-0.6); Eosinophils % 3.5 %; Hematocrit 29.1 % (35.3-44.9); Hemoglobin 9.8 g/dL (11.5-15.4); Immature Granulocytes % 0.5 % (0-4); Lymphocytes # 0.8 K/mcL (0.6-4.6); Lymphocytes % 12.8 %; Mean Corpuscular HGB Conc 33.7 g/dL (31.6-35.5); Mean Corpuscular Hemoglobin 29.6 pg (28.0-33.3); Mean Corpuscular Volume 87.9 fL (83.0-100.0); Mean Platelet Volume 10.8 fL (9.4-12.4); Monocytes # 0.6 K/mcL (0.0-1.3); Monocytes % 9.7 %; Neutrophils # 4.4 K/mcL (1.6-8.9); Platelet Count 213 K/mcL (140-400); Red Blood Count 3.31 M/mcL (3.82-4.97); Red Cell Distribution Width 11.9 % (11.5-14.5)
[2017-12-07 04:49] LABS: Calcium 9.3 mg/dL (8.6-10.3); Potassium 4.5 mEq/L (3.5-5.1)
[2017-12-07] MEDS: *HR* Heparin 5,000 UNIT/ML VIAL SQ SCH ×3 (06:49→20:53)
[2017-12-07] MEDS: *HR* HYDROcodone/Acet 5/325 mg TABLET PO PRN ×3 (06:51→20:58)
[2017-12-07] MEDS ORDERED: (Alogliptin Benzoate [Alogliptin] 25 MG) PO SCH (09:00)
--- NOTE | 2017-12-07 09:16 | Internal Med Progress Note ---
Hospitalist Progress Note - Encounter Date of Encounter: 12/07/17 - Subjective Interval History: Ms. Peña is a 62-year-old female with a past medical history of CVA, DVT, diabetes , GERD, hypertension, non-Hodgkin's lymphoma who was admitted to the floor because of worsening GFR. Patient was referred to Dr. Thao by her PCP, when the lab results showed a GFR had declined from > 60 to 11. She has no established diagnosis of CKD, never seen a access representative, but given her history of hypertension and diabetes, it is likely that she has been having this progressively decline in her kidney function for a while. She endorses that her blood pressure is well-controlled lisinopril and amlodipine. However, there are days when she gets morbidly hypotensive and does not take her antihypertensives. Reviewing her home medications and does not appear to me that the patient is taking drugs like NSAIDs which could potentially be nephrotoxic. She denies any history of dysuria, hematuria or presence of any kidney stones. She is currently being aggressively fluid resuscitated at 100 mls/hr. Her creatinine was 2.7 on admission, currently 1.89. She also had a FE urea of 11.5 with concerns for prerenal disease. - Exam Vitals: Temp Pulse Resp BP Pulse Ox 98.1 F 81 16 150/89 96 12/07/17 07:17 12/07/17 07:17 12/07/17 07:17 12/07/17 07:17 12/07/17 07:17 - Assessment and Plan (1) MARINA (acute kidney injury) Current Visit: Yes Status: Acute (2) Chronic kidney disease Current Visit: Yes Status: Chronic (3) Diabetes Current Visit: No Status: Chronic (4) HTN (hypertension) Current Visit: Yes Status: Chronic (5) GERD (gastroesophageal reflux disease) Current Visit: Yes Status: Chronic - Time Spent with Patient Total time spent is greater than 50% in coordination of care (as documented) at patient's floor/unit and/or counseling patient: Internal Medicine: Result - Labs CBC & Chem 7: 12/07/17 03:38 12/07/17 03:38 Labs: Short CBC 12/07/17 Range/Units 03:38 WBC 6.0 (4.3-11.1) K/mcL Hgb 9.8 L (11.5-15.4) g/dL Hct 29.1 L (35.3-44.9) % Plt Count 213 (140-400) K/mcL Neutrophils # 4.4 (1.6-8.9) K/mcL BMP 12/07/17 03:38 Sodium 140 Potassium 4.5 D Chloride 108 H Carbon Dioxide 25 BUN 50 H Creatinine 1.26 H Glucose 154 H Calcium 9.3 Consult Discharge Plan - Plan Referrals: Crow Gonzalez, BUMPER OPERATOR [Primary Care Provider] - (2) Chronic kidney disease Qualifiers: Chronic kidney disease stage: stage 3 (moderate) Qualified Code(s): N18.3 - Chronic kidney disease, stage 3 (moderate) (3) Diabetes Qualifiers: Diabetes mellitus type: type 2 Diabetes mellitus long-term insulin use: with long term care pharmacist use Diabetes mellitus complication status: without complication Qualified Code(s): E11.9 - Type 2 diabetes mellitus without complications; Z79.4 - longterm (current) use of insulin (4) HTN (hypertension) Qualifiers: Hypertension type: essential hypertension Qualified Code(s): I10 - Essential (primary) hypertension (5) GERD (gastroesophageal reflux disease) Qualifiers: Esophagitis presence: without esophagitis Qualified Code(s): K21.9 - Gastro- esophageal reflux disease without esophagitis
--- NOTE | 2017-12-07 09:20 | Discharge Summary ---
<Fahad Carter - Last Filed: 12/07/17 17:46> Orders not resulted at time of discharge: Pending orders 12/06/17 11:31 FELICE IgG LARRY rflx IFA Routine Complement Component 3 Routine Complement Component [address] Lambda Qnt FLC w Ratio Routine MPO/PR3 (ANCA) Antibodies Routine Protein Electrophoresis Routine 12/06/17 12:36 Immunofixation,Urine (BJP) Routine Date of Encounter: 12/07/17 Time of Encounter: 10:00 - Discharge Diagnosis (1) MARINA (acute kidney injury) Priority: Secondary Status: Acute (2) Chronic kidney disease Priority: Primary Status: Chronic Qualifiers: Chronic kidney disease stage: stage 3 (moderate) Qualified Code(s): N18.3 - Chronic kidney disease, stage 3 (moderate) (3) Diabetes Priority: Primary Status: Chronic Qualifiers: Diabetes mellitus type: type 2 Diabetes mellitus ferry terminal agent insulin use: with fdc use Diabetes mellitus complication status: without complication Qualified Code(s): E11.9 - Type 2 diabetes mellitus without complications; Z79.4 - roasterman (current) use of insulin (4) HTN (hypertension) Status: Chronic Qualifiers: Hypertension type: essential hypertension Qualified Code(s): I10 - Essential (primary) hypertension (5) GERD (gastroesophageal reflux disease) Status: Chronic Qualifiers: Esophagitis presence: without esophagitis Qualified Code(s): K21.9 - Gastro -esophageal reflux disease without esophagitis Hospital course: Ms. Peña is a 62 year old female with a past medical history of CVA, DVT, diabetes , GERD, hypertension, non-Hodgkin's lymphoma who was admitted to the floor because of worsening GFR. Patient was referred to Dr. Thao by her PCP, when the lab results showed a GFR had declined from > 60 to 11. She has no established diagnosis of CKD, never seen a housing inspector, but given her history of hypertension and diabetes, it is likely that she has been having this progressively decline in her kidney function for a while. She endorses that her blood pressure is well-controlled lisinopril and amlodipine. However, there are days when she gets morbidly hypotensive and does not take her antihypertensives. Reviewing her home medications and does not appear to me that the patient is taking drugs like NSAIDs which could potentially be nephrotoxic. She denies any history of dysuria, hematuria or presence of any kidney stones. During the course of her hospital stay, she was aggressively fluid resuscitated at 100 mls/hr. Within a matter of a day and a half her serum creatinine went down from 2.79 on admission to 1.26. Patient has been deemed fit for discharge. Patient has been instructed to hold off on her lisinopril. She also has been instructed not to take Lasix and hydrochlorothiazide for at least 10 days. Patient has been instructed to follow-up with her housing inspector in 4 weeks from now and get a BNP and a week from now - Time Spent with Patient Total time spent providing and/or coordinating discharge services: - Discharge Medications Prescriptions: amLODIPine [Norvasc] 5 mg PO DAILY #30 tablet Home Medications: Cetirizine HCl [Zyrtec] 10 mg PO DAILY 05/08/15 [History] Albuterol Sulfate [Albuterol Inhaler] 2 puff IH Q4HR PRN 01/13/16 [History] Fluticasone Propionate Nasal [Flonase] 50 mcg NS DAILY 01/13/16 [History] Gabapentin [Neurontin] 800 mg PO BID 06/13/16 [History] Lidocaine/Prilocaine CREAM [Emla] 1 appl TP AD PRN 06/13/16 [History] Topiramate [Topamax] 50 mg PO BID 06/13/16 [History] Insulin ASPART [Novolog Flexpen] 0 - 14 unit SQ TIDAC 06/27/16 [History] Atorvastatin [Lipitor] 40 mg PO HS 09/05/16 [History] Clopidogrel [Plavix] 75 mg PO DAILY 09/05/16 [History] Docusate [Colace] 100 mg PO BID PRN 10/06/16 [History] Insulin Glargine,Hum.rec.anlog [Basaglar Kwikpen U-100] 55 unit SQ HS 11/24/16 [ History] LORazepam [Ativan] 0.5 mg PO DAILY PRN 02/10/17 [History] Alogliptin Benzoate [Alogliptin] 25 mg PO DAILY 02/11/17 [History] Furosemide [Lasix] 40 mg PO DAILY 02/11/17 [History] Polyethylene Glycol 3350 [MiraLAX] 17 gm PO DAILY PRN 02/11/17 [History] amLODIPine [Norvasc] 5 mg PO DAILY 02/11/17 [History] hydroCHLOROthiazide [Hydrochlorothiazide] 25 mg PO DAILY tablet 02/16/17 [Rx] Glimepiride [Amaryl] 4 mg PO QAM 06/05/17 [History] Ipratropium/Albuterol Neb [Duoneb] 3 ml IH Q4H PRN 06/05/17 [History] Lisinopril [Zestril] 40 mg PO DAILY 06/05/17 [History] Oxybutynin Chloride [Ditropan Xl] 10 mg PO HS 06/05/17 [History] Pantoprazole Sodium 20 mg PO DAILY 06/05/17 [History] Potassium Chloride [K-Tab ER] 20 meq PO DAILY 06/05/17 [History] Promethazine Syrup [Phenergan Syrup] 12.5 mg PO Q4H PRN 06/05/17 [History] Cholecalciferol (D-3) [Vitamin D] 2,000 unit PO DAILY 06/19/17 [History] HYDROcodone/Acet 5/325 mg [[place] 5-325 mg] 1 tab PO Q4H PRN 06/19/17 [History] Famotidine [Pepcid] 20 mg PO DAILY 09/07/17 [History] Aspirin Enteric Coated [Aspirin EC] 2 tab PO DAILY 10/02/17 [History] Methyl Salicylate/Menthol [Bengay] 1 appl TP QID PRN 10/02/17 [History] Meclizine HCl [Verticalm] 25 mg PO Q8H PRN 12/05/17 [History] amLODIPine [Norvasc] 5 mg PO DAILY #30 tablet 12/07/17 [Rx] Allergies/Adverse Reactions: 3 Allergy/AdvReac Type Severity Reaction Status Date / Time diphenhydramine AdvReac See Verified 12/05/17 15:42 [From Benadryl] Comments Oxycodone [From OxyContin] AdvReac Itching Verified 12/05/17 15:42 Date of admission: 12/05/17 18:56 Primary care physician: Crow Gonzalez CNP Consults: 12/05/17 20:09 Consult to Top Lift Cutter [CONS] Routine Reason for SW Consult: [facility] 12/06/17 15:37 Consult to Occupational Therapy [CONS] Routine Comment: Evaluate, develop and implement POC Reason for Consult: ECF return Does patient have active BEDREST order?: No Is patient medically & hemodynamically stable?: Yes Patient assessed for mobility or mobilized this visit?: Yes Consult to Physical Therapy [CONS] Routine Comment: Evaluate, develop and implement POC Reason for Consult: ECF placement/return Does patient have active BEDREST order?: No Is patient medically & hemodynamically stable?: Yes Patient assessed for mobility or mobilized this visit?: Yes - Constitutional Vitals: Temp Pulse Resp BP Pulse Ox 98.1 F 81 16 150/89 96 12/07/17 07:17 12/07/17 07:17 12/07/17 07:17 12/07/17 07:17 12/07/17 07:17 Exam: General: pleasant, without distress HEENT: Head atraumatic, normocephalic, EOMI, PERRL, absent ear discharge or trauma, Moist Mucous Membranes, uvula midline. oral candidiasis Neck: nontender to palpation, absent lymphadenopathy, Cardiovascualr: Regular rate and rhythm with no murmur, absent gallops or rubs, 1+ pedal edema bilaterally, radial pulses 2 out of 4 Lungs: Clear to auscultation bilaterally, not in respiratory distress Abdomen: Soft nontender, nondistended positive bowel sounds, absent hepatomegaly Skin: Erythema/irritation below bilateral breasts, absent open wounds and nodules MSK: absent clubbing, cyanosis, joints without swelling Neuro: Cranial nerves II through XII intact, UE and LE sensation equal bilaterally, UE and LEstrength 5/5, alert oriented 3, Psych: good insight and judgment, - Patient Status Disposition: Transfer SNF Condition: Fair Functional capacity at discharge: independent ambulation Overall status at discharge: patient is progressing back to baseline - Discharge Instructions Follow Up With: Crow Gonzalez, MOBILE ELECTRONICS INSTALLER [Primary Care Provider] - Additional Instructions: - stop taking lisinopril for BP control. take Norvasc 5mg by mouth daily. - stop lasix and HCTZ for 10 days - Get BMP in 7 days - f/u with Dr. Thao in 4 weeks - Diet and Activity Activity: resume usual activities as tolerated Diet: diabetic diet, low salt diet <Ric Nash - Last Filed: 12/07/17 18:35> Orders not resulted at time of discharge: Pending orders 12/06/17 11:31 FELICE IgG LARRY rflx IFA Routine Complement Component 3 Routine Complement Component [address] Lambda Qnt FLC w Ratio Routine MPO/PR3 (ANCA) Antibodies Routine Protein Electrophoresis Routine 12/06/17 12:36 Immunofixation,Urine (BJP) Routine Date of Encounter: 12/07/17 - Discharge Diagnosis (1) GERD (gastroesophageal reflux disease) Priority: Secondary Status: Chronic Qualifiers: Esophagitis presence: without esophagitis Qualified Code(s): K21.9 - Gastro -esophageal reflux disease without esophagitis (2) HTN (hypertension) Priority: Secondary Status: Chronic Qualifiers: Hypertension type: essential hypertension Qualified Code(s): I10 - Essential (primary) hypertension (3) History of CVA (cerebrovascular accident) Priority: Secondary Status: Chronic (4) Diabetes mellitus Priority: Secondary Status: Chronic Qualifiers: Diabetes mellitus type: type 2 Diabetes mellitus ferry terminal agent insulin use: with fdc use Diabetes mellitus complication status: with neurologic complications Diabetes mellitus complication detail: with polyneuropathy Qualified Code(s): E11.42 - Type 2 diabetes mellitus with diabetic polyneuropathy; Z79.4 - roasterman (current) use of insulin (5) Acute kidney failure Priority: Primary Status: Suspected Qualifiers: Acute renal failure type: with acute tubular necrosis Qualified Code(s): N17.0 - Acute kidney failure with tubular necrosis (6) Chronic kidney disease Priority: Secondary Status: Chronic Qualifiers: Chronic kidney disease stage: stage 3 (moderate) Qualified Code(s): N18.3 - Chronic kidney disease, stage 3 (moderate) (7) Morbid obesity with BMI of 50.0-59.9, adult Priority: Secondary Status: Chronic Hospital course: Ms. Peña is a 62 year old female - Time Spent with Patient Total time spent providing and/or coordinating discharge services: 37min Date of admission: 12/05/17 18:56 Primary care physician: Crow Gonzalez CNP Consults: 12/05/17 20:09 Consult to Top Lift Cutter [CONS] Routine Reason for SW Consult: [facility] [place] [facility] 12/06/17 15:37 Consult to Occupational Therapy [CONS] Routine Comment: Evaluate, develop and implement POC Reason for Consult: ECF return Does patient have active BEDREST order?: No Is patient medically & hemodynamically stable?: Yes Patient assessed for mobility or mobilized this visit?: Yes Consult to Physical Therapy [CONS] Routine Comment: Evaluate, develop and implement POC Reason for Consult: ECF placement/return Does patient have active BEDREST order?: No Is patient medically & hemodynamically stable?: Yes Patient assessed for mobility or mobilized this visit?: Yes - Constitutional Vitals: Temp Pulse Resp BP Pulse Ox 98.1 F 82 16 141/85 96 12/07/17 15:50 12/07/17 15:50 12/07/17 15:50 12/07/17 15:50 12/07/17 15:50 - Attending Attestation I examined this patient and my medical decision-making was reviewed with the Resident Physician on 12/07/17. I agree with the documented findings, disposition and treatment plan as described except to the extent set forth below. Ms Peña has been admitted for acute renal failure. She has improved to nearly normal. She feels well at this time. She is afebrile and ready to return to ECF. Exam alert Comfortable at rest Mucus membranes dry Heart distant Lungs clear Abd soft Plan D/C to ECF Further diagnoses and plan as above
[2017-12-07] MEDS: Aspirin Enteric Coated 81 MG Tablet PO SCH (10:03)
[2017-12-07] MEDS: Topiramate 25 MG TABLET PO SCH ×2 (10:03→20:52)
[2017-12-07] MEDS: Famotidine 20 MG TABLET PO SCH (10:03)
[2017-12-07] MEDS: *HR* LORazepam 0.5 MG TABLET PO PRN (10:03)
[2017-12-07] MEDS: amLODIPine 5 MG TABLET PO SCH (10:03)
[2017-12-07] MEDS: Loratadine 10 MG TABLET PO SCH (10:03)
[2017-12-07] MEDS: Gabapentin 400 MG CAPSULE PO SCH ×2 (10:03→20:52)
[2017-12-07] MEDS: Nystatin SUSP 5 ML UD.LIQ PO SCH ×4 (10:04→20:52)
[2017-12-07] MEDS: Insulin LISPRO 300 UNITS/3 ML VIAL SQ SCH ×7 (10:04→20:16)
--- NOTE | 2017-12-07 10:27 | Nephrology Progress Note ---
Date of Encounter: 12/07/17 Time of Encounter: 10:43 - Assessment and Plan (1) MARINA (acute kidney injury) Current Visit: Yes Status: Acute Recommendations for home: D/C Lisinopril Hold Lasix and HCTZ for 10 days and then restart at home. Start Norvasc 5 mg PO daily. BMP in 7 days and F/U with Dr. Thao in 4 weeks. Encourage adequate PO intake at home. (2) GERD (gastroesophageal reflux disease) Current Visit: Yes Status: Chronic Per primary. Qualifiers: Esophagitis presence: without esophagitis Qualified Code(s): K21.9 - Gastro -esophageal reflux disease without esophagitis (3) HTN (hypertension) Current Visit: Yes Status: Chronic See above. Qualifiers: Hypertension type: essential hypertension Qualified Code(s): I10 - Essential (primary) hypertension Subjective Principal diagnosis: worsening renal function Interval history: Pt seen and examined, doing well. Is ready to return to ECF. Objective - Vital Signs Vital signs: Vital Signs Temp Pulse Resp BP Pulse Ox 12/07/17 07:17 98.1 F 81 16 150/89 96 12/07/17 05:07 97.9 F 91 17 145/88 95 12/06/17 18:38 98.6 F 80 15 101/71 96 12/06/17 15:46 98.0 F 71 18 107/96 99 12/06/17 11:26 98.1 F 70 15 111/75 100 Intake and Output 12/06/17 12/07/17 12/07/17 23:59 07:59 15:59 Intake Total 1600 / 1600 Output Total 1750 / 1750 400 / 400 Balance -150 / -150 -400 / -400 Intake: IV Fluids 1000 / 1000 0.9 % Sodium Chloride 1,000 ML 1000 / 1000 @ 100 mls/hr IVC .Q10H EMA Rx#: [id number] Oral 600 / 600 Output: Urine 1250 / 1250 400 / 400 Stool 500 / 500 Other: Meal snack gold fish Percent of Meal Consumed 100% Stool Size Large Small Stool Consistency liquid soft Stool Color Brown Brown # Voids 1 # Bowel Movements 1 1 Blood Glucose* 128 170 - General Appearance General appearance: Present: well-developed, well-nourished, obese EENT: Present: ATNC, hearing intact, vision intact Neck: Present: supple Respiratory: Present: clear Cardiology: Present: no edema, normal S1, normal S2 Gastrointestinal: Present: normoactive bowel sounds, no tenderness, no guarding Integumentary: Present: no rash, warm and dry Neurologic: Present: alert and oriented x3 Psychiatric: Present: mood/affect appropriate, cooperative - Lab 12/07/17 03:38 12/07/17 03:38 Most recent lab results Calcium 9.3 mg/dL (8.6-10.3) 12/07/17 03:38 Magnesium 2.0 mg/dL (1.6-2.6) 12/07/17 03:38 Urine Creatinine 71 mg/dL 12/06/17 12:36 Urine Sodium 40.2 mEq/L 12/05/17 16:23 Urine Total Protein 5 mg/dL (1-14) 12/06/17 12:36 Consult Discharge Plan - Plan Referrals: Crow Gonzalez, PRODUCT COORDINATOR [Primary Care Provider] -
--- NOTE | 2017-12-07 10:48 | Physician Discharge Referral ---
ExtendedCare Referral Info Transfer To: [facility] - Diagnosis (1) MARINA (acute kidney injury) Priority: Primary Status: Acute (2) Chronic kidney disease Priority: Secondary Status: Chronic (3) Diabetes Priority: Secondary Status: Chronic (4) HTN (hypertension) Priority: Secondary Status: Chronic (5) GERD (gastroesophageal reflux disease) Priority: Secondary Status: Chronic - Transfer Medications Prescriptions: amLODIPine [Norvasc] 5 mg PO DAILY #30 tablet Home Medications: Cetirizine HCl [Zyrtec] 10 mg PO DAILY 05/08/15 [History] Albuterol Sulfate [Albuterol Inhaler] 2 puff IH Q4HR PRN 01/13/16 [History] Fluticasone Propionate Nasal [Flonase] 50 mcg NS DAILY 01/13/16 [History] Gabapentin [Neurontin] 800 mg PO BID 06/13/16 [History] Lidocaine/Prilocaine CREAM [Emla] 1 appl TP AD PRN 06/13/16 [History] Topiramate [Topamax] 50 mg PO BID 06/13/16 [History] Insulin ASPART [Novolog Flexpen] 0 - 14 unit SQ TIDAC 06/27/16 [History] Atorvastatin [Lipitor] 40 mg PO HS 09/05/16 [History] Clopidogrel [Plavix] 75 mg PO DAILY 09/05/16 [History] Docusate [Colace] 100 mg PO BID PRN 10/06/16 [History] Insulin Glargine,Hum.rec.anlog [Basaglar Kwikpen U-100] 55 unit SQ HS 11/24/16 [ History] LORazepam [Ativan] 0.5 mg PO DAILY PRN 02/10/17 [History] Alogliptin Benzoate [Alogliptin] 25 mg PO DAILY 02/11/17 [History] Furosemide [Lasix] 40 mg PO DAILY 02/11/17 [History] Polyethylene Glycol 3350 [MiraLAX] 17 gm PO DAILY PRN 02/11/17 [History] amLODIPine [Norvasc] 5 mg PO DAILY 02/11/17 [History] hydroCHLOROthiazide [Hydrochlorothiazide] 25 mg PO DAILY tablet 02/16/17 [Rx] Glimepiride [Amaryl] 4 mg PO QAM 06/05/17 [History] Ipratropium/Albuterol Neb [Duoneb] 3 ml IH Q4H PRN 06/05/17 [History] Lisinopril [Zestril] 40 mg PO DAILY 06/05/17 [History] Oxybutynin Chloride [Ditropan Xl] 10 mg PO HS 06/05/17 [History] Pantoprazole Sodium 20 mg PO DAILY 06/05/17 [History] Potassium Chloride [K-Tab ER] 20 meq PO DAILY 06/05/17 [History] Promethazine Syrup [Phenergan Syrup] 12.5 mg PO Q4H PRN 06/05/17 [History] Cholecalciferol (D-3) [Vitamin D] 2,000 unit PO DAILY 06/19/17 [History] HYDROcodone/Acet 5/325 mg [[place] 5-325 mg] 1 tab PO Q4H PRN 06/19/17 [History] Famotidine [Pepcid] 20 mg PO DAILY 09/07/17 [History] Aspirin Enteric Coated [Aspirin EC] 2 tab PO DAILY 10/02/17 [History] Methyl Salicylate/Menthol [Bengay] 1 appl TP QID PRN 10/02/17 [History] Meclizine HCl [Verticalm] 25 mg PO Q8H PRN 12/05/17 [History] amLODIPine [Norvasc] 5 mg PO DAILY #30 tablet 12/07/17 [Rx] Allergies/Adverse Reactions: 3 Allergy/AdvReac Type Severity Reaction Status Date / Time diphenhydramine AdvReac See Verified 12/05/17 15:42 [From Benadryl] Comments Oxycodone [From OxyContin] AdvReac Itching Verified 12/05/17 15:42 - Respiratory Orders Smoking Cessation: Smoking cessation has been advised. For more information, call the [place] Tobacco Quit Line at 2-079-JTMP-NOW. - Advance Directives Code Status: DNR-Comfort Care - Rehabiliation Orders Rehab Orders: Evaluation for Physical Therapy - Diet Orders Regular CERTIFICATION: I certify that the transfer of the above named patient to an Extended Care Facility is necessary for the continuing treatment of the diagnosis listed. The above information is true and accurate reflection of patient's current condition. Confidential - Redisclosure prohibited without a patient's written consent.
[2017-12-07] MEDS: Fluticasone Propionate Nasal 50 MCG/SPRAY BOTTLE NS SCH (12:25)
[2017-12-07] MEDS: Insulin DETEMIR 100 UNIT/ML X5UNITS SQ SCH (22:10)
[2017-12-08 06:09] LABS: Basophils % 0.4 %; Eosinophils # 0.2 K/mcL (0.0-0.6); Eosinophils % 2.3 %; Hematocrit 28.8 % (35.3-44.9); Hemoglobin 9.9 g/dL (11.5-15.4); Immature Granulocytes % 0.6 % (0-4); Lymphocytes # 0.7 K/mcL (0.6-4.6); Lymphocytes % 10.7 %; Mean Corpuscular HGB Conc 34.4 g/dL (31.6-35.5); Mean Corpuscular Hemoglobin 29.8 pg (28.0-33.3); Mean Corpuscular Volume 86.7 fL (83.0-100.0); Mean Platelet Volume 10.3 fL (9.4-12.4); Monocytes # 0.6 K/mcL (0.0-1.3); Monocytes % 8.7 %; Neutrophils # 5.3 K/mcL (1.6-8.9); Platelet Count 231 K/mcL (140-400); Red Blood Count 3.32 M/mcL (3.82-4.97); Red Cell Distribution Width 12.1 % (11.5-14.5); Segmented Neutrophils % 77.3 %
[2017-12-08 06:43] LABS: BUN/Creatinine Ratio 36 (6-26); Blood Urea Nitrogen 35 mg/dL (8-23); Carbon Dioxide 23 mEq/L (23-29); Chloride 109 mEq/L (98-107); Glucose 140 mg/dL (70-105); Osmolality,Calculated 298 (280-300); Sodium 139 mEq/L (136-145); eGFR For Non-African Americans 58 (> 60)
[2017-12-08] MEDS: *HR* Heparin 5,000 UNIT/ML VIAL SQ SCH ×3 (06:43→22:09)
[2017-12-08] MEDS: Insulin LISPRO 300 UNITS/3 ML VIAL SQ SCH ×7 (08:13→22:06)
[2017-12-08] MEDS: Nystatin SUSP 5 ML UD.LIQ PO SCH ×4 (10:57→22:08)
[2017-12-08] MEDS: Gabapentin 400 MG CAPSULE PO SCH ×2 (10:59→22:08)
[2017-12-08] MEDS: amLODIPine 5 MG TABLET PO SCH (10:59)
[2017-12-08] MEDS: Famotidine 20 MG TABLET PO SCH (10:59)
[2017-12-08] MEDS: Loratadine 10 MG TABLET PO SCH (10:59)
[2017-12-08] MEDS: Topiramate 25 MG TABLET PO SCH ×2 (10:59→22:08)
[2017-12-08] MEDS: *HR* HYDROcodone/Acet 5/325 mg TABLET PO PRN ×3 (10:59→22:08)
[2017-12-08] MEDS: Aspirin Enteric Coated 81 MG Tablet PO SCH (10:59)
[2017-12-08] MEDS: Fluticasone Propionate Nasal 50 MCG/SPRAY BOTTLE NS SCH (11:02)
--- NOTE | 2017-12-08 11:47 | Internal Med Progress Note ---
<Ric Nash - Last Filed: 12/08/17 13:36> Hospitalist Progress Note - Encounter Date of Encounter: 12/08/17 - Exam Vitals: Temp Pulse Resp BP Pulse Ox 97.8 F 108 16 153/86 96 12/08/17 11:54 12/08/17 11:54 12/08/17 11:54 12/08/17 11:54 12/08/17 11:54 - Assessment and Plan (1) Acute kidney failure Current Visit: Yes Status: Resolved (2) GERD (gastroesophageal reflux disease) Current Visit: Yes Status: Chronic (3) HTN (hypertension) Current Visit: Yes Status: Chronic (4) History of CVA (cerebrovascular accident) Current Visit: Yes Status: Chronic (5) Diabetes mellitus Current Visit: Yes Status: Chronic (6) Chronic kidney disease Current Visit: Yes Status: Chronic (7) Morbid obesity with BMI of 50.0-59.9, adult Current Visit: No Status: Chronic - Time Spent with Patient Total time spent is greater than 50% in coordination of care (as documented) at patient's floor/unit and/or counseling patient: Internal Medicine: Result - Labs CBC & Chem 7: 12/08/17 05:01 12/08/17 05:01 Labs: Short CBC 12/08/17 Range/Units 05:01 WBC 6.8 (4.3-11.1) K/mcL Hgb 9.9 L (11.5-15.4) g/dL Hct 28.8 L (35.3-44.9) % Plt Count 231 (140-400) K/mcL Neutrophils # 5.3 (1.6-8.9) K/mcL BMP 12/08/17 05:01 Sodium 139 Potassium 4.0 Chloride 109 H Carbon Dioxide 23 BUN 35 H Creatinine 0.98 Glucose 140 H Calcium 9.0 Consult Discharge Plan - Plan Additional Instructions: - stop taking lisinopril for BP control. take Norvasc 5mg by mouth daily. - stop lasix and HCTZ for 10 days - Get BMP in 7 days - f/u with Dr. Thao in 4 weeks Referrals: Crow Gonzalez CNP [Primary Care Provider] - 12/14/17 9:30 am (Please follow up as schedule...) Orlando Thao MD [Partnered Physician] - (Office will call patient for an appt.) Prescriptions: amLODIPine [Norvasc] 5 mg PO DAILY #30 tablet - Attending Attestation I examined this patient and my medical decision-making was reviewed with the Resident Physician on 12/08/17. I agree with the documented findings, disposition and treatment plan as described except to the extent set forth below. Ms Peña is currently admitted for acute renal failure presumed to be ATN. She has improved and is awaiting precert to return to SNF. She remains low to moderate risk. Ms Peña is up in room. She feels OK. No CP at this time. Exam alert Comfortable Mucus membranes dry Heart not tachy No wheeze I/P 1. Acute renal failure - presumed ATN. Resolved. Awaiting precert to SNF. <Fahad Carter - Last Filed: 12/08/17 16:50> Hospitalist Progress Note - Encounter Date of Encounter: 12/08/17 Time of Encounter: 10:00 - Subjective Interval History: No acute events overnight. Patient is currently awaiting a precertification to go to the SNF. Her creatinine is trending down with 0.98 as of today. Patient' s home blood pressure lisinopril has been discontinued and currently she is on 5 mg amlodipine for blood pressure control. As per nephrology's recommendations , patient should hold off her Lasix and her hydrocholorothiazide for the next 10 days and a BMP in a week for now. She endorses no acute distress or any systemic signs like fever, shortness of breath, chest pain. - Exam Vitals: Temp Pulse Resp BP Pulse Ox 98.1 F 84 16 128/87 96 12/08/17 07:48 12/08/17 07:48 12/08/17 07:48 12/08/17 07:48 12/08/17 07:48 Exam: General: pleasant, without distress HEENT: Head atraumatic, normocephalic, EOMI, PERRL, absent ear discharge or trauma, Moist Mucous Membranes, uvula midline. oral candidiasis Neck: nontender to palpation, absent lymphadenopathy, Cardiovascualr: Regular rate and rhythm with no murmur, absent gallops or rubs, 1+ pedal edema bilaterally, radial pulses 2 out of 4 Lungs: Clear to auscultation bilaterally, not in respiratory distress Abdomen: Soft nontender, nondistended positive bowel sounds, absent hepatomegaly Skin: Erythema/irritation below bilateral breasts, absent open wounds and nodules MSK: absent clubbing, cyanosis, joints without swelling Neuro: Cranial nerves II through XII intact, UE and LE sensation equal bilaterally, UE and LEstrength 5/5, alert oriented 3, Psych: good insight and judgment, - Assessment and Plan (1) MARINA (acute kidney injury) Current Visit: Yes Status: Acute Assessment and Plan: - Currently resolved. Likely due to her history of diabetes, hypertension. -D/C lisinopril. BMP in 7 days and follow-up with Dr. Thao 4 weeks. - adequate hydration, avoid nephrotoxic agents. (2) Chronic kidney disease Current Visit: Yes Status: Chronic Assessment and Plan: -Likely due to her history of hypertension, and diabetes. Patient is currently not on any medications that could spuriously elevated the serum creatinine level. -GFR has been currently improving > 60. She has had a decline in her kidney function with a GFR from 60-11 in the last 4 months. Her creatinine was 2.79 on admission , currently 1.89, Uric Acid elevated at 13.7 - Continue gentle hydration, avoid nephrotoxins and renally dose medications. . (3) Diabetes Current Visit: No Status: Chronic Assessment and Plan: -Patient with history of diabetes, her last hemoglobin A1c was 6.3 -He takes Novolog and glargine as her home medications. -Currently on SSI. Holding off on her home meds. -Continuos Accu-Cheks. Target glucose 130- 180. (4) HTN (hypertension) Current Visit: Yes Status: Chronic Assessment and Plan: -Patient has a history of hypertension. -Her lisinopril has been discontinued due to her recent MARINA, and she is currently on amlodipine. (5) GERD (gastroesophageal reflux disease) Current Visit: Yes Status: Chronic Assessment and Plan: - Patient has a history of GERD. -Currently on her home medicine famotidine. DVT Prophylaxis: Subcutaneous heparin - Time Spent with Patient Total time spent is greater than 50% in coordination of care (as documented) at patient's floor/unit and/or counseling patient: Internal Medicine: Result - Labs CBC & Chem 7: 12/08/17 05:01 12/08/17 05:01 Labs: Short CBC 12/08/17 Range/Units 05:01 WBC 6.8 (4.3-11.1) K/mcL Hgb 9.9 L (11.5-15.4) g/dL Hct 28.8 L (35.3-44.9) % Plt Count 231 (140-400) K/mcL Neutrophils # 5.3 (1.6-8.9) K/mcL BMP 12/08/17 05:01 Sodium 139 Potassium 4.0 Chloride 109 H Carbon Dioxide 23 BUN 35 H Creatinine 0.98 Glucose 140 H Calcium 9.0 <Ric Nash - Last Filed: 12/08/17 13:36> (1) Acute kidney failure Qualifiers: Acute renal failure type: with acute tubular necrosis Qualified Code(s): N17.0 - Acute kidney failure with tubular necrosis (2) GERD (gastroesophageal reflux disease) Qualifiers: Esophagitis presence: without esophagitis Qualified Code(s): K21.9 - Gastro- esophageal reflux disease without esophagitis (3) HTN (hypertension) Qualifiers: Hypertension type: essential hypertension Qualified Code(s): I10 - Essential (primary) hypertension (5) Diabetes mellitus Qualifiers: Diabetes mellitus type: type 2 Diabetes mellitus moth exterminator insulin use: with moth exterminator use Diabetes mellitus complication status: with neurologic complications Diabetes mellitus complication detail: with polyneuropathy Qualified Code(s): E11.42 - Type 2 diabetes mellitus with diabetic polyneuropathy; Z79.4 - [facility] (current) use of insulin (6) Chronic kidney disease Qualifiers: Chronic kidney disease stage: stage 3 (moderate) Qualified Code(s): N18.3 - Chronic kidney disease, stage 3 (moderate) <Fahad Carter - Last Filed: 12/08/17 16:50> (2) Chronic kidney disease Qualifiers: Chronic kidney disease stage: stage 3 (moderate) Qualified Code(s): N18.3 - Chronic kidney disease, stage 3 (moderate) (3) Diabetes Qualifiers: Diabetes mellitus type: type 2 Diabetes mellitus moth exterminator insulin use: with moth exterminator use Diabetes mellitus complication status: without complication Qualified Code(s): E11.9 - Type 2 diabetes mellitus without complications; Z79.4 - [facility] (current) use of insulin (4) HTN (hypertension) Qualifiers: Hypertension type: essential hypertension Qualified Code(s): I10 - Essential (primary) hypertension (5) GERD (gastroesophageal reflux disease) Qualifiers: Esophagitis presence: without esophagitis Qualified Code(s): K21.9 - Gastro- esophageal reflux disease without esophagitis
[2017-12-08] MEDS: *HR* LORazepam 0.5 MG TABLET PO PRN (12:09)
[2017-12-08 13:27] LABS: ANA IgG by ELISA NONE DETECTED (None Detected)
[2017-12-08] MEDS ORDERED: *HR* LORazepam 1 MG TABLET PO ONE (13:50)
[2017-12-08] MEDS: Insulin DETEMIR 100 UNIT/ML X5UNITS SQ SCH (22:09)
[2017-12-09 04:14] LABS: Urine Collection Duration RANDOM hr; Urine Collection Volume RANDOM mL
[2017-12-09 05:08] LABS: Basophils % 0.5 %; Eosinophils # 0.2 K/mcL (0.0-0.6); Eosinophils % 3.5 %; Hematocrit 27.7 % (35.3-44.9); Hemoglobin 9.4 g/dL (11.5-15.4); Immature Granulocytes % 0.7 % (0-4); Lymphocytes # 1.5 K/mcL (0.6-4.6); Lymphocytes % 25.3 %; Mean Corpuscular HGB Conc 33.9 g/dL (31.6-35.5); Mean Corpuscular Hemoglobin 30.6 pg (28.0-33.3); Mean Corpuscular Volume 90.2 fL (83.0-100.0); Mean Platelet Volume 9.6 fL (9.4-12.4); Monocytes # 0.7 K/mcL (0.0-1.3); Neutrophils # 3.4 K/mcL (1.6-8.9); Platelet Count 209 K/mcL (140-400); Red Blood Count 3.07 M/mcL (3.82-4.97); Red Cell Distribution Width 12.1 % (11.5-14.5)
[2017-12-09] MEDS: *HR* Heparin 5,000 UNIT/ML VIAL SQ SCH ×3 (07:31→21:04)
[2017-12-09] MEDS: *HR* HYDROcodone/Acet 5/325 mg TABLET PO PRN ×3 (08:17→17:42)
[2017-12-09] MEDS: Famotidine 20 MG TABLET PO SCH (08:17)
[2017-12-09] MEDS: Nystatin SUSP 5 ML UD.LIQ PO SCH ×4 (08:17→21:03)
[2017-12-09] MEDS: Topiramate 25 MG TABLET PO SCH ×2 (08:17→21:03)
[2017-12-09] MEDS: Gabapentin 400 MG CAPSULE PO SCH ×2 (08:17→21:04)
[2017-12-09] MEDS: amLODIPine 5 MG TABLET PO SCH (08:18)
[2017-12-09] MEDS: Insulin LISPRO 300 UNITS/3 ML VIAL SQ SCH ×6 (08:18→18:34)
[2017-12-09] MEDS: Aspirin Enteric Coated 81 MG Tablet PO SCH (08:18)
[2017-12-09] MEDS: Loratadine 10 MG TABLET PO SCH (08:18)
[2017-12-09] MEDS: Fluticasone Propionate Nasal 50 MCG/SPRAY BOTTLE NS SCH (10:41)
[2017-12-09 10:54] LABS: Complement Component 3 170 mg/dL (88-201); Complement Component 4 56 mg/dL (10-40)
[2017-12-09 11:34] LABS: Myeloperoxidase Ab 0 AU/mL (0-19); Serine Protease-3 Antibody 0 AU/mL (0-19)
[2017-12-09 15:05] LABS: Alpha 2 Globulin (PEP) 1.15 g/dL (0.48-1.05)
--- NOTE | 2017-12-09 15:13 | Internal Med Progress Note ---
Hospitalist Progress Note - Encounter Date of Encounter: 12/09/17 Time of Encounter: 11:50 - Subjective Interval History: Ms Peña is currently admitted for MARINA thought due to ATN. She is awaiting precert to SNF. She remains low to moderate risk at this time. Ms Peña is sitting in chair. She is feeling OK now but had a panic attack yesterday. She is very frustrated with insurance. No fever or chills. Urinating OK. No GI issues. No CP or SOB. - Exam Vitals: Temp Pulse Resp BP Pulse Ox 98.4 F 91 18 141/93 98 12/09/17 14:57 12/09/17 14:57 12/09/17 14:57 12/09/17 14:57 12/09/17 14:57 Exam: General: Alert and oriented. Comfortable at this time. Sitting up in chair. Skin: Normal color, no rash, no lesions. H: Normocephalic. EENT: EOMI, pupils equal. Mucus membranes moist. No lesion. Cardiovascular: Normal S1 & S2, no rubs, murmurs or gallops. No JVD. Pulse regular. Distant heart sounds. Lungs: Normal breath sounds, no wheezes or crackles. Diminished breath sounds. Abdomen: Soft, non-tender, no rigidity. Normal bowel sounds. Extremities: No deformity Neurological: Normal cognition and motor skills. Pulses: Carotid and radial pulses normal +2. Rest of the physical exam is non contributory - Assessment and Plan (1) Acute kidney failure Current Visit: Yes Status: Resolved Assessment and Plan: Has resolved at this time. Tolerating liquids. Recheck labs tomorrow. (2) GERD (gastroesophageal reflux disease) Current Visit: Yes Status: Chronic Assessment and Plan: continue pepcid (3) HTN (hypertension) Current Visit: Yes Status: Chronic Assessment and Plan: Blood pressure has been running high. For home - Norvasc (will increase to 10mg today), Lasix and HCTZ to be restarted on 12/18 (4) History of CVA (cerebrovascular accident) Current Visit: Yes Status: Chronic Assessment and Plan: Continue home Plavix and aspirin and statin (5) Diabetes mellitus Current Visit: Yes Status: Chronic Assessment and Plan: hx of DM2 inslulin dependent Last hemoglobin A1c is 6.3 Insulin and SSI. (6) Chronic kidney disease Current Visit: Yes Status: Chronic Assessment and Plan: Appreciate renal input. To follow with Dr Thao in 4 weeks. (7) Morbid obesity with BMI of 50.0-59.9, adult Current Visit: No Status: Chronic Assessment and Plan: Chronic issue - Time Spent with Patient Total time spent is greater than 50% in coordination of care (as documented) at patient's floor/unit and/or counseling patient: Internal Medicine: Result - Labs CBC & Chem 7: 12/09/17 04:00 12/08/17 05:01 Labs: Short CBC 12/09/17 Range/Units 04:00 WBC 5.9 (4.3-11.1) K/mcL Hgb 9.4 L (11.5-15.4) g/dL Hct 27.7 L (35.3-44.9) % Plt Count 209 (140-400) K/mcL Neutrophils # 3.4 (1.6-8.9) K/mcL Consult Discharge Plan - Plan Additional Instructions: - stop taking lisinopril for BP control. take Norvasc 5mg by mouth daily. - stop lasix and HCTZ for 10 days - Get BMP in 7 days - f/u with Dr. Thao in 4 weeks Referrals: Crow Gonzalez, HEAD MACHINE FEEDER [Primary Care Provider] - 12/14/17 9:30 am (Please follow up as schedule...) Orlando Thao MD [Partnered Physician] - (Office will call patient for an appt.) Prescriptions: amLODIPine [Norvasc] 5 mg PO DAILY #30 tablet (1) Acute kidney failure Qualifiers: Acute renal failure type: with acute tubular necrosis Qualified Code(s): N17.0 - Acute kidney failure with tubular necrosis (2) GERD (gastroesophageal reflux disease) Qualifiers: Esophagitis presence: without esophagitis Qualified Code(s): K21.9 - Gastro- esophageal reflux disease without esophagitis (3) HTN (hypertension) Qualifiers: Hypertension type: essential hypertension Qualified Code(s): I10 - Essential (primary) hypertension (5) Diabetes mellitus Qualifiers: Diabetes mellitus type: type 2 Diabetes mellitus superintendent container terminal insulin use: with superintendent container terminal use Diabetes mellitus complication status: with neurologic complications Diabetes mellitus complication detail: with polyneuropathy Qualified Code(s): E11.42 - Type 2 diabetes mellitus with diabetic polyneuropathy; Z79.4 - [facility] (current) use of insulin (6) Chronic kidney disease Qualifiers: Chronic kidney disease stage: stage 3 (moderate) Qualified Code(s): N18.3 - Chronic kidney disease, stage 3 (moderate)
[2017-12-09] MEDS: Insulin DETEMIR 100 UNIT/ML X5UNITS SQ SCH (21:05)
[2017-12-10 06:13] LABS: Hematocrit 28.1 % (35.3-44.9); Hemoglobin 9.5 g/dL (11.5-15.4); Mean Corpuscular HGB Conc 33.8 g/dL (31.6-35.5); Mean Corpuscular Hemoglobin 29.8 pg (28.0-33.3); Mean Corpuscular Volume 88.1 fL (83.0-100.0); Mean Platelet Volume 10.1 fL (9.4-12.4); Platelet Count 226 K/mcL (140-400); Red Blood Count 3.19 M/mcL (3.82-4.97); Red Cell Distribution Width 12.1 % (11.5-14.5)
[2017-12-10 06:30] LABS: BUN/Creatinine Ratio 22 (6-26); Blood Urea Nitrogen 23 mg/dL (8-23); Calcium 9.4 mg/dL (8.6-10.3); Carbon Dioxide 25 mEq/L (23-29); Chloride 109 mEq/L (98-107); Glucose 103 mg/dL (70-105); Magnesium 1.9 mg/dL (1.6-2.6); Osmolality,Calculated 296 (280-300); Potassium 3.5 mEq/L (3.5-5.1); Sodium 141 mEq/L (136-145); eGFR For Non-African Americans 53 (> 60)
[2017-12-10] MEDS: Insulin LISPRO 300 UNITS/3 ML VIAL SQ SCH ×8 (06:43→21:24)
[2017-12-10] MEDS: *HR* HYDROcodone/Acet 5/325 mg TABLET PO PRN ×4 (06:45→21:25)
[2017-12-10] MEDS: *HR* Heparin 5,000 UNIT/ML VIAL SQ SCH ×3 (06:45→21:23)
[2017-12-10] MEDS: Gabapentin 400 MG CAPSULE PO SCH ×2 (08:18→21:25)
[2017-12-10] MEDS: Famotidine 20 MG TABLET PO SCH (08:18)
[2017-12-10] MEDS: Aspirin Enteric Coated 81 MG Tablet PO SCH (08:18)
[2017-12-10] MEDS: Topiramate 25 MG TABLET PO SCH ×2 (08:18→21:25)
[2017-12-10] MEDS: amLODIPine 5 MG TABLET PO SCH (08:18)
[2017-12-10] MEDS: Loratadine 10 MG TABLET PO SCH (08:19)
[2017-12-10] MEDS: Fluticasone Propionate Nasal 50 MCG/SPRAY BOTTLE NS SCH (08:19)
[2017-12-10] MEDS: Nystatin SUSP 5 ML UD.LIQ PO SCH ×4 (08:19→21:26)
--- NOTE | 2017-12-10 12:00 | Internal Med Progress Note ---
Hospitalist Progress Note - Encounter Date of Encounter: 12/10/17 Time of Encounter: 11:30 - Subjective Interval History: Ms Peña is currently admitted for MARINA thought due to ATN. She is awaiting precert to SNF. She remains low to moderate risk at this time. Ms Peña is washing up. No fever or chills. No new issues overnight. Awaiting precert. - Exam Vitals: Temp Pulse Resp BP Pulse Ox 98.7 F 90 16 115/78 97 12/10/17 04:20 12/10/17 08:21 12/10/17 08:21 12/10/17 08:21 12/10/17 04:20 Exam: General: Alert and oriented. Comfortable at this time. Up in chair bathing. Skin: Normal color, no rash, no lesions. H: Normocephalic. EENT: EOMI, pupils equal. Mucus membranes moist. No lesion. Cardiovascular: Normal S1 & S2, no rubs, murmurs or gallops. No JVD. Pulse regular. Distant heart sounds. Not tachycardic. Lungs: Normal breath sounds, no wheezes or crackles. Diminished breath sounds. Abdomen: Soft, non-tender, no rigidity. Normal bowel sounds. Extremities: No deformity Neurological: Normal cognition and motor skills. Pulses: Carotid and radial pulses normal +2. Rest of the physical exam is non contributory - Assessment and Plan (1) Acute kidney failure Current Visit: Yes Status: Resolved Assessment and Plan: Has resolved at this time. Tolerating diet. Awaiting precert for SNF. (2) GERD (gastroesophageal reflux disease) Current Visit: Yes Status: Chronic Assessment and Plan: continue pepcid (3) HTN (hypertension) Current Visit: Yes Status: Chronic Assessment and Plan: Better controlled today. For home - Norvasc, Lasix and HCTZ to be restarted on 12/18 (4) History of CVA (cerebrovascular accident) Current Visit: Yes Status: Chronic Assessment and Plan: Continue home Plavix and aspirin and statin (5) Diabetes mellitus Current Visit: Yes Status: Chronic Assessment and Plan: hx of DM2 inslulin dependent Last hemoglobin A1c is 6.3 Insulin and SSI. (6) Chronic kidney disease Current Visit: Yes Status: Chronic Assessment and Plan: Appreciate renal input. To follow with Dr Thao in 4 weeks. (7) Morbid obesity with BMI of 50.0-59.9, adult Current Visit: No Status: Chronic Assessment and Plan: Chronic issue - Time Spent with Patient Total time spent is greater than 50% in coordination of care (as documented) at patient's floor/unit and/or counseling patient: Internal Medicine: Result - Labs CBC & Chem 7: 12/10/17 04:18 12/10/17 04:18 Labs: Short CBC 12/10/17 Range/Units 04:18 WBC 7.7 (4.3-11.1) K/mcL Hgb 9.5 L (11.5-15.4) g/dL Hct 28.1 L (35.3-44.9) % Plt Count 226 (140-400) K/mcL BMP 12/10/17 04:18 Sodium 141 Potassium 3.5 Chloride 109 H Carbon Dioxide 25 BUN 23 Creatinine 1.06 Glucose 103 Calcium 9.4 Consult Discharge Plan - Plan Additional Instructions: - stop taking lisinopril for BP control. take Norvasc 5mg by mouth daily. - stop lasix and HCTZ for 10 days - Get BMP in 7 days - f/u with Dr. Thao in 4 weeks Referrals: Crow Gonzalez, HOUSEPERSON [Primary Care Provider] - 12/14/17 9:30 am (Please follow up as schedule...) Orlando Thao MD [Partnered Physician] - (Office will call patient for an appt.) Prescriptions: amLODIPine [Norvasc] 5 mg PO DAILY #30 tablet (1) Acute kidney failure Qualifiers: Acute renal failure type: with acute tubular necrosis Qualified Code(s): N17.0 - Acute kidney failure with tubular necrosis (2) GERD (gastroesophageal reflux disease) Qualifiers: Esophagitis presence: without esophagitis Qualified Code(s): K21.9 - Gastro- esophageal reflux disease without esophagitis (3) HTN (hypertension) Qualifiers: Hypertension type: essential hypertension Qualified Code(s): I10 - Essential (primary) hypertension (5) Diabetes mellitus Qualifiers: Diabetes mellitus type: type 2 Diabetes mellitus long term care social worker insulin use: with long term care social worker use Diabetes mellitus complication status: with neurologic complications Diabetes mellitus complication detail: with polyneuropathy Qualified Code(s): E11.42 - Type 2 diabetes mellitus with diabetic polyneuropathy; Z79.4 - long term care social worker (current) use of insulin (6) Chronic kidney disease Qualifiers: Chronic kidney disease stage: stage 3 (moderate) Qualified Code(s): N18.3 - Chronic kidney disease, stage 3 (moderate)
[2017-12-10] MEDS: Insulin DETEMIR 100 UNIT/ML X5UNITS SQ SCH (21:25)
[2017-12-11] MEDS: *HR* HYDROcodone/Acet 5/325 mg TABLET PO PRN ×4 (03:26→20:22)
[2017-12-11] MEDS: *HR* Heparin 5,000 UNIT/ML VIAL SQ SCH ×3 (05:36→22:12)
[2017-12-11] MEDS: Insulin LISPRO 300 UNITS/3 ML VIAL SQ SCH ×7 (08:35→22:13)
[2017-12-11] MEDS: Gabapentin 400 MG CAPSULE PO SCH ×2 (08:43→20:22)
[2017-12-11] MEDS: Nystatin SUSP 5 ML UD.LIQ PO SCH ×4 (08:43→20:22)
[2017-12-11] MEDS: amLODIPine 5 MG TABLET PO SCH (08:43)
[2017-12-11] MEDS: Topiramate 25 MG TABLET PO SCH ×2 (08:43→20:22)
[2017-12-11] MEDS: Aspirin Enteric Coated 81 MG Tablet PO SCH (08:43)
[2017-12-11] MEDS: Loratadine 10 MG TABLET PO SCH (08:43)
[2017-12-11] MEDS: Fluticasone Propionate Nasal 50 MCG/SPRAY BOTTLE NS SCH (08:44)
[2017-12-11] MEDS: Famotidine 20 MG TABLET PO SCH (08:44)
--- NOTE | 2017-12-11 10:16 | Internal Med Progress Note ---
<Moi Mathias - Last Filed: 12/11/17 18:03> Hospitalist Progress Note - Encounter Date of Encounter: 12/11/17 Time of Encounter: 09:15 - Subjective Interval History: Ms. Peña is a 62F with PMH of CKD, CVA, DVT, diabetes, HTN, and [place]. She was originally admitted on 12/05 for MARINA superimposed on CKD. On presentation her GFR was 17, after previously being >60. Patient seen and examined at bedside. Known no acute complaints. Patient is very anxious to leave the hospital. Denies any chest pain, shortness of breath , abdominal pain, nausea, vomiting, headache, numbness, or tingling. - Exam Vitals: Temp Pulse Resp BP Pulse Ox 98.7 F 86 18 146/85 98 12/11/17 07:21 12/11/17 07:21 12/11/17 07:21 12/11/17 07:21 12/11/17 07:21 Exam: Constitutional: Obese female sitting up in chair. No acute distress Head: Normocephalic, atraumatic Eyes: PERRL, EOMI, conjunctiva pink, sclera anicteric Neck: Supple, trachea midline, no lymphadenopathy Lungs: Clear to auscultation bilaterally. Nonlabored breathing. No wheezes, rales, or rhonchi noted. Cardiac: RRR. No murmurs, clicks, or rubs noted. GI: Abdomen soft, nontender, nondistended. Normoactive bowel sounds Extremities: Warm, radial pulses palpable and symmetrical. No cyanosis, pedal edema, or calf tenderness. Neuro: Alert and oriented 3. No focal deficits. Normal speech. Skin: Warm, dry, and intact. - Assessment and Plan (1) HTN (hypertension) Current Visit: Yes Status: Chronic Assessment and Plan: Controlled today at 129/82 Continue amlopidine, Lasix and HCTZ to be restarted on 12/18 (2) History of CVA (cerebrovascular accident) Current Visit: Yes Status: Chronic Assessment and Plan: Continue home Plavix and aspirin and statin (3) Diabetes mellitus Current Visit: Yes Status: Chronic Assessment and Plan: hx of DM2 inslulin dependent Last hemoglobin A1c was 6.3 on 11/30 Insulin and low-dose SSI. (4) Acute kidney failure Current Visit: Yes Status: Resolved Assessment and Plan: Has resolved at this time. Tolerating diet. Per nephrology: D/C Lisinopril Hold Lasix and HCTZ for 10 days and then restart at home. Norvasc 5 mg PO daily BMP in 7 days and F/U with Dr. Thao in 4 weeks. Encourage adequate hydration Avoid nephrotoxins Renally dose medications (5) Morbid obesity with BMI of 50.0-59.9, adult Current Visit: No Status: Chronic Assessment and Plan: Chronic issue (6) GERD (gastroesophageal reflux disease) Current Visit: Yes Status: Chronic Assessment and Plan: continue pepcid (7) Chronic kidney disease Current Visit: Yes Status: Chronic Assessment and Plan: Appreciate renal input. To follow with Dr Thao in 4 weeks. DVT Prophylaxis: Subcutaneous heparin - Time Spent with Patient Total time spent is greater than 50% in coordination of care (as documented) at patient's floor/unit and/or counseling patient: Internal Medicine: Result - Labs CBC & Chem 7: 12/10/17 04:18 12/10/17 04:18 Consult Discharge Plan - Plan Additional Instructions: - stop taking lisinopril for BP control. take Norvasc 5mg by mouth daily. - stop lasix and HCTZ for 10 days - Get BMP in 7 days - f/u with Dr. Thao in 4 weeks Referrals: Crow Gonzalez CNP [Primary Care Provider] - 12/14/17 9:30 am (Please follow up as schedule...) Orlando Thao MD [Partnered Physician] - (Office will call patient for an appt.) Prescriptions: amLODIPine [Norvasc] 5 mg PO DAILY #30 tablet <Ric Nash - Last Filed: 12/11/17 19:47> Hospitalist Progress Note - Encounter Date of Encounter: 12/11/17 - Exam Vitals: Temp Pulse Resp BP Pulse Ox 98.0 F 89 18 148/84 100 12/11/17 19:21 12/11/17 19:21 12/11/17 19:21 12/11/17 19:21 12/11/17 19:21 - Assessment and Plan (1) GERD (gastroesophageal reflux disease) Current Visit: Yes Status: Chronic (2) HTN (hypertension) Current Visit: Yes Status: Chronic (3) Morbid obesity with BMI of 50.0-59.9, adult Current Visit: No Status: Chronic (4) History of CVA (cerebrovascular accident) Current Visit: Yes Status: Chronic (5) Diabetes mellitus Current Visit: Yes Status: Chronic (6) Acute kidney failure Current Visit: Yes Status: Resolved (7) Chronic kidney disease Current Visit: Yes Status: Chronic - Time Spent with Patient Total time spent is greater than 50% in coordination of care (as documented) at patient's floor/unit and/or counseling patient: Internal Medicine: Result - Labs CBC & Chem 7: 12/10/17 04:18 12/10/17 04:18 - Attending Attestation I examined this patient and my medical decision-making was reviewed with the Resident Physician on 12/11/17. I agree with the documented findings, disposition and treatment plan as described except to the extent set forth below. Ms Peña is currently in observation for MARINA. She is awaiting precert for SNF. She remains low to moderate risk. Ms Peña is doing OK. Denies CP or SOB. No fever or chills. Exam alert Comfortable Mucus membranes dry Heart distant No wheeze I/P 1. MARINA resolved Awaiting precert. <Moi Mathias - Last Filed: 12/11/17 18:03> (1) HTN (hypertension) Qualifiers: Hypertension type: essential hypertension Qualified Code(s): I10 - Essential (primary) hypertension (3) Diabetes mellitus Qualifiers: Diabetes mellitus type: type 2 Diabetes mellitus medical apparatus model maker insulin use: with medical apparatus model maker use Diabetes mellitus complication status: with neurologic complications Diabetes mellitus complication detail: with polyneuropathy Qualified Code(s): E11.42 - Type 2 diabetes mellitus with diabetic polyneuropathy; Z79.4 - [facility] (current) use of insulin (4) Acute kidney failure Qualifiers: Acute renal failure type: with acute tubular necrosis Qualified Code(s): N17.0 - Acute kidney failure with tubular necrosis (6) GERD (gastroesophageal reflux disease) Qualifiers: Esophagitis presence: without esophagitis Qualified Code(s): K21.9 - Gastro- esophageal reflux disease without esophagitis (7) Chronic kidney disease Qualifiers: Chronic kidney disease stage: stage 3 (moderate) Qualified Code(s): N18.3 - Chronic kidney disease, stage 3 (moderate) <Ric Nash - Last Filed: 12/11/17 19:47> (1) GERD (gastroesophageal reflux disease) Qualifiers: Esophagitis presence: without esophagitis Qualified Code(s): K21.9 - Gastro- esophageal reflux disease without esophagitis (2) HTN (hypertension) Qualifiers: Hypertension type: essential hypertension Qualified Code(s): I10 - Essential (primary) hypertension (5) Diabetes mellitus Qualifiers: Diabetes mellitus type: type 2 Diabetes mellitus detention insulin use: with detention use Diabetes mellitus complication status: with neurologic complications Diabetes mellitus complication detail: with polyneuropathy Qualified Code(s): E11.42 - Type 2 diabetes mellitus with diabetic polyneuropathy; Z79.4 - supervisor blast furnace (current) use of insulin (6) Acute kidney failure Qualifiers: Acute renal failure type: with acute tubular necrosis Qualified Code(s): N17.0 - Acute kidney failure with tubular necrosis (7) Chronic kidney disease Qualifiers: Chronic kidney disease stage: stage 3 (moderate) Qualified Code(s): N18.3 - Chronic kidney disease, stage 3 (moderate)
[2017-12-11] MEDS ORDERED: *HR* HYDROcodone/Acet 5/325 mg TABLET PO ONE (15:07)
[2017-12-11 15:19] LABS: IFE Reflexed NOT DONE
[2017-12-11 18:55] LABS: Kappa Qnt Free Light Chains 5.97 mg/dL (0.33-1.94); Lambda Qnt Free Light Chains 3.22 mg/dL (0.57-2.63)
[2017-12-11] MEDS ORDERED: Budesonide Neb 0.5 MG/2 ML IH ONE (19:44)
[2017-12-11] MEDS: Insulin DETEMIR 100 UNIT/ML X5UNITS SQ SCH (22:12)
[2017-12-12] MEDS: *HR* HYDROcodone/Acet 5/325 mg TABLET PO PRN ×5 (00:36→21:22)
[2017-12-12] MEDS: *HR* Heparin 5,000 UNIT/ML VIAL SQ SCH ×3 (04:55→21:24)
[2017-12-12] MEDS: Insulin LISPRO 300 UNITS/3 ML VIAL SQ SCH ×7 (07:47→21:40)
[2017-12-12] MEDS: Topiramate 25 MG TABLET PO SCH ×2 (08:50→21:23)
[2017-12-12] MEDS: Gabapentin 400 MG CAPSULE PO SCH ×2 (08:50→21:23)
[2017-12-12] MEDS: Loratadine 10 MG TABLET PO SCH (08:51)
[2017-12-12] MEDS: Famotidine 20 MG TABLET PO SCH (08:51)
[2017-12-12] MEDS: Nystatin SUSP 5 ML UD.LIQ PO SCH ×4 (08:51→21:24)
[2017-12-12] MEDS: Aspirin Enteric Coated 81 MG Tablet PO SCH (08:51)
[2017-12-12] MEDS: amLODIPine 5 MG TABLET PO SCH (08:51)
[2017-12-12] MEDS: Fluticasone Propionate Nasal 50 MCG/SPRAY BOTTLE NS SCH (08:52)
--- NOTE | 2017-12-12 16:54 | Internal Med Progress Note ---
Hospitalist Progress Note - Encounter Date of Encounter: 12/12/17 Time of Encounter: 10:05 - Subjective Interval History: No overnight events noted. Has no acute complaints. Wants to be discharged as soon as possible. - Exam Vitals: Temp Pulse Resp BP Pulse Ox 97.9 F 88 18 145/85 99 12/12/17 15:32 12/12/17 15:32 12/12/17 15:32 12/12/17 15:32 12/12/17 15:32 Exam: Constitutional: Obese female sitting up in chair, not in distress Lungs: Clear to auscultation bilaterally. Nonlabored breathing. No wheezes, rales, or rhonchi noted. Cardiac: RRR. No murmurs GI: Abdomen soft, nontender, nondistended. Extremities: Warm, No cyanosis, pedal edema, or calf tenderness. Neuro: Alert and oriented 3. No focal deficits. Normal speech. Skin: Warm, dry, and intact. - Assessment and Plan (1) Acute kidney failure Current Visit: Yes Status: Resolved Assessment and Plan: resolved will continue to hold Lisinopril Lasix and HCTZ to be restarted on 12/18 BMP in 7 days and F/U with Dr. Thao in 4 weeks. Avoid nephrotoxins Renally dose medications (2) HTN (hypertension) Current Visit: Yes Status: Chronic Assessment and Plan: Medication changes above Continue amlopidine, Lasix and HCTZ to be restarted on 12/18 (3) History of CVA (cerebrovascular accident) Current Visit: Yes Status: Chronic Assessment and Plan: Continue Plavix, aspirin, and statin (4) Diabetes mellitus Current Visit: Yes Status: Chronic Assessment and Plan: hx of DM2 inslulin dependent Last hemoglobin A1c was 6.3 on 11/30 Continue Levemir 28 units at night, prandial lispro 8 units 3 times a day with meals, and low-dose SSI. (5) GERD (gastroesophageal reflux disease) Current Visit: Yes Status: Chronic Assessment and Plan: continue pepcid (6) Morbid obesity with BMI of 50.0-59.9, adult Current Visit: No Status: Chronic Assessment and Plan: Emphasized importance of weight loss (7) Chronic kidney disease Current Visit: Yes Status: Chronic Assessment and Plan: Appreciate renal input. To follow with Dr Thao in 4 weeks. DVT Prophylaxis: Subcutaneous heparin - Time Spent with Patient Total time spent is greater than 50% in coordination of care (as documented) at patient's floor/unit and/or counseling patient: Plan of Care Discussed with: patient Internal Medicine: Result - Labs CBC & Chem 7: 12/10/17 04:18 12/10/17 04:18 Consult Discharge Plan - Plan Additional Instructions: - stop taking lisinopril for BP control. take Norvasc 5mg by mouth daily. - stop lasix and HCTZ for 10 days - Get BMP in 7 days - f/u with Dr. Thao in 4 weeks Referrals: Crow Gonzalez, PROGRAM ADMINISTRATOR [Primary Care Provider] - 12/14/17 9:30 am (Please follow up as schedule...) Orlando Thao MD [Partnered Physician] - (Office will call patient for an appt.) Prescriptions: amLODIPine [Norvasc] 5 mg PO DAILY #30 tablet HYDROcodone/Acet 5/325 mg [[place] 5-325 mg] 1 tab PO Q4H PRN 3 Days #12 tablet PRN Reason: Pain LORazepam [Ativan] 0.5 mg PO DAILY PRN 5 Days #5 tablet PRN Reason: Anxiety (1) Acute kidney failure Qualifiers: Acute renal failure type: with acute tubular necrosis Qualified Code(s): N17.0 - Acute kidney failure with tubular necrosis (2) HTN (hypertension) Qualifiers: Hypertension type: essential hypertension Qualified Code(s): I10 - Essential (primary) hypertension (4) Diabetes mellitus Qualifiers: Diabetes mellitus type: type 2 Diabetes mellitus correction insulin use: with 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
[2017-12-12] MEDS: *HR* LORazepam 0.5 MG TABLET PO PRN (17:46)
[2017-12-12] MEDS: Insulin DETEMIR 100 UNIT/ML X5UNITS SQ SCH (21:39)
[2017-12-13] MEDS: *HR* HYDROcodone/Acet 5/325 mg TABLET PO PRN ×3 (03:06→12:06)
[2017-12-13] MEDS: *HR* Heparin 5,000 UNIT/ML VIAL SQ SCH (05:46)
[2017-12-13] MEDS: Gabapentin 400 MG CAPSULE PO SCH (07:49)
[2017-12-13] MEDS: Aspirin Enteric Coated 81 MG Tablet PO SCH (07:49)
[2017-12-13] MEDS: Famotidine 20 MG TABLET PO SCH (07:49)
[2017-12-13] MEDS: Loratadine 10 MG TABLET PO SCH (07:49)
[2017-12-13] MEDS: amLODIPine 5 MG TABLET PO SCH (07:49)
[2017-12-13] MEDS: Topiramate 25 MG TABLET PO SCH (07:49)
[2017-12-13] MEDS: Nystatin SUSP 5 ML UD.LIQ PO SCH ×2 (07:50→12:10)
[2017-12-13] MEDS: Fluticasone Propionate Nasal 50 MCG/SPRAY BOTTLE NS SCH (07:50)
[2017-12-13] MEDS: Insulin LISPRO 300 UNITS/3 ML VIAL SQ SCH ×4 (07:50→12:10)
[2017-12-13] MEDS ORDERED: SUMAtriptan succinate 25 MG TABLET PO ONE (09:28)
[2017-12-13 12:02] VITALS: BP 142/76
--- NOTE | 2017-12-13 12:46 | Discharge Summary ---
- NOTES TO OUTPATIENT PROVIDER Notes to Outpatient Provider: Patient was admitted for acute kidney injury in addition to probable stage III chronic kidney disease. Improved with IV fluid and cessation of lisinopril, Lasix, and hydrochlorothiazide. Patient was also evaluated by nephrology while inpatient and was recommended to discontinue lisinopril, and restart Lasix and hydrochlorothiazide from 12/18. In replacement of lisinopril, Norvasc was started and was up titrated to 10 mg daily. She will need BMP in 7 days and follow-up appointment with Dr. Thao in 4 weeks. Date of Encounter: 12/13/17 Time of Encounter: 12:20 - Discharge Diagnosis (1) Acute kidney failure Priority: Primary Status: Resolved Qualifiers: Acute renal failure type: with acute tubular necrosis Qualified Code(s): N17.0 - Acute kidney failure with tubular necrosis (2) HTN (hypertension) Priority: Secondary Status: Chronic Qualifiers: Hypertension type: essential hypertension Qualified Code(s): I10 - Essential (primary) hypertension (3) History of CVA (cerebrovascular accident) Priority: Secondary Status: Chronic (4) Diabetes mellitus Priority: Secondary Status: Chronic Qualifiers: Diabetes mellitus type: type 2 Diabetes mellitus 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 Diabetes mellitus complication status: with neurologic complications Diabetes mellitus complication detail: with polyneuropathy Qualified Code(s): E11.42 - Type 2 diabetes mellitus with diabetic polyneuropathy; Z79.4 - snf (current) use of insulin (5) GERD (gastroesophageal reflux disease) Priority: Secondary Status: Chronic Qualifiers: Esophagitis presence: without esophagitis Qualified Code(s): K21.9 - Gastro -esophageal reflux disease without esophagitis (6) Morbid obesity with BMI of 50.0-59.9, adult Priority: Secondary Status: Chronic (7) Chronic kidney disease Priority: Secondary Status: Chronic Qualifiers: Chronic kidney disease stage: stage 3 (moderate) Qualified Code(s): N18.3 - Chronic kidney disease, stage 3 (moderate) Hospital course: Ms. Peña is a 62 year old female with history of CVA, diabetes, hypertension, presented to the hospital with acute on chronic kidney failure. Improved with IV fluid and cessation of lisinopril, Lasix, and hydrochlorothiazide. Patient was also evaluated by nephrology while inpatient and was recommended to discontinue lisinopril, and restart Lasix and hydrochlorothiazide from 12/18. In replacement of lisinopril, Norvasc was started and was up titrated to 10 mg daily. She will need BMP in 7 days and follow-up appointment with Dr. Thao in 4 weeks. - Time Spent with Patient Total time spent providing and/or coordinating discharge services: - Discharge Medications Prescriptions: amLODIPine [Norvasc] 10 mg PO DAILY #30 tablet HYDROcodone/Acet 5/325 mg [[place] 5-325 mg] 1 tab PO Q4H PRN 3 Days #12 tablet PRN Reason: Pain LORazepam [Ativan] 0.5 mg PO DAILY PRN 5 Days #5 tablet PRN Reason: Anxiety Home Medications: Cetirizine HCl [Zyrtec] 10 mg PO DAILY 05/08/15 [History] Albuterol Sulfate [Albuterol Inhaler] 2 puff IH Q4HR PRN 01/13/16 [History] Fluticasone Propionate Nasal [Flonase] 50 mcg NS DAILY 01/13/16 [History] Gabapentin [Neurontin] 800 mg PO BID 06/13/16 [History] Lidocaine/Prilocaine CREAM [Emla] 1 appl TP AD PRN 06/13/16 [History] Topiramate [Topamax] 50 mg PO BID 06/13/16 [History] Insulin ASPART [Novolog Flexpen] 0 - 14 unit SQ TIDAC 06/27/16 [History] Atorvastatin [Lipitor] 40 mg PO HS 09/05/16 [History] Clopidogrel [Plavix] 75 mg PO DAILY 09/05/16 [History] Docusate [Colace] 100 mg PO BID PRN 10/06/16 [History] Insulin Glargine,Hum.rec.anlog [Basaglar Kwikpen U-100] 55 unit SQ HS 11/24/16 [ History] Alogliptin Benzoate [Alogliptin] 25 mg PO DAILY 02/11/17 [History] Polyethylene Glycol 3350 [MiraLAX] 17 gm PO DAILY PRN 02/11/17 [History] Glimepiride [Amaryl] 4 mg PO QAM 06/05/17 [History] Ipratropium/Albuterol Neb [Duoneb] 3 ml IH Q4H PRN 06/05/17 [History] Oxybutynin Chloride [Ditropan Xl] 10 mg PO HS 06/05/17 [History] Pantoprazole Sodium 20 mg PO DAILY 06/05/17 [History] Potassium Chloride [K-Tab ER] 20 meq PO DAILY 06/05/17 [History] Promethazine Syrup [Phenergan Syrup] 12.5 mg PO Q4H PRN 06/05/17 [History] Cholecalciferol (D-3) [Vitamin D] 2,000 unit PO DAILY 06/19/17 [History] Famotidine [Pepcid] 20 mg PO DAILY 09/07/17 [History] Aspirin Enteric Coated [Aspirin EC] 2 tab PO DAILY 10/02/17 [History] Methyl Salicylate/Menthol [Bengay] 1 appl TP QID PRN 10/02/17 [History] Meclizine HCl [Verticalm] 25 mg PO Q8H PRN 12/05/17 [History] HYDROcodone/Acet 5/325 mg [[place] 5-325 mg] 1 tab PO Q4H PRN 3 Days #12 tablet [Rx] LORazepam [Ativan] 0.5 mg PO DAILY PRN 5 Days #5 tablet 12/12/17 [Rx] amLODIPine [Norvasc] 10 mg PO DAILY #30 tablet 12/13/17 [Rx] Allergies/Adverse Reactions: 3 Allergy/AdvReac Type Severity Reaction Status Date / Time diphenhydramine AdvReac See Verified 12/05/17 15:42 [From Benadryl] Comments Oxycodone [From OxyContin] AdvReac Itching Verified 12/05/17 15:42 Date of admission: 12/05/17 18:56 Primary care physician: Crow Gonzalez CNP Consults: 12/05/17 20:09 Consult to Forest Officer [CONS] Routine Reason for SW Consult: [facility] 12/06/17 15:37 Consult to Occupational Therapy [CONS] Routine Comment: Evaluate, develop and implement POC Reason for Consult: ECF return Does patient have active BEDREST order?: No Is patient medically & hemodynamically stable?: Yes Patient assessed for mobility or mobilized this visit?: Yes Consult to Physical Therapy [CONS] Routine Comment: Evaluate, develop and implement POC Reason for Consult: ECF placement/return Does patient have active BEDREST order?: No Is patient medically & hemodynamically stable?: Yes Patient assessed for mobility or mobilized this visit?: Yes 12/11/17 09:42 Consult to Occupational Therapy [CONS] Routine Comment: Evaluate, develop and implement POC Reason for Consult: PT NEEDS IN DEPTH EVAL OF HER ABILITY TO BE HOME ALONE, NEEDS PRE-CERT FOR ECF Does patient have active BEDREST order?: No Is patient medically & hemodynamically stable?: Yes Consult to Physical Therapy [CONS] Routine Comment: Evaluate, develop and implement POC Reason for Consult: PT NEEDS IN DEPTH EVAL OF HER ABILITY TO BE HOME ALONE, NEEDS PRE-CERT FOR ECF Does patient have active BEDREST order?: No Is patient medically & hemodynamically stable?: Yes - Constitutional Vitals: Temp Pulse Resp BP Pulse Ox 97.6 F 79 16 142/76 99 12/13/17 12:01 12/13/17 12:01 12/13/17 12:01 12/13/17 12:01 12/13/17 12:01 Exam: Constitutional: Obese female sitting up in chair, not in distress Lungs: Clear to auscultation bilaterally. Nonlabored breathing. No wheezes, rales, or rhonchi noted. Cardiac: RRR. No murmurs GI: Abdomen soft, nontender, nondistended. Extremities: Warm, No cyanosis, pedal edema, or calf tenderness. Neuro: Alert and oriented 3. No focal deficits. Normal speech. Skin: Warm, dry, and intact. - Patient Status Disposition: Transfer SNF Condition: Fair - Discharge Instructions Instructions: Diabetes Mellitus Type 2 in Adults (DC), Chronic Hypertension (DC ) Follow Up With: Crow Gonzalez CNP [Primary Care Provider] - 12/14/17 9:30 am (Please follow up as schedule...) Orlando Thao MD [Partnered Physician] - (Office will call patient for an appt.) Additional Instructions: - stop taking lisinopril for BP control. take Norvasc 5mg by mouth daily. - stop lasix and HCTZ for 10 days, restart 12/18 - Get BMP in 7 days - f/u with Dr. Thao in 4 weeks - Diet and Activity Activity: as per physical therapy Diet: diabetic diet
--- NOTE | 2017-12-13 12:53 | Physician Discharge Referral ---
ExtendedCare Referral Info Institutional Level of Care: Skilled - Diagnosis (1) Acute kidney failure Priority: Primary Status: Resolved (2) HTN (hypertension) Priority: Secondary Status: Chronic (3) History of CVA (cerebrovascular accident) Priority: Secondary Status: Chronic (4) Diabetes mellitus Priority: Secondary Status: Chronic (5) GERD (gastroesophageal reflux disease) Priority: Secondary Status: Chronic (6) Morbid obesity with BMI of 50.0-59.9, adult Priority: Secondary Status: Chronic (7) Chronic kidney disease Priority: Secondary Status: Chronic - Transfer Medications Prescriptions: amLODIPine [Norvasc] 10 mg PO DAILY #30 tablet HYDROcodone/Acet 5/325 mg [[place] 5-325 mg] 1 tab PO Q4H PRN 3 Days #12 tablet PRN Reason: Pain LORazepam [Ativan] 0.5 mg PO DAILY PRN 5 Days #5 tablet PRN Reason: Anxiety Home Medications: Cetirizine HCl [Zyrtec] 10 mg PO DAILY 05/08/15 [History] Albuterol Sulfate [Albuterol Inhaler] 2 puff IH Q4HR PRN 01/13/16 [History] Fluticasone Propionate Nasal [Flonase] 50 mcg NS DAILY 01/13/16 [History] Gabapentin [Neurontin] 800 mg PO BID 06/13/16 [History] Lidocaine/Prilocaine CREAM [Emla] 1 appl TP AD PRN 06/13/16 [History] Topiramate [Topamax] 50 mg PO BID 06/13/16 [History] Insulin ASPART [Novolog Flexpen] 0 - 14 unit SQ TIDAC 06/27/16 [History] Atorvastatin [Lipitor] 40 mg PO HS 09/05/16 [History] Clopidogrel [Plavix] 75 mg PO DAILY 09/05/16 [History] Docusate [Colace] 100 mg PO BID PRN 10/06/16 [History] Insulin Glargine,Hum.rec.anlog [Basaglar Kwikpen U-100] 55 unit SQ HS 11/24/16 [ History] Alogliptin Benzoate [Alogliptin] 25 mg PO DAILY 02/11/17 [History] Polyethylene Glycol 3350 [MiraLAX] 17 gm PO DAILY PRN 02/11/17 [History] Glimepiride [Amaryl] 4 mg PO QAM 06/05/17 [History] Ipratropium/Albuterol Neb [Duoneb] 3 ml IH Q4H PRN 06/05/17 [History] Oxybutynin Chloride [Ditropan Xl] 10 mg PO HS 06/05/17 [History] Pantoprazole Sodium 20 mg PO DAILY 06/05/17 [History] Potassium Chloride [K-Tab ER] 20 meq PO DAILY 06/05/17 [History] Promethazine Syrup [Phenergan Syrup] 12.5 mg PO Q4H PRN 06/05/17 [History] Cholecalciferol (D-3) [Vitamin D] 2,000 unit PO DAILY 06/19/17 [History] Famotidine [Pepcid] 20 mg PO DAILY 09/07/17 [History] Aspirin Enteric Coated [Aspirin EC] 2 tab PO DAILY 10/02/17 [History] Methyl Salicylate/Menthol [Bengay] 1 appl TP QID PRN 10/02/17 [History] Meclizine HCl [Verticalm] 25 mg PO Q8H PRN 12/05/17 [History] HYDROcodone/Acet 5/325 mg [[place] 5-325 mg] 1 tab PO Q4H PRN 3 Days #12 tablet [Rx] LORazepam [Ativan] 0.5 mg PO DAILY PRN 5 Days #5 tablet 12/12/17 [Rx] amLODIPine [Norvasc] 10 mg PO DAILY #30 tablet 12/13/17 [Rx] Allergies/Adverse Reactions: 3 Allergy/AdvReac Type Severity Reaction Status Date / Time diphenhydramine AdvReac See Verified 12/05/17 15:42 [From Benadryl] Comments Oxycodone [From OxyContin] AdvReac Itching Verified 12/05/17 15:42 - Respiratory Orders Smoking Cessation: Smoking cessation has been advised. For more information, call the [place] Tobacco Quit Line at 1-414-EIDV-NOW. - Rehabiliation Orders Rehab Orders: Evaluation for Physical Therapy, Evaluation for Occupational Therapy - Diet Orders No Concentrated Sweets CERTIFICATION: I certify that the transfer of the above named patient to an Extended Care Facility is necessary for the continuing treatment of the diagnosis listed. The above information is true and accurate reflection of patient's current condition. Confidential - Redisclosure prohibited without a patient's written consent.
== END 2017-12-13 14:39 ==
LOC: EMEROOARM 15:29 → 2SOUTHHOLD 15:29 → SUATTDRO 18:56 → 2SOUTHHOLD 19:43 → 2ANU 12-07 18:46
PROVIDERS: ADMIT Internal Medicine; ATTEND Internal Medicine